=== PATIENT | female | born 1950 | race Native Hawaiian/Other Pacific Islander ===

== ENCOUNTER → 2020-01-30 14:55 | Outpatient (BNVA) | payer MEDICARE, OTHER, SELFPAY | PROVIDERS: PCP Internal Medicine; Referring Provider Internal Medicine; Visit Provider Hospitalist | DX: J44.9 Chronic obstructive pulmonary disease, unspecified (principal); C34.92 Malignant neoplasm of unspecified part of left bronchus or lung; F17.210 Nicotine dependence, cigarettes, uncomplicated | CPT/HCPCS: 99214 ==

== ENCOUNTER 2020-02-02 12:52 | Day surgery (SDC) | payer MEDICARE, OTHER, SELFPAY ==
[2020-01-26 15:23] VITALS: BMI 13.8
--- NOTE | 2020-01-31 09:11 | P.CONAN_ITS ---
Documented by User: Fatoumata Lovell 01/31/20 14:04 HPI - Anesthesia Eval Consult details Narrative: 69yo F for EGD Complex medical hx. S/P Davinci CRISTIAN wedge resection with lymphnode dissection 11/09/19. PET scan showed some possible uptake in upper stomach. Decreased BMI Stable with cardiology 08/28/2019 [facility] Past Medical History Medical History Angina pectoris Arthritis CAD (coronary artery disease) Cancer of left lung Chronic cough Chronic pancreatitis COPD (chronic obstructive pulmonary disease) Elevated cholesterol GERD (gastroesophageal reflux disease) History of IBS HTN (hypertension) Hx of chronic kidney disease Hx of hiatal hernia Hx of pancreatitis Left upper lobe pulmonary nodule Myocardial infarction Nicotine dependence Pulmonary nodules PVD (peripheral vascular disease) Sarcoidosis Thrombosis of right iliac artery Surgical History Surgical History History of lung biopsy Hx of colonoscopy Hx of esophagogastroduodenoscopy Hx of hysterectomy Hx of tonsillectomy Hx of tubal ligation Social History Social History Smoking Status: Current every day smoker Packs Per Day: 0.20 Cigarettes Per Day: 4.0 Years Smoked: 40 Smoked in Last 30 Days: Yes Patient Interested in Nicotine Replacement: No Patient Given Instructions on How to Stop Smoking: No Date Education Initiated: 01/26/20 Second Hand Smoke Exposure: No Use of substances other than those prescribed or required for medical reasons: No Advance Directives: No Advance Directives Information Provided: No Advance Directives on File: No Meds Allergies Allergy/AdvReac Type Severity Reaction Status Date / Time No Known Allergies Allergy Verified 01/30/20 21:56 Home Medications Medication Instructions Recorded Confirmed Type aspirin [Aspir-81] 81 mg PO DAILY 01/26/20 02/02/20 History calcium carbonate-vitamin D3 1 tab PO DAILY 01/26/20 01/30/20 History [Calcium + D] clopidogrel 1 tab PO DAILY 01/26/20 01/30/20 History docusate sodium 1 cap PO BID 01/26/20 01/30/20 History tunlrmxaoan-qbijscuwc-lcfjwfmx INHALATION 01/26/20 01/30/20 History [Trelegy Ellipta] giapyl-lomjejfj-eeqqmpu [Creon] cap PO 01/26/20 01/30/20 History multivitamin 1 tab PO DAILY 01/26/20 01/30/20 History nitroglycerin 1 tab SUBLINGUAL NEEDED 01/26/20 01/30/20 History rosuvastatin 1 tab PO DAILY 01/26/20 01/30/20 History sennosides [senna] 2 tab PO BEDTIME 01/26/20 01/30/20 History flu vacc [id number](65yr up)-PF 240 IM 01/30/20 01/30/20 History mcg/0.7 mL intramuscular syringe Exam Exam Date and Time: January 31, 2020 0911 Height,Weight and Vital Signs: Height 5 ft 2 in Weight 34.473 kg Pertinent Lab Results Pertinent Lab Results: Laboratory Tests 12/29/19 12/29/19 08:58 08:58 WBC 7.4 Hgb 11.3 L Hct 37.3 Plt Count 235 Sodium 142 Potassium 4.9 Chloride 107 BUN 11 Creatinine 0.98 Narrative Narrative: CXR 11/24/19: [place] suture line seen at the left apex. Hyperexpanded lungs. There may be a trace left apical pneumothorax, no unexpected in the postoperative state. EKG 08/28/19: SR @ 67 with RAD, poor R wave progression Documented by User: Brielle Ken 02/02/20 13:53 [facility] Past Medical History Medical History Angina pectoris Arthritis CAD (coronary artery disease) Cancer of left lung Chronic cough Chronic pancreatitis COPD (chronic obstructive pulmonary disease) Elevated cholesterol GERD (gastroesophageal reflux disease) History of IBS HTN (hypertension) Hx of chronic kidney disease Hx of hiatal hernia Hx of pancreatitis Left upper lobe pulmonary nodule Myocardial infarction Nicotine dependence Pulmonary nodules PVD (peripheral vascular disease) Sarcoidosis Thrombosis of right iliac artery Surgical History Surgical History History of lung biopsy Hx of colonoscopy Hx of esophagogastroduodenoscopy Hx of hysterectomy Hx of tonsillectomy Hx of tubal ligation Social History Social History Smoking Status: Current every day smoker Packs Per Day: 0.20 Cigarettes Per Day: 4.0 Years Smoked: 40 Smoked in Last 30 Days: Yes Patient Interested in Nicotine Replacement: No Patient Given Instructions on How to Stop Smoking: No Date Education Initiated: 01/26/20 Second Hand Smoke Exposure: No Use of substances other than those prescribed or required for medical reasons: No Advance Directives: No Advance Directives Information Provided: No Advance Directives on File: No Meds Allergies Allergy/AdvReac Type Severity Reaction Status Date / Time No Known Allergies Allergy Verified 01/30/20 21:56 Home Medications Medication Instructions Recorded Confirmed Type aspirin [Aspir-81] 81 mg PO DAILY 01/26/20 02/02/20 History calcium carbonate-vitamin D3 1 tab PO DAILY 01/26/20 01/30/20 History [Calcium + D] clopidogrel 1 tab PO DAILY 01/26/20 01/30/20 History docusate sodium 1 cap PO BID 01/26/20 01/30/20 History lxufkhpmwwc-eahnvjiqp-gdcpwwbx INHALATION 01/26/20 01/30/20 History [Trelegy Ellipta] qgwkeu-lylvwyvt-mrfttkz [Creon] cap PO 01/26/20 01/30/20 History multivitamin 1 tab PO DAILY 01/26/20 01/30/20 History nitroglycerin 1 tab SUBLINGUAL NEEDED 01/26/20 01/30/20 History rosuvastatin 1 tab PO DAILY 01/26/20 01/30/20 History sennosides [senna] 2 tab PO BEDTIME 01/26/20 01/30/20 History flu vacc [id number](65yr up)-PF 240 IM 01/30/20 01/30/20 History mcg/0.7 mL intramuscular syringe Exam Airway Mallampati Class: II TM Dist: >3cm Neck ROM: Limited Denture: Upper Assessment and Plan Assessment Anesthesia Assessment: Anesthesia Plan Discussed, Smoking Cess. Discussed and Chart Reviewed Final Anesthetic Review NPO: Yes ASA Class: IV Final Preanesthetic Review: No Changes in Pt Med Stat, Meds/Allgs Chart Reviewed, Consent Obtained/Reviewed and Anes Risks/Benef Reviewed Patient Risk: High Procedure Risk: Low Assessment/Block/Sedation in SS: Assess/Block/Sedation-SS Anesthetic Plan Anesthetic Plan: MAC: Disposition: Standard PACU
[2020-02-02 13:15] VITALS: BP 144/62; PULSE 68; RESP 16; TEMP 36.4; O2SAT 98
[2020-02-02 13:29] VITALS: BMI 13.7
--- NOTE | 2020-02-02 14:29 | MHC.SHP ---
Pre-Procedural Eval Section A The History & Physical has been completed within 30 days and I have reviewed it.: No Section B Chief Complaint: Chronic Pancreatitis Details of Present Illness: Upper abdominal pain, elevated lipase Relevant Family History (Specify if Yes): No Relevant Social History: Tobacco Use Present Medications: see Short Stay [facility] assessment Medical History: Significant History ( CAD. Hx NSTEMI - 04/2000 (Dr. Bueno). HTN - Hypertension. HLD - Hypercholesterolemia. PVD - peripheral vascular disease. Iliac Stenosis . Erythrocytosis - intermittent phlebotomies. COPD - chronic obstructive pulmonary disease. Pulmonary nodule) History of Previous Operations: Relevant previous surgery/procedure and date(s) (Hysterectomy - (both ovaries remain) - 1993 Tubal Ligation Left breast biopsy (sclerosiing adenosis, hyperplasia) - Dr. Rochelle [place] [facility] [place] Cardiac Cath [facility] - 04/2000 Colonoscopy (TA) - Dr. Rochelle Durant - [facility] [place] - 08/16/2003 Colonscopy (TA) - Dr. Rochelle Durant [facility] - 11/03/2004 FNA ) Allergies: Allergies Allergy/AdvReac Type Severity Reaction Status Date / Time No Known Allergies Allergy Verified 01/30/20 21:56 Review of Systems Sugical H&P ROS: Negative: Constitution, Cardiovascular and Respiratory and Yes, Specify: Gastrointestinal (Abdominal pain) Exam Surgical H&P Exam: Normal: Heart, Normal: Lungs, Normal: Extremities and Normal: Abdomen Plan Diagnosis/Plan: Unchanged Patient has been examined and remains a candidate for the planned procedure
--- NOTE | 2020-02-02 14:37 | P.BOP_ITS ---
Brief Operative Note Date of procedure: 02/11/20 Pre-op diagnosis: Upper abdominal pain, elevated lipase Post-op diagnosis: other ( erosive esophagitis, gastritis) Procedure: FLEXIBLE TRANSORAL UPPER GASTROINTESTINAL ENDOSCOPY WITH BIOPSIES Consent: Indications for the procedure and potential complications of bleeding, perforation, reaction to medications and missed diagnosis were discussed with the patient and informed consent was obtained. Instrument: Olympus GIF H 190 mid size upper endoscope Monitoring: Vital signs and clinical assessment, continuous EKG monitoring, Pulse oximetry, Carbon Dioxide monitoring and blood pressure monitoring were done throughout the procedure. Procedure: The patient was placed in the left lateral decubitis position and pre-procedure medications were administered and a bite block was placed. The endoscope was inserted into the mouth and advanced under direct vision to the third part of duodenum. A careful inspection was made as the upper endoscope was withdrawn including a retroflexed examination of the proximal stomach; Findings and interventions are described below. Findings: Larynx: Normal Esophagus: GE junction at 40 cms. Esophagitis with a few 1 cms chronic appearing erosions at the GE junction. A 1.5 to 2 cms island of suspected Courtney's from 36 to 38 cms - biopsied. Stomach: Mild gastric erythema. Biopsies were obtained. Grade 2 flap valve on retroflexed examination of the cardia. Duodenum: Normal bulb and descending duodenum. Biopsies wer obtained from 3rd part of duodenum to check for celiac sprue. Intervention: Biopsies as noted above Impression and Post Procedure Diagnosis: Endoscopy Findings: ESOPHAGUS: GE junction at 40 cms. Esophagitis with a few 1 cms chronic appearing erosions at the GE junction. A 1.5 to 2 cms island of suspected Courtney's from 36 to 38 cms - biopsied. STOMACH: Gastritis DUODENUM: Normal - biopsied to check for celiac sprue. Plan: Await pathology results Patient has an appointment on 05/02/19 in the GI Clinic with KISHA Barrera. Above findings were reviewed with the patient and GERD and Gastritis handouts were given in the discharge area Surgeon: Kristal Gomes MD Anesthesia: MAC (Nell Valverde CRNA) Automated Cutting Machine Operator: Manuelito Frost Estimated blood loss (mL): 0 Pathology: other (A. Small bowel, B. Gastric antrum, C. Distal esophagus) Condition: stable Disposition: PACU
[2020-02-02 15:00] VITALS: BP 116/48; PULSE 64; RESP 16; TEMP 36.9; O2SAT 100
[2020-02-02 15:13] VITALS: BP 106/44; O2SAT 100
[2020-02-02 15:29] VITALS: BP 124/56; PULSE 58; RESP 18; TEMP 36.9; O2SAT 99
== END 2020-02-02 15:56 | disposition home or self-care (01) ==
PROVIDERS: PCP Internal Medicine; Visit Provider Internal Medicine Gastroenterology
PROC: 0DJ08ZZ Inspection of Upper Intestinal Tract, Via Natural or Artificial Opening Endoscopic (ICD-10-PCS; CPT 43235; principal; 2020-02-02 14:20)
DX: K21.00 Gastro-esophageal reflux disease with esophagitis, without bleeding (principal); K21.9 Gastro-esophageal reflux disease without esophagitis; K29.50 Unspecified chronic gastritis without bleeding; I25.119 Atherosclerotic heart disease of native coronary artery with unspecified angina pectoris; I10 Essential (primary) hypertension; J44.9 Chronic obstructive pulmonary disease, unspecified; Z79.899 Other long term (current) drug therapy; F17.210 Nicotine dependence, cigarettes, uncomplicated
CPT/HCPCS: 43239; 88305; 88342

== ENCOUNTER → 2020-03-29 09:57 | Outpatient (BNV) | payer MEDICARE, SELFPAY | PROVIDERS: PCP Internal Medicine; Visit Provider Internal Medicine Medical Oncology | DX: C34.12 Malignant neoplasm of upper lobe, left bronchus or lung (principal); D64.9 Anemia, unspecified | CPT/HCPCS: 99213; 99214 ==

== ENCOUNTER 2020-04-29 09:52 | Outpatient (REF) | payer MEDICARE, OTHER, SELFPAY ==
--- NOTE | 2020-04-29 09:56 | CT_ITS ---
EXAMINATION: CT CHEST WITH CONTRAST CLINICAL INFORMATION: Lung cancer COMPARISON: Previous chest CT scans most recent June 2019 TECHNIQUE: Multidetector volumetric CT imaging of the chest was obtained after the administration of 65 mL of Omnipaque 350 intravenous contrast without immediate adverse reactions. Axial MIP volume rendering provided. Sagittal and coronal reformatted images were obtained. This CT examination was performed using dose optimization techniques as appropriate, variously including the following: *Automated exposure control *Adjustment of mA and/or kV according to patient size (this includes techniques or standardized protocols for targeted exams where dose is matched to indication/reason for exam; i.e. extremities or head) *Use of iterative reconstruction technique DLP: 52 mGy-cm FINDINGS: BARREL WASHER: Severe COPD LUNGS: There are new partial postsurgical changes following partial left upper lobe lobectomy. There is a 0.7 mm groundglass attenuation left upper lobe nodule axial image 57 series 7. This is in different location but probably corresponds to previous groundglass attenuation left upper lobe nodule seen on axial image 215 series 7 on prior exam and difference in location and is likely due to interval postsurgical change. There is right apical pleural and parenchymal scarring. There is evidence of centrilobular emphysema. There may be minimal bronchial wall thickening or bronchial soft tissue opacification in the lingula for example axial image 169 series 7. The lungs are otherwise clear. MEDIASTINUM: There is evidence of atherosclerotic disease and coronary artery calcification. The heart does not appear enlarged. There is no pericardial effusion. The thoracic aorta is normal in caliber. There are are no enlarged hilar or mediastinal lymph nodes. The visualized thyroid gland is unremarkable. PLEURA: There is no pleural effusion. No pleural mass or thickening. AXILLA: No lymphadenopathy. UPPER ABDOMEN: Unremarkable OSSEOUS STRUCTURES: There are degenerative changes of the spine and curvature of the proximal lumbar spine to the right.. CT/CT chest w con IMPRESSION: New postsurgical change to the left upper lobe following partial left upper lobe lobectomy. Stable appearance of the 7 mm groundglass attenuation left upper lobe nodule. Emphysema. Stable right apical pleural parenchymal scarring. Atherosclerotic disease.
[2020-04-29] MEDS: iohexoL 350 MG/ML 100 ML INFUS..BTL 65 ML IV (10:29)
== END 2020-04-29 09:53 | disposition home or self-care (01) ==
LOC: HO.CT 09:52
PROVIDERS: Visit Provider Hospitalist
DX: R91.8 Other nonspecific abnormal finding of lung field (principal)
CPT/HCPCS: 71260; Q9967

== ENCOUNTER → 2020-05-17 09:32 | Outpatient (BNVA) | payer MEDICARE, SELFPAY | PROVIDERS: PCP Internal Medicine; Visit Provider Hospitalist | DX: R91.8 Other nonspecific abnormal finding of lung field (principal); C34.12 Malignant neoplasm of upper lobe, left bronchus or lung; J43.2 Centrilobular emphysema; F17.210 Nicotine dependence, cigarettes, uncomplicated; Z79.899 Other long term (current) drug therapy | CPT/HCPCS: 99212; Q3014 ==

== ENCOUNTER → 2020-05-31 09:30 | Outpatient (BNVA) | payer MEDICARE, OTHER, SELFPAY | PROVIDERS: PCP Internal Medicine; Visit Provider Surgery | DX: C34.12 Malignant neoplasm of upper lobe, left bronchus or lung (principal); J43.2 Centrilobular emphysema; F17.210 Nicotine dependence, cigarettes, uncomplicated; Z79.899 Other long term (current) drug therapy; Z79.82 Long term (current) use of aspirin | CPT/HCPCS: 99212 ==

== ENCOUNTER 2020-10-08 08:15 | Outpatient (REF) | payer MEDICARE, SELFPAY ==
--- NOTE | ~2020-10-08 | MM_ITS ---
EXAMINATION: MM SCREENING DIGITAL BREAST TOMOSYNTHESIS, BILATERAL CLINICAL INFORMATION: Screening. Asymptomatic. Prior history benign biopsy left breast, 1998. The lifetime risk of breast cancer based on the Tyrer-Cuzick Model is 2%. COMPARISON: Mammography: 05/08/2019, 03/23/2018, 03/01/2017 TECHNIQUE: Digital breast tomosynthesis is performed in both the craniocaudal and mediolateral oblique views along with computer-aided detection (CAD). Synthesized 2D images are generated from the tomosynthesis. FINDINGS: There are scattered areas of fibroglandular density (ACR BI-RADS breast composition Category b). There are no significant masses, abnormal calcifications, or other abnormalities. Parenchymal pattern is similar to prior studies. No significant changes. MM/MM tomosynthesis screening BI IMPRESSION: No mammographic evidence of malignancy. ASSESSMENT: BI-RADS 1: Negative RECOMMENDATION: Routine annual mammography screening. This patient's information was entered into a reminder system with a target due date for their next mammogram.
== END 2020-10-08 08:16 | disposition home or self-care (01) ==
LOC: HO.MAMMO 08:15
PROVIDERS: Visit Provider Internal Medicine
DX: Z12.31 Encounter for screening mammogram for malignant neoplasm of breast (principal)
CPT/HCPCS: 77063; 77067

== ENCOUNTER → 2020-10-31 09:59 | Outpatient (BNVA) | payer MEDICARE, SELFPAY | PROVIDERS: Referring Provider Internal Medicine; Visit Provider Nurse Practitioner | DX: K21.9 Gastro-esophageal reflux disease without esophagitis (principal); K86.1 Other chronic pancreatitis; K22.10 Ulcer of esophagus without bleeding; R14.0 Abdominal distension (gaseous); R94.4 Abnormal results of kidney function studies; F17.200 Nicotine dependence, unspecified, uncomplicated; Z71.6 Tobacco abuse counseling | CPT/HCPCS: 99212 ==

== ENCOUNTER 2020-11-08 07:46 | Outpatient (REF) | payer MEDICARE, SELFPAY ==
--- NOTE | ~2020-11-08 | CT_ITS ---
EXAMINATION: CT CHEST WITHOUT CONTRAST CLINICAL INFORMATION: Lung cancer left upper lobe COMPARISON: Previous chest CT scans most recent April 2020 TECHNIQUE: Multidetector volumetric CT imaging of the chest was done. Axial MIP volume rendering provided. Sagittal and coronal reformatted images were obtained. This CT examination was performed using dose optimization techniques as appropriate, variously including the following: *Automated exposure control *Adjustment of mA and/or kV according to patient size (this includes techniques or standardized protocols for targeted exams where dose is matched to indication/reason for exam; i.e. extremities or head) *Use of iterative reconstruction technique DLP: 63 mGy-cm FINDINGS: BUSINESS INTEGRATION ANALYST: LUNGS: There is right apical pleural and parenchymal scarring. There are postsurgical changes following partial left upper lobe lobectomy. There is evidence of emphysema. There is a 7 x 8 mm groundglass attenuation left upper lobe nodule axial image 177 series 5 that is stable. The lungs are otherwise clear. MEDIASTINUM: There is evidence of atherosclerotic disease. There is coronary artery calcification. The heart does not appear enlarged. There is no pericardial effusion. There are no enlarged hilar or mediastinal lymph nodes. PLEURA: There is no pleural effusion. No pleural mass or thickening. AXILLA: No lymphadenopathy. UPPER ABDOMEN: There is evidence of severe atherosclerotic disease. There is a stent graft that is partially visualized in the thoracic aorta. OSSEOUS STRUCTURES: There is are degenerative changes of the spine. CT/CT chest wo con IMPRESSION: Emphysema. Stable postsurgical changes following partial left upper lobe lobectomy. Stable 7 x 8 mm left upper lobe groundglass attenuation nodule. Severe atherosclerotic disease. Coronary artery calcification.
== END 2020-11-08 07:47 | disposition home or self-care (01) ==
LOC: HO.CT 07:46
PROVIDERS: Visit Provider Surgery
DX: C34.12 Malignant neoplasm of upper lobe, left bronchus or lung (principal); R91.8 Other nonspecific abnormal finding of lung field
CPT/HCPCS: 71250

== ENCOUNTER → 2020-11-29 09:13 | Outpatient (BNVA) | payer MEDICARE, SELFPAY | PROVIDERS: PCP Internal Medicine; Visit Provider Surgery | DX: C34.12 Malignant neoplasm of upper lobe, left bronchus or lung (principal); Z79.899 Other long term (current) drug therapy; Z87.891 Personal history of nicotine dependence | CPT/HCPCS: 99212 ==

== ENCOUNTER 2021-01-20 16:10 | Outpatient (REF) | payer MEDICARE, SELFPAY ==
[2021-01-20 18:07] LABS: Hematocrit 45.1 % (37-47); Hemoglobin 14.7 g/dl (12.0-16.0); Mean Corpuscular HGB Conc 32.6 g/dl (31.0-35.0); Mean Corpuscular Hemoglobin 29.3 pg (27.0-33.0); Mean Corpuscular Volume 89.8 fL (80-98); Mean Platelet Volume 8.9 fL (9.4-12.3); Platelet Count 181 X10*3/uL (160-400); Red Blood Count 5.02 X10*6/uL (4.20-5.50); Red Cell Distribution Width 13.4 % (11.0-16.0); White Blood Count 8.5 X10*3/uL (4.8-10.8)
[2021-01-20 18:21] LABS: Creatinine Urine 261.93 mg/dL; Microalbum/Creatinine Ratio Ur 68.7 ug/mg cr
[2021-01-20 18:30] LABS: Alanine Aminotransferase 20 U/L (0-31); Albumin Level 4.4 g/dL (3.5-5.0); Alkaline Phosphatase 59 U/L (39-117); Amylase 110 U/L (28-100); Aspartate Amino Transferase 24 U/L (5-31); Bilirubin Direct 0.2 mg/dL (0.0-0.5); Bilirubin Total 0.4 mg/dL (0.0-1.0); Cholesterol 146 mg/dL; HDL Cholesterol 58 mg/dL; Iron 94 mcg/dL (30-160); LDL Cholesterol Calculated 73 mg/dl; Lipase 75 U/L (8-78); Percent Iron Saturation 29 % (15-50); Total Iron Binding Capacity 327 mcg/dL (228-428); Total Protein 6.3 g/dL (6.5-8.0); Triglycerides 75 mg/dL; Unsaturated Iron Binding 233 ug/dL
[2021-01-20 18:36] LABS: Appearance Urine CLEAR; Color Urine YELLOW; Glucose Urine UA NEG (NEG); Leukocyte Esterase Urine NEG (NEG); Nitrite Urine NEG (NEG); Specific Gravity - Urine >= 1.030 (1.005-1.025); Urine Blood NEG (NEG); Urine Ketones 5 MG/DL (NEG); Urine Protein 2+ MG/DL (NEG-TRACE)
[2021-01-20 18:44] LABS: Calcium Oxalate Crystals Urine 1+ /LPF; Mucus Urine 2+ /LPF; RBC Urine 0-2 /HPF (0)
[2021-01-20 18:45] LABS: Bacteria Urine 1+ /LPF; Squamous Epithelial Cell Urine TRACE /LPF
[2021-01-22 03:06] LABS: PTHI 23 pg/mL (14-64)
== END 2021-01-20 16:11 | disposition home or self-care (01) ==
LOC: HO.LAB 16:10
PROVIDERS: PCP Psychiatry & Neurology Neurology; Visit Provider Internal Medicine Hypertension Specialist
DX: I12.9 Hypertensive chronic kidney disease with stage 1 through stage 4 chronic kidney disease, or unspecified chronic kidney disease (principal); K85.90 Acute pancreatitis without necrosis or infection, unspecified; N18.4 Chronic kidney disease, stage 4 (severe)
CPT/HCPCS: 36415; 80061; 80076; 81001; 82043; 82150; 83540; 83690; 83970; 85027

== ENCOUNTER 2021-01-22 11:10 | Outpatient (REF) | payer MEDICARE, SELFPAY ==
[2021-01-22 11:35] LABS: Total Volume 24 Hour Urine 875 mL
[2021-01-22 12:04] LABS: Creatinine, 24Hr Urine 0.5 G/Day (1.0-2.0); Creatinine, mg/dL 59.92; Protein 24 Hr Urine 166 mg/Day (<150); Protein mg/dL 19 mg/dL
== END 2021-01-22 11:11 | disposition home or self-care (01) ==
LOC: HO.LNP 11:10
PROVIDERS: Visit Provider Internal Medicine Hypertension Specialist
DX: N18.4 Chronic kidney disease, stage 4 (severe) (principal)
CPT/HCPCS: 84156

== ENCOUNTER 2021-02-14 13:55 | Outpatient (REF) | payer MEDICARE, SELFPAY ==
--- NOTE | ~2021-02-14 | US_ITS ---
EXAMINATION: US RETROPERITONEAL COMPLETE (RENAL) CLINICAL INFORMATION: Stage 4 CKD. COMPARISON: MRI abdomen 12/01/2018. CT abdomen and pelvis 11/17/2018. Ultrasound abdomen complete 01/19/2017. TECHNIQUE: Real-time imaging of the kidneys and bladder. FINDINGS: RIGHT KIDNEY: 8.3 x 2.8 x 3.7 cm (SAG x AP x TRV). The kidney is normal in size, contour, and echogenicity. Renal cortical thickness is normal. No calculi or focal parenchymal lesions. No hydronephrosis. Multiple small echogenic foci noted, possibly vascular calcification or associated with renal sinus fat. LEFT KIDNEY: 10.0 x 4.0 x 3.4 cm (SAG x AP x TRV). The kidney is normal in size, contour, and echogenicity. Renal cortical thickness is normal. No focal parenchymal lesions or hydronephrosis. Multiple small echogenic foci noted, possibly vascular calcification or associated with renal sinus fat. In addition, there is a 0.2 cm lower pole renal calculus seen. BLADDER: Well distended with small diverticulum noted. Bilateral ureteral jets are demonstrated. Prevoid bladder volume is 202 mL. Postvoid bladder volume is 6.8 mL. Debris noted in the bladder lumen. US/US retroperitoneal comp IMPRESSION: No hydronephrosis. Left lower pole renal calculus. Debris noted within the bladder..
== END 2021-02-14 13:56 | disposition home or self-care (01) ==
LOC: HO.HMGCX 13:55
PROVIDERS: PCP Internal Medicine; Visit Provider Internal Medicine Hypertension Specialist
DX: N18.4 Chronic kidney disease, stage 4 (severe) (principal)
CPT/HCPCS: 76770

== ENCOUNTER → 2021-05-05 13:28 | Outpatient (BNVA) | payer MEDICARE, SELFPAY | PROVIDERS: PCP Internal Medicine; Referring Provider Internal Medicine; Visit Provider Nurse Practitioner | DX: K21.9 Gastro-esophageal reflux disease without esophagitis (principal); K22.10 Ulcer of esophagus without bleeding; K86.1 Other chronic pancreatitis; K59.00 Constipation, unspecified; R14.0 Abdominal distension (gaseous); Z79.899 Other long term (current) drug therapy | CPT/HCPCS: 99212 ==

== ENCOUNTER 2021-05-28 09:57 | Outpatient (REF) | payer MEDICARE, SELFPAY ==
--- NOTE | ~2021-05-28 | CT_ITS ---
EXAMINATION: CT CHEST WITHOUT CONTRAST CLINICAL INFORMATION: Lung cancer left upper lobe COMPARISON: Previous chest CT scans most recent October 2020 TECHNIQUE: Multidetector volumetric CT imaging of the chest was done. Axial MIP volume rendering provided. Sagittal and coronal reformatted images were obtained. This CT examination was performed using dose optimization techniques as appropriate, variously including the following: *Automated exposure control *Adjustment of mA and/or kV according to patient size (this includes techniques or standardized protocols for targeted exams where dose is matched to indication/reason for exam; i.e. extremities or head) *Use of iterative reconstruction technique DLP: 678 mGy-cm FINDINGS: GRISTMILLER: Severe emphysema. LUNGS: There is evidence of emphysema. There is right apical pleural and parenchymal scarring. There are postoperative changes from partial left upper lobe lobectomy. The heterogeneous nodule in the anterior left upper lobe does not appear appreciably changed from most recent exam October 2019. This is peripherally groundglass measuring 0.7 x 0.8 cm in AP and transverse dimension. This has a more central solid component that measures 0.2 x 0.5 cm in AP and transverse dimension. There are scattered areas of increased groundglass attenuation that appears stable. This may be related to airways disease. The largest 4 x 5 mm groundglass attenuation area in the right upper lobe axial image 186 series 7. There is increased soft tissue seen in the right side of the trachea for example axial image 56 series 7. This contains air and is likely related to patient secretions. MEDIASTINUM: There is coronary artery calcification. There is severe atherosclerotic disease. The mediastinum is otherwise normal. PLEURA: There is no pleural effusion. No pleural mass or thickening. AXILLA: No lymphadenopathy. UPPER ABDOMEN: There is severe atherosclerotic disease. There is a stent graft in the aorta. There is a small calcification in the upper pole right kidney questionable for a stone. OSSEOUS STRUCTURES: There are degenerative changes of the spine. CT/CT chest wo con IMPRESSION: Severe emphysema. Stable heterogeneous predominantly groundglass attenuation 7 x 8 mm left upper lobe nodule. Scattered areas of groundglass attenuation, largest in the right upper lobe measuring 4 to 5 mm. Severe atherosclerotic disease and coronary artery calcification. Fleischner guidelines were followed.
== END 2021-05-28 09:58 | disposition home or self-care (01) ==
LOC: HO.CT 09:57
PROVIDERS: PCP Internal Medicine; Visit Provider Surgery
DX: C34.12 Malignant neoplasm of upper lobe, left bronchus or lung (principal); J43.9 Emphysema, unspecified; I25.10 Atherosclerotic heart disease of native coronary artery without angina pectoris
CPT/HCPCS: 71250

== ENCOUNTER → 2021-06-06 08:43 | Outpatient (BNVA) | payer MEDICARE, SELFPAY | PROVIDERS: PCP Internal Medicine; Visit Provider Surgery | DX: C34.12 Malignant neoplasm of upper lobe, left bronchus or lung (principal); R91.8 Other nonspecific abnormal finding of lung field; F17.210 Nicotine dependence, cigarettes, uncomplicated; Z79.899 Other long term (current) drug therapy | CPT/HCPCS: 99212 ==

== ENCOUNTER 2021-09-29 09:06 | Outpatient (REF) | payer MEDICARE, SELFPAY ==
[2021-09-29 10:26] LABS: Anion Gap 12 (12-20); Blood Urea Nitrogen 20 mg/dL (9-16); Calcium 9.8 mg/dL (8.4-10.2); Carbon Dioxide 29 mmol/L (22-29); Chloride 103 mmol/L (96-108); Estimated Glomerular Filt Rate 38; Sodium 139 mmol/L (135-145)
== END 2021-09-29 09:07 | disposition home or self-care (01) ==
LOC: HO.LAB 09:06
PROVIDERS: PCP Internal Medicine; Visit Provider Internal Medicine Hypertension Specialist
DX: I12.9 Hypertensive chronic kidney disease with stage 1 through stage 4 chronic kidney disease, or unspecified chronic kidney disease (principal); N18.9 Chronic kidney disease, unspecified
CPT/HCPCS: 36415; 80051; 82310; 82565; 84520

== ENCOUNTER 2021-10-09 08:21 | Outpatient (REF) | payer MEDICARE, SELFPAY ==
--- NOTE | ~2021-10-09 | MM_ITS ---
EXAMINATION: BONE DENSITOMETRY CLINICAL INDICATION: Osteopenia. COMPARISON: Previous BD dated 02/12/2017 and baseline BD dated 04/10/2005. TECHNIQUE: Using a [employer] DXA System (software version: 13.1) manufactured by [email or web address], dual-energy x-ray absorptiometry was performed of the lumbar spine and left hip. The images are of good technical quality. Summary results are attached. FINDINGS: AP SPINE L1-L4 (excluding L3): The data of L1-L4 has been changed to exclude the L3 vertebral body, because degenerative changes at this level may cause overestimation of lumbar spine density. Current: BMD 1.163 g/cm2, Z-score 2.5, T-score -0.1, normal, 0.1% increase from previous, 4.9% decrease from baseline (<5% change is not significant). Prior: BMD 1.162 g/cm2. Baseline: BMD 1.223 g/cm2. LEFT FEMUR, NECK: Current: BMD 0.876 g/cm2, Z-score 1.1, T-score -1.2, osteopenia. Prior: BMD 0.940 g/cm2. Baseline: BMD 1.083 g/cm2. LEFT FEMUR, TOTAL: Current: BMD 0.715 g/cm2, Z-score -0.2, T-score -2.3, osteopenia, 8.0% decrease from previous, 27.0% decrease from baseline (<5% change is not significant). Prior: BMD 0.777 g/cm2. Baseline: BMD 0.980 g/cm2. IDENTIFIED RISK FACTORS: Early menopause, hysterectomy, low body weight, low calcium intake, renal, secondary osteoporosis, tobacco use (current smoker). HISTORY OF FRACTURE: None listed. MEDICATIONS: None listed. MM/XR DEXA axial skeleton IMPRESSION: 1. DIAGNOSIS: Osteopenia based on the lowest T-score value of -2.3 in the total femur applying World Health Organization criteria. 2. 10-YEAR FRACTURE RISK PREDICTION, FRAX: Major osteoporotic fracture (clinical spine, forearm, hip or shoulder) 4.0%. Hip fracture 0.9%. 3. Treatment Recommendations: NOF guidelines recommend consideration for treatment in postmenopausal women and men age 50 and older presenting with the following: -A hip or vertebral (clinical or morphometric) fracture. -T-score less than or equal to -2.5 at the femoral neck or spine after appropriate evaluation to exclude secondary causes. -Low bone mass at the hip or spine and a 10-year fracture probability by FRAX of greater than or equal to 3% for hip fracture or greater than or equal to 20% for major osteoporotic fracture based on the [place] adapted WHO algorithm. 4. Other Recommendations: All treatment decisions require clinical judgment and consideration of individual patient factors, including patient preferences, comorbidities, previous drug use, risk factors not captured in the FRAX model (e.g. frailty, falls, vitamin D deficiency, increased bone turnover, interval significant decline in bone density) and possible under or overestimation of fracture risk by FRAX. Additional medical evaluation for secondary cause of low bone mineral density may be appropriate. FUTURE SCAN RECOMMENDATION: People with diagnosed cases of osteoporosis or at high risk for fracture should have regular bone mineral density tests. For patients eligible for Medicare, routine testing is allowed once every 2 years. The testing frequency can be increased to one year for patients who have rapidly progressing disease, those who are receiving or discontinuing medical therapy to restore bone mass, or have additional risk factors.
--- NOTE | ~2021-10-09 | MM_ITS ---
EXAMINATION: MM SCREENING DIGITAL BREAST TOMOSYNTHESIS, BILATERAL CLINICAL INFORMATION: Screening. Asymptomatic. The lifetime risk of breast cancer based on the Tyrer-Cuzick Model is 3%. COMPARISON: Mammography: October 08, 2020 and studies dating back to November 22, 2013 TECHNIQUE: Digital breast tomosynthesis is performed in both the craniocaudal and mediolateral oblique views along with computer-aided detection (CAD). Synthesized 2D images are generated from the tomosynthesis. FINDINGS: There are scattered areas of fibroglandular density (ACR BI-RADS breast composition Category b). There are no significant masses, abnormal calcifications, or other abnormalities. MM/MM tomosynthesis screening BI IMPRESSION: There are no significant changes from prior study. ASSESSMENT: BI-RADS 1: Negative RECOMMENDATION: Routine annual mammography screening. This patient's information was entered into a reminder system with a target due date for their next mammogram.
== END 2021-10-09 08:22 | disposition home or self-care (01) ==
LOC: HO.MAMMO 08:21
PROVIDERS: PCP Internal Medicine; Visit Provider Internal Medicine
DX: Z12.31 Encounter for screening mammogram for malignant neoplasm of breast (principal); Z13.820 Encounter for screening for osteoporosis; M85.80 Other specified disorders of bone density and structure, unspecified site; Z78.0 Asymptomatic menopausal state
CPT/HCPCS: 77063; 77067; 77080

== ENCOUNTER 2021-11-27 09:25 | Outpatient (REF) | payer MEDICARE, SELFPAY ==
--- NOTE | ~2021-11-27 | XR_ITS ---
EXAMINATION: XR ABDOMEN WITH DECUBITUS VIEWS CLINICAL INDICATION: Constipation. COMPARISON: MRI abdomen dated 12/01/2018; CT abdomen and pelvis dated 11/17/2018. TECHNIQUE: 4 AP supine and upright views of the abdomen and pelvis are submitted. FINDINGS: The bowel gas pattern is normal, with no evidence of ileus or obstruction. No unusual soft tissue calcifications are noted. No urinary calculus is appreciated. There are diffuse atherosclerotic calcifications, and aortoiliac stent material is noted. There are mesenteric atherosclerotic calcifications. No acute osseous abnormalities seen. This is a moderate lumbar dextroscoliosis. XR/XR abdomen w decubitus IMPRESSION: There is a nonspecific bowel gas pattern, without obstruction or ileus seen. No free intraperitoneal air is noted.
--- NOTE | ~2021-11-27 | CT_ITS ---
EXAMINATION: CT CHEST WITHOUT CONTRAST CLINICAL INFORMATION: Malignant neoplasm of left upper lobe. COMPARISON: Portions of a previous study 05/28/2021. TECHNIQUE: Multidetector volumetric CT imaging of the chest was done. Axial MIP volume rendering provided. Sagittal and coronal reformatted images were obtained. This CT examination was performed using dose optimization techniques as appropriate, variously including the following: *Automated exposure control *Adjustment of mA and/or kV according to patient size (this includes techniques or standardized protocols for targeted exams where dose is matched to indication/reason for exam; i.e. 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 No dense consolidation or edema. LUNGS: No abnormality of the trachea or mainstem bronchi. There is linear metallic suture from partial resection of the left upper lobe with some reticular stranding. No measurable disease along the resection margin. Mixed solid and ground-glass nodule anterior left upper lobe 11/27/2021, series 7, image 164-0.8 cm 05/28/2021, series 7, image 161-0.8 cm 04/29/2020, series 9, image 57-0.6 cm. Subjectively this appears minimally more prominent than 202. Irregular apical pleural thickening on the right is unchanged. There are some vague micronodules suggested in the anterolateral right lower lobe similar to the most recent previous. There are several scattered nonspecific peripheral micronodules similar to previous. 0.3 cm nodule posterior right upper lobe (11/27/2021, series 7, image 140) unchanged. Equivocal 0.4 cm nodule posterior aspect superior segment left lower lobe (series 7, image 151). There is at least mild and possibly moderate centrilobular emphysema. There are some areas of small airway thickening. MEDIASTINUM: There are no enlarged mediastinal or hilar lymph nodes. No abnormality of the esophagus. VASCULAR: Extensive atherosclerotic calcification including the coronary arteries. The heart is relatively diminutive. The main pulmonary artery is normal caliber. PLEURA: No pleural fluid. As described there is some right apical pleural thickening unchanged. AXILLA: No lymphadenopathy. UPPER ABDOMEN: No suspicious abnormality. OSSEOUS STRUCTURES: No suspicious focal lesion. CT/CT chest wo con IMPRESSION: Evidence of previous left upper lobe pulmonary resection. There is a mixed solid and semisolid nodule in the residual left upper lobe anteriorly. No convincing short interval change. However, this appears slightly more prominent than 2020. Continued surveillance strongly recommended. Underlying emphysema. Scattered micronodules similar to previous. Fleischner guidelines were followed.
== END 2021-11-27 09:26 | disposition home or self-care (01) ==
LOC: HO.CT 09:25
PROVIDERS: PCP Internal Medicine; Visit Provider Physician Assistant Medical
DX: C34.12 Malignant neoplasm of upper lobe, left bronchus or lung (principal); K59.00 Constipation, unspecified; K21.9 Gastro-esophageal reflux disease without esophagitis
CPT/HCPCS: 71250; 74021; 99212

== ENCOUNTER 2021-12-05 09:50 | Outpatient (REF) | payer MEDICARE, SELFPAY | END 2021-12-05 09:51 | disposition home or self-care (01) | LOC: HO.BBR 09:50 | PROVIDERS: Visit Provider Internal Medicine Medical Oncology | DX: D75.1 Secondary polycythemia (principal); C34.12 Malignant neoplasm of upper lobe, left bronchus or lung | CPT/HCPCS: 85018; 99195; 99212 ==

== ENCOUNTER 2022-01-14 10:30 | Inpatient (IN) | payer MEDICARE, SELFPAY ==
--- NOTE | ~2022-01-14 | CT_ITS ---
EXAMINATION: CT ABDOMEN AND PELVIS WITHOUT CONTRAST CLINICAL INFORMATION: Abdominal pain. Urinary tract infection. Question pyelonephritis. COMPARISON: Previous MR of the abdomen and CT of the abdomen and pelvis November 2018 TECHNIQUE: Multidetector volumetric imaging was performed from the superior aspect of the liver through the pubic symphysis. Sagittal and coronal reformatted images were obtained on the technologist's workstation. This CT examination was performed using dose optimization techniques as appropriate, variously including the following: *Automated exposure control *Adjustment of mA and/or kV according to patient size (this includes techniques or standardized protocols for targeted exams where dose is matched to indication/reason for exam; i.e. extremities or head) *Use of iterative reconstruction technique DLP: 204 mGy-cm FINDINGS: LUNG BASES: The visualized lung bases are unremarkable. LIVER, GALLBLADDER, AND BILIARY TREE: The liver is normal in size, shape, and attenuation. No focal hepatic lesion or biliary ductal dilatation is present. The gallbladder is unremarkable with no evidence of radiopaque gallstones, gallbladder wall thickening, or obvious pericholecystic inflammatory changes. PANCREAS: Unremarkable. SPLEEN: Unremarkable. ADRENAL GLANDS: Unremarkable. KIDNEYS AND URETERS: There is severe right hydronephrosis. There is significant stranding of the perinephric fat. The right ureter is difficult to follow. There is mild right proximal ureteral dilatation. No obstructing ureteral stone is seen. There are too small 1 to 2 mm stones in the upper pole of the right kidney. The left kidney is normal appearing. BLADDER: Unremarkable. GASTROINTESTINAL TRACT: There is evidence of constipation. Small and large bowel is otherwise normal. The appendix is normal. The stomach is collapsed and difficult to evaluate. ABDOMINAL WALL: No significant hernia is appreciated. LYMPH NODES: Normal. VASCULAR: There is evidence of severe atherosclerotic disease. There are aortobiiliac stents. No aneurysm is seen. PELVIC VISCERA: The uterus may been removed. No pelvic mass. OSSEOUS STRUCTURES: Degenerative changes of the spine and scoliosis. CT/CT abdomen pelvis wo IV con IMPRESSION: Severe right hydronephrosis. There is right perinephric fat stranding. This probably represents backflow of urine secondary to obstruction. Differential would include infection. The right ureter is difficult to follow. There is mild dilatation of the right proximal ureter. No obstructing right ureteral stone is appreciated. Small right upper pole renal stones. Normal left kidney. Normal bladder. Severe constipation. Severe atherosclerotic disease. Fleischner guidelines were followed.
--- NOTE | ~2022-01-14 | FL_ITS ---
EXAMINATION: XR FLUOROSCOPY WITH IMAGES CLINICAL INFORMATION: Cystoscopy COMPARISON: 01/14/2022 TECHNIQUE: Fluoroscopy performed by Yohana. Fluoroscopy time: 11.4. Cumulative Dose: 1.35 mGy. Images: 4. FL/FL guidance in OR FINDINGS/IMPRESSION: Images demonstrate placement of a right nephroureteral stent with proximal end coiling in the hydronephrotic right renal pelvis. Please see operative report.
[2022-01-14 11:47] VITALS: BP 183/67; PULSE 77; RESP 16; TEMP 37.5; O2SAT 97; BMI 14.0
[2022-01-14] MEDS: Ondansetron ODT 4 MG TAB.RAPDIS TRANSLINGU (11:55)
[2022-01-14 12:13] LABS: MANUAL DIFF FLAG NO
[2022-01-14 12:15] LABS: Basophils Percent Auto 0.1 % (0-2); Eosinophils Percent Auto 0.1 % (0-4); Hematocrit 40.6 % (37.0-47.0); Hemoglobin 13.7 g/dl (12.0-16.0); Imm Gran Abs Auto 0.08 X10*3/uL (0.00-0.03); Imm Gran Pct Auto 0.5 % (0.0-0.4); Lymphocytes Absolute Auto 0.8 X10*3/uL (1.2-4.9); Lymphocytes Percent Auto 5.5 % (20-40); Mean Corpuscular HGB Conc 33.7 g/dl (31.0-35.0); Mean Corpuscular Hemoglobin 30.3 pg (27.0-33.0); Mean Corpuscular Volume 89.8 fL (80.0-98.0); Mean Platelet Volume 8.8 fL (9.4-12.3); Monocytes Absolute Auto 0.8 X10*3/uL (0.1-1.2); Monocytes Percent Auto 5.4 % (2-11); Neutrophils Absolute Auto 13.2 x10*3/uL (2.0-8.3); Neutrophils Percent Auto 88.4 % (45-73); Platelet Count 206 X10*3/uL (160-400); Red Blood Count 4.52 X10*6/uL (4.20-5.50); Red Cell Distribution Width 13.2 % (11.0-16.0); White Blood Count 14.9 X10*3/uL (4.8-10.8)
[2022-01-14 12:19] LABS: Appearance Urine Hazy; Color Urine ORANGE; Glucose Urine UA 100 mg/dL (Negative); PH 5.5 (5.0-9.0); Specific Gravity - Urine >= 1.030 (1.005-1.025); UMIC TRIGGER UACC YES; Urine Blood Large (3+) (Negative); Urine Ketones Trace mg/dL (Negative); Urine Protein 300 (3+) mg/dL (Neg-Trace)
[2022-01-14 12:29] LABS: Anion Gap 24 (12-20); Blood Urea Nitrogen 27 mg/dL (9-16); Carbon Dioxide 20 mmol/L (22-29); Chloride 100 mmol/L (96-108); Creatinine Clr Calc Pharmacy 11.8; Estimated Glomerular Filt Rate 19; Glucose Random 118 mg/dL (60-115); Potassium 3.7 mmol/L (3.3-5.1); Sodium 140 mmol/L (135-145)
[2022-01-14 12:40] LABS: Bacteria Urine 4+ (None Seen); RBC Urine 0-2 /HPF (0-2); WBC Urine 0-5 /HPF (0-5)
--- NOTE | 2022-01-14 15:17 | ED_ITS ---
HPI - Female Genitourinary General Chief complaint: Urogenital-Female <Alba EmanuelSUSANNAH - Last Filed: 01/14/22 17:38> Stated complaint: sever kidney infection <Alba EmanuelSUSANNAH - Last Filed: 01/14/22 17:38> Time Seen by Provider: 01/14/22 15:03 <Alba Nelson SUSANNAH Emanuel - Last Filed: 01/14/22 17:38> Source: patient <Alba EmanuelSUSANNAH - Last Filed: 01/14/22 17:38> Mode of arrival: ambulatory <Alba EmanuelSUSANNAH - Last Filed: 01/14/22 17:38> Limitations: no limitations <Alba EmanuelSUSANNAH - Last Filed: 01/14/22 17:38> History of Present Illness HPI Narrative: Patient presents to emergency department after referral from urgent care. She reports 5 days ago she began having urinary symptoms dysuria and urinary frequency she took [id number] azo for 2 days and her symptoms resolved. Three days ago she developed right flank pain that has become increasingly worsened more severe. At Urgent Care was found to have urinary tract infection and significant CVA tenderness therefore was referred to emergency department for further evaluation. She denies any known fever, however she has been taking acetaminophen multiple times daily for pain without significant improvement. Has associated nausea and dry heaving but no vomiting. Reports decreased oral intake. Denies abdominal pain. <Alba EmanuelSUSANNAH - Last Filed: 01/14/22 17:38> Related Data Home medications: Home Medications Medication Instructions Recorded Confirmed clopidogrel 75 mg tablet (Plavix) 1 tab PO DAILY 01/26/20 01/14/22 nitroglycerin 0.4 mg sublingual 1 tab sublingual NEEDED angina 01/26/20 01/14/22 tablet rosuvastatin 20 mg tablet 1 tab PO DAILY 01/26/20 01/14/22 docusate sodium 100 mg capsule 100 mg PO BID PRN Constipation 12/05/21 01/14/22 simethicone 180 mg capsule 180 mg PO QID PRN Abdominal 12/05/21 01/14/22 Discomfort Previous Rx's Medication Instructions Recorded diltiazem HCl 240 mg 240 mg PO DAILY #90 caps 07/11/21 capsule,extended release 24 hr Trelegy Ellipta 100 mcg-62.5 1 inh inhalation DAILY #60 ea 10/06/21 mcg-25 mcg powder for inhalation (bncribpnmlu-hbwxowmhc-hbaxianx) famotidine 40 mg tablet (Pepcid) 40 mg PO BEDTIME #30 tabs 11/27/21 lubiprostone 8 mcg capsule 8 mcg PO BID #60 caps 11/27/21 (Amitiza) <Alba Emanuel CNP - Last Filed: 01/14/22 17:38> Allergies/Adverse reactions: Allergies Allergy/AdvReac Type Severity Reaction Status Date / Time No Known Allergies Allergy Verified 01/14/22 09:04 <Alba Emanuel CNP - Last Filed: 01/14/22 17:38> Review of Systems Review of Systems: Constitutional : No Weight loss, No Fever, No Chills ENT/Mouth :? No sore throat, No Rhinorrhea Eyes: No Swelling, No Redness Cardiovascular : No Chest Pain, No SOB, No Edema Respiratory : No Cough, No Sputum, No Wheezing Gastrointestinal : Positive Nausea, no Vomiting, no Diarrhea, no abdominal pain, No Hematochezia, No Melena Genitourinary : No Dysuria, No Urinary Frequency, No Hematuria, No Urgency. Positive flank pain Musculoskeletal : No joint pain, No Myalgias, No Joint Swelling Skin : No Skin Lesions, No rash Neuro : No Weakness, No Numbness, No Dizziness, No Headache Psych : No Anxiety/Panic, No Depression Heme/Lymph: No Bruising, No Lymphadenopathy Endocrine : No Polyuria, No Polydipsia <Alba Emanuel CNP - Last Filed: 01/14/22 17:38> Yes all other systems are reviewed and are negative <Alba Emanuel CNP - Last Filed: 01/14/22 17:38> [facility] Past Medical History Attestation statement: The following information was validated with the patient. <Alba Emanuel CNP - Last Filed: 01/14/22 17:38> Source: old records reviewed <Alba Emanuel CNP - Last Filed: 01/14/22 17:38> Medical History: Medical History Angina pectoris Arthritis CAD (coronary artery disease) Chronic cough Chronic pancreatitis COPD (chronic obstructive pulmonary disease) Elevated cholesterol Erythrocytosis GERD (gastroesophageal reflux disease) History of IBS HTN (hypertension) Hx of chronic kidney disease Hx of hiatal hernia Malignant neoplasm of upper lobe of left lung (~2019) Myocardial infarction (~2000) Nicotine dependence Pulmonary nodules PVD (peripheral vascular disease) Sarcoidosis Thrombosis of right iliac artery <Alba Emanuel CNP - Last Filed: 01/14/22 17:38> Surgical History: Surgical History History of cardiac cath (~2000) History of colonoscopy (~2018) History of endarterectomy (~2016) History of esophagogastroduodenoscopy (EGD) (~2019) History of lung biopsy (~2019) History of lung surgery (~2019) History of partial hysterectomy Hx of tonsillectomy Hx of tubal ligation <Alba Emanuel CNP - Last Filed: 01/14/22 17:38> Family History Family History: Family History Father Heart disease Mother Heart disease Brother Diabetes Sister Mental health disorder <Alba Emanuel CNP - Last Filed: 01/14/22 17:38> Social History Social History: Social History Household Members: Spouse and Children Housing: House Are you a primary career development engineer to a significant other at home: No Do you presently have visiting nurse or other home services: No Alcohol intake: current Alcohol intake frequency: holidays/special occasions only Patient Tobacco Use Status: Current everyday Tobacco user Tobacco use type: Cigarette Years Smoked: 40 e-Cigarette/Vaping Use: Never Used Second Hand Smoke Exposure: No Advance Directives: No Advance Directives Information Provided: Yes service: No Current occupational status: retired Cognitive needs: No Hearing needs: No Vision needs: Yes <Alba Emanuel CNP - Last Filed: 01/14/22 17:38> Physical Exam Vital Signs: Vital Signs: Last Vital Signs Temp 99.5 F 01/14/22 11:47 Pulse 77 09/28/22 11:47 Resp 16 01/14/22 18:17 BP 183/67 H 01/14/22 11:47 Pulse Ox 97 01/14/22 11:47 O2 Del Method 01/14/22 11:47 BMI result Body Mass Index 14.0 <Alba Emanuel CNP - Last Filed: 01/14/22 17:38> Vital Signs: Last Vital Signs Temp 99.5 F 01/14/22 11:47 Pulse 77 01/14/22 11:47 Resp 16 01/14/22 18:17 BP 183/67 H 01/14/22 11:47 Pulse Ox 97 01/14/22 11:47 O2 Del Method 01/14/22 11:47 BMI result Body Mass Index 14.0 <Mariusz Joseph MD - Last Filed: 01/14/22 18:45> Course Course Course Narrative: Patient is a 71-year-old female with a past medical history of lung cancer, anemia, hypertension, CKD, GERD, chronic pancreatitis, COPD, sarcoidosis, peripheral vascular disease, recent COVID-19 infection. She presents emergency department today for evaluation of right flank pain. She is hypertensive otherwise vital signs are stable no tachycardia, afebrile however she has been taking acetaminophen routinely. Has significant CVA tenderness on the right upon examination. Of note, patient tested positive for COVID-19 on 12/23/2021, began Paxlovid 12/24/2021 and discontinued prior to completion of treatment on 12/27/2021 as she reports that her symptoms were significantly worse despite taking the medication. Will obtain CBC to evaluate for leukocytosis/ anemia, CMP to evaluate for abnormal electrolytes /abnormal renal function/ abnormal hepatic function, CT of the abdomen and pelvis to evaluate for pyelonephritis, and Urinalysis. Patient received 1 L IV fluids, ceftriaxone 1 g IV, lactic acid, and blood cultures. Zofran IV for nausea, morphine IV for pain. <Alba Emanuel CNP - Last Filed: 01/14/22 17:38> Reevaluation(s) Reevaluation #1: CBC reveals leukocytosis at 14.9 with shift. Acute renal injury BUN 27 creatinine 2.49 compared to prior obtained in September 2021 BUN 20 creatinine 1.38. Lactic acid is normal. Pain initially improved with morphine, increased pain after CT scan will receive an additional dose of morphine at this time. CT is pending. <Alba Emanuel CNP - Last Filed: 01/14/22 17:38> Time: 16:47 <Alba Emanuel CNP - Last Filed: 01/14/22 17:38> Reevaluation #2: CT reveals severe right hydronephrosis with perinephric fat stranding representing urine back flow secondary to obstruction and/or infection no obstructing ureteral stone appreciated. Awaiting call back from Urology at this time, call placed as well as secure messaging. Spoke with hospitalist, Dr. Ojeda who accepts patient for admission to medicine service. Patient updated on plan of care. Verbalizes understanding. <Alba Emanuel CNP - Last Filed: 01/14/22 17:38> Time: 17:00 <Alba Emanuel CNP - Last Filed: 01/14/22 17:38> Reevaluation #3: Case discussed with Dr. Cunningham plan to keep the patient NPO continue IV antibiotics might plan to do ureteral stenting on the right side in a.m. <Mariusz Joseph MD - Last Filed: 01/14/22 18:45> Time: 18:42 <Mariusz Joseph MD - Last Filed: 01/14/22 18:45> MDM - Female Genitourinary Medical Records Attestation: I reviewed the patient's medical records. <Alba Emanuel CNP - Last Filed: 01/14/22 17:38> Lab Data Attestation: I reviewed the patient's lab results. <Alba Emanuel CNP - Last Filed: 01/14/22 17:38> Result diagrams: : 01/14/22 12:07 01/14/22 12:07 <Alba Emanuel CNP - Last Filed: 01/14/22 17:38> Labs: Lab Results 01/14/22 01/14/22 01/14/22 Range/Units 12:04 12:07 12:07 WBC 14.9 H (4.8-10.8) X10*3/uL RBC 4.52 (4.20-5.50) X10*6/uL Hgb 13.7 (12.0-16.0) g/dl Hct 40.6 (37.0-47.0) % MCV 89.8 (80.0-98.0) fL MCH 30.3 (27.0-33.0) pg MCHC 33.7 (31.0-35.0) g/dl RDW 13.2 (11.0-16.0) % Plt Count 206 (160-400) X10*3/uL MPV 8.8 L (9.4-12.3) fL Immature Gran % (Auto) 0.5 H (0.0-0.4) % Neut % (Auto) 88.4 H (45-73) % Lymph % (Auto) 5.5 L (20-40) % [place] % (Auto) 5.4 (2-11) % Eos % (Auto) 0.1 (0-4) % Baso % (Auto) 0.1 (0-2) % Lymph # (Auto) 0.8 L (1.2-4.9) X10*3/uL [place] # (Auto) 0.8 (0.1-1.2) X10*3/uL Eos # (Auto) 0.0 (0.0-0.4) X10*3/uL Baso # (Auto) 0.0 (0.0-0.2) X10*3/uL Abs Immat Gran (auto) 0.08 H (0.00-0.03) X10*3/uL Absolute Neuts (auto) 13.2 H (2.0-8.3) x10*3/uL Absolute Nucleated RBC 0.000 (0.0-0.012) X10*3/uL Nucleated RBC % (auto) 0.0 (0.0-0.2) /100WBC Sodium 140 (135-145) mmol/L Potassium 3.7 D (3.3-5.1) mmol/L Chloride 100 (96-108) mmol/L Carbon Dioxide 20 L (22-29) mmol/L Anion Gap 24 H (12-20) BUN 27 H (9-16) mg/dL Creatinine 2.49 H (0.5-1.4) mg/dL Estim Creat Clear Calc 11.8 Estimated GFR 19 Random Glucose 118 H (60-115) mg/dL Lactic Acid (0.5-2.0) mmol/L Calcium 9.0 D (8.4-10.2) mg/dL Urine Color ORANGE Urine Appearance Hazy Urine pH 5.5 (5.0-9.0) Ur Specific [place] >= 1.030 H (1.005-1.025) Urine Protein 300 (3+) H (Neg-Trace) mg/dL Urine Glucose (UA) 100 H (Negative) mg/dL Urine Ketones Trace (Negative) mg/dL Urine Blood Large (3+) H (Negative) Urine Nitrite See Note (Negative) Ur Leukocyte Esterase See Note (Negative) Urine RBC 0-2 (0-2) /HPF Urine WBC 0-5 (0-5) /HPF Ur Squamous Epith Cells 6-10 (0-2) /HPF Urine Bacteria 4+ (None Seen) Hyaline Casts 3-5 (0-2) /LPF COVID-19 (LEATHA) (Negative) COVID-19 Clin Com 01/14/22 01/14/22 Range/Units 15:45 15:45 WBC (4.8-10.8) X10*3/uL RBC (4.20-5.50) X10*6/uL Hgb (12.0-16.0) g/dl Hct (37.0-47.0) % MCV (80.0-98.0) fL MCH (27.0-33.0) pg MCHC (31.0-35.0) g/dl RDW (11.0-16.0) % Plt Count (160-400) X10*3/uL MPV (9.4-12.3) fL Immature Gran % (Auto) (0.0-0.4) % Neut % (Auto) (45-73) % Lymph % (Auto) (20-40) % [place] % (Auto) (2-11) % Eos % (Auto) (0-4) % Baso % (Auto) (0-2) % Lymph # (Auto) (1.2-4.9) X10*3/uL [place] # (Auto) (0.1-1.2) X10*3/uL Eos # (Auto) (0.0-0.4) X10*3/uL Baso # (Auto) (0.0-0.2) X10*3/uL Abs Immat Gran (auto) (0.00-0.03) X10*3/uL Absolute Neuts (auto) (2.0-8.3) x10*3/uL Absolute Nucleated RBC (0.0-0.012) X10*3/uL Nucleated RBC % (auto) (0.0-0.2) /100WBC Sodium (135-145) mmol/L Potassium (3.3-5.1) mmol/L Chloride (96-108) mmol/L Carbon Dioxide (22-29) mmol/L Anion Gap (12-20) BUN (9-16) mg/dL Creatinine (0.5-1.4) mg/dL Estim Creat Clear Calc Estimated GFR Random Glucose (60-115) mg/dL Lactic Acid 1.1 (0.5-2.0) mmol/L Calcium (8.4-10.2) mg/dL Urine Color Urine Appearance Urine pH (5.0-9.0) Ur Specific [place] (1.005-1.025) Urine Protein (Neg-Trace) mg/dL Urine Glucose (UA) (Negative) mg/dL Urine Ketones (Negative) mg/dL Urine Blood (Negative) Urine Nitrite (Negative) Ur Leukocyte Esterase (Negative) Urine RBC (0-2) /HPF Urine WBC (0-5) /HPF Ur Squamous Epith Cells (0-2) /HPF Urine Bacteria (None Seen) Hyaline Casts (0-2) /LPF COVID-19 (LEATHA) Negative (Negative) COVID-19 Clin Com See Note <Alba Emanuel, SUSANNAH - Last Filed: 01/14/22 17:38> Lab Results 01/14/22 01/14/22 01/14/22 Range/Units 12:04 12:07 12:07 WBC 14.9 H (4.8-10.8) X10*3/uL RBC 4.52 (4.20-5.50) X10*6/uL Hgb 13.7 (12.0-16.0) g/dl Hct 40.6 (37.0-47.0) % MCV 89.8 (80.0-98.0) fL MCH 30.3 (27.0-33.0) pg MCHC 33.7 (31.0-35.0) g/dl RDW 13.2 (11.0-16.0) % Plt Count 206 (160-400) X10*3/uL MPV 8.8 L (9.4-12.3) fL Immature Gran % (Auto) 0.5 H (0.0-0.4) % Neut % (Auto) 88.4 H (45-73) % Lymph % (Auto) 5.5 L (20-40) % [place] % (Auto) 5.4 (2-11) % Eos % (Auto) 0.1 (0-4) % Baso % (Auto) 0.1 (0-2) % Lymph # (Auto) 0.8 L (1.2-4.9) X10*3/uL [place] # (Auto) 0.8 (0.1-1.2) X10*3/uL Eos # (Auto) 0.0 (0.0-0.4) X10*3/uL Baso # (Auto) 0.0 (0.0-0.2) X10*3/uL Abs Immat Gran (auto) 0.08 H (0.00-0.03) X10*3/uL Absolute Neuts (auto) 13.2 H (2.0-8.3) x10*3/uL Absolute Nucleated RBC 0.000 (0.0-0.012) X10*3/uL Nucleated RBC % (auto) 0.0 (0.0-0.2) /100WBC Sodium 140 (135-145) mmol/L Potassium 3.7 D (3.3-5.1) mmol/L Chloride 100 (96-108) mmol/L Carbon Dioxide 20 L (22-29) mmol/L Anion Gap 24 H (12-20) BUN 27 H (9-16) mg/dL Creatinine 2.49 H (0.5-1.4) mg/dL Estim Creat Clear Calc 11.8 Estimated GFR 19 Random Glucose 118 H (60-115) mg/dL Lactic Acid (0.5-2.0) mmol/L Calcium 9.0 D (8.4-10.2) mg/dL Urine Color ORANGE Urine Appearance Hazy Urine pH 5.5 (5.0-9.0) Ur Specific [place] >= 1.030 H (1.005-1.025) Urine Protein 300 (3+) H (Neg-Trace) mg/dL Urine Glucose (UA) 100 H (Negative) mg/dL Urine Ketones Trace (Negative) mg/dL Urine Blood Large (3+) H (Negative) Urine Nitrite See Note (Negative) Ur Leukocyte Esterase See Note (Negative) Urine RBC 0-2 (0-2) /HPF Urine WBC 0-5 (0-5) /HPF Ur Squamous Epith Cells 6-10 (0-2) /HPF Urine Bacteria 4+ (None Seen) Hyaline Casts 3-5 (0-2) /LPF COVID-19 (LEATHA) (Negative) COVID-19 Clin Com 01/14/22 01/14/22 Range/Units 15:45 15:45 WBC (4.8-10.8) X10*3/uL RBC (4.20-5.50) X10*6/uL Hgb (12.0-16.0) g/dl Hct (37.0-47.0) % MCV (80.0-98.0) fL MCH (27.0-33.0) pg MCHC (31.0-35.0) g/dl RDW (11.0-16.0) % Plt Count (160-400) X10*3/uL MPV (9.4-12.3) fL Immature Gran % (Auto) (0.0-0.4) % Neut % (Auto) (45-73) % Lymph % (Auto) (20-40) % [place] % (Auto) (2-11) % Eos % (Auto) (0-4) % Baso % (Auto) (0-2) % Lymph # (Auto) (1.2-4.9) X10*3/uL [place] # (Auto) (0.1-1.2) X10*3/uL Eos # (Auto) (0.0-0.4) X10*3/uL Baso # (Auto) (0.0-0.2) X10*3/uL Abs Immat Gran (auto) (0.00-0.03) X10*3/uL Absolute Neuts (auto) (2.0-8.3) x10*3/uL Absolute Nucleated RBC (0.0-0.012) X10*3/uL Nucleated RBC % (auto) (0.0-0.2) /100WBC Sodium (135-145) mmol/L Potassium (3.3-5.1) mmol/L Chloride (96-108) mmol/L Carbon Dioxide (22-29) mmol/L Anion Gap (12-20) BUN (9-16) mg/dL Creatinine (0.5-1.4) mg/dL Estim Creat Clear Calc Estimated GFR Random Glucose (60-115) mg/dL Lactic Acid 1.1 (0.5-2.0) mmol/L Calcium (8.4-10.2) mg/dL Urine Color Urine Appearance Urine pH (5.0-9.0) Ur Specific [place] (1.005-1.025) Urine Protein (Neg-Trace) mg/dL Urine Glucose (UA) (Negative) mg/dL Urine Ketones (Negative) mg/dL Urine Blood (Negative) Urine Nitrite (Negative) Ur Leukocyte Esterase (Negative) Urine RBC (0-2) /HPF Urine WBC (0-5) /HPF Ur Squamous Epith Cells (0-2) /HPF Urine Bacteria (None Seen) Hyaline Casts (0-2) /LPF COVID-19 (LEATHA) Negative (Negative) COVID-19 Clin Com See Note <Mariusz Joseph MD - Last Filed: 01/14/22 18:45> Imaging Data CT scan - abdomen: Radiologist's impression: CT/CT abdomen pelvis wo IV con ?IMPRESSION: Severe right hydronephrosis. There is right perinephric fat stranding. This probably represents backflow of urine secondary to obstruction. Differential would include infection. The right ureter is difficult to follow. There is mild dilatation of the right proximal ureter. No obstructing right ureteral stone is appreciated. Small right upper pole renal stones. Normal left kidney. Normal bladder. ? Severe constipation. ? Severe atherosclerotic disease. <Alba Emanuel CNP - Last Filed: 01/14/22 17:38> Discharge Plan Discharge Clinical Impression: Acute kidney injury, Urinary tract infection, Hydronephrosis of right ki dney, Constipation <Alba Emanuel CNP - Last Filed: 01/14/22 17:38> Patient Disposition: Admitted As Inpatient <Alba Emanuel CNP - Last Filed: 01/14/22 17:38>
--- OUTSIDE RECORDS SUMMARY | 2022-01-14 15:34 | XMS_ITS | Continuity of Care Document ---
:1950 Author Organization [facility] Address [address] [place] [address]- Care Team Providers Name Role Phone Brando LINTON, Asma Primary Care Physician Encounter [facility] [id number] Date(s): 10/23/20 - 11/22/20 [facility] [address] [place], [place] [address] Attending Physician: Vaibhav Acosta Admitting Physician: Vaibhav Acosta Referring Physician: AdmtrVaibhav Allergies, Adverse Reactions, Alerts Substance Reaction Severity Status NKA Active Medications aspirin 81 mg oral tablet 1 tablet = 81 mg, By Mouth, Daily, # 30 tablet, 0 Refills, Maintenance, Tablet Start Date: 04/05/12 Status: OrderedCalcium 600 +D 1 tablet, By Mouth, 3 times a day, 0 Refills, Maintenance Start Date: 04/05/12 Status: Ordereddiltiazem 24 hour extended release = 120 mg, By Mouth, Daily, 0 Refills, Maintenance, 11/16/16 16:23:48 Start Date: 11/16/16 Status: OrderedFerrous Sulfate ER Refills 0, Maintenance, 10/09/20 16:58:00 EDT, Partial fill upon patient request if the prescriptionis for a schedule II opioid drug. Start Date: 10/09/20 Status: Orderedfluticasone-vilanterol See Instructions, Inhalation every other day, 0 Refills, Maintenance, 02/10/17 9:41:31 Start Date: 02/10/17 Status: OrderedMultivitamin Daily, 0 Refills, Maintenance, 07/14/17 10:20:57 EDT Start Date: 07/14/17 Status: OrderedPlavix 75 mg oral tablet 75 mg, 1, tablet, By Mouth, Daily, # 90 tablet, Refills 3, Tot. Refills 3, Maintenance, 04/04/20 8:30:00 EST, Route to Pharmacy Electronically, [facility]/pharmacy #[id number], 157.5, cm, 02/01/19 9:06:00 EDT, Height Start Date: 04/04/20 Status: Orderedrosuvastatin 20 mg oral tablet 1 tablet = 20 mg, By Mouth, Daily, 0 Refills, Maintenance, 04/07/17 15:44:32 Start Date: 04/07/17 Status: Ordered Problem List Condition Effective Dates Status Health Status Informant Cachexia(Confirmed) Active CAD (coronary artery 2000 Active disease)(Confirmed) Chronic renal insufficiency(Confirmed) Active Erythrocytosis(Confirmed) Active HLD (hyperlipidemia)(Confirmed) Active HTN (hypertension)(Confirmed) Active Pulmonary nodule, left upper lobe, Active biopsy(Confirmed) [place] (myocardial 2000 Active infarction)(Confirmed) OA (osteoarthritis)(Confirmed) Active PAD (peripheral artery Active disease)(Confirmed) Palpitations(Confirmed) Active Centrilobular Emphysema of Active lung(Confirmed) Current smoker, 1-1.5 ppd X49 Active years(Confirmed) Social History Social History Type Response Smoking Status Current some day smoker; Typ e: Cigarettes; Tobacco use times per day: 1.5 ppd; entered on: 07/14/17 Sex
--- OUTSIDE RECORDS SUMMARY | 2022-01-14 15:34 | XMS_ITS | Continuity of Care Document ---
:1950 Author Organization [facility] Address [address] [place] [address]- Care Team Providers Name Role Phone Brando LINTON, Cheo Primary Care Physician [id number] Date(s): 10/29/20 - 11/05/20 [facility] [address] [place] [place], [place] [address] Attending Physician: Meena BEARD, Marlene Nelson Admitting Physician: Meena BEARD, Marlene Nelson Referring Physician: Cheo Michaels MD Allergies, Adverse Reactions, Alerts Substance Reaction Severity [...] 04/04/20 8:30:00 EST, Route to Pharmacy Electronically, [facility]/pharmacy #[id number], 157.5, cm, 02/01/19 9:06:00 EDT, Height [...] nodule, left upper lobe, Active biopsy(Confirmed) Old [place] (myocardial 2000 Active infarction)(Confirmed) OA (osteoarthritis)(Confirmed) Active PAD (peripheral artery Active disease)(Confirmed) Palpitations(Confirmed) Active Centrilobular Emphysema of Active lung(Confirmed) Current smoker, 1-1.5 ppd X49 Active years(Confirmed) Social History Social History Type Response Smoking Status Current some day smoker; Typ e: Cigarettes; Tobacco use times per day: 1.5 ppd; entered on: 07/14/17 Sex
--- OUTSIDE RECORDS SUMMARY | 2022-01-14 15:34 | XMS_ITS | Continuity of Care Document ---
:1950 Author Organization [facility] Address [address] [place] [address]- Care Team Providers Name Role Phone Brando LINTON, Asma Primary Care Physician En[facility] [id number] Date(s): 11/04/21 - 12/04/21 [facility] [address] [place], [place] [address] Attending Physician: Vaibhav Acosta Admitting Physician: AdmtrVaibhav Referring Physician: AdmtrVaibhav Allergies, Adverse Reactions, Alerts No Known Allergies Medications aspirin 81 mg oral tablet 1 tablet = 81 mg, By Mouth, Daily, # 30 tablet, 0 Refills, Maintenance, Tablet Start Date: 04/05/12 Status: Ordereddiltiazem 24 hour extended release = 120 mg, By Mouth, Daily, 0 Refills, Maintenance, 11/16/16 16:23:48 Start Date: 11/16/16 Status: Orderedfluticasone-vilanterol See Instructions, Inhalation every other day, 0 Refills, Maintenance, 02/10/17 9:41:31 Start Date: 02/10/17 Status: OrderedMultivitamin Daily, 0 Refills, Maintenance, 07/14/17 10:20:57 EDT Start Date: 07/14/17 Status: OrderedPlavix 75 mg oral tablet 75 mg, 1, tablet, By Mouth, Daily, # 90 tablet, Refills 5, Tot. Refills 5, Maintenance, 06/12/21 8:49:00 EST, Route to Pharmacy Electronically, [facility]/pharmacy #[id number], 157.5, cm, 04/22/21 8:48:00 EST, Height Start Date: 06/12/21 Status: Orderedrosuvastatin 20 mg oral tablet 1 tablet = 20 mg, By Mouth, Daily, 0 Refills, Maintenance, 04/07/17 15:44:32 Start Date: 04/07/17 Status: Ordered Problem List Condition Effective Dates Status Health Status Informant Cachexia(Confirmed) Active CAD (coronary artery 2000 Active disease)(Confirmed) Chronic renal insufficiency(Confirmed) Active Erythrocytosis(Confirmed) Active HLD (hyperlipidemia)(Confirmed) Active HTN (hypertension)(Confirmed) Active Pulmonary nodule, left upper lobe, Active biopsy(Confirmed) Old [place] (myocardial 2000 Active infarction)(Confirmed) OA (osteoarthritis)(Confirmed) Active PAD (peripheral artery Active disease)(Confirmed) Palpitations(Confirmed) Active Centrilobular Emphysema of Active lung(Confirmed) Current smoker, 1-1.5 ppd X49 Active years(Confirmed) Underweight(Confirmed) Active Social History Social History Type Response Smoking Status Current some day smoker; Typ e: Cigarettes; Tobacco use times per day: 1.5 ppd; entered on: 07/14/17 Sex
--- OUTSIDE RECORDS SUMMARY | 2022-01-14 15:34 | XMS_ITS | Continuity of Care Document ---
:1950 Author Organization [facility] Address [address] [place] [address]- Care Team Providers Name Role Phone Brando LINTON, Asma Primary Care Physician Encounter [facility] [id number] Date(s): 08/30/19 - 09/06/19 [facility] [address] [place] [address]- [facility] Attending Physician: Campbell Marie MD Admitting Physician: Campbell Marie MD Allergies, Adverse Reactions, Alerts Substance Reaction [...] tablet, Refills 3, Tot. Refills 3, Maintenance, 03/29/19 15:50:56 EST, Route to Pharmacy Electronically, [id number], [facility]/pharmacy #[id number], 157.5, cm, 02/01/19 9:06:18 EDT, Height Start Date: 03/29/19 Status: Orderedrosuvastatin 20 mg oral tablet 1 tablet = 20 mg, By Mouth, Daily, 0 Refills, Maintenance, 04/07/17 15:44:32 Start Date: 04/07/17 Status: Ordered Problem List Condition Effective Dates Status Health Status Informant Cachexia(Confirmed) Active CAD (coronary artery 2000 Active disease)(Confirmed) Chronic renal insufficiency(Confirmed) Active Erythrocytosis(Confirmed) Active HLD (hyperlipidemia)(Confirmed) Active HTN (hypertension)(Confirmed) Active Pulmonary nodule, left upper lobe, Active biopsy(Confirmed) Old [place] (myocardial 2000 Active infarction)(Confirmed) OA (osteoarthritis)(Confirmed) Active PAD (peripheral artery Active disease)(Confirmed) Palpitations(Confirmed) Active Centrilobular Emphysema of Active lung(Confirmed) Current smoker, 1-1.5 ppd X49 Active years(Confirmed) Social History Social History Type Response Smoking Status Current some day smoker; Typ e: Cigarettes; Tobacco use times per day: 1.5 ppd; entered on: 07/14/17 Sex
--- OUTSIDE RECORDS SUMMARY | 2022-01-14 15:34 | XMS_ITS | Continuity of Care Document ---
:1950 Author Organization [facility] Address [address] [place] [address]- Care Team Providers Name Role Phone Brando LINTON, Cheo Primary Care Physician Encounter [facility] [id number] Date(s): 06/01/19 - 09/29/19 [facility] [address] [place] [address] [facility] Attending Physician: Frank LINTON, Campbell Adorno Admitting Physician: Frank LINTON, Campbell Adorno Referring Physician: Cheo Michaels MD Allergies, Adverse [...] 03/29/19 15:50:56 EST, Route to Pharmacy Electronically, [id number], [id number], 157.5, cm, 02/01/19 9:06:18 EDT, Height [...] nodule, left upper lobe, Active biopsy(Confirmed) Old [place] (myocardial 2000 Active infarction)(Confirmed) OA (osteoarthritis)(Confirmed) Active PAD (peripheral artery Active disease)(Confirmed) Palpitations(Confirmed) Active Centrilobular Emphysema of Active lung(Confirmed) Current smoker, 1-1.5 ppd X49 Active years(Confirmed) Social History Social History Type Response Smoking Status Current some day smoker; Typ e: Cigarettes; Tobacco use times per day: 1.5 ppd; entered on: 07/14/17 Sex
--- OUTSIDE RECORDS SUMMARY | 2022-01-14 15:34 | XMS_ITS | Continuity of Care Document ---
:1950 Author Organization [facility] Address [address] [place] [address]- Care Team Providers Name Role Phone Brando LINTON, Asma Primary Care Physician [facility] [id number] Date(s): 08/03/19 - 08/13/19 [facility] [address] [place] [address]- [facility] Attending Physician: Vaibhav Acosta Admitting Physician: AdmtrVaibhav Referring Physician: Admtr ArAminata Allergies, Adverse Reactions, Alerts Substance Reaction Severity [...] 03/29/19 15:50:56 EST, Route to Pharmacy Electronically, [id number], [facility]/pharmacy #[id number], 157.5, cm, 02/01/19 9:06:18 [...] nodule, left upper lobe, Active biopsy(Confirmed) Old [place] (myocardial 2000 Active infarction)(Confirmed) OA (osteoarthritis)(Confirmed) Active PAD (peripheral artery Active disease)(Confirmed) Palpitations(Confirmed) Active Centrilobular Emphysema of Active lung(Confirmed) Current smoker, 1-1.5 ppd X49 Active years(Confirmed) Social History Social History Type Response Smoking Status Current some day smoker; Typ e: Cigarettes; Tobacco use times per day: 1.5 ppd; entered on: 07/14/17 Sex
--- OUTSIDE RECORDS SUMMARY | 2022-01-14 15:34 | XMS_ITS | Continuity of Care Document ---
:1950 Author Organization [facility] Address [address] [place] [address]- Care Team Providers Name Role Phone Brando LINTON, Susiea Primary Care Physician [place] [facility] Date(s): 03/20/20 - 03/27/20 [facility] [address] [place], [place] [address] Attending Physician: Frank LINTON, Campbell Adorno Admitting [...] 03/29/19 15:50:56 EST, Route to Pharmacy Electronically, [id number], [facility]/pharmacy #[id number], 157.5, cm, 02/01/19 9:06:18 EDT, Height [...] nodule, left upper lobe, Active biopsy(Confirmed) Old CT (myocardial 2000 Active infarction)(Confirmed) OA (osteoarthritis)(Confirmed) Active PAD (peripheral artery Active disease)(Confirmed) Palpitations(Confirmed) Active Centrilobular Emphysema of Active lung(Confirmed) Current smoker, 1-1.5 ppd X49 Active years(Confirmed) Social History Social History Type Response Smoking Status Current some day smoker; Typ e: Cigarettes; Tobacco use times per day: 1.5 ppd; entered on: 07/14/17 Sex
--- OUTSIDE RECORDS SUMMARY | 2022-01-14 15:34 | XMS_ITS | Continuity of Care Document ---
:1950 Author Organization [facility] Address [address] [place] [address]- Care Team Providers Name Role Phone Brando LINTON, Cheo Primary Care Physician [facility] [id number] Date(s): 10/09/20 - 10/16/20 [facility] [address] [place], [place] [address] Attending Physician: Campbell Marie MD Admitting Physician: Campbell Marie MD Referring Physician: Cheo Michaels MD Allergies, Adverse [...] 04/04/20 8:30:00 EST, Route to Pharmacy Electronically, [facility]/pharmacy #[id number], 157.5, cm, 02/01/19 9:06:00 EDT, Height [...] nodule, left upper lobe, Active biopsy(Confirmed) Old [place] (myocardial 2000 Active infarction)(Confirmed) OA (osteoarthritis)(Confirmed) Active PAD (peripheral artery Active disease)(Confirmed) Palpitations(Confirmed) Active Centrilobular Emphysema of Active lung(Confirmed) Current smoker, 1-1.5 ppd X49 Active years(Confirmed) Vital Signs Most recent to oldest [Reference Range]: 1 Height 157.5 cm (10/09/20 4:54 PM) Weight 35.90 kg (10/09/20 4:54 PM) Oxygen Saturation [94-100 %] 98 % (10/09/20 4:54 PM) Pulse Rate [55-90 bpm] 77 bpm (10/09/20 4:54 PM) Body Mass Index [18.5-24.99] 14.47 *L* (10/09/20 4:54 PM) Blood Pressure [90-138/55-84 mm Hg] 152/70 mm Hg *H* (10/09/20 4:54 PM) Mode of Delivery (Oxygen) Room air (10/09/20 4:54 PM) Blood pressure sites Arm, left (10/09/20 4:54 PM) Weight Obtained Via Patient/family stated (10/09/20 4:54 PM) Social History Social History Type Response Smoking Status Current some day smoker; Typ e: Cigarettes; Tobacco use times per day: 1.5 ppd; entered on: 07/14/17 Sex
--- OUTSIDE RECORDS SUMMARY | 2022-01-14 15:34 | XMS_ITS | Continuity of Care Document ---
:1950 Author Organization [facility] Address [address] [place] [address]- Care Team Providers Name Role Phone Brando LINTON, Cheo Primary Care Physician [facility] [id number] Date(s): 04/23/21 - 04/30/21 [facility] [address] [place], [place] [address] Attending Physician: Campbell Marie MD Admitting Physician: [...] 04/04/20 8:30:00 EST, Route to Pharmacy Electronically, [facility]/pharmacy #[id number], 157.5, cm, 02/01/19 9:06:00 EDT, [...] nodule, left upper lobe, Active biopsy(Confirmed) Old [place] (myocardial 2000 Active infarction)(Confirmed) OA (osteoarthritis)(Confirmed) Active PAD (peripheral artery Active disease)(Confirmed) Palpitations(Confirmed) Active Centrilobular Emphysema of Active lung(Confirmed) Current smoker, 1-1.5 ppd X49 Active years(Confirmed) Vital Signs Most recent to oldest [Reference Range]: 1 Height 157.5 cm (04/22/21 8:48 AM) Social History Social History Type Response Smoking Status Current some day smoker; Typ e: Cigarettes; Tobacco use times per day: 1.5 ppd; entered on: 07/14/17 Sex
--- OUTSIDE RECORDS SUMMARY | 2022-01-14 15:34 | XMS_ITS | Continuity of Care Document ---
:1950 Author Organization [facility] Address [address] [place] [address]- Care Team Providers Name Role Phone Brando LINTON, Cheo Primary Care Physician En[facility] Date(s): 11/04/21 - 11/11/21 [facility] [address] [place], [place] [address] Attending Physician: Cher Sarabia NP Admitting Physician: Cher Sarabia NP Referring Physician: Cheo Michaels MD Allergies, Adverse Reactions, Alerts No Known Allergies [...] 06/12/21 8:49:00 EST, Route to Pharmacy Electronically, [facility]/pharmacy #[id number], 157.5, cm, 04/22/21 8:48:00 EST, Height [...] nodule, left upper lobe, Active biopsy(Confirmed) Old [place] (myocardial 2000 Active infarction)(Confirmed) OA (osteoarthritis)(Confirmed) Active PAD (peripheral artery Active disease)(Confirmed) Palpitations(Confirmed) Active Centrilobular Emphysema of Active lung(Confirmed) Current smoker, 1-1.5 ppd X49 Active years(Confirmed) Underweight(Confirmed) Active Vital Signs Most recent to oldest 1 2 3 [Reference Range]: Height 157.5 cm 157.5 cm 157.5 cm (11/04/21 9:19 AM) (11/04/21 9:18 AM) (11/04/21 8:3 5 AM) Weight 37.5 kg (11/04/21 8:35 AM) Oxygen Saturation [94-100 98 % %] (11/04/21 8:35 AM) Pulse Rate [55-90 bpm] 64 bpm (11/04/21 8:35 AM) Body Mass Index 15.12 [18.5-24.99] *L* (11/04/21 8:35 AM) Blood Pressure 122/50 mm Hg 120/60 mm Hg 98/46 mm Hg [90-138/55-84 mm Hg] (11/04/21 9:19 AM) (11/04/21 9:18 AM) ( 2 8:35 AM) Mode of Delivery (Oxygen) Room air (11/04/21 8:35 AM) Blood pressure sites Arm, left Arm, right Arm, left (11/04/21 9:19 AM) (11/04/21 9:18 AM) (11/04/21 8:3 5 AM) Weight Obtained Via Patient/family stated (11/04/21 8:35 AM) Social History Social History Type Response Smoking Status Current some day smoker; Typ e: Cigarettes; Tobacco use times per day: 1.5 ppd; entered on: 07/14/17 Sex
[2022-01-14] MEDS: Morphine Sulfate 2 MG/ML CARTRIDGE IVPUSH ×3 (15:48→21:32)
[2022-01-14] MEDS: ondansetron HCL 4 MG/2 ML VIAL IVPUSH (15:48)
[2022-01-14] MEDS: cefTRIAXone sodium 1 GM in 0.9 % Sodium Chloride 50 ML IV (15:48)
[2022-01-14] MEDS: 0.9 % Sodium Chloride 1,000 ML 999 ML IV (15:48)
[2022-01-14 16:18] VITALS: RESP 18
[2022-01-14 16:19] LABS: COVID-19 Test Negative (Negative); Lactic Acid 1.1 mmol/L (0.5-2.0)
--- NOTE | 2022-01-14 16:42 | MHC.CM.ED ---
Pt requesting to complete HCP. HCP reviewed, completed and signed. Copies given and uploaded into [employer] and [facility] [employer]. HCP/sister Daiana Pitt ([phone]).
--- NOTE | 2022-01-14 17:19 | PHA.MEDREC ---
Pharmacy Consult ? Medication Reconciliation Pharmacy has completed the medication reconciliation. Of Note: patient states she takes a statin but didn't think it was crestor. Called her pharmacy and confirmed it was crestor.
--- NOTE | 2022-01-14 18:09 | P.HPHOSP_ITS ---
History of Present Illness Date of Service: 01/14/22 Chief Complaint: right flank pain 71F with pmh CAD, PVD, lung cancer, HTN, COPD, sarcoid, CKD II, presented with right flank pain. Patient states she has been feeling unwell for the past month after myrna COVID about 4 weeks prior to presentation. Generalized weakness, poor appetite. Four days prior to presentation patient felt sudden right flank 10/10 sharp pain, nonradiating, has never had similar symptoms before, denies burning in urine or fever chills. Pain worsened so she came to ED. In ED CT abdomen showed severe right hydronephrosis with no obvious obstructing stone, lab significant for acute kidney injury and leukocytosis. Review of Systems Review of Systems: Constitutional: Denies fever, denies Chills Eyes: denies blurry vision ENT: denies sore throat CVS: denies chest pain Respiratory: Denies dyspnea GI: no abdominal pain : flank pain MSK: denies neck pain Skin: denies rash Neuro: denies specific motor weakness Psych: denies suicidal ideation Endocrine: denies heat/cold intolerance Hematologic: denies easy bleeding Allergy: denies hives [facility] Medical History Angina pectoris Arthritis CAD (coronary artery disease) Chronic cough Chronic pancreatitis COPD (chronic obstructive pulmonary disease) Elevated cholesterol Erythrocytosis GERD (gastroesophageal reflux disease) History of IBS HTN (hypertension) Hx of chronic kidney disease Hx of hiatal hernia Malignant neoplasm of upper lobe of left lung (~2019) Myocardial infarction (~2000) Nicotine dependence Pulmonary nodules PVD (peripheral vascular disease) Sarcoidosis Thrombosis of right iliac artery Family History Father Heart disease Mother Heart disease Brother Diabetes Sister Mental health disorder Surgical History History of cardiac cath (~2000) History of colonoscopy (~2018) History of endarterectomy (~2016) History of esophagogastroduodenoscopy (EGD) (~2019) History of lung biopsy (~2019) History of lung surgery (~2019) History of partial hysterectomy Hx of tonsillectomy Hx of tubal ligation Social History Household Members: Spouse and Children Housing: House Are you a primary healthcare marketer to a significant other at home: No Do you presently have visiting nurse or other home services: No Alcohol intake: current Alcohol intake frequency: holidays/special occasions only Patient Tobacco Use Status: Current everyday Tobacco user Tobacco use type: Cigarette Years Smoked: 40 e-Cigarette/Vaping Use: Never Used Second Hand Smoke Exposure: No Advance Directives: No Advance Directives Information Provided: Yes service: No Current occupational status: retired Cognitive needs: No Hearing needs: No Vision needs: Yes Meds Allergies Allergy/AdvReac Type Severity Reaction Status Date / Time No Known Allergies Allergy Verified 01/14/22 09:04 Active Medications: Current Medications Clopidogrel Bisulfate (Clopidogrel Bisulfate 75 Mg Tablet) 75 mg PO DAILY REPLACED BY [facility] Diltiazem HCl (Diltiazem Hcl Cd 240 Mg Cap.Er.Deg) 240 mg PO DAILY REPLACED BY [facility]; Protocol Docusate Sodium (Docusate Sodium 100 Mg Capsule) 100 mg PO BID PRN PRN Reason: Constipation Famotidine (Famotidine 20 Mg Tablet) 40 mg PO BEDTIME REPLACED BY [facility] Heparin Sodium (Porcine) (Heparin Sodium,Porcine 5,000 Unit/Ml Vial) 5,000 unit SUBCUT Q12H REPLACED BY [facility] Ceftriaxone Sodium 1 gm/ (Sodium Chloride) 50 mls @ 100 mls/hr IV Q24H REPLACED BY [facility] Sodium Chloride (Ns) 1,000 mls @ 75 mls/hr IVCONT .[id number] REPLACED BY [facility] Morphine Sulfate (Morphine Sulfate 2 Mg/Ml Cartridge) 2 mg IVPUSH Q3H PRN; Protocol PRN Reason: moderate pain Non-Formulary Medication (Oqspisjrcqw-Ysqfwnnyj-Vikpfpgd [Trelegy Ellipta]) 1 inhalation INHALE DAILY REPLACED BY [facility] Non-Formulary Medication (Rosuvastatin) 1 tab PO DAILY REPLACED BY [facility] Pharmacy Consult (Consult Rx Perform Med Rec) 1 each MISCELLANE ONCE PRN PRN Reason: Consult order Sodium Chloride (0.9 % Sodium Chloride Flush 3 Ml Syringe) 3 ml IVFLUSH QSHIFT REPLACED BY [facility] Home Medications Medication Instructions Recorded Confirmed Last Taken Type clopidogrel 75 mg tablet (Plavix) 1 tab PO DAILY 01/26/20 01/14/22 01/14/22 History nitroglycerin 0.4 mg sublingual 1 tab sublingual NEEDED angina 01/26/20 01/14/22 01/14/22 History tablet rosuvastatin 20 mg tablet 1 tab PO DAILY 01/26/20 01/14/22 01/14/22 History docusate sodium 100 mg capsule 100 mg PO BID PRN Constipation 12/05/21 01/14/22 01/14/22 History simethicone 180 mg capsule 180 mg PO QID PRN Abdominal 12/05/21 01/14/22 01/14/22 History Discomfort Physical Exam Vital Signs and Narrative: Vital Signs: Last Vital Signs Temp 99.5 F 01/14/22 11:47 Pulse 77 01/14/22 11:47 Resp 18 01/14/22 16:18 BP 183/67 H 01/14/22 11:47 Pulse Ox 97 01/14/22 11:47 O2 Del Method 01/14/22 11:47 BMI result Body Mass Index 14.0 General: no acute distress, underweight HEENT: atraumatic Neck: normal to visual inspection CVS: S1, S2, RRR, murmur Resp: CTA bilateral Chest: non tender GI: soft, non tender, non distended : no CVA tenderness Skin: melasma Extremities: no edema Neuro: Oriented X3, grossly intact Psych: cooperative Results Labs CBC and Chem 7: 01/14/22 12:07 01/14/22 12:07 Labs: Laboratory Results - last 24 hr 01/14/22 01/14/22 01/14/22 12:04 12:07 12:07 MCV 89.8 MCH 30.3 MCHC 33.7 RDW 13.2 Plt Count 206 MPV 8.8 L Immature Gran % (Auto) 0.5 H Neut % (Auto) 88.4 H Lymph % (Auto) 5.5 L [place] % (Auto) 5.4 Eos % (Auto) 0.1 Baso % (Auto) 0.1 Lymph # (Auto) 0.8 L [place] # (Auto) 0.8 Eos # (Auto) 0.0 Baso # (Auto) 0.0 Abs Immat Gran (auto) 0.08 H Absolute Neuts (auto) 13.2 H Absolute Nucleated RBC 0.000 Nucleated RBC % (auto) 0.0 Anion Gap 24 H Estim Creat Clear Calc 11.8 Estimated GFR 19 Random Glucose 118 H Lactic Acid Calcium 9.0 D Urine Color ORANGE Urine Appearance Hazy Urine pH 5.5 Ur Specific [place] >= 1.030 H Urine Protein 300 (3+) H Urine Glucose (UA) 100 H Urine Ketones Trace Urine Blood Large (3+) H Urine Nitrite See Note Ur Leukocyte Esterase See Note Urine RBC 0-2 Urine WBC 0-5 Ur Squamous Epith Cells 6-10 Urine Bacteria 4+ Hyaline Casts 3-5 COVID-19 (LEATHA) COVID-19 Clin Com 01/14/22 01/14/22 15:45 15:45 MCV MCH MCHC RDW Plt Count MPV Immature Gran % (Auto) Neut % (Auto) Lymph % (Auto) [place] % (Auto) Eos % (Auto) Baso % (Auto) Lymph # (Auto) [place] # (Auto) Eos # (Auto) Baso # (Auto) Abs Immat Gran (auto) Absolute Neuts (auto) Absolute Nucleated RBC Nucleated RBC % (auto) Anion Gap Estim Creat Clear Calc Estimated GFR Random Glucose Lactic Acid 1.1 Calcium Urine Color Urine Appearance Urine pH Ur Specific [place] Urine Protein Urine Glucose (UA) Urine Ketones Urine Blood Urine Nitrite Ur Leukocyte Esterase Urine RBC Urine WBC Ur Squamous Epith Cells Urine Bacteria Hyaline Casts COVID-19 (LEATHA) Negative COVID-19 Clin Com See Note Imaging Radiologist's Impressions: Impressions Abdomen/Pelvis CT 01/14/22 16:03 IMPRESSION: Severe right hydronephrosis. There is right perinephric fat stranding. This probably represents backflow of urine secondary to obstruction. Differential would include infection. The right ureter is difficult to follow. There is mild dilatation of the right proximal ureter. No obstructing right ureteral stone is appreciated. Small right upper pole renal stones. Normal left kidney. Normal bladder. Severe constipation. Severe atherosclerotic disease. Fleischner guidelines were followed. Assessment and Plan (1) Acute kidney injury: Status: Acute Plan 71F pmh sarcoid, htn, copd, lung ca, cad, pvd presented with right flank pain found to have severe right hydronephrosis Flank pain with right severe hydronephrosis, acute pyelonephritis, complicated by acute kidney injury on CKD 2 IV ceftriaxone Follow-up cultures Urology eval Pain control IV fluids Monitor BMP CAD/peripheral vascular disease Continue Plavix and statin Hypertension Diltiazem COPD Continue inhaler History of lung cancer Outpatient follow-up Moderate protein calorie malnutrition Encourage caloric intake DVT prophylaxis with heparin subQ Full code Patient was significant hydronephrosis leading to acute kidney injury requiring IV fluids, urological evaluation and close monitoring of BMP, risk factors includes advanced age, malnutrition, history of lung cancer, coronary disease, therefore, expected to require at least 2 midnights in the hospital. Quality Stroke Does the patient have a stroke diagnosis?: No VTE Prior VTE?: No VTE Risk Level:: Medical - moderate - high VTE Device Contraindication: Treatment Not Indicated VTE Drug Contraindication: N/A - Med Ordered
[2022-01-14 18:17] VITALS: RESP 16
[2022-01-14] MEDS: 0.9 % Sodium Chloride 1,000 ML 75 ML IVCONT (18:18)
[2022-01-14 21:30] VITALS: BP 149/58; PULSE 80; RESP 16; TEMP 37; O2SAT 90
[2022-01-14] MEDS: Heparin Sodium,Porcine 5,000 UNIT/ML VIAL 5000 UNIT SUBCUT (21:33)
--- NOTE | 2022-01-14 21:47 | MHC.CM.PN ---
IMM 01/14. HCP on file. HCP/sister Daiana Pitt ([phone]). Moderna x2/booster x1. Ex- and son live with patient. Uses a cane. No services. D/c plan is home. Pt agreeable to [facility] if needed. Pt does not want STR. No referrals placed. Pt admitted with severe R hydronephrosis, acute pyelo and GIANLUCA on CKD2. Pt sister will provide transportation home. CM to follow for d/c needs.
[2022-01-14 23:30] VITALS: BP 135/47; PULSE 82; RESP 25; TEMP 37; O2SAT 93
[2022-01-15] VITALS (13 sets, daily range): BP systolic 127–164; BP diastolic 51–71; PULSE 68–88; RESP 12–20; TEMP 36.2–37.6; O2SAT 92–100; BMI 14.9
[2022-01-15 06:52] LABS: Hematocrit 32.9 % (37.0-47.0); Hemoglobin 11.1 g/dl (12.0-16.0); Mean Corpuscular HGB Conc 33.7 g/dl (31.0-35.0); Mean Corpuscular Hemoglobin 30.7 pg (27.0-33.0); Mean Corpuscular Volume 91.1 fL (80.0-98.0); Mean Platelet Volume 8.9 fL (9.4-12.3); Platelet Count 143 X10*3/uL (160-400); Red Blood Count 3.61 X10*6/uL (4.20-5.50); Red Cell Distribution Width 13.2 % (11.0-16.0); White Blood Count 11.5 X10*3/uL (4.8-10.8)
[2022-01-15 07:18] LABS: Blood Urea Nitrogen 22 mg/dL (9-16); Creatinine Clr Calc Pharmacy 14.9; Estimated Glomerular Filt Rate 25; Glucose Fasting 77 mg/dL (60-99)
[2022-01-15] MEDS: Morphine Sulfate 2 MG/ML CARTRIDGE IVPUSH (07:30)
[2022-01-15 07:34] LABS: Anion Gap 16 (12-20); Calcium 7.8 mg/dL (8.4-10.2); Carbon Dioxide 19 mmol/L (22-29); Chloride 108 mmol/L (96-108); Potassium 2.7 mmol/L (3.3-5.1); Sodium 140 mmol/L (135-145)
[2022-01-15] MEDS: Heparin Sodium,Porcine 5,000 UNIT/ML VIAL 5000 UNIT SUBCUT ×2 (08:30→19:56)
[2022-01-15] MEDS: 0.9 % Sodium Chloride Flush 3 ML SYRINGE IVFLUSH (08:30)
[2022-01-15] MEDS: Atorvastatin Calcium 80 MG TABLET PO (08:31)
[2022-01-15] MEDS: Clopidogrel Bisulfate 75 MG TABLET PO (08:31)
[2022-01-15] MEDS: dilTIAZem HCL CD 240 MG CAP.ER.DEG PO (08:31)
[2022-01-15] MEDS: 0.9 % Sodium Chloride 1,000 ML 75 ML IVCONT (08:41)
--- NOTE | 2022-01-15 09:19 | PM.UROCN ---
History of Present Illness Consult details Consult date: 01/15/22 Narrative: Hilario is a 71F with pmh CAD, PVD, lung cancer, HTN, COPD, sarcoid, CKD II, presented with right flank pain.? H/o COVID about 4 weeks prior to presentation.? C/O's of Generalized weakness, poor appetite, acute right flank pain,worsening, has never had similar symptoms before, denies h/o kidney stones, denies burning in urine or fever chills.? In ED CT abdomen showed severe right hydronephrosis with no obvious obstructing stone, lab significant for acute kidney injury and leukocytosis. I have discussed plan with patient for right ureteral stent today, patient is agreeable to plan. Pertinent Findings: CT: KIDNEYS AND URETERS: There is severe right hydronephrosis. There is significant stranding of the perinephric fat. The right ureter is difficult to follow. There is mild right proximal ureteral dilatation. No obstructing ureteral stone is seen. There are too small 1 to 2 mm stones in the upper pole of the right kidney. The left kidney is normal appearing. BLADDER: Unremarkable.? Review of Systems Review of Systems: 10 point ROS negative other than stated in HPI [facility] Past Medical History Medical History Angina pectoris Arthritis CAD (coronary artery disease) Chronic cough Chronic pancreatitis COPD (chronic obstructive pulmonary disease) Elevated cholesterol Erythrocytosis GERD (gastroesophageal reflux disease) History of IBS HTN (hypertension) Hx of chronic kidney disease Hx of hiatal hernia Malignant neoplasm of upper lobe of left lung (~2019) Myocardial infarction (~2000) Nicotine dependence Pulmonary nodules PVD (peripheral vascular disease) Sarcoidosis Thrombosis of right iliac artery Family History Family History Father Heart disease Mother Heart disease Brother Diabetes Sister Mental health disorder Surgical History Surgical History History of cardiac cath (~2000) History of colonoscopy (~2018) History of endarterectomy (~2016) History of esophagogastroduodenoscopy (EGD) (~2019) History of lung biopsy (~2019) History of lung surgery (~2019) History of partial hysterectomy Hx of tonsillectomy Hx of tubal ligation Social History Social History Household Members: Spouse and Children Housing: House Are you a primary critical care paramedic to a significant other at home: No Do you presently have visiting nurse or other home services: No Alcohol intake: current Alcohol intake frequency: holidays/special occasions only Patient Tobacco Use Status: Current everyday Tobacco user Tobacco use type: Cigarette Years Smoked: 40 e-Cigarette/Vaping Use: Never Used Second Hand Smoke Exposure: No Use of substances other than those prescribed or required for medical reasons: No Advance Directives: No Advance Directives Information Provided: Yes service: No Current occupational status: retired Cognitive needs: No Hearing needs: No Vision needs: Yes Meds Allergies Allergy/AdvReac Type Severity Reaction Status Date / Time No Known Allergies Allergy Verified 01/14/22 09:04 Active Medications: Current Medications Atorvastatin Calcium (Atorvastatin Calcium 80 Mg Tablet) 80 mg PO DAILY [facility] Last Admin: 01/15/22 08:31 Dose: 80 mg Clopidogrel Bisulfate (Clopidogrel Bisulfate 75 Mg Tablet) 75 mg PO DAILY [facility] Last Admin: 01/15/22 08:31 Dose: 75 mg Diltiazem HCl (Diltiazem Hcl Cd 240 Mg Cap.Er.Deg) 240 mg PO DAILY [facility]; Protocol Last Admin: 01/15/22 08:31 Dose: 240 mg Docusate Sodium (Docusate Sodium 100 Mg Capsule) 100 mg PO BID PRN PRN Reason: Constipation Famotidine (Famotidine 20 Mg Tablet) 40 mg PO BEDTIME [facility] Last Admin: 01/14/22 21:38 Dose: Not Given Heparin Sodium (Porcine) (Heparin Sodium,Porcine 5,000 Unit/Ml Vial) 5,000 unit SUBCUT Q12H [facility] Last Admin: 01/15/22 08:30 Dose: 5,000 unit Ceftriaxone Sodium 1 gm/ (Sodium Chloride) 50 mls @ 100 mls/hr IV Q24H [facility] Sodium Chloride (Ns) 1,000 mls @ 75 mls/hr IVCONT .[id number] [facility] Last Admin: 01/15/22 08:41 Dose: 75 mls/hr Morphine Sulfate (Morphine Sulfate 2 Mg/Ml Cartridge) 2 mg IVPUSH Q3H PRN; Protocol PRN Reason: moderate pain Last Admin: 01/15/22 07:30 Dose: 2 mg Non-Formulary Medication (Wsfewvetyue-Pogqpicnc-Ebonwlrx [Trelegy Ellipta]) 1 inhalation INHALE DAILY [facility] Pharmacy Consult (Consult Rx Perform Med Rec) 1 each MISCELLANE ONCE PRN PRN Reason: Consult order Sodium Chloride (0.9 % Sodium Chloride Flush 3 Ml Syringe) 3 ml IVFLUSH QSHIFT [facility] Last Admin: 01/15/22 08:30 Dose: 3 ml Home Medications Medication Instructions Recorded Confirmed Last Taken Type clopidogrel 75 mg tablet (Plavix) 1 tab PO DAILY 01/26/20 01/14/22 01/14/22 History nitroglycerin 0.4 mg sublingual 1 tab sublingual NEEDED angina 01/26/20 01/14/22 01/14/22 History tablet rosuvastatin 20 mg tablet 1 tab PO DAILY 01/26/20 01/14/22 01/14/22 History docusate sodium 100 mg capsule 100 mg PO BID PRN Constipation 12/05/21 01/14/22 01/14/22 History simethicone 180 mg capsule 180 mg PO QID PRN Abdominal 12/05/21 01/14/22 01/14/22 History Discomfort Physical Exam Vital Signs: Vital Signs: Last Vital Signs Temp 99.0 F 01/15/22 07:29 Pulse 88 01/15/22 07:29 Resp 18 01/15/22 07:29 BP 164/65 H 01/15/22 07:29 Pulse Ox 96 01/15/22 07:29 O2 Del Method 01/15/22 07:29 BMI result Body Mass Index 14.0 Const: General: alert and awake; No acute distress Orientation/consciousness: patient oriented x3 HEENT: Head: Yes normal to inspection and Yes normocephalic Eyes: Conjunctivae: conjunctivae normal Neck: Neck: Yes trachea midline Chest: Chest palpation & inspection: normal inspection of the chest Resp: Effort & Inspection: normal respiratory effort Cardio: Rate: regular rate GI: Palpation (GI): Soft to palpation : Other: Right CVA tenderness Back/Spine/Pelvis: Other: Pelvic exam deferred Skin: General skin exam: turgor normal Neuro: General: patient oriented x3 and moves all extremities Extrem: General: Yes normal gait Results Labs Result diagrams: 01/15/22 06:35 01/15/22 06:35 Labs: Abnormal lab results 01/14/22 01/14/22 01/14/22 Range/Units 12:04 12:07 12:07 WBC 14.9 H (4.8-10.8) X10*3/uL RBC (4.20-5.50) X10*6/uL Hgb (12.0-16.0) g/dl Hct (37.0-47.0) % Plt Count (160-400) X10*3/uL MPV 8.8 L (9.4-12.3) fL Immature Gran % (Auto) 0.5 H (0.0-0.4) % Neut % (Auto) 88.4 H (45-73) % Lymph % (Auto) 5.5 L (20-40) % Lymph # (Auto) 0.8 L (1.2-4.9) X10*3/uL Abs Immat Gran (auto) 0.08 H (0.00-0.03) X10*3/uL Absolute Neuts (auto) 13.2 H (2.0-8.3) x10*3/uL Potassium (3.3-5.1) mmol/L Carbon Dioxide 20 L (22-29) mmol/L Anion Gap 24 H (12-20) BUN 27 H (9-16) mg/dL Creatinine 2.49 H (0.5-1.4) mg/dL Random Glucose 118 H (60-115) mg/dL Calcium (8.4-10.2) mg/dL Ur Specific [place] >= 1.030 H (1.005-1.025) Urine Protein 300 (3+) H (Neg-Trace) mg/dL Urine Glucose (UA) 100 H (Negative) mg/dL Urine Blood Large (3+) H (Negative) 01/15/22 01/15/22 Range/Units 06:35 06:35 WBC 11.5 H (4.8-10.8) X10*3/uL RBC 3.61 L D (4.20-5.50) X10*6/uL Hgb 11.1 L (12.0-16.0) g/dl Hct 32.9 L (37.0-47.0) % Plt Count 143 L D (160-400) X10*3/uL MPV 8.9 L (9.4-12.3) fL Immature Gran % (Auto) (0.0-0.4) % Neut % (Auto) (45-73) % Lymph % (Auto) (20-40) % Lymph # (Auto) (1.2-4.9) X10*3/uL Abs Immat Gran (auto) (0.00-0.03) X10*3/uL Absolute Neuts (auto) (2.0-8.3) x10*3/uL Potassium 2.7 L D (3.3-5.1) mmol/L Carbon Dioxide 19 L (22-29) mmol/L Anion Gap (12-20) BUN 22 H (9-16) mg/dL Creatinine 1.98 H (0.5-1.4) mg/dL Random Glucose (60-115) mg/dL Calcium 7.8 L D (8.4-10.2) mg/dL Ur Specific [place] (1.005-1.025) Urine Protein (Neg-Trace) mg/dL Urine Glucose (UA) (Negative) mg/dL Urine Blood (Negative) Short CBC 01/14/22 01/15/22 Range/Units 12:07 06:35 WBC 14.9 H 11.5 H (4.8-10.8) X10*3/uL Hgb 13.7 11.1 L (12.0-16.0) g/dl Hct 40.6 32.9 L (37.0-47.0) % Plt Count 206 143 L D (160-400) X10*3/uL BMP 01/14/22 01/15/22 12:07 06:35 Sodium 140 140 Potassium 3.7 D 2.7 L D Chloride 100 108 Carbon Dioxide 20 L 19 L BUN 27 H 22 H Creatinine 2.49 H 1.98 H Calcium 9.0 D 7.8 L D Urine 01/14/22 Range/Units 12:04 Urine Color ORANGE Urine Appearance Hazy Urine pH 5.5 (5.0-9.0) Ur Specific [place] >= 1.030 H (1.005-1.025) Urine Protein 300 (3+) H (Neg-Trace) mg/dL Urine Glucose (UA) 100 H (Negative) mg/dL All other labs normal. Imaging Abdomen CT scan report/results: report reviewed and image reviewed Additional studies: 01/14/2022--CT ABDOMEN AND PELVIS WITHOUT CONTRAST? CLINICAL INFORMATION: Abdominal pain. Urinary tract infection. Question pyelonephritis.? COMPARISON: Previous MR of the abdomen and CT of the abdomen and pelvis November 2018 ? TECHNIQUE: Multidetector volumetric imaging was performed from the superior aspect of the liver through the pubic symphysis. Sagittal and coronal reformatted images were obtained on the technologist's workstation.? This CT examination was performed using dose optimization techniques as appropriate, variously including the following: *Automated exposure control *Adjustment of mA and/or kV according to patient size (this includes techniques or standardized protocols for targeted exams where dose is matched to indication/reason for exam; i.e. extremities or head) *Use of iterative reconstruction technique DLP: 204 mGy-cm FINDINGS: LUNG BASES: The visualized lung bases are unremarkable.? LIVER, GALLBLADDER, AND BILIARY TREE: The liver is normal in size, shape, and attenuation. No focal hepatic lesion or biliary ductal dilatation is present. The gallbladder is unremarkable with no evidence of radiopaque gallstones, gallbladder wall thickening, or obvious pericholecystic inflammatory changes.? PANCREAS: Unremarkable.? SPLEEN: Unremarkable.? ADRENAL GLANDS: Unremarkable.? KIDNEYS AND URETERS: There is severe right hydronephrosis. There is significant stranding of the perinephric fat. The right ureter is difficult to follow. There is mild right proximal ureteral dilatation. No obstructing ureteral stone is seen. There are too small 1 to 2 mm stones in the upper pole of the right kidney. The left kidney is normal appearing. BLADDER: Unremarkable.? GASTROINTESTINAL TRACT: There is evidence of constipation. Small and large bowel is otherwise normal. The appendix is normal. The stomach is collapsed and difficult to evaluate. ABDOMINAL WALL: No significant hernia is appreciated.? LYMPH NODES: Normal. VASCULAR: There is evidence of severe atherosclerotic disease. There are aortobiiliac stents. No aneurysm is seen. PELVIC VISCERA: The uterus may been removed. No pelvic mass. OSSEOUS STRUCTURES: Degenerative changes of the spine and scoliosis. CT/CT abdomen pelvis wo IV con ?IMPRESSION: Severe right hydronephrosis. There is right perinephric fat stranding. This probably represents backflow of urine secondary to obstruction. Differential would include infection. The right ureter is difficult to follow. There is mild dilatation of the right proximal ureter. No obstructing right ureteral stone is appreciated. Small right upper pole renal stones. Normal left kidney. Normal bladder. ? Severe constipation. Severe atherosclerotic disease. ? Fleischner guidelines were followed. Assessment and Plan (1) Acute kidney injury: Status: Acute (2) Hydronephrosis of right kidney: Status: Acute Plan Cystoscopy Right retrograde Right ureteral stent, procedure discussed risks and benefits including but not limited to hematuria, pain, bladder spasms. Procedures Date of Service Date of Service: 01/15/22
[2022-01-15] MEDS: Potassium Chloride ER 20 MEQ TAB.ER.PRT 40 MEQ PO (10:11)
[2022-01-15] MEDS: Potassium Chloride/H20 10 MEQ/100 ML PIGGYBACK 100 MEQ IV ×2 (10:12→11:15)
--- NOTE | 2022-01-15 10:53 | HO.PM.IMPN ---
Subjective Subjective Date of Service: 01/15/22 Interval History: cc: right flank pain interval history:still with pain Cardiovascular Cardiovascular: Reports no additional cardiovascular complaints Respiratory Respiratory: Reports no additional respiratory complaints Physical Exam Vital Signs: Vital Signs: Last Vital Signs Temp 97.1 F 01/15/22 08:00 Pulse 84 01/15/22 08:00 Resp 18 01/15/22 08:00 BP 149/68 H 01/15/22 08:00 Pulse Ox 95 01/15/22 08:00 O2 Del Method 01/15/22 08:00 BMI result Body Mass Index 14.0 General: AO X 3, no acute distress Resp: CTA bilateral, no accessory muscles used CVS: S1,S2,RRR GI: soft, non tender, non distended Neuro: motor grossly intact, alert Psych: appropriate affect, appropriate insight Objective Data Active Medications Atorvastatin Calcium (Atorvastatin Calcium 80 Mg Tablet) 80 mg PO DAILY [facility] Last Admin: 01/15/22 08:31 Dose: 80 mg Documented By: TAMI Clopidogrel Bisulfate (Clopidogrel Bisulfate 75 Mg Tablet) 75 mg PO DAILY [facility] Last Admin: 01/15/22 08:31 Dose: 75 mg Documented By: TAMI Diltiazem HCl (Diltiazem Hcl Cd 240 Mg Cap.Er.Deg) 240 mg PO DAILY [facility]; Protocol Last Admin: 01/15/22 08:31 Dose: 240 mg Documented By: TAMI Docusate Sodium (Docusate Sodium 100 Mg Capsule) 100 mg PO BID PRN PRN Reason: Constipation Famotidine (Famotidine 20 Mg Tablet) 40 mg PO BEDTIME [facility] Last Admin: 01/14/22 21:38 Dose: Not Given Documented By: AYAAN Non-Admin Reason: Patient Refused Heparin Sodium (Porcine) (Heparin Sodium,Porcine 5,000 Unit/Ml Vial) 5,000 unit SUBCUT Q12H [facility] Last Admin: 01/15/22 08:30 Dose: 5,000 unit Documented By: TAMI Ceftriaxone Sodium 1 gm/ (Sodium Chloride) 50 mls @ 100 mls/hr IV Q24H [facility] Sodium Chloride (Ns) 1,000 mls @ 75 mls/hr IVCONT .[id number] [facility] Last Admin: 01/15/22 08:41 Dose: 75 mls/hr Documented By: TAMI Potassium Chloride (Potassium Chloride/H20) 10 meq in 100 mls @ 100 mls/hr IV Q1H [facility] Stop: 01/15/22 11:59 Last Admin: 01/15/22 10:12 Dose: 100 mls/hr Documented By: ROB Morphine Sulfate (Morphine Sulfate 2 Mg/Ml Cartridge) 2 mg IVPUSH Q3H PRN; Protocol PRN Reason: moderate pain Last Admin: 01/15/22 07:30 Dose: 2 mg Documented By: TAMI Non-Formulary Medication (Lucxxtcerdt-Hfhhspnfr-Zlecuxoo [Trelegy Ellipta]) 1 inhalation INHALE DAILY [facility] Pharmacy Consult (Consult Rx Perform Med Rec) 1 each MISCELLANE ONCE PRN PRN Reason: Consult order Sodium Chloride (0.9 % Sodium Chloride Flush 3 Ml Syringe) 3 ml IVFLUSH QSHIFT [facility] Last Admin: 01/15/22 08:30 Dose: 3 ml Documented By: TAMI Labs CBC & Chem 7: 01/15/22 06:35 01/15/22 06:35 Labs: Laboratory Results - last 24 hr 01/14/22 01/14/22 01/14/22 12:04 12:07 12:07 MCV 89.8 MCH 30.3 MCHC 33.7 RDW 13.2 Plt Count 206 MPV 8.8 L Immature Gran % (Auto) 0.5 H Neut % (Auto) 88.4 H Lymph % (Auto) 5.5 L [place] % (Auto) 5.4 Eos % (Auto) 0.1 Baso % (Auto) 0.1 Lymph # (Auto) 0.8 L [place] # (Auto) 0.8 Eos # (Auto) 0.0 Baso # (Auto) 0.0 Abs Immat Gran (auto) 0.08 H Absolute Neuts (auto) 13.2 H Absolute Nucleated RBC 0.000 Nucleated RBC % (auto) 0.0 Anion Gap 24 H Estim Creat Clear Calc 11.8 Estimated GFR 19 Random Glucose 118 H Fasting Glucose Lactic Acid Calcium 9.0 D Urine Color ORANGE Urine Appearance Hazy Urine pH 5.5 Ur Specific [place] >= 1.030 H Urine Protein 300 (3+) H Urine Glucose (UA) 100 H Urine Ketones Trace Urine Blood Large (3+) H Urine Nitrite See Note Ur Leukocyte Esterase See Note Urine RBC 0-2 Urine WBC 0-5 Ur Squamous Epith Cells 6-10 Urine Bacteria 4+ Hyaline Casts 3-5 COVID-19 (LEATHA) COVID-19 frenting 01/14/22 01/14/22 01/15/22 15:45 15:45 06:35 MCV 91.1 MCH 30.7 MCHC 33.7 RDW 13.2 Plt Count 143 L D MPV 8.9 L Immature Gran % (Auto) Neut % (Auto) Lymph % (Auto) [place] % (Auto) Eos % (Auto) Baso % (Auto) Lymph # (Auto) [place] # (Auto) Eos # (Auto) Baso # (Auto) Abs Immat Gran (auto) Absolute Neuts (auto) Absolute Nucleated RBC 0.000 Nucleated RBC % (auto) 0.0 Anion Gap Estim Creat Clear Calc Estimated GFR Random Glucose Fasting Glucose Lactic Acid 1.1 Calcium Urine Color Urine Appearance Urine pH Ur Specific [place] Urine Protein Urine Glucose (UA) Urine Ketones Urine Blood Urine Nitrite Ur Leukocyte Esterase Urine RBC Urine WBC Ur Squamous Epith Cells Urine Bacteria Hyaline Casts COVID-19 (LEATHA) Negative COVID-Gu[employer] See Note 01/15/22 06:35 MCV MCH MCHC RDW Plt Count MPV Immature Gran % (Auto) Neut % (Auto) Lymph % (Auto) [place] % (Auto) Eos % (Auto) Baso % (Auto) Lymph # (Auto) [place] # (Auto) Eos # (Auto) Baso # (Auto) Abs Immat Gran (auto) Absolute Neuts (auto) Absolute Nucleated RBC Nucleated RBC % (auto) Anion Gap 16 Estim Creat Clear Calc 14.9 Estimated GFR 25 Random Glucose Fasting Glucose 77 Lactic Acid Calcium 7.8 L D Urine Color Urine Appearance Urine pH Ur Specific [place] Urine Protein Urine Glucose (UA) Urine Ketones Urine Blood Urine Nitrite Ur Leukocyte Esterase Urine RBC Urine WBC Ur Squamous Epith Cells Urine Bacteria Hyaline Casts COVID-19 (LEATHA) COVID-19 frenting Assessment and Plan (1) Acute kidney injury: Status: Acute Plan 71F pmh sarcoid, htn, copd, lung ca, cad, pvd presented with right flank pain found to have severe right hydronephrosis Flank pain with right severe hydronephrosis, acute pyelonephritis, complicated by acute kidney injury on CKD 2 IV ceftriaxone Follow-up cultures Urology appreciated, planned for cysto/stent when hypokalemia improved Pain control IV fluids Monitor BMP hypokalemia replace, monitor CAD/peripheral vascular disease Continue Plavix and statin Hypertension Diltiazem COPD Continue inhaler History of lung cancer Outpatient follow-up Moderate protein calorie malnutrition Encourage caloric intake DVT prophylaxis with heparin subQ Full code reason for continued hospitalization: needs acute intervention for hydro Quality Stroke Does the patient have a stroke diagnosis?: No VTE Prior VTE?: No VTE Risk Level:: Medical - moderate - high VTE Device Contraindication: Treatment Not Indicated VTE Drug Contraindication: N/A - Med Ordered
--- NOTE | 2022-01-15 11:31 | MHC.CLN ---
PT IS MODERATELY MALNOURISHED PT IS MILDLY DEPLETED IN SUBCUTANEOUS FAT AND MUSCLE MASS WITH POOR PO INTAKE R/T POST COVID INFECTION AND PYELONEPHRITIS. PT TRIGGERS FOR 2% NONSIGNIFICANT WT LOSS X 6 MONTHS. PT TYPICALLY REMAINS BELOW IBW RANGE DIET RX: NPO WHEN DIET TO ADVANCE RECOMMEND ADDING ENSURE BID TO INCREASE KCALS AND PROMOTE WT GAIN SUPP TO PROVIDE 700KCALS, 40G PROTEIN SEE ALSO FULL CLINICAL NUTRITION ASSESSMENT
[2022-01-15 14:40] LABS: Anion Gap 17 (12-20); Blood Urea Nitrogen 23 mg/dL (9-16); Calcium 8.1 mg/dL (8.4-10.2); Carbon Dioxide 17 mmol/L (22-29); Chloride 110 mmol/L (96-108); Estimated Glomerular Filt Rate 27; Glucose Random 42 mg/dL (60-115); Potassium 3.9 mmol/L (3.3-5.1); Sodium 140 mmol/L (135-145)
[2022-01-15] MEDS: Dextrose 50 % 25 GM/50 ML SYRINGE IVPUSH (14:51)
[2022-01-15] MEDS: cefTRIAXone sodium 1 GM in 0.9 % Sodium Chloride 50 ML IV (14:51)
[2022-01-15 15:47] LABS: Glucose, Whole Blood 42 mg/dL (60-115)
[2022-01-15 15:47] LABS: Glucose, Whole Blood 243 mg/dL (60-115)
--- NOTE | 2022-01-15 15:49 | HO.ANESPROP2 ---
HPI - Anesthesia Eval Consult details Narrative: 71 F for cystoscopy CAD , PAD s/p stent . On plavix . Case discussed with the surgeon and the hospitalist . As per hospitalist patient is optimized . [facility] Active Problems Active Problems: All Active Problems (Updated 01/14/22 @ 17:37 by Alba Emanuel CNP) Acute kidney injury (Acute) Urinary tract infection (Acute) Hydronephrosis of right kidney (Acute) Cerumen impaction (Acute) Encounter for general adult medical examination with abnormal findings (Acute) Breast screening (Acute) Osteopenia (Acute) Constipation (Acute) Erythrocytosis (Acute) Malignant neoplasm of upper lobe of left lung (Acute ~2020) Decreased GFR (Acute) Abdominal bloating (Acute) Anemia (Acute) Hypertension, essential (Acute) GERD (gastroesophageal reflux disease) (Acute) Chronic pancreatitis (Acute) Esophageal ulcer (Acute) Pulmonary nodules (Acute) Nicotine dependence (Acute) COPD (chronic obstructive pulmonary disease) (Acute) Past Medical History Medical History Angina pectoris Arthritis CAD (coronary artery disease) Chronic cough Chronic pancreatitis COPD (chronic obstructive pulmonary disease) Elevated cholesterol Erythrocytosis GERD (gastroesophageal reflux disease) History of IBS HTN (hypertension) Hx of chronic kidney disease Hx of hiatal hernia Malignant neoplasm of upper lobe of left lung (~2019) Myocardial infarction (~2000) Nicotine dependence Pulmonary nodules PVD (peripheral vascular disease) Sarcoidosis Thrombosis of right iliac artery Functional capacity: uses cane/walker Family History Family History Father Heart disease Mother Heart disease Brother Diabetes Sister Mental health disorder Family history of problems with anesthesia: No Surgical History Surgical History History of cardiac cath (~2000) History of colonoscopy (~2018) History of endarterectomy (~2016) History of esophagogastroduodenoscopy (EGD) (~2019) History of lung biopsy (~2019) History of lung surgery (~2019) History of partial hysterectomy Hx of tonsillectomy Hx of tubal ligation History of Problems with Anesthesia: No Social History Social History Household Members: Other Household Members Other:: ex Housing: House Are you a primary care manager cna to a significant other at home: No Do you presently have visiting nurse or other home services: No Alcohol intake: current Alcohol intake frequency: holidays/special occasions only Patient Tobacco Use Status: Current everyday Tobacco user Tobacco use type: Cigarette Years Smoked: 40 Smoked in Last 30 Days: Yes e-Cigarette/Vaping Use: Never Used Frequency of e-Cigarette/Vaping Use: 6 Patient Interested in Nicotine Replacement: No Patient Given Instructions on How to Stop Smoking: Yes Date Education Initiated: 01/15/22 Second Hand Smoke Exposure: No Use of substances other than those prescribed or required for medical reasons: No Have you been hit, kicked, punched, or otherwise hurt by someone within the past year? If so, by whom?: No Do you feel safe in your current relationship?: No Current Relationship Is there a partner from a previous relationship who is making you feel unsafe now?: No Are you made to feel afraid or neglected: No Advance Directives: No Advance Directives Information Provided: Yes Do you have thoughts of harming others: None and Constant Do you have a plan to hurt others: No Plan Recently lost weight without trying: Yes How much weight loss: 2-13 pounds Eating poorly because of decreased appetite: Yes Nutrition screen score: 4 Patient : No : No Poor oral hygiene: No service: No Current occupational status: retired Cognitive needs: No Hearing needs: No Vision needs: Yes Meds Allergies Allergy/AdvReac Type Severity Reaction Status Date / Time No Known Allergies Allergy Verified 01/14/22 09:04 Active Medications: Current Medications Atorvastatin Calcium (Atorvastatin Calcium 80 Mg Tablet) 80 mg PO DAILY [facility] Last Admin: 01/15/22 08:31 Dose: 80 mg Clopidogrel Bisulfate (Clopidogrel Bisulfate 75 Mg Tablet) 75 mg PO DAILY [facility] Last Admin: 01/15/22 08:31 Dose: 75 mg Diltiazem HCl (Diltiazem Hcl Cd 240 Mg Cap.Er.Deg) 240 mg PO DAILY [facility]; Protocol Last Admin: 01/15/22 08:31 Dose: 240 mg Docusate Sodium (Docusate Sodium 100 Mg Capsule) 100 mg PO BID PRN PRN Reason: Constipation Famotidine (Famotidine 20 Mg Tablet) 40 mg PO BEDTIME [facility] Last Admin: 01/14/22 21:38 Dose: Not Given Heparin Sodium (Porcine) (Heparin Sodium,Porcine 5,000 Unit/Ml Vial) 5,000 unit SUBCUT Q12H [facility] Last Admin: 01/15/22 08:30 Dose: 5,000 unit Ceftriaxone Sodium 1 gm/ (Sodium Chloride) 50 mls @ 100 mls/hr IV Q24H [facility] Last Admin: 01/15/22 14:51 Dose: 100 mls/hr Sodium Chloride (Ns) 1,000 mls @ 75 mls/hr IVCONT .[id number] [facility] Last Admin: 01/15/22 08:41 Dose: 75 mls/hr Morphine Sulfate (Morphine Sulfate 2 Mg/Ml Cartridge) 2 mg IVPUSH Q3H PRN; Protocol PRN Reason: moderate pain Last Admin: 01/15/22 07:30 Dose: 2 mg Non-Formulary Medication (Twqbhmoctoj-Naeqshdjy-Bpllvdds [Trelegy Ellipta]) 1 inhalation INHALE DAILY [facility] Pharmacy Consult (Consult Rx Perform Med Rec) 1 each MISCELLANE ONCE PRN PRN Reason: Consult order Sodium Chloride (0.9 % Sodium Chloride Flush 3 Ml Syringe) 3 ml IVFLUSH QSHIFT [facility] Last Admin: 01/15/22 08:30 Dose: 3 ml Home Medications Medication Instructions Recorded Confirmed Last Taken Type clopidogrel 75 mg tablet (Plavix) 1 tab PO DAILY 01/26/20 01/14/22 01/14/22 History nitroglycerin 0.4 mg sublingual 1 tab sublingual NEEDED angina 01/26/20 01/14/22 01/14/22 History tablet rosuvastatin 20 mg tablet 1 tab PO DAILY 01/26/20 01/14/22 01/14/22 History docusate sodium 100 mg capsule 100 mg PO BID PRN Constipation 12/05/21 01/14/22 01/14/22 History simethicone 180 mg capsule 180 mg PO QID PRN Abdominal 12/05/21 01/14/22 01/14/22 History Discomfort Exam Exam Date and Time: January 15, 2022 820 Height,Weight and Vital Signs: Height 5 ft 1 in Weight 35.834 kg Last Vital Signs Temp 98.3 F 01/15/22 12:00 Pulse 77 01/15/22 12:00 Resp 18 01/15/22 12:00 BP 130/59 L 01/15/22 12:00 Pulse Ox 97 01/15/22 12:00 O2 Del Method 01/15/22 12:00 Pertinent Lab Results Pertinent Lab Results: Laboratory Tests 01/14/22 01/14/22 01/14/22 12:04 12:07 12:07 WBC 14.9 H RBC 4.52 Hgb 13.7 Hct 40.6 MCV 89.8 MCH 30.3 MCHC 33.7 RDW 13.2 Plt Count 206 MPV 8.8 L Immature Gran % (Auto) 0.5 H Neut % (Auto) 88.4 H Lymph % (Auto) 5.5 L [place] % (Auto) 5.4 Eos % (Auto) 0.1 Baso % (Auto) 0.1 Lymph # (Auto) 0.8 L [place] # (Auto) 0.8 Eos # (Auto) 0.0 Baso # (Auto) 0.0 Abs Immat Gran (auto) 0.08 H Absolute Neuts (auto) 13.2 H Absolute Nucleated RBC 0.000 Nucleated RBC % (auto) 0.0 Sodium 140 Potassium 3.7 D Chloride 100 Carbon Dioxide 20 L Anion Gap 24 H BUN 27 H Creatinine 2.49 H Estim Creat Clear Calc 11.8 Estimated GFR 19 POC Glucose Random Glucose 118 H Fasting Glucose Lactic Acid Calcium 9.0 D Urine Color ORANGE Urine Appearance Hazy Urine pH 5.5 Ur Specific [place] >= 1.030 H Urine Protein 300 (3+) H Urine Glucose (UA) 100 H Urine Ketones Trace Urine Blood Large (3+) H Urine Nitrite See Note Ur Leukocyte Esterase See Note Urine RBC 0-2 Urine WBC 0-5 Ur Squamous Epith Cells 6-10 Urine Bacteria 4+ Hyaline Casts 3-5 COVID-19 (LEATHA) COVID-19 Clin Com 01/14/22 01/14/22 01/15/22 15:45 15:45 06:35 WBC 11.5 H RBC 3.61 L D Hgb 11.1 L Hct 32.9 L MCV 91.1 MCH 30.7 MCHC 33.7 RDW 13.2 Plt Count 143 L D MPV 8.9 L Immature Gran % (Auto) Neut % (Auto) Lymph % (Auto) [place] % (Auto) Eos % (Auto) Baso % (Auto) Lymph # (Auto) [place] # (Auto) Eos # (Auto) Baso # (Auto) Abs Immat Gran (auto) Absolute Neuts (auto) Absolute Nucleated RBC 0.000 Nucleated RBC % (auto) 0.0 Sodium Potassium Chloride Carbon Dioxide Anion Gap BUN Creatinine Estim Creat Clear Calc Estimated GFR POC Glucose Random Glucose Fasting Glucose Lactic Acid 1.1 Calcium Urine Color Urine Appearance Urine pH Ur Specific [place] Urine Protein Urine Glucose (UA) Urine Ketones Urine Blood Urine Nitrite Ur Leukocyte Esterase Urine RBC Urine WBC Ur Squamous Epith Cells Urine Bacteria Hyaline Casts COVID-19 (LEATHA) Negative COVID-19 Clin Com See Note 01/15/22 01/15/22 01/15/22 06:35 13:52 14:36 WBC RBC Hgb Hct MCV MCH MCHC RDW Plt Count MPV Immature Gran % (Auto) Neut % (Auto) Lymph % (Auto) [place] % (Auto) Eos % (Auto) Baso % (Auto) Lymph # (Auto) [place] # (Auto) Eos # (Auto) Baso # (Auto) Abs Immat Gran (auto) Absolute Neuts (auto) Absolute Nucleated RBC Nucleated RBC % (auto) Sodium 140 140 Potassium 2.7 L D 3.9 D Chloride 108 110 H Carbon Dioxide 19 L 17 L Anion Gap 16 17 BUN 22 H 23 H Creatinine 1.98 H 1.85 H Estim Creat Clear Calc 14.9 16.0 Estimated GFR 25 27 POC Glucose 42 L* Random Glucose 42 L* Fasting Glucose 77 Lactic Acid Calcium 7.8 L D 8.1 L Urine Color Urine Appearance Urine pH Ur Specific [place] Urine Protein Urine Glucose (UA) Urine Ketones Urine Blood Urine Nitrite Ur Leukocyte Esterase Urine RBC Urine WBC Ur Squamous Epith Cells Urine Bacteria Hyaline Casts COVID-19 (LEATHA) COVID-19 Clin Com 01/15/22 15:12 WBC RBC Hgb Hct MCV MCH MCHC RDW Plt Count MPV Immature Gran % (Auto) Neut % (Auto) Lymph % (Auto) [place] % (Auto) Eos % (Auto) Baso % (Auto) Lymph # (Auto) [place] # (Auto) Eos # (Auto) Baso # (Auto) Abs Immat Gran (auto) Absolute Neuts (auto) Absolute Nucleated RBC Nucleated RBC % (auto) Sodium Potassium Chloride Carbon Dioxide Anion Gap BUN Creatinine Estim Creat Clear Calc Estimated GFR POC Glucose 243 H Random Glucose Fasting Glucose Lactic Acid Calcium Urine Color Urine Appearance Urine pH Ur Specific [place] Urine Protein Urine Glucose (UA) Urine Ketones Urine Blood Urine Nitrite Ur Leukocyte Esterase Urine RBC Urine WBC Ur Squamous Epith Cells Urine Bacteria Hyaline Casts COVID-19 (LEATHA) COVID-19 Clin Com Airway Mallampati Class: III TM Dist: <=3cm Neck ROM: Limited Denture: Upper Loose/Missing/Broken Teeth: Yes Heart: S1,S2 Lungs: b/l breath sounds Assessment and Plan Assessment Anesthesia Assessment: Anesthesia Plan Discussed and Chart Reviewed Final Anesthetic Review Family History of Problems with Anesthesia: No History of Problems with Anesthesia: No NPO: Yes ASA Class: IV and Emergency Final Preanesthetic Review: Meds/Allgs Chart Reviewed, Consent Obtained/Reviewed and Anes Risks/Benef Reviewed Patient Risk: High Procedure Risk: Intermediate Anesthetic Plan Anesthetic Plan: GA Disposition: Inp. Admit - Standard Bed
[2022-01-15 16:00] LABS: Glucose, Whole Blood 194 mg/dL (60-115)
--- NOTE | 2022-01-15 16:20 | MHC.SHP ---
Pre-Procedural Eval Section A Date of Service: 01/15/22 The patient is an INPATIENT: Yes Section B Chief Complaint: right hydro, pyleo Allergies: Allergies Allergy/AdvReac Type Severity Reaction Status Date / Time No Known Allergies Allergy Verified 01/14/22 09:04 Plan Diagnosis/Plan: Unchanged I have reviewed the history and physical and performed a pertinent physical examination on my patient. No changes have occurred unless specified. Plan cystoscopy right retrograde right ureteral stent consent obtained.
--- NOTE | 2022-01-15 17:13 | W.PM.OPN ---
Operative Note Operative Note Date of Service: 01/15/22 Narrative: PreOperative Diagnosis:?? Right Hydronephrosis, Right pyelonephritis Post Operative Diagnosis:?? Right Hydronephrosis, Right pyelonephritis? Procedure: - cystoscopy, right retrograde - right stent placement Surgeon:?Dr Zaid Muller Anesthesia:? General Indications for procedure: 71 year old female admitted with right flank pain, worsening renal function, CT imaging c/w moderated to severe right hydronephrosis, ureteral stone not visualized on CT imaging. Procedure: After informed consent was verified the patient was brought to the operating placed on the OR table in supine position.? General Anesthesia was administered per protocol.? The patient was placed in lithotomy position, prepped and draped in the usual sterile fashion.? Safety pause time-out and side of surgery confirmed.? Antibiotics confirmed. A 22 Estonian cystoscope was inserted transurethrally. The bladder was visualized.? The urine was cloudy. Both ureteric orifices were in visualized, the right ureteral orifice had mild edematous changes. The? right ureteric orifice was cannulated? and a retrograde examination was performed, noting dilatation of the ureter and renal pelvis and calyces. A hydrophilic guidewire was placed up to the level of the renal pelvis under fluoroscopy. A? 6 Estonian by 24 cm stent was placed into the ureter and renal pelvis under a combination of fluoroscopy and direct visualization. The bladder was emptied.? The rigid cystoscope was removed. ? The patient tolerated the procedure well and was brought to the recovery room in stable condition. Complications: None Drains: Ureteral stent as dictated above
[2022-01-15 17:26] LABS: Glucose, Whole Blood 135 mg/dL (60-115)
--- NOTE | 2022-01-15 17:35 | PC.NURSE ---
DR. LOPEZ AT BEDSIDE TO REVIEW PROCEDURE AND PLAN OF CARE WITH PATIENT.
[2022-01-15] MEDS: Famotidine 20 MG TABLET 40 MG PO (19:56)
[2022-01-16] MEDS: 0.9 % Sodium Chloride 1,000 ML 75 ML IVCONT (02:53)
[2022-01-16 03:46] VITALS: BP 149/59; PULSE 74; RESP 18; TEMP 36.8; O2SAT 95
[2022-01-16 07:17] LABS: Hematocrit 31.5 % (37.0-47.0); Hemoglobin 10.1 g/dl (12.0-16.0); Mean Corpuscular HGB Conc 32.1 g/dl (31.0-35.0); Mean Corpuscular Hemoglobin 29.9 pg (27.0-33.0); Mean Corpuscular Volume 93.2 fL (80.0-98.0); Mean Platelet Volume 9.5 fL (9.4-12.3); Platelet Count 150 X10*3/uL (160-400); Red Blood Count 3.38 X10*6/uL (4.20-5.50); Red Cell Distribution Width 13.3 % (11.0-16.0); White Blood Count 9.4 X10*3/uL (4.8-10.8)
[2022-01-16 07:23] VITALS: BP 196/78; PULSE 78; RESP 18; TEMP 37.1; O2SAT 97
--- NOTE | 2022-01-16 07:25 | HO.POSTANES ---
Post Anesthesia Evaluation Post Anesthesia Evaluation Vital Signs: Vital Signs Temp Pulse Resp BP Pulse Ox O2 Del Method 01/16/22 03:46 98.2 F 74 18 149/59 H 95 Room Air 01/15/22 23:23 98.0 F 71 18 127/58 L 96 Room Air 01/15/22 19:40 98.2 F 82 18 131/59 L 97 Room Air Anesthesia: General LMA Mental Status: Awake Pain Control: Satisfactory Nausea/Vomiting: None Hydration: Adequate Anesthesia-Related Issues: No Anes. Related Issues
[2022-01-16] MEDS: Fluticasone/Vilanterol 100/25 BLST.W.DEV 1 PUFF INHALE (07:50)
[2022-01-16 07:51] LABS: Anion Gap 15 (12-20); Blood Urea Nitrogen 18 mg/dL (9-16); Calcium 7.6 mg/dL (8.4-10.2); Carbon Dioxide 19 mmol/L (22-29); Chloride 112 mmol/L (96-108); Creatinine Clr Calc Pharmacy 21.9; Estimated Glomerular Filt Rate 39; Glucose Fasting 83 mg/dL (60-99); Magnesium 1.8 mg/dL (1.6-2.6); Potassium 3.8 mmol/L (3.3-5.1); Sodium 142 mmol/L (135-145)
[2022-01-16 07:55] VITALS: PULSE 60; RESP 18; O2SAT 100
[2022-01-16 08:00] VITALS: BP 175/74; PULSE 94; RESP 16; TEMP 36.9; O2SAT 96
--- NOTE | 2022-01-16 08:53 | PM.UROPN ---
Subjective Subjective Date of Service: 01/16/22 Interval history: Right flank pain improved Physical Exam Vital Signs: Vital Signs: Last Vital Signs Temp 98.5 F 01/16/22 08:00 Pulse 94 01/16/22 08:00 Resp 16 01/16/22 08:00 BP 175/74 H 01/16/22 08:00 Pulse Ox 96 01/16/22 08:00 O2 Del Method 01/16/22 08:00 BMI result Body Mass Index 14.9 Const: General: alert and awake; No acute distress Orientation/consciousness: patient oriented x3 HEENT: Head: Yes normal to inspection and Yes normocephalic Eyes: Conjunctivae: conjunctivae normal Neck: Neck: Yes trachea midline Chest: Chest palpation & inspection: normal inspection of the chest Resp: Effort & Inspection: normal respiratory effort Cardio: Rate: regular rate GI: Palpation (GI): Soft to palpation Skin: General skin exam: turgor normal Neuro: General: patient oriented x3 and moves all extremities Extrem: General: Yes normal gait Urology Results Labs CBC & Chem 7: 01/16/22 06:04 01/16/22 06:04 Labs: Laboratory Results - last 24 hr 01/15/22 01/15/22 01/15/22 13:52 14:36 15:12 WBC RBC Hgb Hct MCV MCH MCHC RDW Plt Count MPV Absolute Nucleated RBC Nucleated RBC % (auto) Sodium 140 Potassium 3.9 D Chloride 110 H Carbon Dioxide 17 L Anion Gap 17 BUN 23 H Creatinine 1.85 H Estim Creat Clear Calc 16.0 Estimated GFR 27 POC Glucose 42 L* 243 H Random Glucose 42 L* Fasting Glucose Calcium 8.1 L Magnesium 01/15/22 01/15/22 01/16/22 15:54 17:20 06:04 WBC 9.4 RBC 3.38 L Hgb 10.1 L Hct 31.5 L MCV 93.2 MCH 29.9 MCHC 32.1 RDW 13.3 Plt Count 150 L MPV 9.5 Absolute Nucleated RBC 0.000 Nucleated RBC % (auto) 0.0 Sodium Potassium Chloride Carbon Dioxide Anion Gap BUN Creatinine Estim Creat Clear Calc Estimated GFR POC Glucose 194 H 135 H Random Glucose Fasting Glucose Calcium Magnesium 01/16/22 06:04 WBC RBC Hgb Hct MCV MCH MCHC RDW Plt Count MPV Absolute Nucleated RBC Nucleated RBC % (auto) Sodium 142 Potassium 3.8 Chloride 112 H Carbon Dioxide 19 L Anion Gap 15 BUN 18 H Creatinine 1.35 Estim Creat Clear Calc 21.9 Estimated GFR 39 POC Glucose Random Glucose Fasting Glucose 83 Calcium 7.6 L D Magnesium 1.8 Progress Note: A&P Assessment and plan (1) Acute kidney injury: Status: Acute (2) Urinary tract infection: Status: Acute (3) Hydronephrosis of right kidney: Status: Acute Plan S/P right ureteral stent Blood c/s no growth, did not see urine c/s as pending When stable d/c on Cipro 250 bid for 10 days Out patient urology fu with me in 2 weeks Time Spent With Patient Time: Total time spent is greater than 50% in coordination of care (as documented) at patient's floor/unit and/or counseling patient: Progress Note: Quality Stroke Does the patient have a stroke diagnosis?: No
[2022-01-16] MEDS: Clopidogrel Bisulfate 75 MG TABLET PO (09:08)
[2022-01-16] MEDS: Atorvastatin Calcium 80 MG TABLET PO (09:08)
[2022-01-16] MEDS: Heparin Sodium,Porcine 5,000 UNIT/ML VIAL 5000 UNIT SUBCUT (09:09)
[2022-01-16] MEDS: dilTIAZem HCL CD 240 MG CAP.ER.DEG PO (09:09)
--- NOTE | 2022-01-16 10:13 | MHC.CLN ---
F/U DIET ADVANCED TO REGULAR ON 01/15. S/P RIGHT URETERAL STENT. ADDING ENSURE BID TO INCREASE KCALS AND PROMOTE WEIGHT GAIN. PROVIDES ADDITIONAL 700 KCALS, 40 G PROTEIN. NO SIGNIFICANT WEIGHT CHANGE NOTED X 2 YEARS. HX OF WEIGHT BELOW IBWR. FOLLOW FOR INTAKE AND WEIGHT.
[2022-01-16 11:10] VITALS: BP 166/69; PULSE 86; RESP 17; TEMP 37.4; O2SAT 95
--- NOTE | 2022-01-16 12:02 | PM.DS ---
DS: Providers Provider Date of Service: 01/16/22 Date of admission: 01/14/22 18:06 Primary care physician: Cheo Michaels MD Consults: 01/14/22 18:02 Consult to Urology Routine Consulting Provider: Zaid Muller Reason for consultation: severe right hydro DS: Diagnosis Discharge Diagnosis (1) Acute kidney injury: Status: Acute (2) Urinary tract infection: Status: Acute (3) Hydronephrosis of right kidney: Status: Acute DS: Summary Hospital Course Hospital Course: from initial hpi: 71F with pmh CAD, PVD, lung cancer, HTN, COPD, sarcoid, CKD II, presented with right flank pain.? Patient states she has been feeling unwell for the past month after myrna COVID about 4 weeks prior to presentation.? Generalized weakness, poor appetite.? Four days prior to presentation patient felt sudden right flank 10/10 sharp pain, nonradiating, has never had similar symptoms before, denies burning in urine or fever chills.? Pain worsened so she came to ED. In ED CT abdomen showed severe right hydronephrosis with no obvious obstructing stone, lab significant for acute kidney injury and leukocytosis. hospital course: Patient was admitted for flank pain was severe right hydronephrosis, acute pyelonephritis, complicated by acute kidney injury on CKD 2. She was treated with IV ceftriaxone, IV fluids. She was seen by Urology who performed cystoscopy and stent placement. GIANLUCA resolved. She will be discharged on 10 more days of p.o. Cipro. Patient had hypokalemia which was replaced. For coronary disease/peripheral vascular disease she was continued on Plavix and statin. For hypertension she was continued on diltiazem. For COPD she was given Spiriva. For history of lung cancer she will follow up outpatient. For moderate protein calorie malnutrition she should be encouraged to increase her caloric intake. Patient is feeling better will be discharged home. Time Spent with Patient Time attestation: Total time spent providing and/or coordinating discharge services: Discharge coordination time: Greater than 30 minutes Quality: Safe Use of Opioids Does Pt have an Active Cancer Diagnosis on the Problem List?: No Quality: Stroke Does the patient have a stroke diagnosis?: No Physical Exam Vital Signs: Vital Signs: Last Vital Signs Temp 99.3 F 01/16/22 11:10 Pulse 86 01/16/22 11:10 Resp 17 01/16/22 11:10 BP 166/69 H 01/16/22 11:10 Pulse Ox 95 01/16/22 11:10 O2 Del Method 01/16/22 11:10 BMI result Body Mass Index 14.9 General: AO X 3, no acute distress Resp: CTA bilateral, no accessory muscles used CVS: S1,S2,RRR GI: soft, non tender, non distended Neuro: motor grossly intact, alert Psych: appropriate affect, appropriate insight DS: Data Data Completed and Pending Labs on day of discharge: Laboratory Results - last 24 hr 01/15/22 01/15/22 01/15/22 13:52 14:36 15:12 WBC RBC Hgb Hct MCV MCH MCHC RDW Plt Count MPV Absolute Nucleated RBC Nucleated RBC % (auto) Sodium 140 Potassium 3.9 D Chloride 110 H Carbon Dioxide 17 L Anion Gap 17 BUN 23 H Creatinine 1.85 H Estim Creat Clear Calc 16.0 Estimated GFR 27 POC Glucose 42 L* 243 H Random Glucose 42 L* Fasting Glucose Calcium 8.1 L Magnesium 01/15/22 01/15/22 01/16/22 15:54 17:20 06:04 WBC 9.4 RBC 3.38 L Hgb 10.1 L Hct 31.5 L MCV 93.2 MCH 29.9 MCHC 32.1 RDW 13.3 Plt Count 150 L MPV 9.5 Absolute Nucleated RBC 0.000 Nucleated RBC % (auto) 0.0 Sodium Potassium Chloride Carbon Dioxide Anion Gap BUN Creatinine Estim Creat Clear Calc Estimated GFR POC Glucose 194 H 135 H Random Glucose Fasting Glucose Calcium Magnesium 01/16/22 06:04 WBC RBC Hgb Hct MCV MCH MCHC RDW Plt Count MPV Absolute Nucleated RBC Nucleated RBC % (auto) Sodium 142 Potassium 3.8 Chloride 112 H Carbon Dioxide 19 L Anion Gap 15 BUN 18 H Creatinine 1.35 Estim Creat Clear Calc 21.9 Estimated GFR 39 POC Glucose Random Glucose Fasting Glucose 83 Calcium 7.6 L D Magnesium 1.8 Preliminary micro results at discharge 01/14/22 15:45 Blood Culture - Preliminary Blood - Venous No growth after 24 hours. 01/14/22 15:45 Blood Culture - Preliminary Blood - Venous No growth after 24 hours. Discharge Plan Discharge Anticipated Discharge Date/Time: 01/16/22 11:57 Patient Disposition: Home, Self-Care Discharge Diagnosis: gianluca, right hydro Referrals: Zaid Muller MD [Physician] - 2 Weeks Cheo Michaels MD [Primary Care Provider] - 1 Week Discharge Medications: New ciprofloxacin HCl 250 mg tablet 250 mg PO BID Qty: 20 0RF Continued Trelegy Ellipta 100-62.5-25 mcg blister with device 1 inh inhalation DAILY Qty: 60 3RF clopidogrel [Plavix] 75 mg tablet 1 tab PO DAILY nitroglycerin 0.4 mg tablet, sublingual 1 tab sublingual NEEDED rosuvastatin 20 mg tablet 1 tab PO DAILY diltiazem HCl 240 mg capsule,extended release 24hr 240 mg PO DAILY Qty: 90 1RF docusate sodium 100 mg capsule 100 mg PO BID PRN (Reason: Constipation) simethicone 180 mg capsule 180 mg PO QID PRN (Reason: Abdominal Discomfort) Rx Instructions: after meals famotidine [Pepcid] 40 mg tablet 40 mg PO BEDTIME Qty: 30 6RF lubiprostone [Amitiza] 8 mcg capsule 8 mcg PO BID Qty: 60 3RF Discharge Orders: Discharge Order (Routine); Ordered 01/16/22 Ordered By: Patrick Ojeda Diet: Advance to usual diet Activity on Discharge: As tolerated Stand Alone Forms: Patient Portal Discharge page Care Plan Goals: recovery Health Concerns: gianluca, right hydro Plan of Treatment: 10 days cipro, follow up urology in 2 weeks Assessment: see above
--- NOTE | 2022-01-16 12:18 | MHC.CM.PN ---
PT TO [facility] HOME TODAY WITH NO SERVICES. SISTER TO TRANSPORT
== END 2022-01-16 13:00 | disposition home or self-care (01) | DRG 660 ==
LOC: HO.ED 17:23 → HO.EDOVER 18:20 → HO.S3 01-15 07:31
PROVIDERS: Nurse Practitioner Family; Urology; Admitting Provider Internal Medicine; Emergency Provider Emergency Medicine; PCP Internal Medicine; Visit Provider Internal Medicine
PROC: 0T768DZ Dilation of Right Ureter with Intraluminal Device, Via Natural or Artificial Opening Endoscopic (ICD-10-PCS; CPT 52332; principal; 2022-01-15 10:00)
DX: N13.6 Pyonephrosis (principal); E44.0 Moderate protein-calorie malnutrition; Z68.1 Body mass index [BMI] 19.9 or less, adult; N17.9 Acute kidney failure, unspecified; I25.10 Atherosclerotic heart disease of native coronary artery without angina pectoris; E87.6 Hypokalemia; I73.9 Peripheral vascular disease, unspecified; F17.210 Nicotine dependence, cigarettes, uncomplicated; I12.9 Hypertensive chronic kidney disease with stage 1 through stage 4 chronic kidney disease, or unspecified chronic kidney disease; N18.2 Chronic kidney disease, stage 2 (mild); J44.9 Chronic obstructive pulmonary disease, unspecified; Z20.822 Contact with and (suspected) exposure to COVID-19; Z71.6 Tobacco abuse counseling; Z85.118 Personal history of other malignant neoplasm of bronchus and lung; Z79.899 Other long term (current) drug therapy
CPT/HCPCS: 52332; 36415; 74176; 80048; 81001; 82947; 83605; 83735; 85025; 85027; 87040; 87635; 96361; 96374; 96375; 96376; 99218; 99285; C1758; C1769; C2617; J0131; J0690; J0696; J2270; J2405; J3010; Q9967

== ENCOUNTER 2022-01-30 09:31 | Outpatient (REF) | payer MEDICARE, SELFPAY ==
[2022-01-30 11:01] LABS: Alanine Aminotransferase 24 U/L (0-31); Albumin Level 3.9 g/dL (3.5-5.0); Alkaline Phosphatase 67 U/L (39-117); Anion Gap 18 (12-20); Aspartate Amino Transferase 25 U/L (5-31); Bilirubin Total 0.6 mg/dL (0.0-1.0); Blood Urea Nitrogen 13 mg/dL (9-16); Calcium 8.7 mg/dL (8.4-10.2); Carbon Dioxide 26 mmol/L (22-29); Chloride 102 mmol/L (96-108); Estimated Glomerular Filt Rate 41; Glucose Random 91 mg/dL (60-115); Potassium 3.6 mmol/L (3.3-5.1); Sodium 142 mmol/L (135-145)
== END 2022-01-30 09:32 | disposition home or self-care (01) ==
LOC: HO.LAB 09:31
PROVIDERS: PCP Internal Medicine; Visit Provider Internal Medicine
DX: N39.0 Urinary tract infection, site not specified (principal); N17.9 Acute kidney failure, unspecified; N13.30 Unspecified hydronephrosis
CPT/HCPCS: 36415; 51798; 80053; 87086; 99212

== ENCOUNTER 2022-02-06 10:40 | Outpatient (REF) | payer MEDICARE, SELFPAY ==
--- NOTE | ~2022-02-06 | US_ITS ---
EXAMINATION: US RETROPERITONEAL LIMITED (RENAL ONLY) CLINICAL INFORMATION: Unspecified hydronephrosis. COMPARISON: CT abdomen and pelvis without contrast 01/14/2022. X-ray abdomen 11/27/2021. Ultrasound retroperitoneal complete (renal) 02/14/2021 and 01/19/2017. MR abdomen without and with contrast 12/01/2018. TECHNIQUE: Real-time imaging of the kidneys. FINDINGS: RIGHT KIDNEY: 9.6 x 3.7 x 3.7 cm (SAG x AP x TRV). The kidney is normal in size, contour, and echogenicity. Renal cortical thickness is normal. Is a small stone in the upper pole measuring 2 mm. There is a stent in the right renal pelvis. No focal parenchymal lesions or hydronephrosis. LEFT KIDNEY: 10.3 x 4.0 x 3.7 cm (SAG x AP x TRV). The kidney is normal in size, contour, and echogenicity. Renal cortical thickness is normal. No calculi or focal parenchymal lesions. No hydronephrosis. US/US renal BI IMPRESSION: Right hydronephrosis no longer seen. Small right upper pole renal stone. Stent seen in the right renal pelvis. Normal left kidney.
== END 2022-02-06 10:41 | disposition home or self-care (01) ==
LOC: HO.US 10:40
PROVIDERS: Visit Provider Urology
DX: N13.30 Unspecified hydronephrosis (principal)
CPT/HCPCS: 76775

== ENCOUNTER 2022-02-17 14:40 | Outpatient (REF) | payer MEDICARE, SELFPAY ==
[2022-02-17 16:53] LABS: Bacteria Urine None Seen (None Seen); Hyaline Casts Urine 0-2 /LPF (0-2); RBC Urine >20 /HPF (0-2); WBC Urine 21-50 /HPF (0-5)
[2022-02-17 16:57] LABS: Appearance Urine Turbid; Color Urine Red; Glucose Urine UA Negative (Negative); Leukocyte Esterase Urine Moderate (2+) (Negative); Nitrite Urine Positive (Negative); UMIC TRIGGER UA YES; Urine Blood Large (3+) (Negative); Urine Ketones Negative (Negative); Urine Protein 300 (3+) mg/dL (Neg-Trace)
== END 2022-02-17 14:41 | disposition home or self-care (01) ==
LOC: HO.HMGCLDS 14:40
PROVIDERS: PCP Internal Medicine; Visit Provider Urology
DX: N39.0 Urinary tract infection, site not specified (principal)
CPT/HCPCS: 81001; 87086

== ENCOUNTER → 2022-02-25 15:20 | Outpatient (BNVA) | payer MEDICARE, SELFPAY | PROVIDERS: PCP Internal Medicine; Visit Provider Urology | DX: N13.30 Unspecified hydronephrosis (principal); N20.0 Calculus of kidney | CPT/HCPCS: 52310; 99212 ==

== ENCOUNTER 2022-03-03 08:43 | Outpatient (REF) | payer MEDICARE, SELFPAY | END 2022-03-03 08:44 | disposition home or self-care (01) | LOC: HO.BBR 08:43 | PROVIDERS: Visit Provider Internal Medicine Medical Oncology | DX: D75.1 Secondary polycythemia (principal) | CPT/HCPCS: 85014; 85018; 99195 ==

== ENCOUNTER 2022-03-30 09:06 | Outpatient (REF) | payer MEDICARE, SELFPAY ==
[2022-03-30 09:22] LABS: MANUAL DIFF FLAG NO
[2022-03-30 09:52] LABS: Basophils Absolute Auto 0.1 X10*3/uL (0.0-0.2); Basophils Percent Auto 0.8 % (0-2); Eosinophils Absolute Auto 0.1 X10*3/uL (0.0-0.4); Eosinophils Percent Auto 0.7 % (0-4); Hematocrit 40.2 % (37.0-47.0); Hemoglobin 13.5 g/dl (12.0-16.0); Imm Gran Abs Auto 0.03 X10*3/uL (0.00-0.03); Imm Gran Pct Auto 0.4 % (0.0-0.4); Lymphocytes Absolute Auto 1.2 X10*3/uL (1.2-4.9); Lymphocytes Percent Auto 14.6 % (20-40); Mean Corpuscular HGB Conc 33.6 g/dl (31.0-35.0); Mean Corpuscular Hemoglobin 29.5 pg (27.0-33.0); Mean Corpuscular Volume 87.8 fL (80.0-98.0); Mean Platelet Volume 9.8 fL (9.4-12.3); Monocytes Absolute Auto 0.7 X10*3/uL (0.1-1.2); Monocytes Percent Auto 8.3 % (2-11); Neutrophils Absolute Auto 6.4 x10*3/uL (2.0-8.3); Neutrophils Percent Auto 75.2 % (45-73); Platelet Count 213 X10*3/uL (160-400); Red Blood Count 4.58 X10*6/uL (4.20-5.50); Red Cell Distribution Width 13.1 % (11.0-16.0); White Blood Count 8.5 X10*3/uL (4.8-10.8)
[2022-03-30 09:55] LABS: Alanine Aminotransferase 14 U/L (0-31); Albumin Level 4.2 g/dL (3.5-5.0); Alkaline Phosphatase 66 U/L (39-117); Anion Gap 12 (12-20); Aspartate Amino Transferase 19 U/L (5-31); Bilirubin Total 0.3 mg/dL (0.0-1.0); Blood Urea Nitrogen 18 mg/dL (9-16); Calcium 9.9 mg/dL (8.4-10.2); Carbon Dioxide 27 mmol/L (22-29); Chloride 107 mmol/L (96-108); Estimated Glomerular Filt Rate 41; Glucose Random 112 mg/dL (60-115); Phosphorus 3.6 mg/dL (2.7-4.5); Sodium 142 mmol/L (135-145); Total Protein 6.1 g/dL (6.5-8.0)
== END 2022-03-30 09:07 | disposition home or self-care (01) ==
LOC: HO.LAB 09:06
PROVIDERS: Internal Medicine Medical Oncology; PCP Internal Medicine; Visit Provider Internal Medicine Hypertension Specialist
DX: C34.12 Malignant neoplasm of upper lobe, left bronchus or lung (principal); N18.31 Chronic kidney disease, stage 3a
CPT/HCPCS: 36415; 80053; 84100; 85025

== ENCOUNTER 2022-05-06 10:20 | Outpatient (REF) | payer MEDICARE, SELFPAY ==
--- NOTE | ~2022-05-06 | US_ITS ---
EXAMINATION: US RETROPERITONEAL LIMITED (RENAL ONLY) CLINICAL INFORMATION: Calculus of kidney. COMPARISON: Renal ultrasound 02/06/2022. CT abdomen and pelvis 01/14/2022 TECHNIQUE: Real-time imaging of the kidneys. FINDINGS: RIGHT KIDNEY: 8.9 x 2.9 x 3.2 cm (SAG x AP x TRV). The kidney is normal in size, contour, and echogenicity. Renal cortical thickness is normal. No focal parenchymal lesions or hydronephrosis. 3 mm nonobstructing upper pole renal stone, previously 2 mm. LEFT KIDNEY: 8.8 x 4.2 x 4.2 cm (SAG x AP x TRV). The kidney is normal in size, contour, and echogenicity. Renal cortical thickness is normal. No calculi or focal parenchymal lesions. No hydronephrosis. US/US renal BI IMPRESSION: Similar nonobstructing 3 mm right upper pole renal stone.
[2022-05-06 12:59] LABS: Cholesterol 139 mg/dL; HDL Cholesterol 67 mg/dL; LDL Cholesterol Calculated 57 mg/dl; Triglycerides 76 mg/dL
== END 2022-05-06 10:21 | disposition home or self-care (01) ==
LOC: HO.US 10:20
PROVIDERS: Absent Provider Nurse Practitioner Family; PCP Internal Medicine; Visit Provider Urology
DX: N20.0 Calculus of kidney (principal); I25.10 Atherosclerotic heart disease of native coronary artery without angina pectoris; E78.2 Mixed hyperlipidemia; I10 Essential (primary) hypertension
CPT/HCPCS: 36415; 76775; 80061

== ENCOUNTER → 2022-05-22 08:50 | Outpatient (BNVA) | payer MEDICARE, SELFPAY | PROVIDERS: PCP Internal Medicine; Visit Provider Hospitalist | DX: J43.2 Centrilobular emphysema (principal); R91.8 Other nonspecific abnormal finding of lung field; G47.00 Insomnia, unspecified; F17.210 Nicotine dependence, cigarettes, uncomplicated; Z85.118 Personal history of other malignant neoplasm of bronchus and lung; Z79.899 Other long term (current) drug therapy | CPT/HCPCS: 99212 ==

== ENCOUNTER → 2022-05-26 10:01 | Outpatient (BNVA) | payer MEDICARE, SELFPAY | PROVIDERS: PCP Internal Medicine; Visit Provider Urology | DX: N20.0 Calculus of kidney (principal) | CPT/HCPCS: Q3014 ==

== ENCOUNTER → 2022-05-29 08:03 | Outpatient (BNVA) | payer MEDICARE, SELFPAY | PROVIDERS: PCP Internal Medicine; Referring Provider Internal Medicine; Visit Provider Nurse Practitioner | DX: K59.04 Chronic idiopathic constipation (principal); K21.9 Gastro-esophageal reflux disease without esophagitis; K86.1 Other chronic pancreatitis; K22.10 Ulcer of esophagus without bleeding; F17.210 Nicotine dependence, cigarettes, uncomplicated; Z79.899 Other long term (current) drug therapy | CPT/HCPCS: 99212 ==

== ENCOUNTER 2022-06-03 08:37 | Outpatient (REF) | payer MEDICARE, SELFPAY | END 2022-06-03 08:38 | disposition home or self-care (01) | LOC: HO.BBR 08:37 | PROVIDERS: PCP Internal Medicine; Visit Provider Internal Medicine Medical Oncology | DX: D75.1 Secondary polycythemia (principal) | CPT/HCPCS: 85018 ==

== ENCOUNTER 2022-08-31 08:52 | Outpatient (REF) | payer MEDICARE, SELFPAY | END 2022-08-31 08:53 | disposition home or self-care (01) | LOC: HO.BBR 08:52 | PROVIDERS: PCP Internal Medicine; Visit Provider Internal Medicine Medical Oncology | DX: D75.1 Secondary polycythemia (principal) | CPT/HCPCS: 85014; 85018; 99195 ==

== ENCOUNTER 2022-10-12 08:14 | Outpatient (REF) | payer MEDICARE, SELFPAY ==
--- NOTE | ~2022-10-12 | MM_ITS ---
EXAMINATION: MM SCREENING DIGITAL BREAST TOMOSYNTHESIS, BILATERAL CLINICAL INFORMATION: Screening. Asymptomatic. Due for yearly. History lung cancer. The lifetime risk of breast cancer based on the Tyrer-Cuzick Model is 2%. COMPARISON: Mammography: 10/09/2021, 10/08/2020, 05/08/2019, 03/23/2018. TECHNIQUE: Digital breast tomosynthesis is performed in both the craniocaudal and mediolateral oblique views along with computer-aided detection (CAD). Synthesized 2D images are generated from the tomosynthesis. Additional right CC and bilateral MLO views are provided. FINDINGS: There are scattered areas of fibroglandular density (ACR BI-RADS breast composition Category b). There are no significant masses, abnormal calcifications, or other abnormalities. No architectural abnormality or developing density or significant change from prior studies. The axilla and skin contours are unremarkable. MM/MM tomosynthesis screening BI IMPRESSION: No mammographic evidence of malignancy. ASSESSMENT: BI-RADS 1: Negative RECOMMENDATION: Routine annual mammography screening. This patient's information was entered into a reminder system with a target due date for their next mammogram.
== END 2022-10-12 08:15 | disposition home or self-care (01) ==
LOC: HO.MAMMO 08:14
PROVIDERS: PCP Internal Medicine; Visit Provider Internal Medicine
DX: Z12.31 Encounter for screening mammogram for malignant neoplasm of breast (principal)
CPT/HCPCS: 77063; 77067

== ENCOUNTER 2022-11-17 08:13 | Outpatient (REF) | payer MEDICARE, SELFPAY ==
--- NOTE | ~2022-11-17 | US_ITS ---
EXAMINATION: US RETROPERITONEAL LIMITED (RENAL ONLY) CLINICAL INFORMATION: Unspecified hydronephrosis. COMPARISON: Renal ultrasound 05/06/2022 TECHNIQUE: Real-time imaging of the kidneys. FINDINGS: RIGHT KIDNEY: 9.4 x 3.1 x 2.9 cm (SAG x AP x TRV). The kidney is normal in size, contour, and echogenicity. Renal cortical thickness is normal. No hydronephrosis. Subcentimeter benign-appearing renal cysts, no follow-up imaging recommended. 4 mm nonobstructing upper pole renal stone previously 3 mm. LEFT KIDNEY: 9.7 x 4.2 x 3.6 cm (SAG x AP x TRV). The kidney is normal in size, contour, and echogenicity. Renal cortical thickness is normal. No calculi or focal parenchymal lesions. No hydronephrosis. Echogenic foci without twinkle artifact or shadowing may reflect vascular reflectors. No definite nephrolithiasis. US/US renal BI IMPRESSION: 1. No hydronephrosis. 2. 4 mm nonobstructing right upper pole renal stone previously 3 mm. 3. Echogenic foci without twinkle artifact or shadowing may reflect vascular reflectors. No definite nephrolithiasis.
== END 2022-11-17 08:14 | disposition home or self-care (01) ==
LOC: HO.US 08:13
PROVIDERS: PCP Internal Medicine; Visit Provider Urology
DX: N13.30 Unspecified hydronephrosis (principal)
CPT/HCPCS: 76775

== ENCOUNTER 2022-11-26 08:57 | Outpatient (AMB) | payer MEDICARE, SELFPAY ==
--- NOTE | 2022-11-26 07:21 | A.OFFVIS_ITS ---
Intake Intake Visit Reasons: 6m follow up/US Intake Note: Patient presents today for a 6mo follow-up with US Results: Meds- None Allergies to Antibiotic- No Known Allergies Blood Thinner- Plavix UTI POS Bench Assembly Inspector Required: No Accompanied by: Self / Same As Patient Allergies No Known Allergies Allergy (Verified 11/26/22 09:41) HPI HPI Comments History of Present Illness Details 11/26/2022-- Sanjuanita is a 72 y/o female, here for follow, hydronephrosis, right renal stone. past medical history of CAD, elevated cholesterol, hypertension, history of irritable bowel syndrome, and copd. She was initially evaluated due to right hydronephrosis and had a ureteral stent placed. Renal u/s from 11/17/22 was reviewed with the patient. Right kidney 3 to 4 mm nonobstructive stone. No hydronephrosis. Review of chart: 02/25/22-- Here for cysto stent removal. Sanjuanita is a 71-year-old female who was initially evaluated as an inpatient for right hydronephrosis.? S/P Right ureteral? stent 01/15/22.She is on plavix, She is seeing blood in the urine which is to be expected with the stent Multiple medical problems, significant history of CAD, COPD, lung cancer,? nicotine dependency. Etiology of hydro unclear but likely related to possible stone passing or pyelo CT abdomen pelvis wo IV con IMPRESSION:Severe right hydronephrosis. There is right perinephric fat stranding. This probably represents backflow of urine secondary to obstruction. Differential would include infection. The right ureter is difficult to follow. There is mild dilatation of the right proximal ureter. No obstructing right ureteral stone is appreciated. Small right upper pole renal stones. Normal left kidney. Normal bladder.?? 11/26/22- Evaluation - UA- Leuks++, blood ++, nitrite positive 11/26/22--Plan: Hydronephrosis? is resolved. Monitor right kidney stone. Will send urine for culture. Await results prior to starting Abx Follow up in one year renal US prior. [facility] Medical History Angina pectoris Arthritis CAD (coronary artery disease) Chronic cough Chronic pancreatitis COPD (chronic obstructive pulmonary disease) Elevated cholesterol Erythrocytosis GERD (gastroesophageal reflux disease) History of IBS HTN (hypertension) Hx of chronic kidney disease Hx of hiatal hernia Insomnia Malignant neoplasm of upper lobe of left lung (~2019) Myocardial infarction (~2000) Nicotine dependence Pulmonary nodules PVD (peripheral vascular disease) Sarcoidosis Thrombosis of right iliac artery Surgical History History of cardiac cath (~2000) History of colonoscopy (~2018) History of endarterectomy (~2016) History of esophagogastroduodenoscopy (EGD) (~2019) History of lung biopsy (~2019) History of lung surgery (~2019) History of partial hysterectomy Hx of tonsillectomy Hx of tubal ligation Family History Father Heart disease Mother Heart disease Brother Diabetes Sister Mental health disorder Social History Household Members: Other Household Members Other:: ex Housing: House Are you a primary home care chaplain to a significant other at home: No Do you presently have visiting nurse or other home services: No Alcohol intake: current Alcohol intake frequency: holidays/special occasions only Patient Tobacco Use Status: Current everyday Tobacco user Tobacco use type: Cigarette Cigarettes Per Day: 6 Years Smoked: 40 e-Cigarette/Vaping Use: Never Used Second Hand Smoke Exposure: No service: No Current occupational status: retired Cognitive needs: No Hearing needs: No Vision needs: Yes Review of Systems Const All systems reviewed & are unremarkable except as noted in HPI and below Reports no additional complaints Eyes Reports no additional complaints ENT Reports no additional complaints Card Denies dyspnea Resp Denies cough and Denies dyspnea GI Reports no additional complaints Reports no additional complaints Musc Reports no additional complaints Skin/Breast Denies rash and Denies unusual bruising Neuro Reports no additional complaints Psych Reports no additional complaints Endo Reports no additional complaints Juice/Lymph Reports no additional complaints Aller/Immun Reports no additional complaints Results AMB Urinalysis, Automated UA Leukoctes 500 Ania/uL Last Edit by PILLO Lawler on 11/26/22 09:54 3+ Codi Ott 11/26/22 09:54 UA Nitrite Positive Last Edit by PILLO Lawler on 11/26/22 09:54 UA Urobilinogen 0.2 mg/dL Last Edit by PILLO Lawler on 11/26/22 09:5 4 UA Protein 100 mg/dL Last Edit by Codi Ott [facility] on 11/26/22 09:54 2+ Codi Ott 11/26/22 09:54 UA pH 6.0 Last Edit by Codi Ott [facility] on 11/26/22 09:54 UA Blood 200 Quan/uL Last Edit by Codi Ott [facility] on 11/26/22 09:54 3+ Codi Ott 11/26/22 09:54 UA Specific [place] 1.010 Last Edit by Codi Ott [facility] on 11/26/22 09: 54 UA Ketone Last Edit by Codi Ott Soham on 11/26/22 09:54 UA Bilirubin 0 mg/dL Last Edit by Codi Ott [facility] on 11/26/22 09:54 UA Glucose 0 mg/dL Last Edit by Codi Ott Soham on 11/26/22 09:54 Results Reviewed Results Reviewed: Laboratory Last Values Urine pH (Auto) 6.0 11/26/22 09:45 Specific [place] (Auto) 1.010 11/26/22 09:45 Urine Protein (Auto) 100 mg/dL 11/26/22 09:45 Glucose (UA)(Auto) 0 mg/dL 11/26/22 09:45 Urine Blood (Auto) 200 Quan/uL 11/26/22 09:45 Urine Nitrite (Auto) Positive 11/26/22 09:45 Urine Bilirubin (Auto) 0 mg/dL 11/26/22 09:45 Urine Urobilinogen (Auto) 0.2 mg/dL 11/26/22 09:45 Leukocyte Esterase (Auto) 500 Ania/uL 11/26/22 09:45 Date of Service: 11/17/22 EXAMINATION: US RETROPERITONEAL LIMITED (RENAL ONLY) COMPARISON: Renal ultrasound 05/06/2022 FINDINGS: RIGHT KIDNEY: 9.4 x 3.1 x 2.9 cm (SAG x AP x TRV). The kidney is normal in size, contour, and echogenicity. Renal cortical thickness is normal. No hydronephrosis. Subcentimeter benign-appearing renal cysts, no follow-up imaging recommended. 4 mm nonobstructing upper pole renal stone previously 3 mm. LEFT KIDNEY: 9.7 x 4.2 x 3.6 cm (SAG x AP x TRV). The kidney is normal in size, contour, and echogenicity. Renal cortical thickness is normal. No calculi or focal parenchymal lesions. No hydronephrosis. Echogenic foci without twinkle artifact or shadowing may reflect vascular reflectors. No definite nephrolithiasis. IMPRESSION: 1.? No hydronephrosis. 2.? 4 mm nonobstructing right upper pole renal stone previously 3 mm. 3.? Echogenic foci without twinkle artifact or shadowing may reflect vascular reflectors. No definite nephrolithiasis. ? Assessment & Plan Assessment & Plan (1) Right renal stone: Code(s): N20.0 - Calculus of kidney Plan: Hydronephrosis? is resolved. Monitor right kidney stone. We will send urine for culture. Follow up in one year renal US prior. Orders: Orders Urine Culture 11/26/22 N39.0 - Urinary tract infection, site not specified CT abdomen pelvis wo IV con 10 Months N20.0 - Calculus of kidney AMB Urinalysis Automated 11/26/22 Z13.9 - Encounter for screening, unspecified Patient Instructions: The patient had an opportunity to ask questions regarding treatment plan. All questions were answered. Imaging, Laboratory studies and physical exam results were discussed and reviewed in detail. No major barriers to understanding were identified. The patient expressed understanding and agreement with the above treatment plan.? ? ? The patient is aware they should contact our office by phone for worsening of their current condition or the appearance of new symptoms. Compliance is encouraged with any medications and followup testing that is ordered.? ? ? It is a privilege to be allowed the opportunity to participate in the urologic care of your patient. If you have any questions or concerns regarding treatment for the above conditions please do not hesitate to contact me. The office telephone contact is [phone].? ? ? This note is constructed in part using voice recognition software. While every effort has been made to ensure accuracy tooler errors may have been included.? ? ? Yours sincerely,? ? ? Zaid Muller MD? ? Quality Reporting (2019) Adult ([facility] 138/06/10/68) Smoking risk assessment performed?: Yes Patient Tobacco Use Status: Current everyday Tobacco user Coding Level of Care Code Est Pt Level 3 (58411) Diagnoses Right renal stone N20.0
== END 2022-11-26 10:17 | disposition home or self-care (01) ==
PROVIDERS: Visit Provider Urology
DX: N20.0 Calculus of kidney (principal)
CPT/HCPCS: 99213

== ENCOUNTER 2022-11-26 08:57 | Outpatient (REF) | payer MEDICARE, SELFPAY | END 2022-11-26 08:58 | disposition home or self-care (01) | LOC: HO.LAB 08:57 | PROVIDERS: Visit Provider Urology | DX: N20.0 Calculus of kidney (principal) | CPT/HCPCS: 87086; 87088; 87186; 99212 ==

== ENCOUNTER 2022-12-01 08:39 | Outpatient (REF) | payer MEDICARE, SELFPAY | END 2022-12-01 08:40 | disposition home or self-care (01) | LOC: HO.BBR 08:39 | PROVIDERS: PCP Internal Medicine; Visit Provider Internal Medicine Medical Oncology | DX: Z13.89 Encounter for screening for other disorder (principal) ==

== ENCOUNTER 2023-01-11 10:25 | Outpatient (REF) | payer MEDICARE, SELFPAY ==
--- NOTE | ~2023-01-11 | CT_ITS ---
EXAMINATION: CT CHEST WITHOUT CONTRAST CLINICAL INFORMATION: Left upper lobe lung cancer. COMPARISON: CT chest 11/27/2021, 05/28/2021, 11/08/2020. TECHNIQUE: Multidetector volumetric CT imaging of the chest was done. Axial MIP volume rendering provided. Sagittal and coronal reformatted images were obtained. This CT examination was performed using dose optimization techniques as appropriate, variously including the following: *Automated exposure control *Adjustment of mA and/or kV according to patient size (this includes techniques or standardized protocols for targeted exams where dose is matched to indication/reason for exam; i.e. extremities or head) *Use of iterative reconstruction technique DLP: 61 mGy-cm FINDINGS: LUNGS: Moderate centrilobular emphysema. Airway wall thickening. Postoperative changes anterior left upper lobe with no measurable disease along the staple line. There is a mixed cystic and solid nodule in the left upper lobe measuring 1.7 x 1.1 cm with solid component measuring 1.1 x 0.5 cm series 6 image 13.. This has increased in maximum dimension from 1.0 cm. This has shown slow growth over time measuring 6 mm in 2020. 3 mm nodule right upper lobe series 5 image 110 is stable. There are stable scattered micronodules. Stable focal cystic disease in the right lower lobe. MEDIASTINUM: No adenopathy. No pericardial effusion. CORONARY ARTERY CALCIFICATION: LM, LAD, LCx, RCA coronary calcium. PLEURA: There is no pleural effusion. No pleural mass or thickening. AXILLA: No adenopathy. UPPER ABDOMEN: Incomplete imaging of an abdominal aortic stent. OSSEOUS STRUCTURES: Degenerative changes in the spine. CT/CT chest wo IV con IMPRESSION: Enlarging mixed cystic and solid nodule in the left upper lobe is concerning for malignancy. Biopsy versus PET/CT is recommended. Fleischner guidelines do not apply.
[2023-01-11 13:13] LABS: Anion Gap 17 (12-20); Blood Urea Nitrogen 14 mg/dL (9-16); Calcium 9.8 mg/dL (8.4-10.2); Carbon Dioxide 24 mmol/L (22-29); Chloride 105 mmol/L (96-108); Estimated Glomerular Filt Rate 45; Glucose Random 91 mg/dL (60-115); Potassium 4.6 mmol/L (3.3-5.1); Sodium 141 mmol/L (135-145)
== END 2023-01-11 10:26 | disposition home or self-care (01) ==
LOC: HO.CT 10:25
PROVIDERS: Absent Provider Internal Medicine Hypertension Specialist; PCP Internal Medicine; Visit Provider Surgery
DX: C34.12 Malignant neoplasm of upper lobe, left bronchus or lung (principal); N18.31 Chronic kidney disease, stage 3a
CPT/HCPCS: 36415; 71250; 80048

== ENCOUNTER 2023-01-15 09:17 | Outpatient (AMB) | payer MEDICARE, SELFPAY ==
--- NOTE | 2023-01-15 09:34 | MHC.OFFVIS ---
Intake Vital Signs 01/15/23 09:47 Height 5 ft 3 in Weight 70 lb BMI 12.4 BP 140/60 H Blood Pressure Location Lt brachial Position Sitting Pulse 72 Pulse Oximetry (%) 98 Intake Visit Reasons: Follow up Allergies No Known Allergies Allergy (Verified 01/15/23 09:40) Medication List - Last Reconciled 01/15/23 by Carl Brown MD clopidogrel (Plavix) 1 tab PO DAILY diltiazem HCl 240 mg PO DAILY docusate sodium 100 mg PO BID PRN famotidine (Pepcid) 40 mg PO BEDTIME lidocaine 5% (Lidoderm) 1 patch topical DAILY 30 days lubiprostone (Amitiza) 8 mcg PO BID nitrofurantoin monohyd/m-cryst 100 mg (Macrobid) 100 mg PO BID 7 days nitroglycerin 1 tab sublingual NEEDED rosuvastatin 1 tab PO DAILY simethicone 180 mg PO QID PRN Trelegy Ellipta 100-62.5-25 mcg ([id number]) 1 ea inhalation DAILY NS HPI Follow up HPI Details 72-year-old woman on Plavix who underwent a Davinci left upper lobe wedge resection and mediastinal lymphadenectomy for stage I adenocarcinoma of the lung who has been followed since then with serial CT scans. Her last CT scan was on 11/27/2021 and is compared with a 01/11/2023 CT scan reviewed interpreted by me directly. This shows a left-sided staple line as above and an enlarging mixed ground-glass solid nodule in the left upper lobe away from the staple line. Previously max dimension was 1 cm is now more dense and measures 1.7 cm in max dimension. This is quite suspicious for a new clinical stage I lung cancer. Of note, she is quite frail and has poor pulmonary function testing which is the reason she did not have an anatomic resection at her last operation. Her breathing she says at its baseline she denies cough or hemoptysis. She denies any new neurologic symptoms. She denies any fevers chills or unintentional weight loss. Other than above, 12 point review of systems was done and documented separately in the office chart with detailed social and family history. [facility] Medical History Insomnia Erythrocytosis Malignant neoplasm of upper lobe of left lung (~2019) Chronic pancreatitis Pulmonary nodules Angina pectoris GERD (gastroesophageal reflux disease) Sarcoidosis Hx of hiatal hernia History of IBS Nicotine dependence Thrombosis of right iliac artery Chronic cough COPD (chronic obstructive pulmonary disease) Arthritis Hx of chronic kidney disease Elevated cholesterol PVD (peripheral vascular disease) Myocardial infarction (~2000) CAD (coronary artery disease) HTN (hypertension) Surgical History History of partial hysterectomy History of cardiac cath (~2000) History of endarterectomy (~2016) History of esophagogastroduodenoscopy (EGD) (~2019) History of colonoscopy (~2018) History of lung surgery (~2019) Hx of tubal ligation Hx of tonsillectomy History of lung biopsy (~2019) Family History Father Heart disease Mother Heart disease Brother Diabetes Sister Mental health disorder Social History Household Members: Other Household Members Other:: ex Housing: House Are you a primary director of home care hospice to a significant other at home: No Do you presently have visiting nurse or other home services: No Alcohol intake: current Alcohol intake frequency: holidays/special occasions only Patient Tobacco Use Status: Current everyday Tobacco user Tobacco use type: Cigarette Cigarettes Per Day: 6 Years Smoked: 40 e-Cigarette/Vaping Use: Never Used Second Hand Smoke Exposure: No service: No Current occupational status: retired Cognitive needs: No Hearing needs: No Vision needs: Yes Physical Exam Vital Signs: Last Vital Signs Pulse 72 01/15/23 09:47 BP 140/60 H 01/15/23 09:47 Pulse Ox 98 01/15/23 09:47 BMI result Body Mass Index 12.4 General: No acute distress frail appearing and cachectic HEENT: Moist mucous membranes, normocephalic, pupils equal round and reactive to light. Neck: No thyromegaly, supple, no JVD Lymph: No cervical, supraclavicular, or other lymphadenopathy Chest: No chest wall abnormalities or deformities wounds are well healed Heart: Regular rate and rhythm Lungs: Clear to auscultation bilaterally Abdomen: Soft, nontender, normal bowel sounds Extremities: No edema, cyanosis, or clubbing. Full range of motion Neuro: Grossly intact, alert and oriented x3, and nonfocal Skin: Warm and dry no rashes Affect: Normal Assessment & Plan Assessment & Plan (1) Malignant neoplasm of upper lobe of left lung: Onset Date: ~2019 Comment: ([facility] Neuroendocrine Carcinoma 50%/Adenocarcinoma 50% - pT2a,pNx, Mx - s/p wedge resection 10/2019) Code(s): C34.12 - Malignant neoplasm of upper lobe, left bronchus or lung Plan: I had a long discussion with her about the findings on her most recent CT scan which shows an enlarging mixed solid/ground-glass nodule in the left upper lobe away from her prior staple line. Clinically she seems at her baseline which is quite frail with advanced COPD. I did also discuss pulmonary nodules in general and how their size, shape, and growth over time affected level suspicion for malignancy. Again this is quite suspicious for a new clinical stage I lung cancer. I discussed options with her which would be continued observation versus needle biopsy versus surgical wedge resection which are not sure she would tolerate very well. I did also discuss with her the option of stereotactic radiation if this turns out to be malignancy. Finally, we talked about the diagnosis, staging, and treatment of lung cancer which he seemed understand. Ultimately she opted for a navigational bronchoscopy with biopsy of the nodule and a visit with Radiation Oncology which will be arranged in the coming weeks. Plan will be for her will be to see interventional pulmonology next week and arrange for a navigational bronchoscopy the next week. She also has questions about possibility of stereotactic radiation so I will refer her to Radiation Oncology at [facility] as well. Again, she needs to see Dr. Ogden next week with likely navigational bronchoscopy the following week. All questions were answered. She is on Plavix. (2) Pulmonary nodules: Code(s): R91.8 - Other nonspecific abnormal finding of lung field Plan: As above Orders: Referrals Radiation Oncology Referral R91.8 - Other nonspecific abnormal finding of lung field Quality Reporting (2019) Adult ([facility] 138/2/) Smoking risk assessment performed?: Yes Patient Tobacco Use Status: Current everyday Tobacco user Coding Level of Care Code Est Pt Level 5 (91641) Diagnoses Malignant neoplasm of upper lobe of left lung C34.12 Pulmonary nodules R91.8 Time Spent (min) 65
[2023-01-15 09:47] VITALS: BP 140/60; PULSE 72; O2SAT 98; BMI 12.4
== END 2023-01-15 10:10 | disposition home or self-care (01) ==
PROVIDERS: PCP Internal Medicine; Visit Provider Surgery
DX: C34.12 Malignant neoplasm of upper lobe, left bronchus or lung (principal); R91.8 Other nonspecific abnormal finding of lung field

== ENCOUNTER → 2023-01-15 09:17 | Outpatient (BNVA) | payer MEDICARE, SELFPAY | PROVIDERS: PCP Internal Medicine; Visit Provider Surgery | DX: C34.12 Malignant neoplasm of upper lobe, left bronchus or lung (principal); R91.8 Other nonspecific abnormal finding of lung field | CPT/HCPCS: 99212 ==

== ENCOUNTER 2023-02-03 13:00 | Outpatient (AMB) | payer MEDICARE, SELFPAY ==
--- NOTE | 2023-02-03 13:01 | MHC.OFFVIS ---
Intake Intake Visit Reasons: 10w/litholink results Intake Note: Patient presents today via tele visit, for a follow-up on Renal Stone/Litholink Results: Meds- None Allergies to Antibiotic- No Known Allergies Blood Thinner- Plavix Supervisor Compounding And Finishing Required: No Accompanied by: Self / Same As Patient Allergies No Known Allergies Allergy (Verified 02/06/23 10:05) HPI HPI Comments History of Present Illness Details Sanjuanita is a 72-year-old female who presents via Tele-health visit for a follow-up. 02/03/23? She is followed today for litholink results. Sanjuanita is a 72 y/o female, who was initially evaluated due to right hydronephrosis and had a ureteral stent placed. FU imaging noted hydronephrosis resolved and right nephrolithiasis. Past medical history of CAD, elevated cholesterol, hypertension, history of irritable bowel syndrome, and copd. I reviewed the 24-hour urine collection results from 12/08/2022 revealed urine 0.79 L, urine calcium was 103; urine citrate was 292, and urine sodium was 46. Review of charts: Renal u/s from 11/17/22 --Right kidney 3 to 4 mm nonobstructive stone. No hydronephrosis. S/P Right ureteral? stent 01/15/22. 02/03/23: Plan: To repeat 24-hour urine collection test in 6 months. Encouraged to increase fluids intake as well as add lemon to water. PFSH Medical History Insomnia Erythrocytosis Malignant neoplasm of upper lobe of left lung (~2019) Chronic pancreatitis Pulmonary nodules Angina pectoris GERD (gastroesophageal reflux disease) Sarcoidosis Hx of hiatal hernia History of IBS Nicotine dependence Thrombosis of right iliac artery Chronic cough COPD (chronic obstructive pulmonary disease) Arthritis Hx of chronic kidney disease Elevated cholesterol PVD (peripheral vascular disease) Myocardial infarction (~2000) CAD (coronary artery disease) HTN (hypertension) Surgical History History of partial hysterectomy History of cardiac cath (~2000) History of endarterectomy (~2016) History of esophagogastroduodenoscopy (EGD) (~2019) History of colonoscopy (~2018) History of lung surgery (~2019) Hx of tubal ligation Hx of tonsillectomy History of lung biopsy (~2019) Family History Father Heart disease Mother Heart disease Brother Diabetes Sister Mental health disorder Social History Household Members: Other Household Members Other:: ex Housing: House Are you a primary hospice spiritual care coordinator to a significant other at home: No Do you presently have visiting nurse or other home services: No Alcohol intake: current Alcohol intake frequency: holidays/special occasions only Patient Tobacco Use Status: Current everyday Tobacco user Tobacco use type: Cigarette Cigarettes Per Day: 6 Years Smoked: 40 e-Cigarette/Vaping Use: Never Used Second Hand Smoke Exposure: No service: No Current occupational status: retired Cognitive needs: No Hearing needs: No Vision needs: Yes Review of Systems Const All systems reviewed & are unremarkable except as noted in HPI and below Reports no additional complaints Eyes Reports no additional complaints ENT Reports no additional complaints Card Denies dyspnea Resp Denies cough and Denies dyspnea GI Reports no additional complaints Reports no additional complaints Musc Reports no additional complaints Skin/Breast Denies rash and Denies unusual bruising Neuro Reports no additional complaints Psych Reports no additional complaints Endo Reports no additional complaints Juice/Lymph Reports no additional complaints Aller/Immun Reports no additional complaints Assessment & Plan Assessment & Plan (1) Right renal stone: Code(s): N20.0 - Calculus of kidney Plan To repeat 24-hour urine collection test in 6 months. Encouraged to increase fluids intake as well as add lemon to water. Patient Instructions: The patient had an opportunity to ask questions regarding treatment plan. All questions were answered. Imaging, Laboratory studies and physical exam results were discussed and reviewed in detail. No major barriers to understanding were identified. The patient expressed understanding and agreement with the above treatment plan.? ? ? The patient is aware they should contact our office by phone for worsening of their current condition or the appearance of new symptoms. Compliance is encouraged with any medications and followup testing that is ordered.? ? ? It is a privilege to be allowed the opportunity to participate in the urologic care of your patient. If you have any questions or concerns regarding treatment for the above conditions please do not hesitate to contact me. The office telephone contact is [phone].? ? ? This note is constructed in part using voice recognition software. While every effort has been made to ensure accuracy clinical courier errors may have been included.? ? ? Yours sincerely,? ? ? Zaid Muller MD? ? Quality Reporting (2019) Adult ([facility] 13806/10/68) Smoking risk assessment performed?: Yes Patient Tobacco Use Status: Current everyday Tobacco user Telehealth Telehealth Location of provider rendering services: practice address Location of patient: address on file Patient Identification confirmed using: Name, : Yes Telehealth method: voice only Patient verbally consented to treatment: Yes Patient verbally consented to billing insurance company: Yes Patient informed of any privacy concerns related to visit: Yes Minutes spent on Phone/Video with Pt.: 15 Coding Level of Care Code Tele Est Pt Level 3 (59115) Diagnoses Right renal stone N20.0
== END 2023-02-03 16:30 | disposition home or self-care (01) ==
LOC: HO.HUSH 13:00
PROVIDERS: PCP Internal Medicine; Visit Provider Urology
DX: N20.0 Calculus of kidney (principal)
CPT/HCPCS: 99442

== ENCOUNTER → 2023-02-03 13:00 | Outpatient (BNVA) | payer MEDICARE, SELFPAY | PROVIDERS: PCP Internal Medicine; Visit Provider Urology ==

== ENCOUNTER 2023-02-06 09:12 | Outpatient (AMB) | payer MEDICARE, SELFPAY ==
--- NOTE | 2023-02-06 10:05 | AM.OFFWIN_ITS ---
Intake Vital Signs 02/06/23 10:09 Height 5 ft 3 in Weight 34.019 kg BMI 13.3 BP 130/50 L Blood Pressure Location Lt brachial Position Sitting Pulse 78 Pulse Source Pulse Oximeter Temp 98.6 F Temp Source Oral Pulse Oximetry (%) 99 Oxygen Delivery Method Room Air Intake Visit Reasons: EP, left ear cysts Intake Note: Pt is here today c/o Left ear cyst Patient Tobacco Use Status: Current everyday Tobacco user Allergies No Known Allergies Allergy (Verified 02/06/23 10:05) Do you need a note to return to daycare/school/sports/work: No HPI HPI Comments History of Present Illness Details 1019 72 year old female presents w/ lump to l eft ear lobe X few days worsening. Reports that it started as a boil and now its red, warm and hard. Denies fevers, chills, n/v/d, cp, sob, tinnitus, trauma. PE w/ an indurated area to L ear lobe about .5cm X .5 cm w/ overlying erythema and warmth. No fluctuance, Likely developing abscess with overlying cellulitis. Other differentials include cyst. Unlikely necrosis. Patient history of lung cancer cannot rule out that this is atypical presentation of skin cancer told her this does not improve in 2-3 weeks follow-up with PCP for possible biopsy. No indication for incision and drainage. Plan at this time advised her to apply warm compresses to the area. And will send Keflex. Educated patient on diagnosis and treatment plan, answered all question, patient verbalizes understanding. At this time patient will be disc harged home, advised to return with new or worsening symptoms. Educated on worrisome signs and symptoms and when to return. At this time I feel comfortable discharge home. COUNT [facility]CLUD[facility] Medical History Insomnia Erythrocytosis Malignant neoplasm of upper lobe of left lung (~2019) Chronic pancreatitis Pulmonary nodules Angina pectoris GERD (gastroesophageal reflux disease) Sarcoidosis Hx of hiatal hernia History of IBS Nicotine dependence Thrombosis of right iliac artery Chronic cough COPD (chronic obstructive pulmonary disease) Arthritis Hx of chronic kidney disease Elevated cholesterol PVD (peripheral vascular disease) Myocardial infarction (~2000) CAD (coronary artery disease) HTN (hypertension) Surgical History History of partial hysterectomy History of cardiac cath (~2000) History of endarterectomy (~2016) History of esophagogastroduodenoscopy (EGD) (~2019) History of colonoscopy (~2018) History of lung surgery (~2019) Hx of tubal ligation Hx of tonsillectomy History of lung biopsy (~2019) Family History Father Heart disease Mother Heart disease Brother Diabetes Sister Mental health disorder Social History Household Members: Other Household Members Other:: ex Housing: House Are you a primary primary care coordinator to a significant other at home: No Do you presently have visiting nurse or other home services: No Alcohol intake: current Alcohol intake frequency: holidays/special occasions only Patient Tobacco Use Status: Current everyday Tobacco user Tobacco use type: Cigarette Cigarettes Per Day: 6 Years Smoked: 40 e-Cigarette/Vaping Use: Never Used Second Hand Smoke Exposure: No service: No Current occupational status: retired Cognitive needs: No Hearing needs: No Vision needs: Yes Review of Systems Const Details: Constitutional : No Weight loss, No Fever, No Chills, No Fatigue, No Malaise ENT/Mouth : No sore throat, No Rhinorrhea Eyes: No Eye Pain, No Swelling, No Redness Cardiovascular : No Chest Pain, No SOB, No Dyspnea on Exertion, No Orthopnea, No Edema, No Palpitations Respiratory : No Cough, No Sputum, No Wheezing Gastrointestinal : No Nausea, No Vomiting, No Diarrhea, No Constipation, No abdominal Pain, No Hematochezia, No Melena Genitourinary : No Dysuria, No Urinary Frequency, No Hematuria, Musculoskeletal : No joint pain, No Myalgias, No Joint Swelling Skin : No Skin Lesions, No rash, + cyst to ear Neuro : No Weakness, No Numbness, No Dizziness, No Headache Psych : No Anxiety/Panic, No Depression All other systems reviewed and are negative All systems reviewed & are unremarkable except as noted in HPI and below Physical Exam Vital Signs: Last Vital Signs Temp 98.6 F 02/06/23 10:09 Pulse 78 02/06/23 10:09 BP 130/50 L 02/06/23 10:09 Pulse Ox 99 02/06/23 10:09 Oxygen Delivery Method Room Air 02/06/23 10:09 BMI result Body Mass Index 13.3 vss Appearance: Alert.? Oriented X3.? No acute distress.? Head: Normocephalic, atraumatic, no step-offs or deformities Eyes: Pupils equal, round and reactive to light.? ENT: +?indurated area to L ear lobe about .5cm X .5 cm w/ overlying erythema and warmth. No fluctuance, Neck: Normal inspection.? Neck supple.? CVS: Normal heart rate and rhythm.? Pulses normal.? Respiratory: No respiratory distress.? Breath sounds normal.? Skin: Skin warm and dry.? Normal skin color.? Normal skin turgor.? Extremities: No lower extremity edema.? No calf ttp. 5/5 strength to bilateral upper and lower extremities Neuro: Oriented X 3.? No motor deficit.? No sensory deficit. CN 2-12 intact Assessment & Plan Assessment & Plan (1) Abscess of left earlobe: Code(s): H60.02 - Abscess of left external ear Plan Take your medications as prescribed. If you were prescribed antibiotics today, it is important that you take your medication to their entirety, do not skip any doses, do not finish them early. Follow-up with your primary care provider this week. Return to the emergency department with new or worsening symptoms. Such as fevers, chills, chest pain, shortness of breath, nausea, vomiting, dizziness, headache, vision changes, lethargy In case of emergency call 911 Medications: New cephalexin 500 mg PO QID 28 caps 0RF 7 days Coding Level of Care Code Est Pt Level 3 (36466) Diagnoses Abscess of left earlobe H60.02
[2023-02-06 10:09] VITALS: BP 130/50; PULSE 78; TEMP 37; O2SAT 99; BMI 13.3
== END 2023-02-06 14:56 | disposition home or self-care (01) ==
PROVIDERS: PCP Internal Medicine; Visit Provider Physician Assistant
DX: H60.02 Abscess of left external ear (principal)
CPT/HCPCS: 99213

== ENCOUNTER 2023-03-03 09:44 | Outpatient (REF) | payer MEDICARE, SELFPAY | END 2023-03-03 09:45 | disposition home or self-care (01) | LOC: HO.BBR 09:44 | PROVIDERS: PCP Internal Medicine; Visit Provider Internal Medicine Medical Oncology | DX: D75.1 Secondary polycythemia (principal) | CPT/HCPCS: 85018 ==

== ENCOUNTER 2023-05-24 09:14 | Outpatient (AMB) | payer MEDICARE, SELFPAY ==
--- NOTE | 2023-05-24 09:26 | MHC.OFFVIS ---
Intake Vital Signs 05/24/23 09:34 Height 5 ft 1 in Weight 72 lb BMI 13.6 BP 128/70 Blood Pressure Location Rt brachial Position Sitting Pulse 67 Pulse Source Pulse Oximeter Pulse Oximetry (%) 98 Oxygen Delivery Method Room Air Intake Visit Reasons: copd Teletray Operator Required: No Allergies No Known Allergies Allergy (Verified 05/24/23 09:37) HPI HPI Comments History of Present Illness Details The patient is a 72 y/o woman with h/o COPD and pulmonary nodules s/p VATS lovectomy for an aggressive primary lung large cell/adeno CA with JUSTIN and viceral pleural invasion.. She did f/u with oncology, but she declined any therapy at this time. However, I am concern with the type of cancer she was found to have. She is still dealing with her chronic pancreatitis. She has beShe does compain of left sided chest pain at the side of her surgery. Has some dyspnea and coughing, but overall better after cutting down on her smoking. 05/17/2020 the patient is here for pulmonary follow-up visit. Overall her respiratory status is about the same. She is anxious about the results of her CT scan. We did review them in the office. The patient does have postoperative changes without any evidence of any recurrence at this time. However, she does have a 7 mm subsolid pulmonary nodules been closely monitor. This has not changed. The patient has significant emphysema. She is also struggling with her weight. Because of the donut hole she was not able to refill her Pancrease that she uses for her chronic pancreatitis. Therefore she has lost significant weight. We did have some samples of Ensure in the office which we provided her. She will be following up with gastroenterology soon. 05/22/2022 the patient is here for a pulmonary follow-up visit. The patient overall is doing well. Denies any significant shortness of breath or cough. Denies any weight loss. She is having however some difficulty sleeping. She has tried multiple medications in the past without any significant improvement. He is affecting her quality of life. The patient has a hard time both falling asleep and staying asleep. She has already tried gabapentin in the past. Will go ahead and start her on a small dose of Ambien that she can use as needed. She understands she needs to take it 15 minutes prior to sleep and then not to plan any activities 1 she takes the medication except for sleep. We did review her last CT scan of the chest that was back in November 2021. appears that the 7 mm subsolid nodular density not significantly changed. She is scheduled to get a repeat CT scan follow-up with thoracic surgery however. She is complaining of a sore throat. She has been using her inhalers and she is rinsing. She appears to have some thrush. Therefore I did encourage her to rinse with mouthwash. Will go ahead and start her on fluconazole for small course specially since may be difficult to Eradicating completely. 05/24/2023 the patient is here for a pulmonary follow-up visit. Since we last spoke the patient did have an enlarging pulmonary nodule. It appears to be a subsolid nodule that increased in size and also the solid component did get bigger as well. The CT-guided biopsy at [facility] confirmed that indeed this is a malignant process. She was told it was stage I likely a primary lung cancer. The patient did have the nodule before but was lost more. She did follow-up with Interventional Pulmonary at [facility] [place] and also was referred to Radiation Oncology and Oncology. She did have a difficult surgery the 1st time around recovering did take a significant amount of time. If the patient is concerned about undergoing surgery again specially with all the pain that she went through. I did encourage her to talk to Oncology and ideally get a PET scan to assess the radiological staging of this new entity. If indeed this is a localized lesion, stage I, would recommend ideally stereotactic radiation to treat that area. If however she has not on a candidate for stereotactic radiation, then depending on her PFTs she should be considered a surgical candidate again. Ultimately targeted therapy may be also helpful in case she has any molecular markers. [facility] Medical History Insomnia Erythrocytosis Malignant neoplasm of upper lobe of left lung (~2019) Chronic pancreatitis Pulmonary nodules Angina pectoris GERD (gastroesophageal reflux disease) Sarcoidosis Hx of hiatal hernia History of IBS Nicotine dependence Thrombosis of right iliac artery Chronic cough COPD (chronic obstructive pulmonary disease) Arthritis Hx of chronic kidney disease Elevated cholesterol PVD (peripheral vascular disease) Myocardial infarction (~2000) CAD (coronary artery disease) HTN (hypertension) Surgical History History of partial hysterectomy History of cardiac cath (~2000) History of endarterectomy (~2016) History of esophagogastroduodenoscopy (EGD) (~2019) History of colonoscopy (~2018) History of lung surgery (~2019) Hx of tubal ligation Hx of tonsillectomy History of lung biopsy (~2019) Family History Father Heart disease Mother Heart disease Brother Diabetes Sister Mental health disorder Social History Household Members: Other Household Members Other:: ex Housing: House Are you a primary director of patient care to a significant other at home: No Do you presently have visiting nurse or other home services: No Alcohol intake: current Alcohol intake frequency: holidays/special occasions only Patient Tobacco Use Status: Current everyday Tobacco user Tobacco use type: Cigarette Cigarettes Per Day: 6 Years Smoked: 40 e-Cigarette/Vaping Use: Never Used Second Hand Smoke Exposure: No service: No Current occupational status: retired Cognitive needs: No Hearing needs: No Vision needs: Yes Review of Systems Const Denies night sweats ENT Reports change in voice, Denies lip swelling, Denies mouth pain, Reports nasal congestion, Reports nasal discharge, Reports sore throat and Denies tongue swelling Card Reports chest pain Resp Reports cough, Denies pain on inspiration and Denies pain with cough GI Denies abdominal pain Musc Denies no additional complaints Neuro Denies Neuro-related abnormal movements Psych Denies no additional complaints Juice/Lymph Denies easy bleeding and Denies lymphadenopathy Aller/Immun Denies lip swelling and Denies tongue swelling Physical Exam Vital Signs: Last Vital Signs Pulse 67 05/24/23 09:34 BP 128/70 05/24/23 09:34 Pulse Ox 98 05/24/23 09:34 Oxygen Delivery Method Room Air 05/24/23 09:34 BMI result Body Mass Index 13.6 Const General: alert HEENT General nose exam: Abnormal external nose present and Nasal discharge present Eyes Pupils: Equal, round and reactive pupils present Neck Neck: Yes normal visual inspection, Yes full ROM and Yes no lymphadenopathy Chest Chest palpation & inspection: tenderness costal cartilage (by surgical site(s) on the left) Resp Effort & Inspection: normal respiratory effort Auscultation: diminished lung sounds Cardio Rate: regular rate Rhythm: regular rhythm Heart sounds: S1 normal heart sound present and S2 normal heart sound present GI Palpation (GI): Soft to palpation and nontender Auscultation: normal bowel sounds General: Yes no CVA tenderness Back/Spine/Pelvis Back: no CVA tenderness Skin General skin exam: rashes and/or lesions noted Neuro Cranial nerves: Yes Equal, round and reactive pupils present Assessment & Plan Assessment & Plan (1) Pulmonary nodules: Comment: +malignancy s/p biopsy at [facility] [place] Code(s): R91.8 - Other nonspecific abnormal finding of lung field Plan: 7 mm nodule (2) Nicotine dependence: Code(s): F17.200 - Nicotine dependence, unspecified, uncomplicated Qualifiers: Nicotine product type: cigarettes Substance use status: uncomplicated Qualified Code(s): F17.210 - Nicotine dependence, cigarettes, uncomplicated Plan: tobacco cesation (3) COPD (chronic obstructive pulmonary disease): Comment: (severe obstructive) Code(s): J44.9 - Chronic obstructive pulmonary disease, unspecified Qualifiers: COPD type: emphysema Emphysema type: centrilobular Qualified Code(s): J43.2 - Centrilobular emphysema Plan: cont respiratory therapy (4) Cancer of left lung: Comment: 10/2019 Sundeep L Upper Lobe Wedge Resection Code(s): C34.92 - Malignant neoplasm of unspecified part of left bronchus or lung Qualifiers: Lung location: upper lobe of lung Qualified Code(s): C34.12 - Malignant neoplasm of upper lobe, left bronchus or lung (5) Insomnia: Code(s): G47.00 - Insomnia, unspecified Qualifiers: Insomnia type: primary Qualified Code(s): F51.01 - Primary insomnia Plan Continue Trelegy. Needs to rinse with mouthwash better than water start Trazodone short-acting beta agonist as needed follow-up with Oncology, would recommend a PET scan to look into management options follow-up in 3-4 months Medications: New trazodone 50 mg PO BEDTIME PRN 30 tabs 6RF sleep 30 days Quality Reporting (2019) Adult ([facility] [id number]///[id number]) Smoking risk assessment performed?: Yes Patient Tobacco Use Status: Current everyday Tobacco user Coding Level of Care Code Est Pt Level 4 (02580) Diagnoses Pulmonary nodules R91.8 Cigarette nicotine dependence without complication F17.210 Nicotine product type: cigarettes Substance use status: uncomplicated Centrilobular emphysema J43.2 COPD type: emphysema Emphysema type: centrilobular Malignant neoplasm of upper lobe of left lung C34.12 Lung location: upper lobe of lung Primary insomnia F51.01 Insomnia type: primary Time Spent (min) 18
[2023-05-24 09:34] VITALS: BP 128/70; PULSE 67; O2SAT 98; BMI 13.6
== END 2023-05-24 10:00 | disposition home or self-care (01) ==
PROVIDERS: PCP Internal Medicine; Visit Provider Hospitalist
DX: R91.8 Other nonspecific abnormal finding of lung field (principal); F17.210 Nicotine dependence, cigarettes, uncomplicated; J43.2 Centrilobular emphysema; C34.12 Malignant neoplasm of upper lobe, left bronchus or lung; F51.01 Primary insomnia
CPT/HCPCS: 99214

== ENCOUNTER → 2023-05-24 09:14 | Outpatient (BNVA) | payer MEDICARE, SELFPAY | PROVIDERS: PCP Internal Medicine; Visit Provider Hospitalist | DX: J43.2 Centrilobular emphysema (principal); C34.12 Malignant neoplasm of upper lobe, left bronchus or lung; F51.01 Primary insomnia; F17.210 Nicotine dependence, cigarettes, uncomplicated; Z79.899 Other long term (current) drug therapy | CPT/HCPCS: 99212 ==

== ENCOUNTER 2023-05-28 07:46 | Outpatient (AMB) | payer MEDICARE, SELFPAY ==
--- NOTE | 2023-05-28 08:01 | MHC.OFFVIS ---
Intake Vital Signs 05/28/23 08:07 Height 5 ft 1 in Weight 73 lb BMI 13.8 BP 150/69 H Blood Pressure Location Lt brachial Position Sitting Pulse 71 Pulse Oximetry (%) 100 Oxygen Delivery Method Room Air Intake Visit Reasons: 1 yr follow up Intake Note: One year follow up for Constipation. Patient cc: abdominal discomfort, acid reflex, constipation, and no appetite. 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 She did not try taking it qd with food, which I suggest. She has been taking an OTC digestive enzyme which is helping. Received the famotidine, wants to take it with her largest meal instead of qhs which is fine. She elects yearly f/u. (2) Constipation: Code(s): K59.00 - Constipation, unspecified Medications: New lubiprostone (Miguel delvin) 8 mcg PO BID 60 c aps 12RF Refilled famotidine (Pepcid ) 40 mg PO BEDTIME 30 tabs 12RF K21.9 - Gastro-eso phageal reflux dis ease without esoph agitis X-ray of the abdomen with decubitus Not obtained TODAY'S VISIT Still has discomfort in the LUQ and suprapubic that is relieved with defecatioin She uses the Amitiza prn and not the creon. We discuss possible trial of bentyl but she defers until after her colonoscopy. Will also add an EGD since she has having a PET scan due to a possible recurrence of her left lobe lung cancer. She would like for me to have the results of the PET scan will be done at [facility] so I have asked her to try to get the radiology read in hand before she leaves but of course we can try to get the records from them through our office as well, but that usually takes much longer. She sees Dr. Martinez for her lung issues so will run it by him for clearance. She continues on her famotidine as needed for heartburn. Again she has lung cancer with a past wedge resection and will need clearance from Dr. Martinez, she has a history coronary artery disease and myocardial infarction but her cardiac condition has been stable. There are no prior problems with anesthesia or sedation particular. Obviously she has some element of higher risk given her lung issues. There are no infectious disease problems. Course she has a history of tubular adenomas of the colon on past scopes. Return office visit in 1 year and she also course wants to see me after the colonoscopy because it that time she will have many of her other tests in and I can try to have access in the to help explain the results and see if if there is any impact on her GI function. [facility] Medical History (Updated 05/28/23 @ 11:43 by DELORES Barrera) Impacted cerumen, bilateral Impacted cerumen of right ear UTI (urinary tract infection) Post-COVID syndrome Fatigue Hospital discharge follow-up Urinary tract infection Acute kidney injury Cerumen impaction Encounter for general adult medical examination with abnormal findings Breast screening Insomnia Erythrocytosis Malignant neoplasm of upper lobe of left lung (~2019) Chronic pancreatitis Pulmonary nodules Angina pectoris GERD (gastroesophageal reflux disease) Sarcoidosis Hx of hiatal hernia History of IBS Nicotine dependence Thrombosis of right iliac artery Chronic cough COPD (chronic obstructive pulmonary disease) Arthritis Hx of chronic kidney disease Elevated cholesterol PVD (peripheral vascular disease) Myocardial infarction (~2000) CAD (coronary artery disease) HTN (hypertension) Surgical History History of partial hysterectomy History of cardiac cath (~2000) History of endarterectomy (~2016) History of esophagogastroduodenoscopy (EGD) (~2019) History of colonoscopy (~2018) History of lung surgery (~2019) Hx of tubal ligation Hx of tonsillectomy History of lung biopsy (~2019) Family History Father Heart disease Mother Heart disease Brother Diabetes Sister Mental health disorder Social History Household Members: Other Household Members Other:: ex Housing: House Are you a primary child care counselor to a significant other at home: No Do you presently have visiting nurse or other home services: No Alcohol intake: current Alcohol intake frequency: holidays/special occasions only Patient Tobacco Use Status: Current everyday Tobacco user Tobacco use type: Cigarette Cigarettes Per Day: 6 Years Smoked: 40 e-Cigarette/Vaping Use: Never Used Second Hand Smoke Exposure: No service: No Current occupational status: retired Cognitive needs: No Hearing needs: No Vision needs: Yes Review of Systems Const Denies fatigue, Denies fever(s), Denies night sweats, Denies poor appetite and Denies weight loss Eyes Details: glasses Reports requires corrective lenses ENT Reports Normal hearing present, Denies dental pain, Denies dysphagia, Denies hearing loss, Denies mouth pain, Denies odynophagia, Denies throat swelling, Denies tongue swelling and Reports other (Dentition adequate) Card Reports no additional complaints and Reports dyspnea on exertion Resp Reports dyspnea on exertion GI Details: Reports abdominal pain, Denies melena, Denies bloating, Denies hematochezia, Reports constipation, Denies GI cramping, Denies dysphagia, Denies excessive flatus, Denies early satiety, Reports heartburn, Denies diarrhea, Denies nausea, Denies odynophagia, Denies vomiting and Denies hematemesis Skin/Breast Denies pruritus, Denies lesions, Denies rash and Denies jaundice Neuro Reports Normal hearing present and Denies Abnormal speech present Endo Denies fatigue Aller/Immun Denies throat swelling and Denies tongue swelling Physical Exam Vital Signs: Last Vital Signs Pulse 71 05/28/23 08:07 BP 150/69 H 05/28/23 08:07 Pulse Ox 100 05/28/23 08:07 Oxygen Delivery Method Room Air 05/28/23 08:07 BMI result Body Mass Index 13.8 Const General: cooperative, no acute distress, well developed and well groomed Nutritional Appearance: average body habitus and well nourished Orientation/consciousness: oriented to person, oriented to place and oriented to time Limitations: No language barrier HEENT Head: Yes normocephalic and Yes atraumatic Eyes General: appearance normal, both eyes and all related structures Pupils: Equal, round and reactive pupils present Neck Neck: Yes normal visual inspection and Yes no lymphadenopathy Thyroid: Thyroid normal Resp Effort & Inspection: normal respiratory effort and able to speak in complete sentences Auscultation: clear to auscultation bilaterally Cardio Rate: regular rate Rhythm: regular rhythm Heart sounds: Normal, physiologic split S2 sound present Peripheral pulses: radial pulses present and posterior tibial pulses present GI Inspection: No distended and No Abdominal panniculus present Palpation (GI): Soft to palpation, nontender, no guarding, not rigid and No hepatosplenomegaly present Percussion: Yes normal to percussion Auscultation: normal bowel sounds Rectal Exam - Female: deferred Skin General skin exam: no rashes or lesions noted, turgor normal, skin not dry, no jaundice, No spider nevi and no striae Rashes: no rashes Nails: normal Neuro General: oriented to person, oriented to place and oriented to time Cranial nerves: Yes Equal, round and reactive pupils present and Yes Normal hearing present Speech: No Abnormal speech present Extrem General: Yes normal to inspection, No clubbing, No cyanosis and No edema Psych Appearance: grossly normal and well kempt Mental Status: mental status grossly normal Speech and movement: Normal speech and movement present Affect: normal affect Attitude: cooperative Thought process: Normal thought process present and not confabulating Thought content: Normal thought content present Insight: Fair insight present (Psych) Judgement: Fair judgement present (Psych) Results Reviewed Results Reviewed: Laboratory Tests 03/30/23 09:39 WBC 7.2 Hgb 13.1 Hct 42.3 Plt Count 178 Estimated GFR 37 Ferritin 16 Total Bilirubin 0.3 AST 27 ALT 21 Alkaline Phosphatase 83 Assessment & Plan Assessment & Plan (1) GERD (gastroesophageal reflux disease): Code(s): K21.9 - Gastro-esophageal reflux disease without esophagitis (2) Esophageal ulcer: Comment: Is covered 2019 EGD, no Courtney's on biopsy Code(s): K22.10 - Ulcer of esophagus without bleeding (3) Constipation: Code(s): K59.00 - Constipation, unspecified (4) Malignant neoplasm of upper lobe of left lung: Onset Date: ~2019 Comment: ([facility] Neuroendocrine Carcinoma 50%/Adenocarcinoma 50% - pT2a,pNx, Mx - s/p wedge resection 10/2019) Code(s): C34.12 - Malignant neoplasm of upper lobe, left bronchus or lung (5) Decreased GFR: Comment: GFR was 56 12/2019, now down to 36 Code(s): R94.4 - Abnormal results of kidney function studies (6) Tubular adenoma of colon: Code(s): D12.6 - Benign neoplasm of colon, unspecified (7) Myocardial infarction: Onset Date: ~2000 Comment: (Septal [place] 04/2000 - cardiac cath [facility]) Code(s): I21.9 - Acute myocardial infarction, unspecified (8) COPD (chronic obstructive pulmonary disease): Comment: (severe obstructive) Code(s): J44.9 - Chronic obstructive pulmonary disease, unspecified Qualifiers: COPD type: emphysema Emphysema type: centrilobular Qualified Code(s): J43.2 - Centrilobular emphysema (9) Pre-op examination: Code(s): Z01.818 - Encounter for other preprocedural examination Plan Still has discomfort in the LUQ and suprapubic that is relieved with defecatioin She uses the Amitiza prn and not the creon. We discuss possible trial of bentyl but she defers until after her colonoscopy. Will also add an EGD since she has having a PET scan due to a possible recurrence of her left lobe lung cancer. She would like for me to have the results of the PET scan will be done at [facility] so I have asked her to try to get the radiology read in hand before she leaves but of course we can try to get the records from them through our office as well, but that usually takes much longer. She sees Dr. Martinez for her lung issues so will run it by him for clearance. She continues on her famotidine as needed for heartburn. Again she has lung cancer with a past wedge resection and will need clearance from Dr. Martinez, she has a history coronary artery disease and myocardial infarction but her cardiac condition has been stable. There are no prior problems with anesthesia or sedation particular. Obviously she has some element of higher risk given her lung issues. There are no infectious disease problems. Course she has a history of tubular adenomas of the colon on past scopes. Return office visit in 1 year and she also course wants to see me after the colonoscopy because it that time she will have many of her other tests in and I can try to have access in the to help explain the results and see if if there is any impact on her GI function. Orders: Orders EGD/[place] Combo - GI Use Only Today C34.12 - Malignant neoplasm of upper lobe, left bronchus or lung, D64.9 - Anemia, unspecified, K21.9 - Gastro-esophageal reflux disease without esophagitis, K22.10 - Ulcer of esophagus without bleeding, K59.00 - Constipation, unspecified, R94.4 - Abnormal results of kidney function studies Medications: New peg 3350-electrolytes 236-22.74-6.74 -5.86 gram (Golytely) until fecal effluent is clear; do not exceed a total volume of 2,000 mL 240 mL PO Q10M 1 day 4,000 mL 0RF Z12.11 - Encounter for screening for malignant neoplasm of colon bisacodyl (Dulcolax (bisacodyl)) 10 mg (2 x 5 mg) PO BEDTIME 2 days 4 tabs 0RF Refilled lubiprostone (Amitiza) 8 mcg PO BID 60 caps 12RF famotidine (Pepcid) 40 mg PO BEDTIME 30 tabs 12RF K21.9 - Gastro-esophageal reflux disease without esophagitis Quality Reporting (2019) Adult ([facility] 13806/10/68) Smoking risk assessment performed?: Yes Patient Tobacco Use Status: Current everyday Tobacco user Coding Level of Care Code Est Pt Level 4 (90865) Diagnoses GERD (gastroesophageal reflux disease) K21.9 Esophageal ulcer K22.10 Constipation K59.00 Malignant neoplasm of upper lobe of left lung C34.12 Decreased GFR R94.4 Tubular adenoma of colon D12.6 Myocardial infarction I21.9 Centrilobular emphysema J43.2 COPD type: emphysema Emphysema type: centrilobular Pre-op examination Z01.818 Time Spent (min) 43
[2023-05-28 08:07] VITALS: BP 150/69; PULSE 71; O2SAT 100; BMI 13.8
== END 2023-05-28 08:39 | disposition home or self-care (01) ==
PROVIDERS: Visit Provider Nurse Practitioner
DX: K21.9 Gastro-esophageal reflux disease without esophagitis (principal); K22.10 Ulcer of esophagus without bleeding; K59.00 Constipation, unspecified; C34.12 Malignant neoplasm of upper lobe, left bronchus or lung; R94.4 Abnormal results of kidney function studies; D12.6 Benign neoplasm of colon, unspecified; I21.9 Acute myocardial infarction, unspecified; J43.2 Centrilobular emphysema; Z01.818 Encounter for other preprocedural examination
CPT/HCPCS: 99214

== ENCOUNTER → 2023-05-28 07:46 | Outpatient (BNVA) | payer MEDICARE, SELFPAY | PROVIDERS: Visit Provider Nurse Practitioner | DX: Z01.818 Encounter for other preprocedural examination (principal); C34.12 Malignant neoplasm of upper lobe, left bronchus or lung; K59.00 Constipation, unspecified; K22.10 Ulcer of esophagus without bleeding; R94.4 Abnormal results of kidney function studies; K21.9 Gastro-esophageal reflux disease without esophagitis; D12.6 Benign neoplasm of colon, unspecified; I21.9 Acute myocardial infarction, unspecified; J43.2 Centrilobular emphysema | CPT/HCPCS: 99212 ==

== ENCOUNTER 2023-06-14 08:50 | Outpatient (REF) | payer MEDICARE, SELFPAY | END 2023-06-14 08:51 | disposition home or self-care (01) | LOC: HO.BBR 08:50 | PROVIDERS: PCP Internal Medicine; Visit Provider Internal Medicine Medical Oncology | DX: D75.1 Secondary polycythemia (principal) | CPT/HCPCS: 85018 ==

== ENCOUNTER 2023-07-23 08:25 | Outpatient (AMB) | payer MEDICARE, SELFPAY ==
[2023-07-23 08:27] VITALS: BP 138/66; PULSE 60; O2SAT 99; BMI 14.2
--- NOTE | 2023-07-23 08:27 | MHC.PC.OV ---
Vital Signs 07/23/23 08:27 Height 5 ft 1 in Weight 75 lb BMI 14.2 BP 138/66 Blood Pressure Location Rt brachial Position Sitting Pulse 60 Pulse Source Pulse Oximeter Pulse Oximetry (%) 99 Oxygen Delivery Method Room Air Intake Visit Reasons: Annual PE Allergies No Known Allergies Allergy (Verified 07/23/23 08:29) Medication List - Last Reconciled 07/23/23 by Cheo Michaels MD bisacodyl (Dulcolax (bisacodyl)) 10 mg (2 x 5 mg) PO BEDTIME 2 days clopidogrel (Plavix) 1 tab PO DAILY diltiazem HCl CD 240 mg PO DAILY docusate sodium 100 mg PO BID PRN famotidine (Pepcid) 40 mg PO BEDTIME 90 days lqcpoxwmhgz-elhjipwev-ipgfdwex 100-62.5-25 mcg (Trelegy Ellipta) 1 ea inhalation DAILY lubiprostone (Amitiza) 8 mcg PO BID 90 days nitroglycerin 1 tab sublingual NEEDED peg 3350-electrolytes 236-22.74-6.74 -5.86 gram (Golytely) 240 mL PO Q10M 1 day rosuvastatin 1 tab PO DAILY simethicone 180 mg PO QID PRN trazodone 50 mg PO BEDTIME PRN 30 days Tobacco use date assessed: 07/23/23 Fall risk assessment: No Falls in past year Last assessed Fall Risk: 07/23/23 Dental Screening Dental Screen Date: 07/23/23 Did you have a dental visit in the last 12 months?: No Did you have a dental problem in the last 6 months where you did not have access to dental care?: No Was dental information given to patient?: No HPI Annual PE HPI Details Patient is 73-year-old female came in today for physical examination she was diagnosed with CRISTIAN lung cancer neuroendocrine she is under treatment by Oncology [facility] PET scan was done May of this year, remote reviewed She has new uptake left lower lobe which could be inflammatory as per report Patient will have PET scan again in few weeks. She has appointment coming up for follow-up after PET scan with oncologist she is still smoking Mammogram was September of last year Patient will be due September of this year Colonoscopy will be in 1 years patient is already established with Gastroenterology [facility] Patient is seeing other providers. Dr. Rodriguez hematology Dr. Giron thoracic surgeon Dr. Martinez pulmonary Dr. Mendes gastroenterology Dr. Madrid nephrology Patient is taking diltiazem 240 mg from Nephrology Labs were done in March, reviewed with the patient Follow-up 1 yr PE [facility] Medical History Encounter for general adult medical examination with abnormal findings Impacted cerumen, bilateral Impacted cerumen of right ear UTI (urinary tract infection) Post-COVID syndrome Fatigue Hospital discharge follow-up Urinary tract infection Acute kidney injury Cerumen impaction Breast screening Insomnia Erythrocytosis Malignant neoplasm of upper lobe of left lung (~2019) Chronic pancreatitis Pulmonary nodules Angina pectoris GERD (gastroesophageal reflux disease) Sarcoidosis Hx of hiatal hernia History of IBS Nicotine dependence Thrombosis of right iliac artery Chronic cough COPD (chronic obstructive pulmonary disease) Arthritis Hx of chronic kidney disease Elevated cholesterol PVD (peripheral vascular disease) Myocardial infarction (~2000) CAD (coronary artery disease) HTN (hypertension) Surgical History History of partial hysterectomy History of cardiac cath (~2000) History of endarterectomy (~2016) History of esophagogastroduodenoscopy (EGD) (~2019) History of colonoscopy (~2018) History of lung surgery (~2019) Hx of tubal ligation Hx of tonsillectomy History of lung biopsy (~2019) Family History Father Heart disease Mother Heart disease Brother Diabetes Sister Mental health disorder Social History Household Members: Other Household Members Other:: ex Housing: House Are you a primary care tech to a significant other at home: No Do you presently have visiting nurse or other home services: No Alcohol intake: current Alcohol intake frequency: holidays/special occasions only Patient Tobacco Use Status: Current everyday Tobacco user Tobacco use type: Cigarette Cigarettes Per Day: 6 Years Smoked: 40 Packs per year/per ci.00 e-Cigarette/Vaping Use: Never Used Second Hand Smoke Exposure: No service: No Current occupational status: retired Cognitive needs: No Hearing needs: No Vision needs: Yes Questionnaire PHQ-9 Over the last 2 weeks, how often have you been bothered by any of the following problems? 1. Little interest or pleasure in doing things: several days 2. Feeling down, depressed, or hopeless: several days 3. Trouble falling or staying asleep, or sleeping too much: nearly every day 4. Feeling tired or having little energy: nearly every day 5. Poor appetite or overeating: several days 6. Feeling bad about yourself - or that you are a failure or have let yourself or your family down: not at all 7. Trouble concentrating on things, such as reading the newspaper or watching television: not at all 8. Moving or speaking so slowly that other people could have noticed. Or the opposite - being so fidgety or restless that you have been moving around a lot more than usual: not at all 9. Thoughts that you would be better off or of hurting yourself in some way: not at all Total score: 9 Depression Screening Interpretation: Negative Depression Screening Done: Yes 98448 - PHQ-9 Billing: Yes Source: Developed by Drs. Cortez Duran, Rosaura Washington, Emigdio Logan and colleagues, with an educational alayna from [employer],. Thrive Questionnaire Date Thrive assessed: 07/23/23 I am a: Patient What is your living situation today?: I have a steady place to live Within the past 12 months, did the food you bought not last and you didn't have the money to get more?: Never true Within the past 12 months, did you worry whether your food would run out before you got money to buy more?: Never true Do you have trouble paying for medicines?: No Do you have trouble getting transportation to medical appointments?: No Do you have trouble paying your heating and electricity bill?: No Do you have trouble taking care of your child, family member or friend?: No Do you have trouble with day-to-day activities such as bathing, preparing meals, shopping, managing finances, etc.?: No Are you currently unemployed and looking for a job?: No Are you interested in more education?: No Please select the resources that you would like help with: None Currently or been in a relationship where the following occur: no concerns reported THRIVE Score: 0 AUDIT C Alcohol Use Questionnaire (AUDIT-C) 1. How often do you have a drink containing alcohol?: Never 3. How often do you have six or more drinks on one occasion?: Never Total Score: 0 Score Reviewed/Action Taken: Yes LALO-7 AMB Questionnaire LALO-7 Date LALO - 7 assessed: 07/23/23 Feeling nervous, anxious, or on edge: 1 = Several days Not being able to stop or control worryin = Several days Worrying too much about different things: 1 = Several days Trouble relaxin = Several days Being so restless that it is hard to sit still: 0 = Not at all Becoming easily annoyed or irritable: 1 = Several days Feeling afraid as if something awful might happen: 1 = Several days Total LALO-7 score (0-4 normal; 5-9 mild; 10-14 moderate; 15-21 severe): 6 Source: Developed by Drs. Cortez Duran, Rosaura Washington, Emigdio Logan and colleagues, with an educational alayna from [employer],. LALO-7 Assessment Billing LALO-7 Assessment Tool: LALO-7 Assessment 74325 Review of Systems Const Denies chills, Denies fever(s) and Denies headache(s) Eyes Denies blurry vision ENT Denies headache(s), Denies nasal discharge, Denies nasal obstruction, Denies odynophagia and Denies sinus pain Card Denies chest pain at rest and Denies chest pain with activity Resp Denies hemoptysis GI Denies diarrhea, Denies odynophagia, Denies vomiting and Denies hematemesis Reports as per HPI Musc Denies abnormal gait Skin/Breast Reports as per HPI Neuro Denies Neuro-related abnormal movements, Denies Abnormal speech present, Denies abnormal gait, Denies headache(s) and Denies Sensory deficit (Neuro) Psych Denies mood swings and Denies paranoia Endo Reports as per HPI Juice/Lymph Reports as per HPI Aller/Immun Reports as per HPI Physical exam (Primary Care) Vital Signs: Last Vital Signs Pulse 60 07/23/23 08:27 BP 138/66 07/23/23 08:27 Pulse Ox 99 07/23/23 08:27 Oxygen Delivery Method Room Air 07/23/23 08:27 BMI result Body Mass Index 14.2 Tobacco/Smoking Status: Tobacco use Status Tobacco use date assessed 07/23/23 07/23/23 08:36 Patient Tobacco Use Status Current everyday Tobacco 07/23/23 08:27 Tobacco use type Cigarette 07/23/23 08:27 e-Cigarette/Vaping Use Never Used 07/23/23 08:27 PHQ-9: PHQ-9 Score PHQ-9: Total score 9 07/23/23 08:39 Depression Screening Interpretation: Negative Thrive Assessment: Date of Thrive Assessment Date Thrive assessed 07/23/23 07/23/23 08:36 Currently or been in a relationship where the following occur: no concerns reported Const General: cooperative, comfortable and no acute distress Orientation/consciousness: patient oriented x3 HENMT Head: Yes normocephalic and Yes atraumatic Eyes General: appearance normal, both eyes and all related structures Pupils: Equal, round and reactive pupils present EOM: EOMs intact bilaterally Neck Neck: Yes supple and No lymphadenopathy Thyroid: Thyroid normal Lymphatic: no lymphadenopathy noted Chest Breast/axilla palpation: normal palpation of the breasts Resp Effort & Inspection: able to speak in complete sentences Auscultation: clear to auscultation bilaterally Cardio Heart sounds: S1 normal heart sound present and S2 normal heart sound present GI Palpation (GI): Soft to palpation Auscultation: normal bowel sounds General: Yes no CVA tenderness Back/Spine/Pelvis Back: no CVA tenderness Skin General skin exam: elasticity normal and turgor normal Neuro General: patient oriented x3 and gait normal Cranial nerves: Yes Equal, round and reactive pupils present Speech: No Abnormal speech present Sensory Exam: No Sensory deficit (Neuro) Coordination: tandem gait normal and Romberg test negative Extrem General: Yes normal exam except as noted and No edema Assessment and Plan Assessment & Plan (1) Encounter for general adult medical examination with abnormal findings: Code(s): Z00.01 - Encounter for general adult medical examination with abnormal findings (2) Osteopenia: Code(s): M85.80 - Other specified disorders of bone density and structure, unspecified site Qualifiers: Osteopenia location: unspecified Qualified Code(s): M85.80 - Other specified disorders of bone density and structure, unspecified site (3) Malignant neoplasm of upper lobe of left lung: Onset Date: ~2019 Comment: (CRISTIAN Neuroendocrine Carcinoma 50%/Adenocarcinoma 50% - pT2a,pNx, Mx - s/p wedge resection 10/2019) Code(s): C34.12 - Malignant neoplasm of upper lobe, left bronchus or lung (4) Decreased GFR: Comment: GFR was 56 12/2019, now down to 36 Code(s): R94.4 - Abnormal results of kidney function studies (5) Hypertension, essential: Code(s): I10 - Essential (primary) hypertension (6) GERD (gastroesophageal reflux disease): Code(s): K21.9 - Gastro-esophageal reflux disease without esophagitis Qualifiers: Esophagitis presence: without esophagitis Qualified Code(s): K21.9 - Gastro-esophageal reflux disease without esophagitis (7) Nicotine dependence: Code(s): F17.200 - Nicotine dependence, unspecified, uncomplicated Qualifiers: Nicotine product type: cigarettes Substance use status: uncomplicated Qualified Code(s): F17.210 - Nicotine dependence, cigarettes, uncomplicated (8) COPD (chronic obstructive pulmonary disease): Comment: (severe obstructive) Code(s): J44.9 - Chronic obstructive pulmonary disease, unspecified Qualifiers: COPD type: emphysema Emphysema type: centrilobular Qualified Code(s): J43.2 - Centrilobular emphysema Plan Patient is 73-year-old female came in today for physical examination she was diagnosed with CRISTIAN lung cancer neuroendocrine she is under treatment by Oncology [facility] PET scan was done May of this year, remote reviewed She has new uptake left lower lobe which could be inflammatory as per report Patient will have PET scan again in few weeks. She has appointment coming up for follow-up after PET scan with oncologist she is still smoking Mammogram was September of last year Patient will be due September of this year Colonoscopy will be in 1 years patient is already established with [facility]enterology [facility] Patient is seeing other providers. Dr. Rodriguez hematology Dr. Giron thoracic surgeon Dr. Martinez pulmonary Dr. Mendes gastroenterology Dr. Madrid nephrology Patient is taking diltiazem 240 mg from Nephrology Labs were done in March, reviewed with the patient Follow-up 1 yr PE Coding Level of Care Code Est Pt Prev Care >65y(21028) Diagnoses Encounter for general adult medical examination with abnormal findings Z00.01 Osteopenia, unspecified location M85.80 Osteopenia location: unspecified Malignant neoplasm of upper lobe of left lung C34.12 Decreased GFR R94.4 Hypertension, essential I10 Gastroesophageal reflux disease without esophagitis K21.9 Esophagitis presence: without esophagitis Cigarette nicotine dependence without complication F17.210 Nicotine product type: cigarettes Substance use status: uncomplicated Centrilobular emphysema J43.2 COPD type: emphysema Emphysema type: centrilobular Additional Codes LALO-7 Assessment Billing - LALO-7 Assessment Tool: LALO-7 Assessment [id number] ([id number])
== END 2023-07-23 13:43 | disposition home or self-care (01) ==
PROVIDERS: Visit Provider Internal Medicine
DX: Z00.00 Encounter for general adult medical examination without abnormal findings (principal); C34.12 Malignant neoplasm of upper lobe, left bronchus or lung; J43.2 Centrilobular emphysema; M85.80 Other specified disorders of bone density and structure, unspecified site; F17.210 Nicotine dependence, cigarettes, uncomplicated; R94.4 Abnormal results of kidney function studies; K21.9 Gastro-esophageal reflux disease without esophagitis; I10 Essential (primary) hypertension
CPT/HCPCS: 99397

== ENCOUNTER 2023-07-29 15:09 | Outpatient (AMB) | payer MEDICARE, SELFPAY ==
[2023-07-29 15:27] VITALS: BP 128/60; PULSE 73; O2SAT 98; BMI 13.6
--- NOTE | 2023-07-29 15:27 | A.OFFVIS_ITS ---
Intake Vital Signs 07/29/23 15:27 Height 5 ft 1 in Weight 72 lb BMI 13.6 BP 128/60 Blood Pressure Location Lt brachial Position Sitting Pulse 73 Pulse Source Pulse Oximeter Pulse Oximetry (%) 98 Oxygen Delivery Method Room Air Intake Visit Reasons: Clearance for EGD/COLO 08/10/23 Allergies No Known Allergies Allergy (Verified 07/29/23 15:30) HPI HPI Comments History of Present Illness Details The patient is a 73 y/o woman with h/o COPD and pulmonary nodules s/p VATS lovectomy for an aggressive primary lung large cell/adeno CA with JUSTIN and viceral pleural invasion.. She did f/u with oncology, but she declined any the rapy at this time. However, I am concern with the type of cancer she was found to have. She is still dealing with her chronic pancreatitis. She has beShe does compain of left sided chest pain at the side of her surgery. Has some dyspnea and coughing, but overall better after cutting down on her smoking. 05/17/2020 the patient is here for pulmo nary follow-up visit. Overall her respiratory status is about the same. She is anxious about the results of her CT scan. We did review them in the office. The patient does have postoperative changes without any evidence of any recurrence at this time. However, she does have a 7 mm subsolid pulmonary nodules been closely monitor. This has not changed. The patient has significant emphysema. She is also struggling with her weight. Because of the donut hole she was not able to refill her Pancrease that she uses for her chronic pancreatitis. Therefore she has lost significant weight. We did have some samples of Ensure in the office which we provided her. She will be following up with gastroenterology soon. 05/22/2022 the patient is here for a pulmonary follow-up visit. The patient overall is doing well. Denies any significant shortness of breath or cough. Denies any weight loss. She is having however some difficulty sleeping. She has tried multiple medications in the past without any significant improvement. He is affecting her quality of life. The patient has a hard time both falling asleep and staying asleep. She has already tried gabapentin in the past. Will go ahead and start her on a small dose of Ambien that she can use as needed. She understands she needs to take it 15 minutes prior to sleep and then not to plan any activities 1 she takes the medication except for sleep. We did review her last CT scan of the chest that was back in November 2021. appears that the 7 mm subsolid nodular density not significantly changed. She is scheduled to get a repeat CT scan follow-up with thoracic surgery however. She is complaining of a sore throat. She has been using her inhalers and she is rinsing. She appears to have some thrush. Therefore I did encourage her to rinse with mouthwash. Will go ahead and start her on fluconazole for small course specially since may be difficult to Eradicating completely. 05/24/2023 the patient is here for a pulmo [facility] follow-up visit. Since we last spoke the patient did have an enlarging pulmonary nodule. It appears to be a subsolid nodule that increased in size and also the solid component did get bigger as well. The CT-guided biopsy at [facility] confirmed that indeed this is a malignant process. She was told it was stage I likely a primary lung cancer. The patient did have the nodule before but was lost more. She did follow-up with Interventional Pulmonary at [facility] and also was referred to Radiation Oncology and Oncology. She did have a difficult surgery the 1st time around recovering did take a significant amount of time. If the patient is concerned about undergoing surgery again specially with all the pain that she went through. I did encourage her to talk to Oncology and ideally get a PET scan to assess the radiological staging of this new entity. If indeed this is a localized lesion, stage I, would recommend ideally stereotactic radiation to treat that area. If however she has not on a candidate for stereotactic radiati on, then depending on her PFTs she should be considered a surgical candidate again. Ultimately targeted therapy may be also helpful in case she has any molecular markers. 07/29/2023 the patient is here for pulmonary preoperative evaluation. Since we last spoke she did see her radiation oncologist and she actually completed stereotactic radiation for the new stage I lung cancer. Unfortunately not enough tissue to do molecular markings and testing. She was able to get Zyrtec radiation with curative intent. She will follow closely with radiation oncology and imaging studies. From respiratory status she is doing well. Denies any worsening shortness of breath. She tolerating her respiratory therapy well. She is scheduled to undergo colonoscopy. currently she is doing well from a respiratory status and may be able to proceed with anesthesia and her colonoscopy without any restrictions. The patient will follow-up in 6-8 months. If she has any worsening issues prior to that she will call for an earlier assessment. [facility] Medical History Encounter for general adult medical examination with abnormal findings Impacted cerumen, bilateral Impacted cerumen of right ear UTI (urinary tract infection) Post-COVID syndrome Fatigue Hospital discharge follow-up Urinary tract infection Acute kidney injury Cerumen impaction Breast screening Insomnia Erythrocytosis Malignant neoplasm of upper lobe of left lung (~2019) Chronic pancreatitis Pulmonary nodules Angina pectoris GERD (gastroesophageal reflux disease) Sarcoidosis Hx of hiatal hernia History of IBS Nicotine dependence Thrombosis of right iliac artery Chronic cough COPD (chronic obstructive pulmonary disease) Arthritis Hx of chronic kidney disease Elevated cholesterol PVD (peripheral vascular disease) Myocardial infarction (~2000) CAD (coronary artery disease) HTN (hypertension) Surgical History History of partial hysterectomy History of cardiac cath (~2000) History of endarterectomy (~2016) History of esophagogastroduodenoscopy (EGD) (~2019) History of colonoscopy (~2018) History of lung surgery (~2019) Hx of tubal ligation Hx of tonsillectomy History of lung biopsy (~2019) Family History Father Heart disease Mother Heart disease Brother Diabetes Sister Mental health disorder Social History Household Members: Other Household Members Other:: ex Housing: House Are you a primary career development specialist to a significant other at home: No Do you presently have visiting nurse or other home services: No Alcohol intake: current Alcohol intake frequency: holidays/special occasions only Patient Tobacco Use Status: Current everyday Tobacco user Tobacco use type: Cigarette Cigarettes Per Day: 6 Years Smoked: 40 e-Cigarette/Vaping Use: Never Used Second Hand Smoke Exposure: No service: No Current occupational status: retired Cognitive needs: No Hearing needs: No Vision needs: Yes Review of Systems Const Denies night sweats and Denies weight gain ENT Denies lip swelling, Denies mouth pain, Reports nasal congestion and Denies tongue swelling Card Reports chest pain Resp Reports cough, Denies pain on inspiration and Denies pain with cough GI Denies abdominal pain Musc Denies no additional complaints Neuro Denies Neuro-related abnormal movements Psych Denies no additional complaints Juice/Lymph Denies easy bleeding and Denies lymphadenopathy Aller/Immun Denies lip swelling and Denies tongue swelling Physical Exam Vital Signs: Last Vital Signs Pulse 73 07/29/23 15:27 BP 128/60 07/29/23 15:27 Pulse Ox 98 07/29/23 15:27 Oxygen Delivery Method Room Air 07/29/23 15:27 BMI result Body Mass Index 13.6 Const General: alert Nutritional Appearance: underweight HEENT General nose exam: Abnormal external nose present and Nasal discharge present Eyes Pupils: Equal, round and reactive pupils present Neck Neck: Yes normal visual inspection, Yes full ROM and Yes no lymphadenopathy Chest Chest palpation & inspection: normal inspection of the chest Resp Effort & Inspection: normal respiratory effort Auscultation: diminished lung sounds Cardio Rate: regular rate Rhythm: regular rhythm Heart sounds: S1 normal heart sound present and S2 normal heart sound present GI Palpation (GI): Soft to palpation and nontender Auscultation: normal bowel sounds General: Yes no CVA tenderness Back/Spine/Pelvis Back: no CVA tenderness Skin General skin exam: rashes and/or lesions noted Neuro Cranial nerves: Yes Equal, round and reactive pupils present Assessment & Plan Assessment & Plan (1) Pre-op chest exam: Code(s): Z01.811 - Encounter for preprocedural respiratory examination (2) Pulmonary nodules: Comment: +malignancy s/p SBRT Code(s): R91.8 - Other nonspecific abnormal finding of lung field Plan: 7 mm nodule (3) Nicotine dependence: Code(s): F17.200 - Nicotine dependence, unspecified, uncomplicated Qualifiers: Nicotine product type: cigarettes Substance use status: uncomplicated Qualified Code(s): F17.210 - Nicotine dependence, cigarettes, uncomplicated Plan: tobacco cesation (4) COPD (chronic obstructive pulmonary disease): Comment: (severe obstructive) Code(s): J44.9 - Chronic obstructive pulmonary disease, unspecified Qualifiers: COPD type: emphysema Emphysema type: centrilobular Qualified Code(s): J43.2 - Centrilobular emphysema Plan: cont respiratory therapy (5) Cancer of left lung: Comment: 10/2019 Sundeep Bess Upper Lobe Wedge Resection Code(s): C34.92 - Malignant neoplasm of unspecified part of left bronchus or lung Qualifiers: Lung location: upper lobe of lung Qualified Code(s): C34.12 - Malignant neoplasm of upper lobe, left bronchus or lung (6) Insomnia: Code(s): G47.00 - Insomnia, unspecified Qualifiers: Insomnia type: primary Qualified Code(s): F51.01 - Primary insomnia Plan Mild risk for post operarative pulmonary complications at this time, which include; atelectasis, hypoxia, pneumonia and COPD exacerbation. She is medically optimized from a pulmonary standpoint. Proceed with anesthesia and coloscoscopy at this time. Continue Trelegy. Trazodone as needed for insomnia short-acting beta agonist as needed follow-up with Oncology and Rad onc follow-up in 6-8 months Quality Reporting (2019) Adult ([facility] 138/06/10/68) Smoking risk assessment performed?: Yes Patient Tobacco Use Status: Current everyday Tobacco user Coding Level of Care Code Est Pt Level 4 (48856) Diagnoses Pre-op chest exam Z01.811 Pulmonary nodules R91.8 Cigarette nicotine dependence without complication F17.210 Nicotine product type: cigarettes Substance use status: uncomplicated Centrilobular emphysema J43.2 COPD type: emphysema Emphysema type: centrilobular Malignant neoplasm of upper lobe of left lung C34.12 Lung location: upper lobe of lung Primary insomnia F51.01 Insomnia type: primary Time Spent (min) 17
== END 2023-07-29 15:50 | disposition home or self-care (01) ==
PROVIDERS: PCP Internal Medicine; Visit Provider Hospitalist
DX: Z01.811 Encounter for preprocedural respiratory examination (principal); R91.8 Other nonspecific abnormal finding of lung field; F17.210 Nicotine dependence, cigarettes, uncomplicated; J43.2 Centrilobular emphysema; C34.12 Malignant neoplasm of upper lobe, left bronchus or lung; F51.01 Primary insomnia
CPT/HCPCS: 99214

== ENCOUNTER → 2023-07-29 15:09 | Outpatient (BNVA) | payer MEDICARE, SELFPAY | PROVIDERS: PCP Internal Medicine; Visit Provider Hospitalist | DX: Z01.811 Encounter for preprocedural respiratory examination (principal); R91.8 Other nonspecific abnormal finding of lung field; J43.2 Centrilobular emphysema; C34.12 Malignant neoplasm of upper lobe, left bronchus or lung; F51.01 Primary insomnia; F17.210 Nicotine dependence, cigarettes, uncomplicated | CPT/HCPCS: 99212 ==

== ENCOUNTER 2023-08-10 06:21 | Day surgery (SDC) | payer MEDICARE, SELFPAY ==
[2023-08-06 10:08] VITALS: BMI 13.6
--- NOTE | 2023-08-09 09:28 | HO.ANESPROP2 ---
Documented by User: Fatoumata Lovell NP 08/09/23 09:31 HPI - Anesthesia Eval Consult details Narrative: 73yo F for Upper Endoscopy and Colonoscopy Pulmo cleared. Lung ca s/p CRISTIAN wedge resection 2019. Current radiation tx. Continues to smoke. Stable at 04/2023 cardiology office visit [facility] Active Problems Active Problems: All Active Problems Pre-op chest exam (Acute) Pre-op examination (Acute) Tubular adenoma of colon (Acute) Post herpetic neuralgia (Acute) Right renal stone (Acute) Hydronephrosis of right kidney (Acute) Osteopenia (Acute) Constipation (Acute) Decreased GFR (Acute) Abdominal bloating (Acute) Anemia (Acute) Hypertension, essential (Acute) GERD (gastroesophageal reflux disease) (Acute) Esophageal ulcer (Acute) Encounter for general adult medical examination with abnormal findings (Acute) Myocardial infarction (Acute ~2000) Insomnia (Acute) Erythrocytosis (Acute) Malignant neoplasm of upper lobe of left lung (Acute ~2019) Chronic pancreatitis (Acute) Pulmonary nodules (Acute) Nicotine dependence (Acute) COPD (chronic obstructive pulmonary disease) (Acute) Past Medical History Medical History Impacted cerumen, bilateral Impacted cerumen of right ear Insomnia UTI (urinary tract infection) Post-COVID syndrome Fatigue Hospital discharge follow-up Urinary tract infection Acute kidney injury Cerumen impaction Encounter for general adult medical examination with abnormal findings Breast screening Erythrocytosis Malignant neoplasm of upper lobe of left lung (~2019) Chronic pancreatitis Pulmonary nodules Angina pectoris GERD (gastroesophageal reflux disease) Sarcoidosis Hx of hiatal hernia History of IBS Nicotine dependence Thrombosis of right iliac artery Chronic cough COPD (chronic obstructive pulmonary disease) Arthritis Hx of chronic kidney disease Elevated cholesterol PVD (peripheral vascular disease) Myocardial infarction (~2000) CAD (coronary artery disease) HTN (hypertension) Family History Family History Father Heart disease Mother Heart disease Brother Diabetes Sister Mental health disorder Family history of problems with anesthesia: No Surgical History Surgical History Hx of cystoscopy History of partial hysterectomy History of cardiac cath (~2000) History of endarterectomy (~2016) History of esophagogastroduodenoscopy (EGD) (~2019) History of colonoscopy (~2018) History of lung surgery (~2019) Hx of tubal ligation Hx of tonsillectomy History of lung biopsy (~2019) History of Problems with Anesthesia: No Social History Social History Household Members: Other Household Members Other:: ex Housing: House Are you a primary client care consultant to a significant other at home: No Do you presently have visiting nurse or other home services: No Alcohol intake: current Alcohol intake frequency: holidays/special occasions only Patient Tobacco Use Status: Current everyday Tobacco user Tobacco use type: Cigarette Cigarettes Per Day: 6 Years Smoked: 40 Smoked in Last 30 Days: Yes e-Cigarette/Vaping Use: Never Used Patient Interested in Nicotine Replacement: No Second Hand Smoke Exposure: No Are you DNR?: No Advance Directives: No Advance Directives Information Provided: Yes Nutrition Risks: No Nutritional Risk service: No Current occupational status: retired Cognitive needs: No Hearing needs: No Vision needs: Yes Meds Allergies Allergy/AdvReac Type Severity Reaction Status Date / Time No Known Allergies Allergy Verified 08/10/23 06:45 Home Medications ?Medication ?Instructions ?Recorded ?Confirmed ?Last Taken ?Type clopidogrel 75 mg tablet (Plavix) 1 tab PO DAILY 01/26/20 08/06/23 08/03/23 History nitroglycerin 0.4 mg sublingual 1 tab sublingual NEEDED angina 01/26/20 08/06/23 01/14/22 History tablet rosuvastatin 20 mg tablet 1 tab PO DAILY 01/26/20 08/06/23 08/10/23 History docusate sodium 100 mg capsule 100 mg PO BID PRN Constipation 12/05/21 08/06/23 01/14/22 History simethicone 180 mg capsule 180 mg PO QID PRN Abdominal 12/05/21 08/06/23 01/14/22 History Discomfort Exam Height,Weight and Vital Signs: Height 5 ft 1 in Weight 32.659 kg Assessment and Plan Assessment Anesthesia Assessment: Chart Reviewed Final Anesthetic Review Family History of Problems with Anesthesia: No History of Problems with Anesthesia: No Documented by User: Lilia Wilkerson MD 08/10/23 08:02 [facility] Past Medical History Medical History Impacted cerumen, bilateral Impacted cerumen of right ear Insomnia UTI (urinary tract infection) Post-COVID syndrome Fatigue Hospital discharge follow-up Urinary tract infection Acute kidney injury Cerumen impaction Encounter for general adult medical examination with abnormal findings Breast screening Erythrocytosis Malignant neoplasm of upper lobe of left lung (~2019) Chronic pancreatitis Pulmonary nodules Angina pectoris GERD (gastroesophageal reflux disease) Sarcoidosis Hx of hiatal hernia History of IBS Nicotine dependence Thrombosis of right iliac artery Chronic cough COPD (chronic obstructive pulmonary disease) Arthritis Hx of chronic kidney disease Elevated cholesterol PVD (peripheral vascular disease) Myocardial infarction (~2000) CAD (coronary artery disease) HTN (hypertension) Family History Family History Father Heart disease Mother Heart disease Brother Diabetes Sister Mental health disorder Family history of problems with anesthesia: No Surgical History Surgical History Hx of cystoscopy History of partial hysterectomy History of cardiac cath (~2000) History of endarterectomy (~2016) History of esophagogastroduodenoscopy (EGD) (~2019) History of colonoscopy (~2018) History of lung surgery (~2019) Hx of tubal ligation Hx of tonsillectomy History of lung biopsy (~2019) History of Problems with Anesthesia: No Social History Social History Household Members: Other Household Members Other:: ex Housing: House Are you a primary client care consultant to a significant other at home: No Do you presently have visiting nurse or other home services: No Alcohol intake: current Alcohol intake frequency: holidays/special occasions only Patient Tobacco Use Status: Current everyday Tobacco user Tobacco use type: Cigarette Cigarettes Per Day: 6 Years Smoked: 40 Smoked in Last 30 Days: Yes e-Cigarette/Vaping Use: Never Used Patient Interested in Nicotine Replacement: No Second Hand Smoke Exposure: No Are you DNR?: No Advance Directives: No Advance Directives Information Provided: Yes Nutrition Risks: No Nutritional Risk service: No Current occupational status: retired Cognitive needs: No Hearing needs: No Vision needs: Yes Meds Allergies Allergy/AdvReac Type Severity Reaction Status Date / Time No Known Allergies Allergy Verified 08/10/23 06:45 Home Medications ?Medication ?Instructions ?Recorded ?Confirmed ?Last Taken ?Type clopidogrel 75 mg tablet (Plavix) 1 tab PO DAILY 01/26/20 08/06/23 08/03/23 History nitroglycerin 0.4 mg sublingual 1 tab sublingual NEEDED angina 01/26/20 08/06/23 01/14/22 History tablet rosuvastatin 20 mg tablet 1 tab PO DAILY 01/26/20 08/06/23 08/10/23 History docusate sodium 100 mg capsule 100 mg PO BID PRN Constipation 12/05/21 08/06/23 01/14/22 History simethicone 180 mg capsule 180 mg PO QID PRN Abdominal 12/05/21 08/06/23 01/14/22 History Discomfort Exam Height,Weight and Vital Signs: Height 5 ft 1 in Weight 32.659 kg Vital Signs Temp Pulse Resp BP Pulse Ox O2 Del Method 08/10/23 07:12 91 16 08/10/23 07:06 97.6 F 100 18 140/67 H 96 Room Air Airway Mallampati Class: II TM Dist: >3cm Neck ROM: Full Denture: Upper Loose/Missing/Broken Teeth: Yes (Broken full denture top. Only few teeth bottom. Broken tooth bottom right back) Heart: RRR Lungs: CTAB (Receiving respiratory treatment) Assessment and Plan Assessment Anesthesia Assessment: Anesthesia Plan Discussed and Chart Reviewed Final Anesthetic Review Family History of Problems with Anesthesia: No History of Problems with Anesthesia: No NPO: Yes ASA Class: III Final Preanesthetic Review: No Changes in Pt Med Stat, Meds/Allgs Chart Reviewed, Consent Obtained/Reviewed and Anes Risks/Benef Reviewed Patient Risk: Intermediate Procedure Risk: Low Assessment/Block/Sedation in SS: Assess/Block/Sedation-SS Anesthetic Plan Anesthetic Plan: MAC: and TIVA Disposition: Standard PACU
[2023-08-10 06:33] VITALS: BMI 13.8
[2023-08-10] MEDS: Lactated Ringers 1,000 ML 100 ML IVCONT (06:59)
[2023-08-10 07:06] VITALS: BP 140/67; PULSE 100; RESP 18; TEMP 36.4; O2SAT 96
[2023-08-10 07:12] VITALS: PULSE 91; RESP 16; O2SAT 95
[2023-08-10] MEDS: Albuterol Sulfate (0.083%) 2.5 MG/3 ML VIAL.NEB INHALE (07:12)
--- NOTE | 2023-08-10 07:19 | MHC.SHP ---
Pre-Procedural Eval Section A - 24 Hr Update-Section A only Date of Service: 08/10/23 The patient is an INPATIENT: No The patient has been examined within 24 hours of the surgical procedure. The History & Physical has been completed within 30 days and I have reviewed it.: No Section B - Complete if H&P > 30 days Chief Complaint: Surveillance for colon polyps, GERD Relevant Family History (Specify if Yes): No Relevant Social History: Tobacco Use Present Medications: see Short Stay Collaborative assessment Medical History: Significant History (Malignant neoplasm of upper lobe of left lung (~2019) Chronic pancreatitis Pulmonary nodules Angina pectoris GERD (gastroesophageal reflux disease) Sarcoidosis Hx of hiatal hernia History of IBS Nicotine dependence Thrombosis of right iliac artery Chronic cough COPD (chronic obstructive pulmonary di) History of Previous Operations: Relevant previous surgery/procedure and date(s) (History of partial hysterectomy History of cardiac cath (~2000) History of endarterectomy (~2016) History of esophagogastroduodenoscopy (EGD) (~2019) History of colonoscopy (~2018) History of lung surgery (~2019) Hx of tubal ligation Hx of tonsillectomy History of lung biopsy (~2019)) Allergies: Allergies Allergy/AdvReac Type Severity Reaction Status Date / Time No Known Allergies Allergy Verified 08/10/23 06:45 Review of Systems Sugical H&P ROS: Negative: Constitution, Cardiovascular, Respiratory and Gastrointestinal Exam Surgical H&P Exam: Normal: Heart, Normal: Lungs, Normal: Extremities and Normal: Abdomen Plan Diagnosis/Plan: Unchanged I have reviewed the history and physical and performed a pertinent physical examination on my patient. No changes have occurred unless specified. Time Spent With Patient Time: Total time managing care of this patient today ____ minutes.
--- NOTE | 2023-08-10 07:42 | P.OP_ITS ---
Operative Note Operative Note Date of Service: 08/10/23 Narrative: FLEXIBLE TRANSORAL UPPER GASTROINTESTINAL ENDOSCOPY WITH BIOPSIES AND COLONOSCOPY TILL CECUM WITH SNARE POLYPECTOMY, SUBMUCOSAL INJECTION AND HEMOCLIP PLACEMENT Pre-op diagnosis: Surveillance for colon polyps, GERD Post-op diagnosis: GERD, Duodenal AVMs, Colon Polyps, Diverticulosis Endoscopist:? Kristal Gomes MD Anesthesia:?MAC UPPER ENDOSCOPY Consent: Indications for the procedure and potential complications of bleeding, perforation, reaction to medications and missed diagnosis were discussed with the patient and informed consent was obtained. Instrument: Olympus GIF H 190 mid size upper endoscope Monitoring: Vital signs and clinical assessment, continuous EKG monitoring, Pulse oximetry, Carbon Dioxide monitoring and blood pressure monitoring were done throughout the procedure. Procedure: The patient was placed in the left lateral decubitis position and pre-procedure medications were administered and a bite block was placed. The endoscope was inserted into the mouth and advanced under direct vision to the third part of duodenum. A careful inspection was made as the upper endoscope was withdrawn including a retroflexed examination of the proximal stomach; Findings and interventions are described below. Findings: Larynx: Normal Esophagus: Mildly tortuous esophagus. GE junction at 40 cms. A 3-5 mm islands of suspected Courtney's just above the GE junction - biopsied. Stomach: Minimal gastric antral erythema. Antral biopsies obtained during last EGD were negative for Helicobacter pylori. Grade 2 flap valve on retroflexed view of the cardia. Duodenum: Normal bulb and descending duodenum. Intervention: Biopsies as noted above COLONOSCOPY PROCEDURE NOTE Instrument: Olympus PCF H 190 L variable stiffness pediatric colonoscope Monitoring: Vital signs and clinical assessment, intermittent blood pressure monitoring, continuous EKG monitoring, Pulse oximetry and Carbon Dioxide monitoring were done throughout the procedure. Please see anesthesia flowsheet. Colon withdrawl time was 26 minutes. Procedure: The patient was placed in the left lateral decubitis position and pre-procedure medications were administered. After a digital rectal examination of the ano-rectum, the video colonoscope was inserted into the rectum and advanced through the colon to the cecum. The colonoscope was slowly withdrawn in a retrograde panoramic fashion and the colon mucosa was carefully examined including a retroflexed view of the rectum. Findings and interventions are described below. Procedure Difficulty: There was narrowing of the sigmoid colon due to severe diverticulosis which was navigated with some difficulty Findings: Terminal Ileum: Not evaluated Cecum: Normal Ascending Colon: A 15 to 18 mm sessile polyp overlying a fold in the distal AC. Polyp was removed with a stiff hot snare and polypectomy site was closed with 1 hemoclip Transverse Colon: A 15 mm sessile polyp - removed with a hot snare. Descending Colon: Moderate diverticulosis Sigmoid Colon: A 2.5 to 3 cms flat polyp at 40 cms. Polyp was raised with 7 cc of [place] and removed with a hot stiff snare. Polypectomy site was closed with 2 ultra hemoclips and marked by Meena ink. Severe diverticulosis with luminal narrowing A 10 -12 mm sessile polyp - not removed due to excessive length of the procedure Rectum: Normal Ano-rectum: Small internal hemorrhoids Colon preparation: Excellent. [place] Bowel Preparation Scale Right colon; 3 Transverse colon: 3 Left colon; 3 (0 = Unprepared colon segment with mucosa not seen due to solid stool that cannot be cleared. 1 = Portion of mucosa of the colon segment seen, but other areas of the colon segment not well seen due to staining, residual stool and/or opaque liquid. 2 = Minor amount of residual staining, small fragments of stool and/or opaque liquid, but mucosa of colon segment seen well. 3 = Entire mucosa of colon segment seen well with no residual staining, small fragments of stool or opaque liquid) Impression and Post Procedure Diagnosis: Endoscopy Findings: ESOPHAGUS: Mildly tortuous esophagus. GE junction at 40 cms. A 3-5 mm islands of suspected Courtney's just above the GE junction - biopsied. STOMACH: Minimal gastric antral erythema. Antral biopsies obtained during last EGD were negative for Helicobacter pylori. Colonoscopy Findings: Three medium to large polyps were removed A 10 -12 mm sessile polyp - not removed due to excessive length of the procedure Moderate to severe diverticulosis seen in the left colon Small hemorrhoids on retroflexed exam. Plan: Pt has a FU appointment on 08/27/23 with Jacquie Staley NP. Repeat Colonoscopy in 4-6 months if polyps are adenomatous and 10 year if polyps are hyperplastic. Above findings were reviewed with the patient and relevant handouts were given and the discharge area.
[2023-08-10 08:39] VITALS: BP 131/63; PULSE 99; RESP 16; TEMP 36.2; O2SAT 100
[2023-08-10 08:54] VITALS: BP 135/60; PULSE 98; RESP 15; O2SAT 100
[2023-08-10 09:09] VITALS: BP 134/63; PULSE 87; RESP 16; TEMP 36.2; O2SAT 97
== END 2023-08-10 09:55 | disposition home or self-care (01) ==
PROVIDERS: PCP Internal Medicine; Visit Provider Internal Medicine Gastroenterology
PROC: (CPT 45385; principal; 2023-08-10 07:30)
DX: Z12.11 Encounter for screening for malignant neoplasm of colon (principal); Z86.010 Personal history of colon polyps; D12.2 Benign neoplasm of ascending colon; D12.3 Benign neoplasm of transverse colon; D12.5 Benign neoplasm of sigmoid colon; K57.30 Diverticulosis of large intestine without perforation or abscess without bleeding; K59.00 Constipation, unspecified; K21.9 Gastro-esophageal reflux disease without esophagitis; K22.10 Ulcer of esophagus without bleeding; K31.819 Angiodysplasia of stomach and duodenum without bleeding; K86.1 Other chronic pancreatitis; C34.12 Malignant neoplasm of upper lobe, left bronchus or lung; J44.9 Chronic obstructive pulmonary disease, unspecified; R91.8 Other nonspecific abnormal finding of lung field; I74.5 Embolism and thrombosis of iliac artery; I10 Essential (primary) hypertension; Z79.899 Other long term (current) drug therapy; Z98.890 Other specified postprocedural states; F17.210 Nicotine dependence, cigarettes, uncomplicated
CPT/HCPCS: 45385; 45381; 43239; 88305; 88313; 94640; J1596; J2371; J2704

== ENCOUNTER → 2023-08-10 06:21 | Outpatient (BNV) | payer MEDICARE, SELFPAY | PROVIDERS: PCP Internal Medicine; Visit Provider Internal Medicine Gastroenterology | DX: Z12.11 Encounter for screening for malignant neoplasm of colon (principal); Z86.010 Personal history of colon polyps; D12.3 Benign neoplasm of transverse colon; K57.30 Diverticulosis of large intestine without perforation or abscess without bleeding; K21.9 Gastro-esophageal reflux disease without esophagitis; K22.10 Ulcer of esophagus without bleeding | CPT/HCPCS: 43239; 45381; 45385 ==

== ENCOUNTER 2023-08-17 09:26 | Outpatient (AMB) | payer MEDICARE, SELFPAY ==
[2023-08-17 09:29] VITALS: BP 156/52; PULSE 60; O2SAT 99; BMI 13.8
--- NOTE | 2023-08-17 09:29 | HO.NEPHOV ---
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 In 2017, CTA revealed 2 right renal arteries with ostial stenosis and 2 left renal arteries with arthrosclerosis and no stenosis. She is mild CKD with a serum creatinine fluctuating between 1.3 and 1.5 mg/dL. She is being conservatively managed with respect to the renal artery stenosis. Overall blood pressure has been well controlled renal function has been stable. She is here for annual follow-up. 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 Continues to smoke up to 6 cigarettes a day. [facility] Medical History Impacted cerumen, bilateral Impacted cerumen of right ear Insomnia UTI (urinary tract infection) Post-COVID syndrome Fatigue Hospital discharge follow-up Urinary tract infection Acute kidney injury Cerumen impaction Encounter for general adult medical examination with abnormal findings Breast screening Erythrocytosis Malignant neoplasm of upper lobe of left lung (~2019) Chronic pancreatitis Pulmonary nodules Angina pectoris GERD (gastroesophageal reflux disease) Sarcoidosis Hx of hiatal hernia History of IBS Nicotine dependence Thrombosis of right iliac artery Chronic cough COPD (chronic obstructive pulmonary disease) Arthritis Hx of chronic kidney disease Elevated cholesterol PVD (peripheral vascular disease) Myocardial infarction (~2000) CAD (coronary artery disease) HTN (hypertension) Surgical History Hx of cystoscopy History of partial hysterectomy History of cardiac cath (~2000) History of endarterectomy (~2016) History of esophagogastroduodenoscopy (EGD) (~2019) History of colonoscopy (~2018) History of lung surgery (~2019) Hx of tubal ligation Hx of tonsillectomy History of lung biopsy (~2019) Family History Father Heart disease Mother Heart disease Brother Diabetes Sister Mental health disorder Social History Household Members: Other Household Members Other:: ex Housing: House Are you a primary day care home mother to a significant other at home: No Do you presently have visiting nurse or other home services: No Alcohol intake: current Alcohol intake frequency: holidays/special occasions only Patient Tobacco Use Status: Current everyday Tobacco user Tobacco use type: Cigarette Cigarettes Per Day: 6 Years Smoked: 40 e-Cigarette/Vaping Use: Never Used Second Hand Smoke Exposure: No service: No Current occupational status: retired Cognitive needs: No Hearing needs: No Vision needs: Yes Physical Exam Vital Signs: Last Vital Signs Pulse 60 08/17/23 09:29 BP 156/52 H 08/17/23 09:29 Pulse Ox 99 08/17/23 09:29 Oxygen Delivery Method Room Air 08/17/23 09:29 BMI result Body Mass Index 13.8 Const General: comfortable Nutritional Appearance: well nourished Orientation/consciousness: patient oriented x3 HEENT Head: No normal to inspection Mouth: moist mucous membranes Neck Neck: Yes supple and Yes no JVD Resp Auscultation: clear to auscultation bilaterally, no rales and rub present Cardio Jugular venous distension: no JVD Palpation: no palpable S3 and no palpable S4 Heart sounds: no rubs GI Palpation (GI): Soft to palpation and nontender Percussion: No Fluid wave present General: Yes no CVA tenderness Back/Spine/Pelvis Back: no CVA tenderness Skin General skin exam: no rashes or lesions noted Neuro General: patient oriented x3 Extrem General: Yes no pedal edema and No clubbing Results Reviewed Results Reviewed: Renal sonogram in March 2023 RIGHT KIDNEY: 9.4 x 3.1 x 2.9 cm (SAG x AP x TRV). The kidney is normal in size, contour, and echogenicity. Renal cortical thickness is normal. No hydronephrosis. Subcentimeter benign-appearing renal cysts, no follow-up imaging recommended. 4 mm nonobstructing upper pole renal stone previously 3 mm. LEFT KIDNEY: 9.7 x 4.2 x 3.6 cm (SAG x AP x TRV). The kidney is normal in size, contour, and echogenicity. Renal cortical thickness is normal. No calculi or focal parenchymal lesions. No hydronephrosis. Echogenic foci without twinkle artifact or shadowing may reflect vascular reflectors. No definite nephrolithiasis. US/US renal BI IMPRESSION: 1. No hydronephrosis. 2. 4 mm nonobstructing right upper pole renal stone previously 3 mm. 3. Echogenic foci without twinkle artifact or shadowing may reflect vascular reflectors. No definite nephrolithiasis. Nephrology Results: Hgb 13.1 g/dl (12.0-16.0) 03/30/23 WBC 7.2 X10*3/uL (4.8-10.8) 03/30/23 Plt Count 178 X10*3/uL (160-400) 03/30/23 Sodium 139 mmol/L (135-145) 03/30/23 Potassium 4.4 mmol/L (3.3-5.1) 03/30/23 Chloride 107 mmol/L (96-108) 03/30/23 Carbon Dioxide 24 mmol/L (22-29) 03/30/23 BUN 16 mg/dL (9-16) 03/30/23 Creatinine 1.39 mg/dL (0.5-1.4) 03/30/23 Calcium 9.3 mg/dL (8.4-10.2) 03/30/23 Assessment & Plan Assessment & Plan (1) CKD (chronic kidney disease) stage 3, GFR 30-59 ml/min: Comment: Most likely due to hypertensive nephrosclerosis. History of renal artery stenosis. No evidence of obstruction based on recent renal ultrasonogram. History of nephrolithiasis with nonobstructing calculi Code(s): N18.30 - Chronic kidney disease, stage 3 unspecified Category: Medical Plan: Goal is to slow the progression of disease Continue overt nephrotoxic agents including NSAIDs Maintain blood pressure less than 130/80 Encouraged to increase p.o. fluid intake (2) Hypertension, essential: Comment: History of renal artery stenosis. Ostial stenosis on the right no stenosis on the left Code(s): I10 - Essential (primary) hypertension Category: Medical Plan: Overall blood pressure is well controlled no change in current antihypertensive regimen She is stay on low-sodium diet (3) COPD (chronic obstructive pulmonary disease): Comment: (severe obstructive) Code(s): J44.9 - Chronic obstructive pulmonary disease, unspecified Category: Medical Qualifiers: COPD type: emphysema Emphysema type: centrilobular Qualified Code(s): J43.2 - Centrilobular emphysema Plan: cont respiratory therapy Follow with Dr. Martinez Discussed smoking cessation (4) Cancer of left lung: Comment: 10/2019 Jayjaymiahchristen Bess Upper Lobe Wedge Resection Status post radiation Code(s): C34.92 - Malignant neoplasm of unspecified part of left bronchus or lung Category: Medical Qualifiers: Lung location: upper lobe of lung Qualified Code(s): C34.12 - Malignant neoplasm of upper lobe, left bronchus or lung Plan: Management per Oncology (5) Erythrocytosis: Comment: (related to smoking) Code(s): D75.1 - Secondary polycythemia Category: Medical Plan: Continues her iron deficiency but hemoglobin is well above target. This is being managed by Dr. Rodriguez Orders: Orders Complete Blood Count Auto Diff 1 Day D75.1 - Secondary polycythemia, I10 - Essential (primary) hypertension, N18.30 - Chronic kidney disease, stage 3 unspecified Vitamin D 25-OH (D2 and D3) 1 Day D75.1 - Secondary polycythemia, I10 - Essential (primary) hypertension Lipid Panel 1 Day D75.1 - Secondary polycythemia, I10 - Essential (primary) hypertension Comprehensive Met. Panel 1 Day D75.1 - Secondary polycythemia, I10 - Essential (primary) hypertension, N18.9 - Chronic kidney disease, unspecified Medications: Refilled diltiazem HCl CD 240 mg PO DAILY 90 caps 1RF Coding Level of Care Code Est Pt Level 4 (95584) Diagnoses CKD (chronic kidney disease) stage 3, GFR 30-59 ml/min N18.30 Hypertension, essential I10 Centrilobular emphysema J43.2 COPD type: emphysema Emphysema type: centrilobular Malignant neoplasm of upper lobe of left lung C34.12 Lung location: upper lobe of lung Erythrocytosis D75.1
== END 2023-08-17 09:56 | disposition home or self-care (01) ==
PROVIDERS: PCP Internal Medicine; Visit Provider Internal Medicine Hypertension Specialist
DX: N18.30 Chronic kidney disease, stage 3 unspecified (principal); I10 Essential (primary) hypertension; J43.2 Centrilobular emphysema; C34.12 Malignant neoplasm of upper lobe, left bronchus or lung; D75.1 Secondary polycythemia
CPT/HCPCS: 99214

== ENCOUNTER → 2023-08-17 09:26 | Outpatient (BNVA) | payer MEDICARE, SELFPAY | PROVIDERS: PCP Internal Medicine; Visit Provider Internal Medicine Hypertension Specialist | DX: I12.9 Hypertensive chronic kidney disease with stage 1 through stage 4 chronic kidney disease, or unspecified chronic kidney disease (principal); N18.30 Chronic kidney disease, stage 3 unspecified; J43.2 Centrilobular emphysema; C34.12 Malignant neoplasm of upper lobe, left bronchus or lung; D75.1 Secondary polycythemia | CPT/HCPCS: 99212 ==

== ENCOUNTER 2023-08-18 08:06 | Outpatient (REF) | payer MEDICARE, SELFPAY ==
[2023-08-18 08:16] LABS: MANUAL DIFF FLAG NO
[2023-08-18 08:43] LABS: Basophils Absolute Auto 0.1 X10*3/uL (0.0-0.2); Basophils Percent Auto 1.1 % (0-2); Eosinophils Absolute Auto 0.1 X10*3/uL (0.0-0.4); Hematocrit 39.3 % (37.0-47.0); Hemoglobin 12.3 g/dl (12.0-16.0); Imm Gran Abs Auto 0.04 X10*3/uL (0.00-0.03); Imm Gran Pct Auto 0.4 % (0.0-0.4); Mean Corpuscular HGB Conc 31.3 g/dl (31.0-35.0); Mean Corpuscular Hemoglobin 25.8 pg (27.0-33.0); Mean Corpuscular Volume 82.6 fL (80.0-98.0); Mean Platelet Volume 9.8 fL (9.4-12.3); Monocytes Absolute Auto 0.7 X10*3/uL (0.1-1.2); Monocytes Percent Auto 7.3 % (2-11); Neutrophils Absolute Auto 7.2 x10*3/uL (2.0-8.3); Neutrophils Percent Auto 79.2 % (45-73); Platelet Count 211 X10*3/uL (160-400); Red Blood Count 4.76 X10*6/uL (4.20-5.50); Red Cell Distribution Width 16.2 % (11.0-16.0); White Blood Count 9.1 X10*3/uL (4.8-10.8)
[2023-08-18 09:13] LABS: Alanine Aminotransferase 23 U/L (0-31); Albumin Level 4.1 g/dL (3.5-5.0); Alkaline Phosphatase 78 U/L (39-117); Anion Gap 13 (12-20); Aspartate Amino Transferase 26 U/L (5-31); Bilirubin Total 0.3 mg/dL (0.0-1.0); Blood Urea Nitrogen 14 mg/dL (9-16); Calcium 9.2 mg/dL (8.4-10.2); Carbon Dioxide 24 mmol/L (22-29); Chloride 108 mmol/L (96-108); Cholesterol 138 mg/dL (<200); Estimated Glomerular Filt Rate 45; Glucose Random 118 mg/dL (60-115); HDL Cholesterol 60 mg/dL (>40); LDL Cholesterol Calculated 58 mg/dL (<100); Potassium 3.9 mmol/L (3.3-5.1); Sodium 141 mmol/L (135-145); Total Protein 6.5 g/dL (6.5-8.0); Triglycerides 104 mg/dL (<150)
[2023-08-18 09:14] LABS: Cholesterol 136 mg/dL (<200); HDL Cholesterol 61 mg/dL (>40); LDL Cholesterol Calculated 55 mg/dL (<100); Triglycerides 104 mg/dL (<150)
[2023-08-22 14:58] LABS: Vitamin D 25-OH, D2 <4 ng/mL; Vitamin D 25-OH, D3 15 ng/mL; Vitamin D 25-OH, Total 15 ng/mL (30-100)
== END 2023-08-18 08:07 | disposition home or self-care (01) ==
LOC: HO.LAB 08:06
PROVIDERS: Absent Provider Internal Medicine Hypertension Specialist; PCP Internal Medicine; Visit Provider Nurse Practitioner Family
DX: E78.2 Mixed hyperlipidemia (principal); I25.10 Atherosclerotic heart disease of native coronary artery without angina pectoris; N18.30 Chronic kidney disease, stage 3 unspecified; I10 Essential (primary) hypertension; D75.1 Secondary polycythemia
CPT/HCPCS: 36415; 80053; 80061; 82306; 85025

== ENCOUNTER 2023-08-27 08:35 | Outpatient (AMB) | payer MEDICARE, SELFPAY ==
[2023-08-27 08:39] VITALS: BP 156/78; PULSE 61; O2SAT 99; BMI 13.9
--- NOTE | 2023-08-27 08:39 | A.OFFVIS_ITS ---
Vital Signs 08/27/23 08:39 Height 5 ft 2 in Weight 75 lb 13.424 oz BMI 13.9 BP 156/78 H Blood Pressure Location Rt brachial Position Sitting Pulse 61 Pulse Oximetry (%) 99 Intake Visit Reasons: s/p egd/colon Intake Note: Sanjuanita presents to in office today in follow up of EGD/colonoscopy. CC: Patient states that she continues to have constipation, acid reflux, and abdominal discomfort. Denies other a GI symptoms. [employer] Required: No Accompanied by: Self / Same As Patient Allergies No Known Allergies Allergy (Verified 08/27/23 08:55) HPI HPI s/p egd/colon: Details: Assessment & Plan (1) GERD (gastroesophageal reflux disease): Code(s): K21.9 - Gastro-esophageal reflux disease without esophagitis (2) Esophageal ulcer: Comment: Is covered 2019 EGD, no Courtney's on biopsy Code(s): K22.10 - Ulcer of esophagus without bleeding (3) Constipation: Code(s): K59.00 - Constipation, unspecified (4) Malignant neoplasm of upper lobe of left lung: Onset Date: ~2019 Comment: ([facility] Neuroendocrine Carcinoma 50%/Adenocarcinoma 50% - pT2a,pNx, Mx - s/p wedge resection 10/2019) Code(s): C34.12 - Malignant neoplasm of upper lobe, left bronchus or lung (5) Decreased GFR: Comment: GFR was 56 12/2019, now down to 36 Code(s): R94.4 - Abnormal results of kidney function studies (6) Tubular adenoma of colon: Code(s): D12.6 - Benign neoplasm of colon, unspecified (7) Myocardial infarction: Onset Date: ~2000 Comment: ([place] 04/2000 - cardiac cath [facility]) Code(s): I21.9 - Acute myocardial infarction, unspecified (8) COPD (chronic obstructive pulmonary disease): Comment: (severe obstructive) Code(s): J44.9 - Chronic obstructive pulmonary disease, unspecified Qualifiers: COPD type: emphysema Emphysema type: centrilobular Qualified Code(s): J43.2 - Centrilobular emphysema (9) Pre-op examination: Code(s): Z01.818 - Encounter for other preprocedural examination Plan Still has discomfort in the LUQ and suprapubic that is relieved with defecatioin She uses the Amitiza prn and not the creon. We discuss possible trial of bentyl but she defers until after her colonoscopy. Will also add an EGD since she has having a PET scan due to a possible recurrence of her left lobe lung cancer. She would like for me to have the results of the PET scan will be done at [facility] so I have asked her to try to get the radiology read in hand before she leaves but of course we can try to get the records from them through our office as well, but that usually takes much longer. She sees Dr. Martinez for her lung issues so will run it by him for clearance. She continues on her famotidine as needed for heartburn. Again she has lung cancer with a past wedge resection and will need clearance from Dr. Martinez, she has a history coronary artery disease and myocardial infarction but her cardiac condition has been stable. There are no prior problems with anesthesia or sedation particular. Obviously she has some element of higher risk given her lung issues. There are no infectious disease problems. Course she has a history of tubular adenomas of the colon on past scopes. Return office visit in 1 year and she also course wants to see me after the colonoscopy because it that time she will have many of her other tests in and I can try to have access in the to help explain the results and see if if there is any impact on her GI function. Orders: Orders EGD/[facility] - GI Use Only Today C34.12 - Malignant neoplasm of upper lobe, left bronchus or lung, D64.9 - Anemia, unspecified, K21.9 - Gastro-esophageal reflux disease without esophagitis, K22.10 - Ulcer of esophagus without bleeding, K59.00 - Constipation, unspecified, R94.4 - Abnormal results of kidney function studies Medications: New peg 3350-electrolytes 236-22.74-6.74 -5.86 gram (Golytely) until fecal effluent is clear; do not exceed a total volume of 2,000 mL 240 mL PO Q10M 1 day 4,000 mL 0RF Z12.11 - Encounter for screening for malignant neoplasm of colon bisacodyl (Dulcolax (bisacodyl)) 10 mg (2 x 5 mg) PO BEDTIME 2 days 4 tabs 0RF Refilled lubiprostone (Amitiza) 8 mcg PO BID 60 caps 12RF famotidine (Pepcid) 40 mg PO BEDTIME 30 tabs 12RF K21.9 - Gastro-esophageal reflux disease without esophagitis EGD/COLONOSCOPY 08/10/23 Findings: Larynx: Normal Esophagus: Mildly tortuous esophagus. GE junction at 40 cms. A 3-5 mm islands of suspected Courtney's just above the GE junction - biopsied. Stomach: Minimal gastric antral erythema. Antral biopsies obtained during last EGD were negative for Helicobacter pylori. Grade 2 flap valve on retroflexed view of the cardia. Duodenum: Normal bulb and descending duodenum. Findings: Terminal Ileum: Not evaluated Cecum: Normal Ascending Colon: A 15 to 18 mm sessile polyp overlying a fold in the distal AC. Polyp was removed with a stiff hot snare and polypectomy site was closed with 1 hemoclip Transverse Colon: A 15 mm sessile polyp - removed with a hot snare. Descending Colon: Moderate diverticulosis Sigmoid Colon: A 2.5 to 3 cms flat polyp at 40 cms. Polyp was raised with 7 cc of Eleview and removed with a hot stiff snare. Polypectomy site was closed with 2 ultra hemoclips and marked by Meena ink. Severe diverticulosis with luminal narrowing A 10 -12 mm sessile polyp - not removed due to excessive length of the procedure Rectum: Normal Ano-rectum: Small internal hemorrhoids Impression and Post Procedure Diagnosis: Endoscopy Findings: ESOPHAGUS: Mildly tortuous esophagus. GE junction at 40 cms. A 3-5 mm islands of suspected Courtney's just above the GE junction - biopsied. STOMACH: Minimal gastric antral erythema. Antral biopsies obtained during last EGD were negative for Helicobacter pylori. Colonoscopy Findings: Three medium to large polyps were removed A 10 -12 mm sessile polyp - not removed due to excessive length of the procedure Moderate to severe diverticulosis seen in the left colon Small hemorrhoids on retroflexed exam. Plan: Pt has a FU appointment on 08/27/23 with Jacquie Staley NP. Repeat Colonoscopy in 4-6 months if polyps are adenomatous and 10 year if polyps are hyperplastic. BIOPSY Received: 08/10/23 Diagnosis A. Esophagus, biopsy: Squamous mucosa with focal intraepithelial neutrophils consistent with esophagitis, and columnar mucosa with mild chronic active inflammation; negative for intestinal metaplasia and dysplasia. B. Colon, ascending, polyp: Tubular adenoma; negative for high-grade dysplasia and carcinoma. C. Colon, transverse, polyp: Tubular adenoma; negative for high-grade dysplasia and carcinoma. D. Colon, sigmoid, at 40 cm, polyp: Tubular adenoma; negative for high-grade dysplasia and carcinoma (see comment). Comment: (D): Adenomatous crypts with cautery artifact are present at the base TODAY'S VISIT She still having tremendous difficulty getting her energy back after her treatment for carcinoma of the lung. She will have an upcoming PET scan to see if her treatment was successful. She had some difficulty with the prep because she was trying to chug it down too quickly. I told her to slow down to better fit her pace to make a less mi serable experience and to drink all of it in 1 night instead of doing the split prep as this also was problematic for her. She was a little upset that 1 of the polyps was not removed but after explained to her the reason why she understood. With this she is agreeable to a 6 month follow-up to get the last 1 taken out. The procedure was well tolerated. The results were explained and the patient is agreeable to the follow-up interval as stated. The bowel pattern has returned to normal. Education was provided to tell any 1st degree relatives about their findings to be sure that they are scr eened by age 45. Educated that they will be put on a recall list when it is time for their repeat scope but should they move out of state or away from the hospital they will need to remember along with their primary to repeat the procedure in a timely fashion to avoid any adverse complications. She continues on her Amitiza and her famotidine and this seems to be controlling her GI conditions well. She did have moderate diverticulosis of the left colon which could be contributing to her intermittent feelings of discomfort. There is no sign of recurrent esophageal ulcer as was seen in 2019 and also no Barretts despite some visual suspicion with mild esophagitis on biopsy. She has a history of a heart attack but no current cardiac problems and has COPD and is currently being treated for lung cancer. There are no prior problems with anesthesia or sedation. There are no infectious disease problems. She had 4 very large tubular adenomas removed with 1 left in. Return office visit after the colonoscopy in January. [facility] Medical History (Updated 08/27/23 @ 10:55 by DELORES Barrera) Impacted cerumen, bilateral Impacted cerumen of right ear Insomnia UTI (urinary tract infection) Post-COVID syndrome Fatigue Hospital discharge follow-up Urinary tract infection Acute kidney injury Cerumen impaction Encounter for general adult medical examination with abnormal findings Breast screening Erythrocytosis Malignant neoplasm of upper lobe of left lung (~2019) Chronic pancreatitis Pulmonary nodules Angina pectoris GERD (gastroesophageal reflux disease) Sarcoidosis Hx of hiatal hernia History of IBS Nicotine dependence Thrombosis of right iliac artery Chronic cough COPD (chronic obstructive pulmonary disease) Arthritis Hx of chronic kidney disease Elevated cholesterol PVD (peripheral vascular disease) Myocardial infarction (~2000) CAD (coronary artery disease) HTN (hypertension) Surgical History (Updated 08/27/23 @ 08:53 by LAMONTE Momin) Hx of cystoscopy History of partial hysterectomy History of cardiac cath (~2000) History of endarterectomy (~2016) History of esophagogastroduodenoscopy (EGD) (~2019) History of colonoscopy (~2018) History of lung surgery (~2019) Hx of tubal ligation Hx of tonsillectomy History of lung biopsy (~2019) Family History Father Heart disease Mother Heart disease Brother Diabetes Sister Mental health disorder Social History Household Members: Other Household Members Other:: ex Housing: House Are you a primary primary care nurse practitioner to a significant other at home: No Do you presently have visiting nurse or other home services: No Alcohol intake: current Alcohol intake frequency: holidays/special occasions only Patient Tobacco Use Status: Current everyday Tobacco user Tobacco use type: Cigarette Cigarettes Per Day: 6 Years Smoked: 40 e-Cigarette/Vaping Use: Never Used Second Hand Smoke Exposure: No service: No Current occupational status: retired Cognitive needs: No Hearing needs: No Vision needs: Yes Review of Systems Const Reports fatigue, Denies fever(s), Denies night sweats, Denies poor appetite, Reports weakness and Denies weight loss ENT Reports Normal hearing present, Denies dental pain, Denies dysphagia, Denies hearing loss, Denies mouth pain, Denies odynophagia, Denies throat swelling, Denies tongue swelling and Reports other (Dentition adequate) Card Reports no additional complaints and Reports dyspnea on exertion Resp Reports dyspnea on exertion GI Details: Denies abdominal pain, Denies melena, Denies bloating, Denies hematochezia, Reports constipation, Denies GI cramping, Denies dysphagia, Denies excessive flatus, Denies early satiety, Reports heartburn, Denies diarrhea, Denies nausea, Denies odynophagia, Denies vomiting and Denies hematemesis Skin/Breast Denies pruritus, Denies lesions, Denies rash and Denies jaundice Neuro Reports Normal hearing present, Denies Abnormal speech present and Reports weakness Endo Reports fatigue Aller/Immun Denies throat swelling and Denies tongue swelling Physical Exam Vital Signs: Last Vital Signs Pulse 61 08/27/23 08:39 BP 156/78 H 08/27/23 08:39 Pulse Ox 99 08/27/23 08:39 BMI result Body Mass Index 13.9 Const General: cooperative, no acute distress, well developed and well groomed Nutritional Appearance: well nourished and underweight Orientation/consciousness: oriented to person, oriented to place and oriented to time Limitations: No language barrier and ambulation with cane HEENT Head: Yes normocephalic and Yes atraumatic Eyes General: appearance normal, both eyes and all related structures Pupils: Equal, round and reactive pupils present Neck Neck: Yes normal visual inspection and Yes no lymphadenopathy Thyroid: Thyroid normal Resp Effort & Inspection: normal respiratory effort and able to speak in complete sentences Auscultation: clear to auscultation bilaterally Cardio Rate: regular rate Rhythm: regular rhythm Heart sounds: Normal, physiologic split S2 sound present Peripheral pulses: radial pulses present and posterior tibial pulses present GI Inspection: No distended and No Abdominal panniculus present Palpation (GI): Soft to palpation, nontender, no guarding, not rigid and No hepatosplenomegaly present Percussion: Yes normal to percussion Auscultation: normal bowel sounds Rectal Exam - Female: deferred Skin General skin exam: no rashes or lesions noted, turgor normal, skin not dry, no jaundice, No spider nevi and no striae Rashes: no rashes Nails: normal Neuro General: oriented to person, oriented to place and oriented to time Cranial nerves: Yes Equal, round and reactive pupils present and Yes Normal hearing present Speech: No Abnormal speech present Extrem General: Yes normal to inspection, No clubbing, No cyanosis and No edema Psych Appearance: grossly normal and well kempt Mental Status: mental status grossly normal Speech and movement: Normal speech and movement present Affect: normal affect Attitude: cooperative Thought process: Normal thought process present and not confabulating Thought content: Normal thought content present Insight: Limited insight present (Psych) Judgement: Limited judgement present (Psych) Quality Reporting (2019) Adult ([facility] 138/06/10/68) Smoking risk assessment performed?: Yes Patient Tobacco Use Status: Current everyday Tobacco user Results Reviewed Results Reviewed: EGD/COLONOSCOPY 08/10/23 Findings: Larynx: Normal Esophagus: Mildly tortuous esophagus. GE junction at 40 cms. A 3-5 mm islands of suspected Courtney's just above the GE junction - biopsied. Stomach: Minimal gastric antral erythema. Antral biopsies obtained during last EGD were negative for Helicobacter pylori. Grade 2 flap valve on retroflexed view of the cardia. Duodenum: Normal bulb and descending duodenum. Findings: Terminal Ileum: Not evaluated Cecum: Normal Ascending Colon: A 15 to 18 mm sessile polyp overlying a fold in the distal AC. Polyp was removed with a stiff hot snare and polypectomy site was closed with 1 hemoclip Transverse Colon: A 15 mm sessile polyp - removed with a hot snare. Descending Colon: Moderate diverticulosis Sigmoid Colon: A 2.5 to 3 cms flat polyp at 40 cms. Polyp was raised with 7 cc of Eleview and removed with a hot stiff snare. Polypectomy site was closed with 2 ultra hemoclips and marked by Meena ink. Severe diverticulosis with luminal narrowing A 10 -12 mm sessile polyp - not removed due to excessive length of the procedure Rectum: Normal Ano-rectum: Small internal hemorrhoids Impression and Post Procedure Diagnosis: Endoscopy Findings: ESOPHAGUS: Mildly tortuous esophagus. GE junction at 40 cms. A 3-5 mm islands of suspected Courtney's just above the GE junction - biopsied. STOMACH: Minimal gastric antral erythema. Antral biopsies obtained during last EGD were negative for Helicobacter pylori. Colonoscopy Findings: Three medium to large polyps were removed A 10 -12 mm sessile polyp - not removed due to excessive length of the procedure Moderate to severe diverticulosis seen in the left colon Small hemorrhoids on retroflexed exam. Plan: Pt has a FU appointment on 08/27/23 with Jacquie Staley NP. Repeat Colonoscopy in 4-6 months if polyps are adenomatous and 10 year if polyps are hyperplastic. BIOPSY Received: 08/10/23 Diagnosis A. Esophagus, biopsy: Squamous mucosa with focal intraepithelial neutrophils consistent with esophagitis, and columnar mucosa with mild chronic active inflammation; negative for intestinal metaplasia and dysplasia. B. Colon, ascending, polyp: Tubular adenoma; negative for high-grade dysplasia and carcinoma. C. Colon, transverse, polyp: Tubular adenoma; negative for high-grade dysplasia and carcinoma. D. Colon, sigmoid, at 40 cm, polyp: Tubular adenoma; negative for high-grade dysplasia and carcinoma (see comment). Comment: (D): Adenomatous crypts with cautery artifact are present at the base Assessment & Plan Assessment & Plan (1) GERD (gastroesophageal reflux disease): Code(s): K21.9 - Gastro-esophageal reflux disease without esophagitis Category: Medical Qualifiers: Esophagitis presence: without esophagitis Qualified Code(s): K21.9 - Gastro-esophageal reflux disease without esophagitis (2) Esophageal ulcer: Comment: Is covered 2019 EGD, no Courtney's on biopsy Code(s): K22.10 - Ulcer of esophagus without bleeding Category: Medical (3) Abdominal bloating: Code(s): R14.0 - Abdominal distension (gaseous) Category: Medical (4) Constipation: Code(s): K59.00 - Constipation, unspecified Category: Medical (5) Tubular adenoma of colon: Comment: 2023 SCOPE= 4 very large TA is repeat in 6 months because the 4th could not be removed in 1 procedure Code(s): D12.6 - Benign neoplasm of colon, unspecified Category: Medical Plan She still having tremendous difficulty getting her energy back after her treatment for carcinoma of the lung. She will have an upcoming PET scan to see if her treatment was successful. She had some difficulty with the prep because she was trying to chug it down too quickly. I told her to slow down to better fit her pace to make a less miserable experience and to drink all of it in 1 night instead of doing the split prep as this also was problematic for her. She was a little upset that 1 of the polyps was not removed but after explained to her the reason why she understood. With this she is agreeable to a 6 month follow-up to get the last 1 taken out. The procedure was well tolerated. The results were explained and the patient is agreeable to the follow-up interval as stated. The bowel pattern has returned to normal. Education was provided to tell any 1st degree relatives about their findings to be sure that they are screened by age 45. Educated that they will be put on a recall list when it is time for their repeat scope but should they move out of state or away from the hospital they will need to remember along with their primary to repeat the procedure in a timely fashion to avoid any adverse complications. She continues on her Amitiza and her famotidine and this seems to be controlling her GI conditions well. She did have moderate diverticulosis of the left colon which could be contributing to her intermittent feelings of discomfort. There is no sign of recurrent esophageal ulcer as was seen in 2019 and also no Barretts despite some visual suspicion with mild esophagitis on biopsy. She has a history of a heart attack but no current cardiac problems and has COPD and is currently being treated for lung cancer. There are no prior problems with anesthesia or sedation. There are no infectious disease problems. She had 4 very large tubular adenomas removed with 1 left in. Return office visit after the colonoscopy in January. Orders: Orders Colonoscopy - GI Use Only Today D12.6 - Benign neoplasm of colon, unspecified Amylase Today D12.6 - Benign neoplasm of colon, unspecified Lipase Today D12.6 - Benign neoplasm of colon, unspecified Medications: New peg 3350-electrolytes 236-22.74-6.74 -5.86 gram (Golytely) until fecal effluent is clear; do not exceed a total volume of 2,000 mL 240 mL PO Q10M 4,000 mL 0RF 1 day Z12.11 - Encounter for screening for malignant neoplasm of colon bisacodyl (Dulcolax (bisacodyl)) 10 mg (2 x 5 mg) PO BEDTIME 4 tabs 0RF 2 days Changed From simethicone after meals 180 mg PO QID PRN Abdominal Discomfort R14.0 - Abdominal distension (gaseous) To simethicone after meals 180 mg PO QID 120 caps 6RF Abdominal Discomfort R14.0 - Abdominal distension (gaseous) Refilled famotidine (Pepcid) 40 mg PO BEDTIME 90 tabs 3RF 90 days K21.9 - Gastro- esophageal reflux disease without esophagitis lubiprostone (Amitiza) 8 mcg PO BID 180 caps 3RF 90 days Coding Level of Care Code Est Pt Level 4 (90489) Diagnoses Gastroesophageal reflux disease without esophagitis K21.9 Esophagitis presence: without esophagitis Esophageal ulcer K22.10 Abdominal bloating R14.0 Constipation K59.00 Tubular adenoma of colon D12.6
== END 2023-08-27 09:21 | disposition home or self-care (01) ==
PROVIDERS: PCP Internal Medicine; Referring Provider Internal Medicine; Visit Provider Nurse Practitioner
DX: K21.9 Gastro-esophageal reflux disease without esophagitis (principal); K22.10 Ulcer of esophagus without bleeding; R14.0 Abdominal distension (gaseous); K59.00 Constipation, unspecified; D12.6 Benign neoplasm of colon, unspecified
CPT/HCPCS: 99214

== ENCOUNTER → 2023-08-27 08:35 | Outpatient (BNVA) | payer MEDICARE, SELFPAY | PROVIDERS: PCP Internal Medicine; Visit Provider Nurse Practitioner | DX: K21.9 Gastro-esophageal reflux disease without esophagitis (principal); K22.10 Ulcer of esophagus without bleeding; R14.0 Abdominal distension (gaseous); K59.00 Constipation, unspecified; D12.2 Benign neoplasm of ascending colon; D12.3 Benign neoplasm of transverse colon; D12.5 Benign neoplasm of sigmoid colon; Z98.890 Other specified postprocedural states | CPT/HCPCS: 99212 ==

== ENCOUNTER 2023-09-17 08:37 | Outpatient (REF) | payer MEDICARE, SELFPAY | END 2023-09-17 08:38 | disposition home or self-care (01) | LOC: HO.BBR 08:37 | PROVIDERS: PCP Internal Medicine; Visit Provider Internal Medicine Medical Oncology | DX: D75.1 Secondary polycythemia (principal) | CPT/HCPCS: 85014; 85018; 99195 ==

== ENCOUNTER 2023-09-27 08:11 | Outpatient (REF) | payer MEDICARE, SELFPAY ==
--- NOTE | ~2023-09-27 | CT_ITS ---
EXAMINATION: CT ABDOMEN AND PELVIS WITHOUT CONTRAST CLINICAL INFORMATION: Renal calculus COMPARISON: Renal ultrasound from 11/17/[address] scan from 01/06/2022 TECHNIQUE: Multidetector volumetric imaging was performed from the superior aspect of the liver through the pubic symphysis. Sagittal and coronal reformatted images were obtained on the technologist's workstation. This CT examination was performed using dose optimization techniques as appropriate, variously including the following: *Automated exposure control *Adjustment of mA and/or kV according to patient size (this includes techniques or standardized protocols for targeted exams where dose is matched to indication/reason for exam; i.e. extremities or head) *Use of iterative reconstruction technique DLP: 132 mGy-cm FINDINGS: Examination is limited due to noncontrast technique and paucity of mesenteric fat. LUNG BASES: There are changes of centrilobular emphysema without lung nodules or consolidation. There is no pleural effusion LIVER, GALLBLADDER, AND BILIARY TREE: The liver is normal in size, shape, and attenuation. No focal hepatic lesion or biliary ductal dilatation is present. The gallbladder is unremarkable with no evidence of radiopaque gallstones, gallbladder wall thickening, or obvious pericholecystic inflammatory changes. PANCREAS: Unremarkable. SPLEEN: Unremarkable. ADRENAL GLANDS: Unremarkable. KIDNEYS AND URETERS: Left kidney is unremarkable. The right kidney revealed 0.2 cm nonobstructing upper pole calculus. No evidence of hydroureteronephrosis bilaterally BLADDER: Urinary bladder decompressed without obvious stones or masses GASTROINTESTINAL TRACT: The small and large bowel are unremarkable. The appendix is not seen. ABDOMINAL WALL: No significant hernia is appreciated. LYMPH NODES: Normal. VASCULAR: Abdominal aorta is nondilated but calcified. There is aortobifemoral stent is identified again. Evaluation of patency is limited without contrast. PELVIC VISCERA: Patient is status post hysterectomy OSSEOUS STRUCTURES: There is diffuse osteopenia, no evidence of fractures. There are degenerative changes at the level of L2-L3 and mild dextroscoliosis CT/CT abdomen pelvis wo IV con IMPRESSION: 1. Nonobstructing 0.2 cm calculus in the upper pole of the right kidney. No evidence of hydronephrosis 2. Status post aortobifemoral stent placement. Fleischner guidelines were followed.
== END 2023-09-27 08:12 | disposition home or self-care (01) ==
LOC: HO.CT 08:11
PROVIDERS: PCP Internal Medicine; Visit Provider Urology
DX: N20.0 Calculus of kidney (principal)
CPT/HCPCS: 74176

== ENCOUNTER 2023-10-26 08:30 | Outpatient (REF) | payer MEDICARE, SELFPAY | END 2023-10-26 08:31 | disposition home or self-care (01) | LOC: HO.MAMMO 08:30 | PROVIDERS: PCP Internal Medicine; Visit Provider Internal Medicine | DX: Z12.31 Encounter for screening mammogram for malignant neoplasm of breast (principal) | CPT/HCPCS: 77063; 77067 ==

== ENCOUNTER → 2023-10-26 08:45 | Outpatient (BNV) | payer MEDICARE, SELFPAY | PROVIDERS: PCP Internal Medicine; Visit Provider Radiology Diagnostic Radiology | DX: Z12.31 Encounter for screening mammogram for malignant neoplasm of breast (principal) | CPT/HCPCS: 77063; 77067 ==

== ENCOUNTER 2023-11-02 12:06 | Outpatient (AMB) | payer MEDICARE, SELFPAY ==
[2023-11-02 12:14] VITALS: BP 138/60; PULSE 66; O2SAT 96; BMI 13.8
--- NOTE | 2023-11-02 12:15 | MHC.PC.OV ---
Vital Signs 11/02/23 12:14 Height 5 ft 1 in Weight 73 lb BMI 13.8 BP 138/60 Blood Pressure Location Rt brachial Position Sitting Pulse 66 Pulse Source Pulse Oximeter Pulse Oximetry (%) 96 Oxygen Delivery Method Room Air Intake Visit Reasons: Pre-op Clearance Allergies No Known Allergies Allergy (Verified 11/02/23 12:15) Medication List - Last Reconciled 11/02/23 by Cheo Michaels MD clopidogrel (Plavix) 1 tab PO DAILY diltiazem HCl CD 240 mg PO DAILY docusate sodium 100 mg PO BID PRN famotidine (Pepcid) 40 mg PO BEDTIME 90 days mgxpskwsumh-kchvsfwfr-icdwcamr 100-62.5-25 mcg (Trelegy Ellipta) 1 ea inhalation DAILY lubiprostone (Amitiza) 8 mcg PO BID 90 days nitroglycerin 1 tab sublingual NEEDED rosuvastatin 1 tab PO DAILY simethicone 180 mg PO QID trazodone 50 mg PO BEDTIME PRN 30 days Tobacco use date assessed: 07/23/23 Fall risk assessment: No Falls in past year Last assessed Fall Risk: 11/02/23 Dental Screening Dental Screen Date: 07/23/23 HPI Pre-op Clearance HPI Details Patient is 73-year-old female with a history of peripheral vascular disease, COPD, chronic kidney disease, lipid disorder, difficulty sleeping On chronic blood thinners Going in for cataract surgery under local anesthesia on 12/13/2023 left eye and 12/27/2023 right eye By [facility] Recently patient had labs and I see that her GFR has reduced to Twenty-seven, it was 45 in August Creatinine 1.81 September of 2023 I am repeating metabolic profile today Patient already have instructions regarding holding the blood thinners through prescribing provider. Patient is seeing other providers. Dr. Rodriguez hematology Dr. Giron thoracic surgeon Dr. Martinez pulmonary Dr. Mendes gastroenterology Dr. [place] Neph[facility] I will create addendum after lab report Patient is stable for cataract surgery under local anesthesia [facility] Medical History Impacted cerumen, bilateral Impacted cerumen of right ear Insomnia UTI (urinary tract infection) Post-COVID syndrome Fatigue Hospital discharge follow-up Urinary tract infection Acute kidney injury Cerumen impaction Encounter for general adult medical examination with abnormal findings Breast screening Erythrocytosis Malignant neoplasm of upper lobe of left lung (~2019) Chronic pancreatitis Pulmonary nodules Angina pectoris GERD (gastroesophageal reflux disease) Sarcoidosis Hx of hiatal hernia History of IBS Nicotine dependence Thrombosis of right iliac artery Chronic cough COPD (chronic obstructive pulmonary disease) Arthritis Hx of chronic kidney disease Elevated cholesterol PVD (peripheral vascular disease) Myocardial infarction (~2000) CAD (coronary artery disease) HTN (hypertension) Surgical History Hx of cystoscopy History of partial hysterectomy History of cardiac cath (~2000) History of endarterectomy (~2016) History of esophagogastroduodenoscopy (EGD) (~2019) History of colonoscopy (~2018) History of lung surgery (~2019) Hx of tubal ligation Hx of tonsillectomy History of lung biopsy (~2019) Family History Father Heart disease Mother Heart disease Brother Diabetes Sister Mental health disorder Social History Household Members: Other Household Members Other:: ex Housing: House Are you a primary pharmacy customer care specialist to a significant other at home: No Do you presently have visiting nurse or other home services: No Alcohol intake: current Alcohol intake frequency: holidays/special occasions only Patient Tobacco Use Status: Current everyday Tobacco user Tobacco use type: Cigarette Cigarettes Per Day: 6 Years Smoked: 40 e-Cigarette/Vaping Use: Never Used Second Hand Smoke Exposure: No service: No Current occupational status: retired Cognitive needs: No Hearing needs: No Vision needs: Yes Questionnaire Thrive Questionnaire Date Thrive assessed: 07/23/23 I am a: Patient What is your living situation today?: I have a steady place to live Within the past 12 months, did the food you bought not last and you didn't have the money to get more?: I choose not to answer this question Within the past 12 months, did you worry whether your food would run out before you got money to buy more?: I choose not to answer this question Do you have trouble paying for medicines?: I choose not to answer this question Do you have trouble getting transportation to medical appointments?: I choose not to answer this question Do you have trouble paying your heating and electricity bill?: I choose not to answer this question Do you have trouble taking care of your child, family member or friend?: I choose not to answer this question Do you have trouble with day-to-day activities such as bathing, preparing meals, shopping, managing finances, etc.?: I choose not to answer this question Are you currently unemployed and looking for a job?: I choose not to answer this question Are you interested in more education?: I choose not to answer this question Please select the resources that you would like help with: Housing/Snf Currently or been in a relationship where the following occur: No concerns reported THRIVE Score: 0 AUDIT C Alcohol Use Questionnaire (AUDIT-C) 1. How often do you have a drink containing alcohol?: Monthly or less 2. How many drinks containing alcohol do you have on a typical day when you are drinking?: 3 or 4 3. How often do you have six or more drinks on one occasion?: Never Total Score: 2 Score Reviewed/Action Taken: Yes LALO-7 AMB Questionnaire LALO-7 Date LALO - 7 assessed: 07/23/23 Feeling nervous, anxious, or on edge: 0 = Not at all Not being able to stop or control worryin = Not at all Worrying too much about different things: 0 = Not at all Trouble relaxin = Not at all Being so restless that it is hard to sit still: 0 = Not at all Becoming easily annoyed or irritable: 0 = Not at all Feeling afraid as if something awful might happen: 0 = Not at all Total LALO-7 score (0-4 normal; 5-9 mild; 10-14 moderate; 15-21 severe): 0 Source: Developed by Drs. Cortez Druan, Rosaura Washington, Emigdio Logan and colleagues, with an educational alayna from [employer]. LALO-7 Assessment Billing LALO-7 Assessment Tool: LALO-7 Assessment 62765 Review of Systems Const Denies chills and Denies fever(s) ENT Denies epistaxis and Denies nasal discharge Card Denies chest pain Resp Denies chest congestion, Denies cough and Denies hemoptysis GI Denies diarrhea and Denies nausea Skin/Breast Denies rash Neuro Reports no additional complaints Psych Reports no additional complaints Endo Reports no additional complaints Physical exam (Primary Care) Vital Signs: Last Vital Signs Pulse 66 11/02/23 12:14 BP 138/60 11/02/23 12:14 Pulse Ox 96 11/02/23 12:14 Oxygen Delivery Method Room Air 11/02/23 12:14 BMI result Body Mass Index 13.8 Tobacco/Smoking Status: Tobacco use Status Tobacco use date assessed 07/23/23 11/02/23 12:17 Patient Tobacco Use Status Current everyday Tobacco 11/02/23 12:17 Tobacco use type Cigarette 11/02/23 12:17 e-Cigarette/Vaping Use Never Used 11/02/23 12:17 Thrive Assessment: Date of Thrive Assessment Date Thrive assessed 07/23/23 11/02/23 12:17 Currently or been in a relationship where the following occur: No concerns reported Const General: cooperative, comfortable and no acute distress Orientation/consciousness: patient oriented x3 HENMT Head: Yes normocephalic Eyes General: appearance normal, both eyes and all related structures Neck Neck: Yes supple Resp Effort & Inspection: normal respiratory effort, no cough and no stridor Cardio Rhythm: regular rhythm Heart sounds: S1 normal heart sound present and S2 normal heart sound present Skin General skin exam: turgor normal Neuro General: patient oriented x3, tone normal and moves all extremities Extrem Right lower extremity: no edema Left lower extremity: no edema Assessment and Plan Assessment & Plan (1) Pre-op examination: Code(s): Z01.818 - Encounter for other preprocedural examination (2) Cataract: Code(s): H26.9 - Unspecified cataract Qualifiers: Cataract type: other Laterality: bilateral Qualified Code(s): H26.8 - Other specified cataract (3) CKD (chronic kidney disease) stage 3, GFR 30-59 ml/min: Comment: Most likely due to hypertensive nephrosclerosis. History of renal artery stenosis. No evidence of obstruction based on recent renal ultrasonogram. History of nephrolithiasis with nonobstructing calculi Code(s): N18.30 - Chronic kidney disease, stage 3 unspecified Qualifiers: Chronic kidney disease stage 3 subtype: stage 3b (GFR 30-44) Qualified Code(s): N18.32 - Chronic kidney disease, stage 3b (4) Hypertension, essential: Comment: History of renal artery stenosis. Ostial stenosis on the right no stenosis on the left Code(s): I10 - Essential (primary) hypertension (5) Erythrocytosis: Comment: (related to smoking) Code(s): D75.1 - Secondary polycythemia (6) Malignant neoplasm of upper lobe of left lung: Onset Date: ~2019 Comment: (CRISTIAN Neuroendocrine Carcinoma 50%/Adenocarcinoma 50% - pT2a,pNx, Mx - s/p wedge resection 10/2019) Code(s): C34.12 - Malignant neoplasm of upper lobe, left bronchus or lung (7) COPD (chronic obstructive pulmonary disease): Comment: (severe obstructive) Code(s): J44.9 - Chronic obstructive pulmonary disease, unspecified Qualifiers: COPD type: emphysema Emphysema type: centrilobular Qualified Code(s): J43.2 - Centrilobular emphysema (8) Nicotine dependence: Code(s): F17.200 - Nicotine dependence, unspecified, uncomplicated Qualifiers: Nicotine product type: cigarettes Substance use status: uncomplicated Qualified Code(s): F17.210 - Nicotine dependence, cigarettes, uncomplicated Plan Patient is 73-year-old female with a history of peripheral vascular disease, COPD, chronic kidney disease, lipid disorder, difficulty sleeping On chronic blood thinners Going in for cataract surgery under local anesthesia on 12/13/2023 left eye and 12/27/2023 right eye By [facility] Recently patient had labs and I see that her GFR has reduced to Twenty-seven, it was 45 in August Creatinine 1.81 September of 2023 I am repeating metabolic profile today Patient already have instructions regarding holding the blood thinners through prescribing provider. Patient is seeing other providers. Dr. Rodriguez hematology Dr. Giron thoracic surgeon Dr. Martinez pulmonary Dr. Mendes gastroenterology Dr. [place] Nephrology I will create addendum after lab report Patient is stable for cataract surgery under local anesthesia 45 min spent care of this patient including reviewing consultation notes Previous labs, hdhg-sy-bgji with the patient, charting , coordination of care Orders: Orders Basic Metabolic Panel Today N18.30 - Chronic kidney disease, stage 3 unspecified Coding Level of Care Code Est Pt Level 5 (19530) Diagnoses Pre-op examination Z01.818 Other cataract of both eyes H26.8 Cataract type: other Laterality: bilateral Stage 3b chronic kidney disease N18.32 Chronic kidney disease stage 3 subtype: stage 3b (GFR 30-44) Hypertension, essential I10 Erythrocytosis D75.1 Malignant neoplasm of upper lobe of left lung C34.12 Centrilobular emphysema J43.2 COPD type: emphysema Emphysema type: centrilobular Cigarette nicotine dependence without complication F17.210 Nicotine product type: cigarettes Substance use status: uncomplicated Additional Codes LALO-7 Assessment Billing - LALO-7 Assessment Tool: LALO-7 Assessment 05762 ([id number])
== END 2023-11-02 13:28 | disposition home or self-care (01) ==
PROVIDERS: PCP Internal Medicine; Visit Provider Internal Medicine
DX: I12.9 Hypertensive chronic kidney disease with stage 1 through stage 4 chronic kidney disease, or unspecified chronic kidney disease (principal); C34.12 Malignant neoplasm of upper lobe, left bronchus or lung; N18.32 Chronic kidney disease, stage 3b; J43.2 Centrilobular emphysema; Z01.818 Encounter for other preprocedural examination; H26.8 Other specified cataract; D75.1 Secondary polycythemia; F17.210 Nicotine dependence, cigarettes, uncomplicated
CPT/HCPCS: 99215

== ENCOUNTER 2023-11-02 13:06 | Outpatient (REF) | payer MEDICARE, SELFPAY ==
[2023-11-02 16:19] LABS: Anion Gap 12 (12-20); Blood Urea Nitrogen 10 mg/dL (9-16); Calcium 9.1 mg/dL (8.4-10.2); Carbon Dioxide 23 mmol/L (22-29); Chloride 106 mmol/L (96-108); Estimated Glomerular Filt Rate 38; Glucose Random 128 mg/dL (60-115); Potassium 3.7 mmol/L (3.3-5.1); Sodium 137 mmol/L (135-145)
== END 2023-11-02 13:07 | disposition home or self-care (01) ==
LOC: HO.HMGCLDS 13:06
PROVIDERS: PCP Internal Medicine; Visit Provider Internal Medicine
DX: N18.30 Chronic kidney disease, stage 3 unspecified (principal)
CPT/HCPCS: 36415; 80048

== ENCOUNTER 2023-11-22 08:41 | Outpatient (AMB) | payer MEDICARE, SELFPAY ==
--- NOTE | 2023-11-22 08:56 | A.OFFVIS_ITS ---
Intake Visit Reasons: 1y/CT Intake Note: Patient presents today for a 1Y follow-up/CT Meds- None Allergies to Antibiotic- NoNE Blood Thinner- Plavix Clinical Appeals Specialist Required: No Accompanied by: Self / Same As Patient Allergies No Known Allergies Allergy (Verified 11/22/23 08:57) HPI Comments Details: 11/22/23--Sanjuanita is a 73-year-old female who presents for a follow-up. She is followed for kidney stones. She is followed by Nephrology due to chronic kidney disease. She has history of renal artery stenosis. I have reviewed C TAP-09/27/2023-2 mm nonobstructing right kidney stone, evidence, status post aortofemoral stent. Encouraged to increase fluids intake as well as add lemon to water. Will continue to monitor kidney stone. Follow-up in 1 year renal ultrasound prior. 02/03/23?She is followed today for litholink results. Sanjuanita is a 72 y/o female, who was initially evaluated due to right hydronephrosis and had a ureteral stent placed. FU imaging noted hydronephrosis resolved and right nephrolithiasis. Past medical history of CAD, elevated cholesterol, hypertension, history of irritable bowel syndrome, and copd, Nicotine dependence. I reviewed the 24-hour urine collection results from 12/08/2022 revealed urine 0.79 L, urine calcium was 103; urine citrate was 292, and urine sodium was 46. Renal u/s from 11/17/22 --Right kidney 3 to 4 mm nonobstructive stone. No hydronephrosis. S/P Right ureteral? stent 01/15/22. [facility] Medical History Impacted cerumen, bilateral Impacted cerumen of right ear Insomnia UTI (urinary tract infection) Post-COVID syndrome Fatigue Hospital discharge follow-up Urinary tract infection Acute kidney injury Cerumen impaction Encounter for general adult medical examination with abnormal findings Breast screening Erythrocytosis Malignant neoplasm of upper lobe of left lung (~2019) Chronic pancreatitis Pulmonary nodules Angina pectoris GERD (gastroesophageal reflux disease) Sarcoidosis Hx of hiatal hernia History of IBS Nicotine dependence Thrombosis of right iliac artery Chronic cough COPD (chronic obstructive pulmonary disease) Arthritis Hx of chronic kidney disease Elevated cholesterol PVD (peripheral vascular disease) Myocardial infarction (~2000) CAD (coronary artery disease) HTN (hypertension) Surgical History Hx of cystoscopy History of partial hysterectomy History of cardiac cath (~2000) History of endarterectomy (~2017) History of esophagogastroduodenoscopy (EGD) (~2019) History of colonoscopy (~2018) History of lung surgery (~2019) Hx of tubal ligation Hx of tonsillectomy History of lung biopsy (~2019) Family History Father Heart disease Mother Heart disease Brother Diabetes Sister Mental health disorder Social History Household Members: Other Household Members Other:: ex Housing: House Are you a primary health care recruiter to a significant other at home: No Do you presently have visiting nurse or other home services: No Alcohol intake: current Alcohol intake frequency: holidays/special occasions only Patient Tobacco Use Status: Current everyday Tobacco user Tobacco use type: Cigarette Cigarettes Per Day: 6 Years Smoked: 40 e-Cigarette/Vaping Use: Never Used Second Hand Smoke Exposure: No service: No Current occupational status: retired Cognitive needs: No Hearing needs: No Vision needs: Yes Review of Systems Const All systems reviewed & are unremarkable except as noted in HPI and below Reports no additional complaints Eyes Reports no additional complaints ENT Reports no additional complaints Card Reports no additional complaints Resp Reports no additional complaints GI Reports no additional complaints Reports as per HPI Musc Reports no additional complaints Skin/Breast Reports system reviewed and no additional complaints, except as documented Neuro Reports no additional complaints Psych Reports no additional complaints Endo Reports no additional complaints Juice/Lymph Reports no additional complaints Aller/Immun Reports no additional complaints Results AMB Urinalysis, Automated UA Leukoctes 0 Ania/uL Last Edit by LAMONTE Rabago on 11/22/23 09:25 UA Nitrite Negative Last Edit by LAMONTE Rabago on 11/22/23 09:25 UA Urobilinogen 0.2 mg/dL Last Edit by LAMONTE Rabago on 11/22/23 09:2 5 UA Protein 30 mg/dL Last Edit by LAMONTE Rabago on 11/22/23 09:25 UA pH 6.5 Last Edit by LAMONTE Rabago on 11/22/23 09:25 UA Blood 25 Quan/uL Last Edit by LAMONTE Rabago on 11/22/23 09:25 UA Specific Amigo 1.010 Last Edit by LAMONTE Rabago on 11/22/23 09: 25 UA Ketone Negative Last Edit by LAMONTE Rabago on 11/22/23 09:25 UA Bilirubin 0 mg/dL Last Edit by LAMONTE Rabago on 11/22/23 09:25 UA Glucose 0 mg/dL Last Edit by LAMONTE Rabago on 11/22/23 09:25 Quality Reporting (2019) Adult ([facility] 138/06/10/68) Smoking risk assessment performed?: Yes Patient Tobacco Use Status: Current everyday Tobacco user Results Reviewed Results Reviewed: Laboratory Last Values Urine pH (Auto) 6.5 11/22/23 09:24 Specific Amigo (Auto) 1.010 11/22/23 09:24 Urine Protein (Auto) 30 mg/dL 11/22/23 09:24 Glucose (UA)(Auto) 0 mg/dL 11/22/23 09:24 Urine Ketones (Auto) Negative 11/22/23 09:24 Urine Blood (Auto) 25 Quan/uL 11/22/23 09:24 Urine Nitrite (Auto) Negative 11/22/23 09:24 Urine Bilirubin (Auto) 0 mg/dL 11/22/23 09:24 Urine Urobilinogen (Auto) 0.2 mg/dL 11/22/23 09:24 Leukocyte Esterase (Auto) 0 Ania/uL 11/22/23 09:24 Date of Service: 09/27/23 Ten EXAMINATION: CT ABDOMEN AND PELVIS WITHOUT CONTRAST CLINICAL INFORMATION: Renal calculus COMPARISON: Renal ultrasound from 11/17/[address] scan from 01/06/2022 TECHNIQUE: Multidetector volumetric imaging was performed from the superior aspect of the liver through the pubic symphysis. Sagittal and coronal reformatted images were obtained on the technologist's workstation. This CT examination was performed using dose optimization techniques as appropriate, variously including the following: *Automated exposure control *Adjustment of mA and/or kV according to patient size (this includes techniques or standardized protocols for targeted exams where dose is matched to indication/reason for exam; i.e. extremities or head) *Use of iterative reconstruction technique DLP: 132 mGy-cm FINDINGS: Examination is limited due to noncontrast technique and paucity of mesenteric fat. LUNG BASES: There are changes of centrilobular emphysema without lung nodules or consolidation. There is no pleural effusion LIVER, GALLBLADDER, AND BILIARY TREE: The liver is normal in size, shape, and attenuation. No focal hepatic lesion or biliary ductal dilatation is present. The gallbladder is unremarkable with no evidence of radiopaque gallstones, gallbladder wall thickening, or obvious pericholecystic inflammatory changes. PANCREAS: Unremarkable. SPLEEN: Unremarkable. ADRENAL GLANDS: Unremarkable. KIDNEYS AND URETERS: Left kidney is unremarkable. The right kidney revealed 0.2 cm nonobstructing upper pole calculus. No evidence of hydroureteronephrosis bilaterally BLADDER: Urinary bladder decompressed without obvious stones or masses GASTROINTESTINAL TRACT: The small and large bowel are unremarkable. The appendix is not seen. ABDOMINAL WALL: No significant hernia is appreciated. LYMPH NODES: Normal. VASCULAR: Abdominal aorta is nondilated but calcified. There is aortobifemoral stent is identified again. Evaluation of patency is limited without contrast. PELVIC VISCERA: Patient is status post hysterectomy OSSEOUS STRUCTURES: There is diffuse osteopenia, no evidence of fractures. There are degenerative changes at the level of L2-L3 and mild dextroscoliosis IMPRESSION: 1. Nonobstructing 0.2 cm calculus in the upper pole of the right kidney. No evidence of hydronephrosis 2. Status post aortobifemoral stent placement. Date of Service: 11/17/22 EXAMINATION: US RETROPERITONEAL LIMITED (RENAL ONLY) COMPARISON: Renal ultrasound 05/06/2022 FINDINGS: RIGHT KIDNEY: 9.4 x 3.1 x 2.9 cm (SAG x AP x TRV). The kidney is normal in size, contour, and echogenicity. Renal cortical thickness is normal. No hydronephrosis. Subcentimeter benign-appearing renal cysts, no follow-up imaging recommended. 4 mm nonobstructing upper pole renal stone previously 3 mm. LEFT KIDNEY: 9.7 x 4.2 x 3.6 cm (SAG x AP x TRV). The kidney is normal in size, contour, and echogenicity. Renal cortical thickness is normal. No calculi or focal parenchymal lesions. No hydronephrosis. Echogenic foci without twinkle artifact or shadowing may reflect vascular reflectors. No definite nephrolithiasis. IMPRESSION: 1.? No hydronephrosis. 2.? 4 mm nonobstructing right upper pole renal stone previously 3 mm. 3.? Echogenic foci without twinkle artifact or shadowing may reflect vascular reflectors. No definite nephrolithiasis. ? Assessment & Plan Assessment & Plan (1) Right renal stone: Code(s): N20.0 - Calculus of kidney Category: Medical (2) CKD (chronic kidney disease) stage 3, GFR 30-59 ml/min: Comment: Most likely due to hypertensive nephrosclerosis. History of renal artery stenosis. No evidence of obstruction based on recent renal ultrasonogram. History of nephrolithiasis with nonobstructing calculi Code(s): N18.30 - Chronic kidney disease, stage 3 unspecified Category: Medical Qualifiers: Chronic kidney disease stage 3 subtype: stage 3b (GFR 30-44) Qualified Code(s): N18.32 - Chronic kidney disease, stage 3b (3) Cancer of left lung: Comment: 10/2019 Sundeep Bess Upper Lobe Wedge Resection Status post radiation Code(s): C34.92 - Malignant neoplasm of unspecified part of left bronchus or lung Category: Medical Qualifiers: Lung location: upper lobe of lung Qualified Code(s): C34.12 - Malignant neoplasm of upper lobe, left bronchus or lung Plan: Management per Oncology (4) Erythrocytosis: Comment: (related to smoking) Code(s): D75.1 - Secondary polycythemia Category: Medical Plan: Continues her iron deficiency but hemoglobin is well above target. This is being managed by Dr. Michael Conti CTAP-09/27/2023-2 mm nonobstructing right kidney stone, evidence, status post aortofemoral stent. Encouraged to increase fluids intake as well as add lemon to water. Will continue to monitor kidney stone. Follow-up in 1 year renal ultrasound prior. Orders: Orders AMB Urinalysis Automated Today Z13.9 - Encounter for screening, unspecified Patient Instructions: The patient had an opportunity to ask questions regarding treatment plan. The patient expressed understanding and agreement with the above treatment plan. The patient is aware they should contact our office by phone for worsening of their current condition or the appearance of new symptoms. Compliance is encouraged with any medications and followup testing that is ordered. It is a privilege to be allowed the opportunity to participate in the urologic care of your patient. If you have any questions or concerns regarding treatment for the above conditions please do not hesitate to contact me. The office telephone contact is [phone]. This note is constructed in part using voice recognition software. While every effort has been made to ensure accuracy application design engineer errors may have been included. Yours sincerely, Zaid Muller MD Coding Level of Care Code Est Pt Level 3 (74062) Diagnoses Right renal stone N20.0 Stage 3b chronic kidney disease N18.32 Chronic kidney disease stage 3 subtype: stage 3b (GFR 30-44) Malignant neoplasm of upper lobe of left lung C34.12 Lung location: upper lobe of lung Erythrocytosis D75.1
== END 2023-11-22 09:54 | disposition home or self-care (01) ==
PROVIDERS: PCP Internal Medicine; Visit Provider Urology
DX: N20.0 Calculus of kidney (principal); N18.32 Chronic kidney disease, stage 3b; C34.12 Malignant neoplasm of upper lobe, left bronchus or lung; D75.1 Secondary polycythemia; Z13.9 Encounter for screening, unspecified
CPT/HCPCS: 99213

== ENCOUNTER → 2023-11-22 08:41 | Outpatient (BNVA) | payer MEDICARE, SELFPAY | PROVIDERS: PCP Internal Medicine; Visit Provider Urology | DX: N20.0 Calculus of kidney (principal); N18.32 Chronic kidney disease, stage 3b; C34.12 Malignant neoplasm of upper lobe, left bronchus or lung; D75.1 Secondary polycythemia | CPT/HCPCS: 81003; 99212 ==

== ENCOUNTER 2024-01-14 08:54 | Outpatient (AMB) | payer MEDICARE, SELFPAY ==
[2024-01-14 09:11] VITALS: BP 142/60; PULSE 70; O2SAT 99; BMI 13.7
--- NOTE | 2024-01-14 09:11 | MHC.OFFVIS ---
Vital Signs 01/14/24 09:11 Height 5 ft 1 in Weight 72 lb 12.041 oz BMI 13.7 BP 142/60 H Blood Pressure Location Lt brachial Position Sitting Pulse 70 Pulse Source Pulse Oximeter Pulse Oximetry (%) 99 Oxygen Delivery Method Room Air Intake Visit Reasons: COPD Mobile Tester Required: No Allergies No Known Allergies Allergy (Verified 01/14/24 09:14) HPI Comments Details: The patient is a 73 y/o woman with h/o COPD and pulmonary nodules s/p VATS lovectomy for an aggressive primary lung large cell/adeno CA with JUSTIN and viceral pleural invasion.. She did f/u with oncology, but she declined any therapy at this time. However, I am concern with the type of cancer she was found to have. She is still dealing with her chronic pancreatitis. She has beShe does compain of left sided chest pain at the side of her surgery. Has some dyspnea and coughing, but overall better after cutting down on her smoking. 05/17/2020 the patient is here for pulmonary follow-up visit. Overall her respiratory status is about the same. She is anxious about the results of her CT scan. We did review them in the office. The patient does have postoperative changes without any evidence of any recurrence at this time. However, she does have a 7 mm subsolid pulmonary nodules been closely monitor. This has not changed. The patient has significant emphysema. She is also struggling with her weight. Because of the donut hole she was not able to refill her Pancrease that she uses for her chronic pancreatitis. Therefore she has lost significant weight. We did have some samples of Ensure in the office which we provided her. She will be following up with gastroenterology soon. 05/22/2022 the patient is here for a pulmonary follow-up visit. The patient overall is doing well. Denies any significant shortness of breath or cough. Denies any weight loss. She is having however some difficulty sleeping. She has tried multiple medications in the past without any significant improvement. He is affecting her quality of life. The patient has a hard time both falling asleep and staying asleep. She has already tried gabapentin in the past. Will go ahead and start her on a small dose of Ambien that she can use as needed. She understands she needs to take it 15 minutes prior to sleep and then not to plan any activities 1 she takes the medication except for sleep. We did review her last CT scan of the chest that was back in November 2021. appears that the 7 mm subsolid nodular density not significantly changed. She is scheduled to get a repeat CT scan follow-up with thoracic surgery however. She is complaining of a sore throat. She has been using her inhalers and she is rinsing. She appears to have some thrush. Therefore I did encourage her to rinse with mouthwash. Will go ahead and start her on fluconazole for small course specially since may be difficult to Eradicating completely. 05/24/2023 the patient is here for a pulmonary follow-up visit. Since we last spoke the patient did have an enlarging pulmonary nodule. It appears to be a subsolid nodule that increased in size and also the solid component did get bigger as well. The CT-guided biopsy at [facility] confirmed that indeed this is a malignant process. She was told it was stage I likely a primary lung cancer. The patient did have the nodule before but was lost more. She did follow-up with Interventional Pulmonary at [facility] and also was referred to Radiation Oncology and Oncology. She did have a difficult surgery the 1st time around recovering did take a significant amount of time. If the patient is concerned about undergoing surgery again specially with all the pain that she went through. I did encourage her to talk to Oncology and ideally get a PET scan to assess the radiological staging of this new entity. If indeed this is a localized lesion, stage I, would recommend ideally stereotactic radiation to treat that area. If however she has not on a candidate for stereotactic radiation, then depending on her PFTs she should be considered a surgical candidate again. Ultimately targeted therapy may be also helpful in case she has any molecular markers. 07/29/2023 the patient is here for pulmonary preoperative evaluation. Since we last spoke she did see her radiation oncologist and she actually completed stereotactic radiation for the new stage I lung cancer. Unfortunately not enough tissue to do molecular markings and testing. She was able to get Zyrte radiation with curative intent. She will follow closely with radiation oncology and imaging studies. From respiratory status she is doing well. Denies any worsening shortness of breath. She tolerating her respiratory therapy well. She is scheduled to undergo colonoscopy. currently she is doing well from a respiratory status and may be able to proceed with anesthesia and her colonoscopy without any restrictions. The patient will follow-up in 6-8 months. If she has any worsening issues prior to that she will call for an earlier assessment. 01/14/2024 the patient is here for a pulmonary follow-up visit. The patient overall has been doing okay. She has been following closely by thoracic surgery and Oncology. She did complete additional radiation therapy. The patient as per report tells me that she is currently stable from cancer standpoint. She does continue to have a cough. Productive in nature. She does use the Trelegy with good effect. Will go ahead and add azithromycin 3 times a week for a month to see if we can improve her chronic bronchitis symptoms. Unfortunately she continues to smoke cigarettes. She needs to cut down quit altogether. She has tried multiple modalities without any success. She will continue to cut down her pace at this time. [facility] Medical History Impacted cerumen, bilateral Impacted cerumen of right ear Insomnia UTI (urinary tract infection) Post-COVID syndrome Fatigue Hospital discharge follow-up Urinary tract infection Acute kidney injury Cerumen impaction Encounter for general adult medical examination with abnormal findings Breast screening Erythrocytosis Malignant neoplasm of upper lobe of left lung (~2019) Chronic pancreatitis Pulmonary nodules Angina pectoris GERD (gastroesophageal reflux disease) Sarcoidosis Hx of hiatal hernia History of IBS Nicotine dependence Thrombosis of right iliac artery Chronic cough COPD (chronic obstructive pulmonary disease) Arthritis Hx of chronic kidney disease Elevated cholesterol PVD (peripheral vascular disease) Myocardial infarction (~2000) CAD (coronary artery disease) HTN (hypertension) Surgical History Hx of cystoscopy History of partial hysterectomy History of cardiac cath (~2000) History of endarterectomy (~2016) History of esophagogastroduodenoscopy (EGD) (~2019) History of colonoscopy (~2018) History of lung surgery (~2019) Hx of tubal ligation Hx of tonsillectomy History of lung biopsy (~2019) Family History Father Heart disease Mother Heart disease Brother Diabetes Sister Mental health disorder Social History Household Members: Other Household Members Other:: ex Housing: House Are you a primary manager of care to a significant other at home: No Do you presently have visiting nurse or other home services: No Alcohol intake: current Alcohol intake frequency: holidays/special occasions only Patient Tobacco Use Status: Current everyday Tobacco user Tobacco use type: Cigarette Cigarettes Per Day: 6 Years Smoked: 40 e-Cigarette/Vaping Use: Never Used Second Hand Smoke Exposure: No service: No Current occupational status: retired Cognitive needs: No Hearing needs: No Vision needs: Yes Review of Systems Const Denies night sweats and Denies weight gain ENT Denies lip swelling, Denies mouth pain, Reports nasal congestion and Denies tongue swelling Card Reports chest pain Resp Reports cough, Denies pain on inspiration and Denies pain with cough GI Denies abdominal pain Musc Denies no additional complaints Neuro Denies Neuro-related abnormal movements Psych Denies no additional complaints Juice/Lymph Denies easy bleeding and Denies lymphadenopathy Aller/Immun Denies lip swelling and Denies tongue swelling Physical Exam Vital Signs: Last Vital Signs Pulse 70 01/14/24 09:11 BP 142/60 H 01/14/24 09:11 Pulse Ox 99 01/14/24 09:11 Oxygen Delivery Method Room Air 01/14/24 09:11 BMI result Body Mass Index 13.7 Const General: alert Nutritional Appearance: underweight HEENT General nose exam: Abnormal external nose present and Nasal discharge present Eyes Pupils: Equal, round and reactive pupils present Neck Neck: Yes normal visual inspection, Yes full ROM and Yes no lymphadenopathy Chest Chest palpation & inspection: normal inspection of the chest Resp Effort & Inspection: normal respiratory effort Auscultation: diminished lung sounds Cardio Rate: regular rate Rhythm: regular rhythm Heart sounds: S1 normal heart sound present and S2 normal heart sound present GI Palpation (GI): Soft to palpation and nontender Auscultation: normal bowel sounds General: Yes no CVA tenderness Back/Spine/Pelvis Back: no CVA tenderness Skin General skin exam: rashes and/or lesions noted Neuro Cranial nerves: Yes Equal, round and reactive pupils present Quality Reporting (2019) Adult ([facility] 13806/10/68) Smoking risk assessment performed?: Yes Patient Tobacco Use Status: Current everyday Tobacco user Assessment & Plan Assessment & Plan (1) Pulmonary nodules: Comment: +malignancy s/p SBRT Code(s): R91.8 - Other nonspecific abnormal finding of lung field Category: Medical Plan: 7 mm nodule (2) Nicotine dependence: Code(s): F17.200 - Nicotine dependence, unspecified, uncomplicated Category: Medical Qualifiers: Nicotine product type: cigarettes Substance use status: uncomplicated Qualified Code(s): F17.210 - Nicotine dependence, cigarettes, uncomplicated Plan: tobacco cesation (3) COPD (chronic obstructive pulmonary disease): Comment: (severe obstructive) Code(s): J44.9 - Chronic obstructive pulmonary disease, unspecified Category: Medical Qualifiers: COPD type: emphysema Emphysema type: centrilobular Qualified Code(s): J43.2 - Centrilobular emphysema Plan: cont respiratory therapy (4) Cancer of left lung: Comment: 10/2019 Sundeep Bess Upper Lobe Wedge Resection Status post radiation Code(s): C34.92 - Malignant neoplasm of unspecified part of left bronchus or lung Category: Medical Qualifiers: Lung location: upper lobe of lung Qualified Code(s): C34.12 - Malignant neoplasm of upper lobe, left bronchus or lung (5) Insomnia: Code(s): G47.00 - Insomnia, unspecified Category: Medical Qualifiers: Insomnia type: primary Qualified Code(s): F51.01 - Primary insomnia Plan Continue Trelegy. start Azithromycin MWF x 1 month will need an EKG if continues tobacco cessation Trazodone as needed for insomnia short-acting beta agonist as needed follow-up with Oncology and Rad onc follow-up in 6-8 months Medications: New azithromycin Take 1 tablet on Wednesday/Wednesday/Wednesday 250 mg PO 3XW 12 tabs 0RF 28 days K21.9 - Gastro-esophageal reflux disease without esophagitis [id number]-nnbijtjzb-vesjrpyt 200-62.5-25 mcg (Trelegy Ellipta) 1 inh inhalation DAILY 60 ea 12RF 30 days Coding Level of Care Code Tele New Pt Level 4 (07428) Complex EM visit Add On G2211 Diagnoses Pulmonary nodules R91.8 Cigarette nicotine dependence without complication F17.210 Nicotine product type: cigarettes Substance use status: uncomplicated Centrilobular emphysema J43.2 COPD type: emphysema Emphysema type: centrilobular Malignant neoplasm of upper lobe of left lung C34.12 Lung location: upper lobe of lung Primary insomnia F51.01 Insomnia type: primary Time Spent (min) 16
== END 2024-01-14 09:33 | disposition home or self-care (01) ==
PROVIDERS: PCP Internal Medicine; Visit Provider Hospitalist
DX: R91.8 Other nonspecific abnormal finding of lung field (principal); F17.210 Nicotine dependence, cigarettes, uncomplicated; J43.2 Centrilobular emphysema; C34.12 Malignant neoplasm of upper lobe, left bronchus or lung; F51.01 Primary insomnia
CPT/HCPCS: 99214; G2211

== ENCOUNTER → 2024-01-14 08:54 | Outpatient (BNVA) | payer MEDICARE, SELFPAY | PROVIDERS: PCP Internal Medicine; Visit Provider Hospitalist | DX: R91.8 Other nonspecific abnormal finding of lung field (principal); J43.2 Centrilobular emphysema; C34.12 Malignant neoplasm of upper lobe, left bronchus or lung; F51.01 Primary insomnia; F17.210 Nicotine dependence, cigarettes, uncomplicated | CPT/HCPCS: 99212 ==

== ENCOUNTER 2024-02-21 07:27 | Day surgery (SDC) | payer MEDICARE, SELFPAY ==
[2024-02-21 08:18] VITALS: BP 145/74; PULSE 87; RESP 16; TEMP 36.8; O2SAT 100; BMI 12.4
--- NOTE | 2024-02-21 08:44 | MHC.SHP ---
Pre-Procedural Eval Section A - 24 Hr Update-Section A only Date of Service: 02/21/24 The patient is an INPATIENT: No The patient has been examined within 24 hours of the surgical procedure. The History & Physical has been completed within 30 days and I have reviewed it.: No Section B - Complete if H&P > 30 days Chief Complaint: Surveillance for colon polyps Relevant Family History (Specify if Yes): No Relevant Social History: Tobacco Use Present Medications: see Short Stay Collaborative assessment Medical History: Significant History (Acute kidney injury Cerumen impaction Encounter for general adult medical examination with abnormal findings Breast screening Erythrocytosis Malignant neoplasm of upper lobe of left lung (~2019) Chronic pancreatitis Pulmonary nodules Angina pectoris GERD (gastroesophageal reflux disease) Sarcoidosis) History of Previous Operations: Relevant previous surgery/procedure and date(s) (Hx of cystoscopy History of partial hysterectomy History of cardiac cath (~2000) History of endarterectomy (~2016) History of esophagogastroduodenoscopy (EGD) (~2019) History of colonoscopy (~2018) History of lung surgery (~2019) Hx of tubal ligation Hx of tonsillectomy History of lung biopsy (~2019) Allergies: Allergies Allergy/AdvReac Type Severity Reaction Status Date / Time No Known Allergies Allergy Verified 01/14/24 09:14 Review of Systems Sugical H&P ROS: Negative: Constitution, Cardiovascular, Respiratory and Gastrointestinal Exam Surgical H&P Exam: Normal: Heart, Normal: Lungs, Normal: Extremities and Normal: Abdomen Plan Diagnosis/Plan: Unchanged I have reviewed the history and physical and performed a pertinent physical examination on my patient. No changes have occurred unless specified. Time Spent With Patient Time: Total time managing care of this patient today ____ minutes.
[2024-02-21] MEDS: Lactated Ringers 1,000 ML 80 ML IVCONT (08:46)
--- NOTE | 2024-02-21 08:55 | HO.ANESPROP2 ---
[facility] Active Problems Active Problems: All Active Problems Cataract (Acute) CKD (chronic kidney disease) stage 3, GFR 30-59 ml/min (Acute) Pre-op chest exam (Acute) Pre-op examination (Acute) Tubular adenoma of colon (Acute) Post herpetic neuralgia (Acute) Right renal stone (Acute) Hydronephrosis of right kidney (Acute) Encounter for general adult medical examination with abnormal findings (Acute) Osteopenia (Acute) Constipation (Acute) Decreased GFR (Acute) Abdominal bloating (Acute) Anemia (Acute) Hypertension, essential (Acute) GERD (gastroesophageal reflux disease) (Acute) Esophageal ulcer (Acute) Myocardial infarction (Acute ~2000) Insomnia (Acute) Erythrocytosis (Acute) Malignant neoplasm of upper lobe of left lung (Acute ~2019) Chronic pancreatitis (Acute) Pulmonary nodules (Acute) Nicotine dependence (Acute) COPD (chronic obstructive pulmonary disease) (Acute) Past Medical History Medical History (Updated 02/17/24 @ 09:43 by Shadia Lan RN) Insomnia Post-COVID syndrome Fatigue Acute kidney injury Erythrocytosis Malignant neoplasm of upper lobe of left lung (~2019) Chronic pancreatitis Pulmonary nodules Angina pectoris GERD (gastroesophageal reflux disease) Sarcoidosis Hx of hiatal hernia History of IBS Nicotine dependence Thrombosis of right iliac artery Chronic cough COPD (chronic obstructive pulmonary disease) Arthritis Hx of chronic kidney disease Elevated cholesterol PVD (peripheral vascular disease) Myocardial infarction (~2000) CAD (coronary artery disease) HTN (hypertension) Family History Family History Father Heart disease Mother Heart disease Brother Diabetes Sister Mental health disorder Family history of problems with anesthesia: No Surgical History Surgical History (Updated 02/17/24 @ 09:33 by Shadia Lan RN) Hx of cataract extraction Hx of cystoscopy History of partial hysterectomy History of cardiac cath (~2000) History of endarterectomy (~2016) History of esophagogastroduodenoscopy (EGD) (~2019) History of colonoscopy (~2018) History of lung surgery (~2019) Hx of tubal ligation Hx of tonsillectomy History of lung biopsy (~2019) History of Problems with Anesthesia: No Social History Social History Household Members: Other Household Members Other:: ex Housing: House Are you a primary property caretaker to a significant other at home: No Do you presently have visiting nurse or other home services: No Alcohol intake: current Alcohol intake frequency: holidays/special occasions only Patient Tobacco Use Status: Current everyday Tobacco user Tobacco use type: Cigarette Cigarettes Per Day: 6 Years Smoked: 40 e-Cigarette/Vaping Use: Never Used Second Hand Smoke Exposure: No Use of substances other than those prescribed or required for medical reasons: No Have you been hit, kicked, punched, or otherwise hurt by someone within the past year? If so, by whom?: No Are you DNR?: No Advance Directives: No Advance Directives Information Provided: Yes Recently lost weight without trying: No service: No Current occupational status: retired Cognitive needs: No Hearing needs: No Vision needs: Yes Meds Allergies Allergy/AdvReac Type Severity Reaction Status Date / Time No Known Allergies Allergy Verified 01/14/24 09:14 Active Medications: Current Medications Lactated Ringer's (Lr) 1,000 mls @ 80 mls/hr IVCONT .[id number] HERIBERTO Last Admin: 02/21/24 08:46 Dose: 80 mls/hr Naloxone HCl (Naloxone Hcl 0.4 Mg/Ml Vial) 0.04 mg IVPUSH Q5M PRN PRN Reason: Excessive sedation or RR < 8 Home Medications ?Medication ?Instructions ?Recorded ?Confirmed ?Last Taken ?Type clopidogrel 75 mg tablet (Plavix) 1 tab PO DAILY 01/26/20 02/17/24 08/03/23 History nitroglycerin 0.4 mg sublingual 1 tab sublingual NEEDED angina 01/26/20 02/17/24 01/14/22 History tablet rosuvastatin 20 mg tablet 1 tab PO DAILY 01/26/20 02/17/24 08/10/23 History docusate sodium 100 mg capsule 100 mg PO BID PRN Constipation 12/05/21 02/17/24 01/14/22 History Exam Height,Weight and Vital Signs: Height 5 ft 2 in Weight 30.844 kg Last Vital Signs Temp 98.2 F 02/21/24 08:18 Pulse 87 02/21/24 08:18 Resp 16 02/21/24 08:18 BP 145/74 H 02/21/24 08:18 Pulse Ox 100 02/21/24 08:18 O2 Del Method Room Air 02/21/24 08:18 Airway Mallampati Class: II TM Dist: >3cm Neck ROM: Full Denture: Upper Heart: rrr Lungs: cta Assessment and Plan Assessment Anesthesia Assessment: Anesthesia Plan Discussed and Chart Reviewed Final Anesthetic Review Family History of Problems with Anesthesia: No History of Problems with Anesthesia: No NPO: Yes ASA Class: III Final Preanesthetic Review: No Changes in Pt Med Stat, Meds/Allgs Chart Reviewed and Consent Obtained/Reviewed Patient Risk: Intermediate Procedure Risk: Low Anesthetic Plan Anesthetic Plan: MAC: Disposition: Standard PACU
[2024-02-21 10:08] VITALS: BP 119/44; PULSE 64; RESP 16; TEMP 36.6; O2SAT 96
--- NOTE | 2024-02-21 10:09 | P.OPN-COLO_ITS ---
Colonoscopy Operative Note Operative Note Date of Service: 02/21/24 Narrative: COLONOSCOPY TILL CECUM WITH BIOPSIES AND SNARE POLYPECTOMY Pre-op diagnosis: Surveillance for colon polyps. Post-op diagnosis:? Colon polyps, Diverticulosis Specimens and Sources: : A: TRANSVERSE COLON POLYP ?B: CECAL POLYP ?C: ASCENDING COLON POLYP ?D: SIGMOID COLON POLYP #1 ?E: SIGMOID COLON POLYP #2 Endoscopist:? Kristal Gomes MD Anesthesia:?MAC Consent: Indications for the procedure and potential complications of bleeding, perforation, reaction to medications and missed diagnosis were discussed with the patient and informed consent was obtained. Instrument: Olympus PCF H 190 L variable stiffness pediatric colonoscope Monitoring: Vital signs and clinical assessment, intermittent blood pressure monitoring, continuous EKG monitoring, Pulse oximetry and Carbon Dioxide monitoring were done throughout the procedure. Please see anesthesia flowsheet. Colon withdrawl time was 18 minutes. Procedure: The patient was placed in the left lateral decubitis position and pre-procedure medications were administered. After a digital rectal examination of the ano-rectum, the video colonoscope was inserted into the rectum and advanced through the colon to the cecum. The colonoscope was slowly withdrawn in a retrograde panoramic fashion and the colon mucosa was carefully examined including a retroflexed view of the rectum. Findings and interventions are described below. Procedure Difficulty: There was luminal narrowing in the sigmoid colon due to severe diverticulosis which was navigated with some difficulty Findings: Terminal Ileum: Not evaluated Cecum: A 2-3 mm sessile polyp - removed with a cold biopsy Ascending Colon: A 10 - 12 mm sessile polyp in the distal AC - removed with a hot snare Moderate diverticulosis throughout the entire colon Transverse Colon: A 3-4 mm sessile polyp - removed with a cold biopsy Moderate diverticulosis throughout the entire colon Descending Colon: Moderate diverticulosis throughout the entire colon Sigmoid Colon: Polypectomy site visualized at 40 cms with some edematous folds - biopsied (placed in container labelled SC polyp # 1). Two 12 -15 mm sessile polyps - removed with a hot snare (placed in container labelled SC polyp # 2). Severe diverticulosis with luminal narrowing Rectum: Normal Ano-rectum: Normal Colon preparation: Good after some irrigation. [place] Bowel Preparation Scale Right colon; 2 Transverse colon: 2 Left colon; 2 (0 = Unprepared colon segment with mucosa not seen due to solid stool that cannot be cleared. 1 = Portion of mucosa of the colon segment seen, but other areas of the colon segment not well seen due to staining, residual stool and/or opaque liquid. 2 = Minor amount of residual staining, small fragments of stool and/or opaque liquid, but mucosa of colon segment seen well. 3 = Entire mucosa of colon segment seen well with no residual staining, small fragments of stool or opaque liquid) Impression and Post Procedure Diagnosis: Colonoscopy Findings: Five small to medium sized polyps were removed Moderate diverticulosis seen in the entire colon Plan: Pt has a FU appointment on 03/07/24 with Jacquie Staley NP, Repeat Colonoscopy in 3 years if polyps are adenomatous and 5 years if polyps are hyperplastic. Above findings were reviewed with the patient and relevant handouts were given and the discharge area.
[2024-02-21 10:23] VITALS: BP 106/70; PULSE 64; RESP 16; TEMP 36.6; O2SAT 98
== END 2024-02-21 11:54 | disposition home or self-care (01) ==
PROVIDERS: PCP Internal Medicine; Visit Provider Internal Medicine Gastroenterology
PROC: 0DJD8ZZ Inspection of Lower Intestinal Tract, Via Natural or Artificial Opening Endoscopic (ICD-10-PCS; CPT 45378; principal; 2024-02-21 09:20)
DX: Z12.11 Encounter for screening for malignant neoplasm of colon (principal); Z86.0101 Personal history of adenomatous and serrated colon polyps; D12.2 Benign neoplasm of ascending colon; D12.3 Benign neoplasm of transverse colon; D12.5 Benign neoplasm of sigmoid colon; K51.40 Inflammatory polyps of colon without complications; K57.30 Diverticulosis of large intestine without perforation or abscess without bleeding; K59.00 Constipation, unspecified; K21.9 Gastro-esophageal reflux disease without esophagitis; K86.1 Other chronic pancreatitis; I12.9 Hypertensive chronic kidney disease with stage 1 through stage 4 chronic kidney disease, or unspecified chronic kidney disease; N18.30 Chronic kidney disease, stage 3 unspecified; N17.9 Acute kidney failure, unspecified; J44.9 Chronic obstructive pulmonary disease, unspecified; I25.2 Old myocardial infarction; I25.10 Atherosclerotic heart disease of native coronary artery without angina pectoris; Z85.118 Personal history of other malignant neoplasm of bronchus and lung; Z79.01 Long term (current) use of anticoagulants; Z79.899 Other long term (current) drug therapy; F17.210 Nicotine dependence, cigarettes, uncomplicated; Z98.890 Other specified postprocedural states
CPT/HCPCS: 45385; 45380; 88305; J2003; J2704

== ENCOUNTER → 2024-02-21 07:27 | Outpatient (BNV) | payer MEDICARE, SELFPAY | PROVIDERS: PCP Internal Medicine; Visit Provider Internal Medicine Gastroenterology | DX: Z12.11 Encounter for screening for malignant neoplasm of colon (principal); Z86.0100 Personal history of colon polyps, unspecified; K57.90 Diverticulosis of intestine, part unspecified, without perforation or abscess without bleeding; D12.2 Benign neoplasm of ascending colon; D12.3 Benign neoplasm of transverse colon; D12.5 Benign neoplasm of sigmoid colon; K63.5 Polyp of colon | CPT/HCPCS: 45380; 45385 ==

== ENCOUNTER 2024-02-29 08:49 | Outpatient (REF) | payer MEDICARE, SELFPAY | END 2024-02-29 08:50 | disposition home or self-care (01) | LOC: HO.BBR 08:49 | PROVIDERS: PCP Internal Medicine; Visit Provider Internal Medicine Medical Oncology | DX: D75.1 Secondary polycythemia (principal) | CPT/HCPCS: 85014; 85018; 99195 ==

== ENCOUNTER 2024-04-03 08:36 | Outpatient (REF) | payer MEDICARE, SELFPAY ==
[2024-04-03 08:58] LABS: MANUAL DIFF FLAG NO
[2024-04-03 09:01] LABS: Basophils Absolute Auto 0.1 X10*3/uL (0.0-0.2); Basophils Percent Auto 1.1 % (0-2); Eosinophils Percent Auto 0.4 % (0-4); Hematocrit 33.6 % (37.0-47.0); Hemoglobin 9.8 g/dl (12.0-16.0); Imm Gran Abs Auto 0.04 X10*3/uL (0.00-0.03); Imm Gran Pct Auto 0.5 % (0.0-0.4); Lymphocytes Absolute Auto 0.6 X10*3/uL (1.2-4.9); Lymphocytes Percent Auto 7.2 % (20-40); Mean Corpuscular HGB Conc 29.2 g/dl (31.0-35.0); Mean Corpuscular Hemoglobin 21.8 pg (27.0-33.0); Mean Corpuscular Volume 74.7 fL (80.0-98.0); Mean Platelet Volume 9.1 fL (9.4-12.3); Monocytes Absolute Auto 0.6 X10*3/uL (0.1-1.2); Monocytes Percent Auto 6.8 % (2-11); Neutrophils Absolute Auto 6.8 x10*3/uL (2.0-8.3); Platelet Count 179 X10*3/uL (160-400); Red Cell Distribution Width 17.4 % (11.0-16.0); White Blood Count 8.1 X10*3/uL (4.8-10.8)
[2024-04-03 09:17] LABS: Alanine Aminotransferase 28 U/L (0-31); Albumin Level 4.1 g/dL (3.5-5.0); Alkaline Phosphatase 84 U/L (39-117); Anion Gap 12 (12-20); Aspartate Amino Transferase 30 U/L (5-31); Bilirubin Total 0.3 mg/dL (0.0-1.0); Blood Urea Nitrogen 14 mg/dL (9-16); Calcium 8.9 mg/dL (8.4-10.2); Carbon Dioxide 21 mmol/L (22-29); Chloride 111 mmol/L (96-108); Cholesterol 117 mg/dL (<200); Estimated Glomerular Filt Rate 34; Glucose Random 127 mg/dL (60-115); HDL Cholesterol 60 mg/dL (>40); LDL Cholesterol Calculated 42 mg/dL (<100); Potassium 3.6 mmol/L (3.3-5.1); Sodium 140 mmol/L (135-145); Total Protein 6.3 g/dL (6.5-8.0); Triglycerides 79 mg/dL (<150)
== END 2024-04-03 08:37 | disposition home or self-care (01) ==
LOC: HO.LAB 08:36
PROVIDERS: PCP Internal Medicine; Referring Provider Internal Medicine Medical Oncology; Visit Provider Nurse Practitioner Family
DX: I25.10 Atherosclerotic heart disease of native coronary artery without angina pectoris (principal); C34.12 Malignant neoplasm of upper lobe, left bronchus or lung
CPT/HCPCS: 36415; 80053; 80061; 85025

== ENCOUNTER 2024-06-19 09:12 | Outpatient (AMB) | payer MEDICARE, SELFPAY ==
--- NOTE | 2024-06-19 09:16 | HO.NEPHOV ---
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 Required: No Accompanied by: Self / Same As Patient Allergies No Known Allergies Allergy (Verified 06/19/24 09:19) Medication List - Last Reconciled 06/19/24 by Wade Mendes MD azithromycin 250 mg PO 3XW 28 days clopidogrel (Plavix) 1 tab PO DAILY diltiazem HCl CD 240 mg PO DAILY docusate sodium 100 mg PO BID PRN famotidine (Pepcid) 40 mg PO BEDTIME PRN ferrous sulfate (Feosol) 325 mg PO DAILY nlrnzczfkot-npmdpzzls-liwkopxx 200-62.5-25 mcg (Trelegy Ellipta) 1 inh inhalation DAILY 30 days lubiprostone (Amitiza) 8 mcg PO BID PRN nitroglycerin 1 tab sublingual NEEDED rosuvastatin 1 tab PO DAILY simethicone 180 mg PO QID PRN HPI Comments Details: Sanjuanita is a 73 yr old woman with a h/o HTN and Lung CA s/p radiation She of renal artery stenosis. In 2017, CTA revealed 2 right renal arteries with ostial stenosis and 2 left renal arteries with arthrosclerosis and no stenosis. She is mild CKD with a serum creatinine fluctuating between 1.3 and 1.5 mg/dL. She is being conservatively managed with respect to the renal artery stenosis. Overall blood pressure has been well controlled renal function has been stable. She is here for annual follow-up. 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 Continues to smoke up to 6 cigarettes a day. 06/19/24 : Events noted. Completed radiation. Lack of taste [facility] Medical History (Updated 04/03/24 @ 09:23 by Mc Rodriguez MD) Insomnia Post-COVID syndrome Fatigue Acute kidney injury Erythrocytosis Malignant neoplasm of upper lobe of left lung (~2019) Chronic pancreatitis Pulmonary nodules Angina pectoris GERD (gastroesophageal reflux disease) Sarcoidosis Hx of hiatal hernia History of IBS Nicotine dependence Thrombosis of right iliac artery Chronic cough COPD (chronic obstructive pulmonary disease) Arthritis Hx of chronic kidney disease Elevated cholesterol PVD (peripheral vascular disease) Myocardial infarction (~2000) CAD (coronary artery disease) HTN (hypertension) Surgical History Hx of cataract extraction Hx of cystoscopy History of partial hysterectomy History of cardiac cath (~2000) History of endarterectomy (~2016) History of esophagogastroduodenoscopy (EGD) (~2019) History of colonoscopy (~2018) History of lung surgery (~2019) Hx of tubal ligation Hx of tonsillectomy History of lung biopsy (~2019) Family History Father Heart disease Mother Heart disease Brother Diabetes Sister Mental health disorder Social History Household Members: Other Household Members Other:: ex Housing: House Are you a primary physician primary care sports medicine to a significant other at home: No Do you presently have visiting nurse or other home services: No Alcohol intake: current Alcohol intake frequency: holidays/special occasions only Patient Tobacco Use Status: Current everyday Tobacco user Tobacco use type: Cigarette Cigarettes Per Day: 6 Years Smoked: 40 e-Cigarette/Vaping Use: Never Used Second Hand Smoke Exposure: No service: No Current occupational status: retired Cognitive needs: No Hearing needs: No Vision needs: Yes Physical Exam Vital Signs: Last Vital Signs BP 146/52 H 06/19/24 09:17 BMI result Body Mass Index 12.8 Const General: comfortable Nutritional Appearance: well nourished Orientation/consciousness: patient oriented x3 HEENT Head: No normal to inspection Mouth: moist mucous membranes Neck Neck: Yes supple and Yes no JVD Resp Auscultation: clear to auscultation bilaterally, no rales and rub present Cardio Jugular venous distension: no JVD Palpation: no palpable S3 and no palpable S4 Heart sounds: no rubs GI Palpation (GI): Soft to palpation and nontender Percussion: No Fluid wave present General: Yes no CVA tenderness Back/Spine/Pelvis Back: no CVA tenderness Skin General skin exam: no rashes or lesions noted Neuro General: patient oriented x3 Extrem General: Yes no pedal edema and No clubbing Results Reviewed Nephrology Results: Hgb 9.8 g/dl (12.0-16.0) L 04/03/24 WBC 8.1 X10*3/uL (4.8-10.8) 04/03/24 Plt Count 179 X10*3/uL (160-400) 04/03/24 Sodium 140 mmol/L (135-145) 04/03/24 Potassium 3.6 mmol/L (3.3-5.1) 04/03/24 Chloride 111 mmol/L (96-108) H 04/03/24 Carbon Dioxide 21 mmol/L (22-29) L 04/03/24 BUN 14 mg/dL (9-16) 04/03/24 Creatinine 1.51 mg/dL (0.5-1.4) H 04/03/24 Calcium 8.9 mg/dL (8.4-10.2) 04/03/24 Assessment & Plan Assessment & Plan (1) CKD (chronic kidney disease) stage 3, GFR 30-59 ml/min: Comment: Most likely due to hypertensive nephrosclerosis. History of renal artery stenosis. No evidence of obstruction based on recent renal ultrasonogram. History of nephrolithiasis with nonobstructing calculi Code(s): N18.30 - Chronic kidney disease, stage 3 unspecified Category: Medical Qualifiers: Chronic kidney disease stage 3 subtype: stage 3b (GFR 30-44) Qualified Code(s): N18.32 - Chronic kidney disease, stage 3b Plan: Goal is to slow the progression of disease Continue to avoid nephrotoxic agents including NSAIDs Maintain blood pressure less than 130/80 Encouraged to increase p.o. fluid intake (2) Hypertension, essential: Comment: History of renal artery stenosis. Ostial stenosis on the right no stenosis on the left Code(s): I10 - Essential (primary) hypertension Category: Medical Plan: Overall blood pressure is well controlled no change in current antihypertensive regimen She is stay on low-sodium diet (3) COPD (chronic obstructive pulmonary disease): Comment: (severe obstructive) Code(s): J44.9 - Chronic obstructive pulmonary disease, unspecified Category: Medical Qualifiers: COPD type: emphysema Emphysema type: centrilobular Qualified Code(s): J43.2 - Centrilobular emphysema Plan: cont respiratory therapy Follow with Dr. Martinez Discussed smoking cessation (4) Cancer of left lung: Comment: 10/2019 Sundeep Bess Upper Lobe Wedge Resection Status post radiation Code(s): C34.92 - Malignant neoplasm of unspecified part of left bronchus or lung Category: Medical Qualifiers: Lung location: upper lobe of lung Qualified Code(s): C34.12 - Malignant neoplasm of upper lobe, left bronchus or lung Plan: Management per Oncology (5) Erythrocytosis: Comment: (related to smoking) Code(s): D75.1 - Secondary polycythemia Category: Medical Plan: Continues her iron deficiency but hemoglobin is well above target. This is being managed by Dr. Rodriguez Orders: Orders Basic Metabolic Panel 1 Year Wade Mendes MD N18.32 - Chronic kidney disease, stage 3b Complete Blood Count Auto Diff 1 Year Wade Mendes MD N18.32 - Chronic kidney disease, stage 3b Medications: Changed From famotidine (Pepcid) 40 mg PO BEDTIME 90 days 90 tabs 3RF K21.9 - Gastro-esophageal reflux disease without esophagitis To famotidine (Pepcid) 40 mg PO BEDTIME PRN K21.9 - Gastro-esophageal reflux disease without esophagitis PRATIK Barrera-C From simethicone after meals 180 mg PO QID 120 caps 6RF Abdominal Discomfort R14.0 - Abdominal distension (gaseous) To simethicone after meals 180 mg PO QID PRN Abdominal Discomfort R14.0 - Abdominal distension (gaseous) RAH BarreraC From lubiprostone (Amitiza) 8 mcg PO BID 90 days 180 caps 3RF To lubiprostone (Amitiza) 8 mcg PO BID PRN RAH BarreraC Coding Level of Care Code Est Pt Level 4 (08990) Diagnoses Stage 3b chronic kidney disease N18.32 Chronic kidney disease stage 3 subtype: stage 3b (GFR 30-44) Hypertension, essential I10 Centrilobular emphysema J43.2 COPD type: emphysema Emphysema type: centrilobular Malignant neoplasm of upper lobe of left lung C34.12 Lung location: upper lobe of lung Erythrocytosis D75.1
[2024-06-19 09:17] VITALS: BP 146/52; BMI 12.8
[2024-06-19 09:31] VITALS: BP 132/50
--- OUTSIDE RECORDS SUMMARY | 2024-06-19 09:52 | XMS_ITS | Clinical Summary ---
Author Organization [facility] Address [address] [place] [id number] Phone Care Team Providers Care Farm Planner Name Role Phone Cheo Michaels MD Primary Care Provider [phone] Allergies No known active allergies Medications ferrous sulfate 325 mg (65 mg elemental iron) tablet Take 1 tablet (325 mg total) by mouth 1 (one) time each day. Active azithromycin (ZITHROMAX) 250 mg tablet Take 1 tablet (250 mg total) by mouth See administration instructions. M.W.F Active clopidogreL (PLAVIX) 75 mg tablet Take 1 tablet (75 mg total) by mouth 1 (one) time each day. Active dilTIAZem CD (CARDIZEM CD) 240 mg 24 hr capsule Take 1 capsule (240 mg total) by mouth 1 (one) time each day. Active rosuvastatin (CRESTOR) 20 mg tablet Take 1 tablet (20 mg total) by mouth 1 (one) time each day. Active fluticasone-um eclidinium-glen anterol (Trelegy Ellipta) 100-62.5-25 mcg inhaler Inhale 1 puff (100 mcg total) by mouth 1 (one) time each day. Rinse mouth with water after use to reduce aftertaste and incidence of candidiasis. Do not swallow. Active docusate sodium (COLACE) 100 mg capsule Take 1 capsule (100 mg total) by mouth 2 (two) times a day. Active famotidine (PEPCID) 40 mg tablet Take by mouth. Activ e lubiprostone (AMITIZA) 8 mcg capsule Take 1 capsule (8 mcg total) by mouth 2 (two) times a day with meals. Active Active Problems Problem Noted Date Diagnosed Date Chronic renal insufficiency 05/29/2024 Pulmonary emphysema 05/29/2024 PAD (peripheral artery disease) 05/29/2024 Lung mass 05/29/2024 OA (osteoarthritis) 05/29/2024 Palpitations 05/29/2024 Underweight 05/29/2024 Cachexia 05/25/2023 CAD (coronary artery disease) 05/25/2023 Current smoker 05/25/2023 Erythrocytosis 05/25/2023 Angina pectoris 01/17/2021 Chronic kidney disease 01/17/2021 Peripheral vascular disease 01/17/2021 Thrombosis 01/17/2021 Malignant neoplasm metastatic to lung 01/17/2021 Old myocardial infarction 01/17/2021 Pancreatitis 01/17/2021 Chronic obstructive pulmonary disease 11/23/2016 Lung nodule 11/23/2016 Hyperlipidemia 09/09/2016 Hypertension 09/09/2016 Encounters Date Type Department Care Team Description 06/01/2024 8:41 AM EST - 06/01/2024 11:59 PM EST Hospital Encounter [facility] Radiation Oncology [address] [phone] Kathy Navarrete NP 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 (CMS/HCC) (Primary Dx) Discharge Disposition: Home or Self Care 05/24/2024 9:08 AM EST - 05/24/2024 11:59 PM [facility] Hospital Encounter [facility] CT Scan [address] [place] [address] Malignant neoplasm of upper lobe bronchus, left (CMS/HCC) Discharge Disposition: Home or Self Care from Last 3 Months Surgical History Surgery Date Site/Laterality Comments LUNG SURGERY PROCEDURE:LUNG SURGERY Medical History Medical History Date Comments Lung cancer (CMS/HCC) DX:Lung ca ncer (HCC) Hypertension DX:Hypertension COPD (chronic obstructive pu lmonary disease) (CMS/HCC) DX:COPD (chronic obstructive pulmonary disease) (HCC) PAD (peripheral artery disease) (CMS/HCC) DX:PAD (peripheral artery disease) (HCC) Family History Relation Name Status Comments Father Mother Social History Tobacco Use Types Packs/Day Years Used Date Smoking Tobacco: Every Day Smokeless Tobacco: Never Alcohol Use Standard Drinks/Week Comments Not Currently 0 (1 standard drink = 0.6 oz pur e alcohol) Comments Unknown Sex and Gender Information Value Date Recorded Sex Assigned at Not on file Legal Sex Female 1:51 PM EST Gender Identity Not on file Sexual Orientation Not on file Obstetrics History Last Filed Vital Signs Vital Sign Reading Time Taken Comments Blood Pressure 127/61 06/01/2024 9:00 AM EST Pulse 57 06/01/2024 9:00 AM EST Temperature 36.4 ??C (97.6 ??F) 06/01/2024 9:00 AM ES T Respiratory Rate 18 06/01/2024 9:00 AM EST Oxygen Saturation 97% 06/01/2024 9:00 AM EST Inhaled Oxygen Concentration - - Weight 31.1 kg (68 lb 9.6 oz) 06/01/2024 9:00 AM EST Height 157.5 cm (5' 2 ) 06/01/2024 9:00 AM EST Body Mass Index 12.55 06/01/2024 9:00 AM EST Plan of Treatment Upcoming Encounters Date Type Department Care Team (Late st Contact Info) Description 10/31/2024 10:00 AM EDT Appointment [facility] Radiation Oncology [address] [phone] Kathy Navarrete NP [address] [place] [address] Health Maintenance Due Date Last Done Comments Breast Cancer Screening 1950 DTaP,Tdap,and Td Vaccines (1 - Tdap) 1970 RSV Immunization Patients 60+ Years Old (1 - Risk 60-74 years 1-dose series) 2011 Cholesterol Screening (Lipid Panel) 03/17/2022 Colorectal Cancer Screening: Colonoscopy 03/17/2022 Depression Screening 03/17/2022 Falls Risk Assessment 03/17/2022 Hepatitis C Screening 03/17/2022 Lung Cancer Screening (Low Dose CT) 03/17/2022 Medicare Annual Wellness Visit 03/17/2022 Osteoporosis Screening (Bone Density Screening) 03/17/2022 Social Influencers of Health Screening 03/17/2022 Hypertension/CHF/CAD Annual BMP Blood Test 03/26/2022 COVID-19 Vaccine ( season) 2023 03/25/2021, 06/17/2020, 05/17/2020 Influenza Vaccine (#1) 2023 2, 01/28/2021, 12/22/2018, Additional history exists Pneumococcal Vaccine: 50+ Years Completed 04/05/2018, 01/17/2017, 01/05/2017 Zoster Vaccines Completed 02/04/2022, 11/25/2021 HIB Vaccines Aged Out No longer eligi ble based on patient's age to complete this topic HPV Vaccines Aged Out No longer eligi ble based on patient's age to complete this topic Hepatitis A Vaccines Aged Out No long er eligible based on patient's age to complete this topic Hepatitis B Vaccines Aged Out No long er eligible based on patient's age to complete this topic IPV Vaccines Aged Out No longer eligi ble based on patient's age to complete this topic MMR Vaccines Aged Out No longer eligi ble based on patient's age to complete this topic Meningococcal ACWY Vaccine Aged Out N o longer eligible based on patient's age to complete this topic Meningococcal B Vacine Aged Out No lo nger eligible based on patient's age to complete this topic RSV Immunization Patients Under 20 months Aged Out No longer eligible based on patient's age to complete this topic Varicella Vaccines Aged Out No longer eligible based on patient's age to complete this topic Procedures Procedure Name Priority Date/Time Associated Diagnosis Comments CT CHEST WO CONTRAST Routine 05/24/2024 9:18 AM EST Malignant neoplasm of upper lobe bronchus, left (CMS/HCC) from Last 3 Months Results * CT Chest wo Contrast (05/24/2024 9:18 AM EST) Anatomical Region Laterality Modality Body Computed Tomogra phy 05/25/2024 10:0 9 AM EST Impressions 05/25/2024 10:18 AM EST Similar appearing curvilinear nodular attenuation anteriorly in the left upper lobe likely represents sequela of posttreatment changes. Similar curvilinear branching nodular attenuation the superior segment of the left lower lobe. Severe emphysematous changes without infiltrates or effusions. No new or enlarging pulmonary nodules. -------- FINAL REPORT -------- Dictated By: Payam Parsons Dictated Date: 05/25/2024 10:09 ET Assigned Physician: Payam Parsons Reviewed and Electronically Signed By: Payam Parsons Signed Date: 05/25/2024 10:18 ET Workstation ID: [id number] Transcribed By: Self Edit Transcribed Date: 05/25/2024 10:09 ET Narrative 05/25/2024 10:18 AM EST INDICATION: Lung carcinoma TECHNIQUE: CT scan of the chest obtained without contrast. Scanner: [employer] revolution frontier 128 slice VCT Dose reduction technique: ASIR (Adaptive statistical iterative reconstruction) and/or AEC (automated exposure control) Dose: total exam DLP 169 mGY per cm COMPARISON: Compared to multiple prior studies most recent from November 19, 2023. PET/CT from June 02, 2023 reviewed. FINDINGS: Lung rodríguez demonstrate emphysematous changes. Left upper lobe wedge resection again noted. Anterior left upper lobe nodule now has a more linear orientation measuring 10 mm x 4 mm sagittally on series 602 image 70 as well as on axial series 3 image 85. Curvilinear branching nodular attenuation in the superior segment of the left lower lobe measures 7 mm x 3 mm on sagittal series 602 image 74 and 5 mm in width on axial series 3 image 55. Unchanged 5 mm groundglass opacity in the right upper lobe on series 3 image 77. No new or enlarging pulmonary nodules. No thoracic lymphadenopathy. Trachea and esophagus are unchanged. Heart stable in size and shape without pericardial effusion. Unopacified mediastinal vascular structures are grossly unchanged. Bony structures of the thorax are within normal limits. Visualized portion upper abdomen are unremarkable. Procedure Note Payam Parsons MD - 05/25/2024 INDICATION: Lung carcinoma TECHNIQUE: CT scan of the chest obtained without contrast. Scanner: [employer] revolution frontier 128 slice VCT Dose reduction technique: ASIR (Adaptive statistical iterativereconstruction) and/or AEC (automated exposure control) Dose: total exam DLP 169 mGY per cm COMPARISON: Compared to multiple prior studies most recent from November. PET/CT from June 02, 2023 reviewed. FINDINGS: Lung rodríguez demonstrate emphysematous changes. Left upper lobe wedgeresection again noted. Anterior left upper lobe nodule now has a morelinear orientation measuring 10 mm x 4 mm sagittally on series 602 image70 as well as on axial series 3 image 85. Curvilinear branching nodular attenuation in the superior segment of theleft lower lobe measures 7 mm x 3 mm on sagittal series 602 image 74 and 5mm in width on axial series 3 image 55. Unchanged 5 mm groundglass opacity in the right upper lobe on series 3image 77. No new or enlarging pulmonary nodules. No thoracic lymphadenopathy. Trachea and esophagus are unchanged. Heartstable in size and shape without pericardial effusion. Unopacified mediastinal vascular structures are grossly unchanged. Bony structures of the thorax are within normal limits. Visualized portion upper abdomen are unremarkable. IMPRESSION: Similar appearing curvilinear nodular attenuation anteriorly in the leftupper lobe likely represents sequela of posttreatment changes. Similar curvilinear branching nodular attenuation the superior segment ofthe left lower lobe. Severe emphysematous changes without infiltrates or effusions. No new orenlarging pulmonary nodules. -------- FINAL REPORT -------- Dictated By: Payam Parsons Dictated Date: 05/25/2024 10:09 ET Assigned Physician: Payam Parsons Reviewed and Electronically Signed By: Payam Parsons Signed Date: 05/25/2024 10:18 ET Workstation ID: [id number] Transcribed By: Self Edit Transcribed Date: 05/25/2024 10:09 ET Aneesh Dwyer MD IMG CT PROCEDURES Final Result from Last 3 Months Insurance [employer] Care Teams Farm Planner Relationship Specialty Start Date End Date Cheo Michaels MD [address] [place] [phone] PCP - General Internal Medicine 02/18/17
--- OUTSIDE RECORDS SUMMARY | 2024-06-19 09:52 | XMS_ITS | Clinical Summary ---
Author Organization [facility] Address [address] [place] [address] Care Team Providers Care Inspector Rag Sorting Name Role Phone Cheo Michaels MD Primary Care Provider [phone] Allergies No known active allergies Medications Medication Sig Dispensed Refills Start Date End Date Status clopidogrel (PLAVIX) 75 MG tablet Take 1 tablet (75 mg total) by mouth daily. 0 Active dilTIAZem (CARDIZEM CD) 240 MG 24 hr capsule Take 1 capsule (240 mg total) by mouth daily. 0 Active rosuvastatin (CRESTOR) tablet 20 mg Take 1 tablet (20 mg total) by mouth daily. 0 Active Fluticasone-Umeclidin- Vilant (TRELEGY ELLIPTA IN) Inhale into the lungs. 0 Active docusate sodium (COLACE) 100 MG capsule Take 1 capsule (100 mg total) by mouth as needed for constipation. 0 Active famotidine (PEPCID) 40 MG tablet Take 1 tablet (40 mg total) by mouth as needed for heartburn. 0 Active Active Problems Problem Noted Date Diagnosed Date Chronic kidney disease, unspecified 05/25/2023 05/25/2023 Cachexia 05/25/2023 05/25/2023 CAD (coronary artery disease) 05/25/2023 Current smoker 05/25/2023 05/25/2023 Erythrocytosis 05/25/2023 05/25/2023 Peripheral vascular disease 01/17/2021 02/0 09/2023 Chronic obstructive pulmonary disease 11/23/2016 05/25/2023 Hyperlipidemia 09/09/2016 05/25/2023 Family History Relation Name Status Comments Father Mother Social History Tobacco Use Types Packs/Day Years Used Date Smoking Tobacco: Every Day Cigarettes 55 Smokeless Tobacco: Never Tobacco Cessation:Ready to Q uit: Not Asked; Counseling Given: Not Answered Comments:6/day Alcohol Use Standard Drinks/Week Comments Not Currently 0 (1 standard drink = 0.6 oz pur e alcohol) Sex and Gender Information Value Date Recorded Sex Assigned at Female 05/11/2023 9:13 AM EST Gender Identity Not on file Sexual Orientation Not on file Job Start Date Occupation Industry Not on file Not on file Not on file Last Filed Vital Signs Vital Sign Reading Time Taken Comments Blood Pressure 131/49 11/03/2023 9:33 AM EDT Pulse 63 11/03/2023 9:33 AM EDT Temperature 36.6 ??C (97.8 ??F) 11/03/2023 9:33 AM ED T Respiratory Rate - - Oxygen Saturation 100% 11/03/2023 9:33 AM EDT Inhaled Oxygen Concentration - - Weight 34 kg (75 lb) 11/03/2023 9:33 AM EDT Height 157.5 cm (5' 2 ) 11/03/2023 9:33 AM EDT Body Mass Index 13.72 11/03/2023 9:33 AM EDT Plan of Treatment Health Maintenance Due Date Last Done Comments Hepatitis C Screening 1950 COVID-19 Vaccine (#1) 1956 Pneumococcal Vaccine (1 of 2 - PCV) 1957 Depression Screening 1963 Preventative Health Evaluation 1969 Tobacco Cessation Counseling 1969 DTap / Tdap / Td (1 - Tdap) 1970 Shingrix-Zoster Vaccine (1 of 2) 1970 Colon Cancer Screening (Colonoscopy) 1996 Breast Cancer Screening (Mammogram) 2001 RSV Adult > 60+ Yrs or Pregn ant (1 - Risk 60-74 years 1-dose series) 2011 Fall Risk Assessment 2016 Osteoporosis Screening (DEXA Scan) 2016 Influenza Vaccine (#1) 2023 Hepatitis B Vaccines Aged Out No long er eligible based on patient's age to complete this topic RSV Ped < 20 months Aged Out No longe r eligible based on patient's age to complete this topic Care Teams Inspector Rag Sorting Relationship Specialty Start Date End Date Cheo Michaels MD [address] [facility] [place] [phone] PCP - General Internal Medicine 05/11/23
--- OUTSIDE RECORDS SUMMARY | 2024-06-19 09:52 | XMS_ITS | Clinical Summary ---
Author Organization [facility] Address [address] [facility] [address] [place] [address] Phone Care Team Providers Care Longitudinal Float Operator Name Role Phone Cheo Michaels MD Primary Care Provider [phone] Allergies No known active allergies Medications rosuvastatin (CRESTOR) 20 MG tablet Take 20 mg by mouth 1 (one) time each day Active clopidogrel (PLAVIX) 75 MG tablet Take 75 mg by mouth 1 (one) time each day Active calcium carbonate-vitam in D (OSCAL-500) 500-200 MG-UNIT per tablet Take 1 tablet by mouth 1 (one) time each day Active Simethicone Ultra Strength 180 MG capsule TAKE 1 CAPSULE BY MOUTH 4 TIMES A DAY FOR 30 DAYS AFTER MEALS 12/31/2020 Active omeprazole (PriLOSEC) [address] capsule Take 20 mg by mouth 1 (one) time each day Every day for 30 days 11/11/2020 Active dilTIAZem CD (CARDIZEM CD) 240 MG 24 hr capsule 02/27/2021 Active Trelegy Ellipta 100-62.5-25 MCG/INH aerosol powder 01/31/2021 Active famotidine (PEPCID) 40 MG tablet Take 40 mg by mouth at bed time 12/25/2021 Active Active Problems Problem Noted Date Diagnosed Date Angina pectoris 01/17/2021 Chronic obstructive pulmonary disease 01/17/2021 Cancer with lung metastasis 01/17/2021 Chronic kidney disease 01/17/2021 Pancreatitis 01/17/2021 Hyperlipidemia 01/17/2021 Old myocardial infarction 01/17/2021 Peripheral vascular disease 01/17/2021 Hypertension 01/17/2021 Thrombosis 01/17/2021 Family History Medical History Relation Comments Diabetes Brother Heart disease Mother Relation Status Comments Brother Mother Social History Tobacco Use Types Packs/Day Years Used Date Smoking Tobacco: Every Day Cigarettes Smokeless Tobacco: Never Tobacco Cessation:Ready to Q uit: Not Asked; Counseling Given: Not Answered Alcohol Use Standard Drinks/Week Comments Yes 0 (1 standard drink = 0.6 oz pur e alcohol) Comments Unknown Sex and Gender Information Value Date Recorded Sex Assigned at Not on file Legal Sex Female 5:12 PM EST Gender Identity Not on file Sexual Orientation Not on file Last Filed Vital Signs Vital Sign Reading Time Taken Comments Blood Pressure 139/65 01/18/2023 1:46 PM EDT Pulse 86 01/18/2023 1:46 PM EDT Temperature - - Respiratory Rate - - Oxygen Saturation 96% 01/18/2023 1:46 PM EDT Inhaled Oxygen Concentration - - Weight 32.7 kg (72 lb) 01/18/2023 1:46 PM EDT Height 157.5 cm (5' 2 ) 07/16/2022 1:36 PM EDT Body Mass Index 13.17 07/16/2022 1:36 PM EDT Plan of Treatment Health Maintenance Due Date Last Done Comments Breast Cancer Screening 1950 Pneumococcal Vaccine: 65+ Ye ars (1 of 2 - PCV) 1957 Colorectal Cancer Screening: Annual FOBT 2000 Colorectal Cancer Screening: Colonoscopy 2000 Colorectal Cancer Screening: Sigmoidoscopy 2000 Influenza Vaccine (#1) 2023 Hepatitis B Vaccine Aged Out No longe r eligible based on patient's age to complete this topic Insurance [facility] Care Teams Longitudinal Float Operator Relationship Specialty Start Date End Date Cheo Michaels MD [address] [place], [place] [id number] PCP - General Internal Medicine 03/05/21
--- OUTSIDE RECORDS SUMMARY | 2024-06-19 09:52 | XMS_ITS | Encounter Summary ---
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) Procedures CT Chest wo Contrast Kathy Navarrete NP Phone: tel: fax: [address] [address] Phone: tel: Referral ID Status Reason Start Date Expiration Date V isits Requested Visits Authorized [id number] Pending Review 06/01/2024 06/01/2025 1 1 Reason for Visit * Reason Comments Follow-up Encounter Details Date Type Department Care Team (Latest Contact Info) Description 06/01/2024 8:41 AM EST - 06/01/2024 11:59 PM EST Hospital Encounter [facility] Radiation Oncology [address] [phone] Kathy Navarrete NP [address] [place] [address] 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 M.W.F clopidogreL (PLAVIX) 75 mg tablet Take 1 tablet (75 mg total) by mouth 1 (one) time each day. dilTIAZem CD (CARDIZEM CD) 240 mg 24 hr capsule Take 1 capsule (240 mg total) by mouth 1 (one) time each day. docusate sodium (COLACE) 100 mg capsule Take 1 capsule (100 mg total) by mouth 2 (two) times a day. famotidine (PEPCID) 40 mg tablet Take by mouth. ferrous sulfate 325 mg (65 mg elemental iron) tablet Take 1 tablet (325 mg total) by mouth 1 (one) time each day. fluticasone-ume clidinium-vilan terol (Trelegy Ellipta) 100-62.5-25 mcg inhaler Inhale 1 puff (100 mcg total) by mouth 1 (one) time each day. Rinse mouth with water after use to reduce aftertaste and incidence of candidiasis. Do not swallow. lubiprostone (AMITIZA) 8 mcg capsule Take 1 capsule (8 mcg total) by mouth 2 (two) times a day with meals. rosuvastatin (CRESTOR) 20 mg tablet Take 1 tablet (20 mg total) by mouth 1 (one) time each day. documented as of this encounter Discharge Disposition Disposition Code Departure Means Destination Home or Self Care documented in this encounter Progress Notes * Kathy Navarrete NP - 06/01/2024 9:00 AM EST Images from the original note were not included. [address] [phone] RADIATION ONCOLOGY FOLLOW-UP Staff Physician: Kathy Navarrete NP Requesting Physician: No ref. 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 Patient reports she has been feeling okay. She has a chronic cough which is at baseline. Her phlegm ranges from white to yellow. Dr. Martinez just started her on azithromycin 3 times a week which has improved it. She reports her dyspnea on exertion is at baseline. HPI ROS: Review of Systems Constitutional: Positive for fatigue (baseline). HENT: Decrease in taste Respiratory: Positive for cough (white to yellow phlegm) and shortness of breath (on exertion. at baseline). Negative for hemoptysis. Neurological: Negative for headaches. Medications: Current Outpatient Medications: azithromycin (ZITHROMAX) 250 mg tablet, Take 1 tablet (250 mg total) by mouth See administration instructions. M.W.F, Disp: , Rfl: clopidogreL (PLAVIX) 75 mg tablet, Take 1 tablet (75 mg total) by mouth 1 (one) time each day., Disp: , Rfl: dilTIAZem CD (CARDIZEM CD) 240 mg 24 hr capsule, Take 1 capsule (240 mg total) by mouth 1 (one) time each day., Disp: , Rfl: docusate sodium (COLACE) 100 mg capsule, Take 1 capsule (100 mg total) by mouth 2 (two) times a day., Disp: , Rfl: famotidine (PEPCID) 40 mg tablet, Take by mouth., Disp: , Rfl: ferrous sulfate 325 mg (65 mg elemental iron) tablet, Take 1 tablet (325 mg total) by mouth 1 (one)time each day., Disp: , Rfl: jhqyneoqfve-fylsynotfobh-wlnikjpckd (Trelegy Ellipta) 100-62.5-25 mcg inhaler, Inhale 1 puff (100 mcg total) by mouth 1 (one) time each day. Rinse mouth with water after use to reduce aftertaste and incidence of candidiasis. Do not swallow., Disp: , Rfl: lubiprostone (AMITIZA) 8 mcg capsule, Take 1 capsule (8 mcg total) by mouth 2 (two) times a day with meals., Disp: , Rfl: rosuvastatin (CRESTOR) 20 mg tablet, Take 1 tablet (20 mg total) by mouth 1 (one) time each day., Disp: , Rfl: Imported vital signs, weight Visit Vitals Ht 1.575 m (62 ) Wt (!) 31.1 kg (68 lb 9.6 oz) BMI 12.55 kg/m?? Smoking Status Every Day BSA 1.21 m?? No data recorded Physical Exam: Physical Exam Vitals reviewed. Constitutional: Appearance: Normal appearance. HENT: Head: Normocephalic. Cardiovascular: Rate and Rhythm: Normal rate and regular rhythm. Pulmonary: Effort: Pulmonary effort is normal. No respiratory distress. Breath sounds: No stridor. No wheezing, rhonchi or rales. Skin: General: Skin is warm and dry. Neurological: Mental Status: She is alert and oriented to person, place, and time. Mental status is at baseline. Psychiatric: Mood and Affect: Mood normal. Behavior: Behavior normal. Behavior is cooperative. Thought Content: Thought content normal. Judgment: Judgment normal. Impression: Overall doing well. CT Stable. Continue to see Pulmonary. Plan: CT in 6 months. Follow-up with me after. Sooner if needed. Sees Dr. Rodriguez in August for blood work for hematology. Dr. Martinez upcoming. 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 lubiprostone (AMITIZA) 8 mcg capsule Take 1 capsule (8 mcg total) by mouth 2 (two) times a day with meals. famotidine (PEPCID) 40 mg tablet Take by mouth. docusate sodium (COLACE) 100 mg capsule Take 1 capsule (100 mg total) by mouth 2 (two) times a day. fluticasone-ume clidinium-vilan terol (Trelegy Ellipta) 100-62.5-25 mcg inhaler Inhale 1 puff (100 mcg total) by mouth 1 (one) time each day. Rinse mouth with water after use to reduce aftertaste and incidence of candidiasis. Do not swallow. rosuvastatin (CRESTOR) 20 mg tablet Take 1 tablet (20 mg total) by mouth 1 (one) time each day. dilTIAZem CD (CARDIZEM CD) 240 mg 24 hr capsule Take 1 capsule (240 mg total) by mouth 1 (one) time each day. clopidogreL (PLAVIX) 75 mg tablet Take 1 tablet (75 mg total) by mouth 1 (one) time each day. azithromycin (ZITHROMAX) 250 mg tablet Take 1 tablet (250 mg total) by mouth See administration instructions. M.W.F ferrous sulfate 325 mg (65 mg elemental iron) tablet Take 1 tablet (325 mg total) by mouth 1 (one) time each day. added in this encounter Care Teams Horizontal Drill Operator Relationship Specialty Start Date End Date Cheo Michaels MD [address] [place] [address] PCP - General Internal Medicine 02/18/17 documented as of this encounter
--- OUTSIDE RECORDS SUMMARY | 2024-06-19 09:52 | XMS_ITS | Encounter Summary ---
Author Organization [facility] Address [address] [place] [address] Care Team Providers Care Semi Driver Name Role Phone Cheo Michaels MD Primary Care Provider [phone] Reason for Referral * Imaging (Routine) - Closed Specialty Diagnoses / Procedures Referred By Contac t Referred To Contact Radiology Diagnoses Malignant neoplasm of upper lobe bronchus, left (CMS/HCC) Procedures CT Chest wo Contrast Aneesh Dwyer MD [address] [place] [address] Phone: tel: fax: [facility] CT Scan [address] [place] [address] Phone: tel: Referral ID Status Reason Start Date Expiration Date Visits Re quested Visits Authorized [id number] Closed 04/25/2024 04/25/2025 1 1 Reason for Visit * Imaging (Routine) - Closed Specialty Diagnoses / Procedures Referred By Contac t Referred To Contact Radiology Diagnoses Malignant neoplasm of upper lobe bronchus, left (CMS/HCC) Procedures CT Chest wo Contrast Aneesh Dwyer MD [address] [place] [address] Phone: tel: fax: [facility] CT Scan [address] [place] [address] Phone: tel: Referral ID Status Reason Start Date Expiration Date Visits Re quested Visits Authorized [id number] Closed 04/25/2024 04/25/2025 1 1 Encounter Details Date Type Department Care Team (Latest Contact Info) Description 05/24/2024 9:08 AM EST - 05/24/2024 11:59 PM EST Hospital Encounter [facility] CT Scan [address] [place] [address] Malignant neoplasm of upper lobe bronchus, left (CMS/HCC) Discharge Disposition: Home or Self Care Social [...] on file documented as of this encounter Discharge Disposition Disposition Code Departure Means Destination Home or Self Care documented in this encounter Plan of Treatment Upcoming Encounters Date Type Department Care Team (Late st Contact Info) Description 10/31/2024 10:00 AM EDT Appointment [facility] Radiation Oncology [address] [phone] Kathy Navarrete NP [address] [place] [address] documented as of this encounter Procedures Procedure Name Priority Date/Time Associated Diagnosis Comments CT CHEST WO CONTRAST Routine 05/24/2024 9:18 AM EST Malignant neoplasm of upper lobe bronchus, left (CMS/HCC) documented in this encounter Results * CT Chest wo Contrast (05/24/2024 [...] Signed Date: 05/25/2024 10:18 ET Workstation ID: [id number] Transcribed By: Self Edit Transcribed Date: 05/25/2024 10:09 ET Narrative 05/25/2024 10:18 AM EST INDICATION: Lung carcinoma TECHNIQUE: CT scan of the chest obtained without contrast. Scanner: [employer] 128 slice VCT Dose reduction [...] Signed Date: 05/25/2024 10:18 ET Workstation ID: [id number] Transcribed By: Self Edit Transcribed Date: 05/25/2024 10:09 ET us Aneesh Dwyer MD IMG CT PROCEDURES Final Result documented in this encounter Visit Diagnoses Diagnosis Malignant neoplasm of upper lobe bronchus, left (CMS/HCC) documented in this encounter Care Teams Semi Driver Relationship Specialty Start Date End Date Cheo Michaels MD [address] [place] [address] PCP - General Internal Medicine 02/18/17 documented as of this encounter
== END 2024-06-19 09:38 | disposition home or self-care (01) ==
PROVIDERS: PCP Internal Medicine; Visit Provider Internal Medicine Hypertension Specialist
DX: N18.32 Chronic kidney disease, stage 3b (principal); I10 Essential (primary) hypertension; J43.2 Centrilobular emphysema; C34.12 Malignant neoplasm of upper lobe, left bronchus or lung; D75.1 Secondary polycythemia
CPT/HCPCS: 99214

== ENCOUNTER → 2024-06-19 09:12 | Outpatient (BNVA) | payer MEDICARE, SELFPAY | PROVIDERS: PCP Internal Medicine; Visit Provider Internal Medicine Hypertension Specialist | DX: I12.9 Hypertensive chronic kidney disease with stage 1 through stage 4 chronic kidney disease, or unspecified chronic kidney disease (principal); N18.32 Chronic kidney disease, stage 3b; J43.2 Centrilobular emphysema; C34.12 Malignant neoplasm of upper lobe, left bronchus or lung; D75.1 Secondary polycythemia | CPT/HCPCS: 99212 ==

== ENCOUNTER 2024-07-21 08:53 | Outpatient (AMB) | payer MEDICARE, SELFPAY ==
--- NOTE | 2024-07-21 08:55 | MHC.OFFVIS ---
Vital Signs 07/21/24 08:56 Height 5 ft 1 in Weight 69 lb 7.13 oz BMI 13.1 BP 128/72 Blood Pressure Location Rt brachial Position Sitting Pulse 65 Pulse Source Pulse Oximeter Pulse Oximetry (%) 96 Oxygen Delivery Method Room Air Intake Visit Reasons: COPD Allergies No Known Allergies Allergy (Verified 07/21/24 08:59) HPI Comments Details: The patient is a 74 y/o woman with h/o COPD and pulmonary nodules s/p VATS lovectomy for an aggressive primary lung large cell/adeno CA with JUSTIN and viceral pleural invasion.. She did f/u with oncology, but she declined any therapy at this time. However, I am concern with the type of cancer she was found to have. She is still dealing with her chronic pancreatitis. She has beShe does compain of left sided chest pain at the side of her surgery. Has some dyspnea and coughing, but overall better after cutting down on her smoking. 05/17/2020 the patient is here for pulmonary follow-up visit. Overall her respiratory status is about the same. She is anxious about the results of her CT scan. We did review them in the office. The patient does have postoperative changes without any evidence of any recurrence at this time. However, she does have a 7 mm subsolid pulmonary nodules been closely monitor. This has not changed. The patient has significant emphysema. She is also struggling with her weight. Because of the donut hole she was not able to refill her Pancrease that she uses for her chronic pancreatitis. Therefore she has lost significant weight. We did have some samples of Ensure in the office which we provided her. She will be following up with gastroenterology soon. 05/22/2022 the patient is here for a pulmonary follow-up visit. The patient overall is doing well. Denies any significant shortness of breath or cough. Denies any weight loss. She is having however some difficulty sleeping. She has tried multiple medications in the past without any significant improvement. He is affecting her quality of life. The patient has a hard time both falling asleep and staying asleep. She has already tried gabapentin in the past. Will go ahead and start her on a small dose of Ambien that she can use as needed. She understands she needs to take it 15 minutes prior to sleep and then not to plan any activities 1 she takes the medication except for sleep. We did review her last CT scan of the chest that was back in November 2021. appears that the 7 mm subsolid nodular density not significantly changed. She is scheduled to get a repeat CT scan follow-up with thoracic surgery however. She is complaining of a sore throat. She has been using her inhalers and she is rinsing. She appears to have some thrush. Therefore I did encourage her to rinse with mouthwash. Will go ahead and start her on fluconazole for small course specially since may be difficult to Eradicating completely. 05/24/2023 the patient is here for a pulmonary follow-up visit. Since we last spoke the patient did have an enlarging pulmonary nodule. It appears to be a subsolid nodule that increased in size and also the solid component did get bigger as well. The CT-guided biopsy at [facility] confirmed that indeed this is a malignant process. She was told it was stage I likely a primary lung cancer. The patient did have the nodule before but was lost more. She did follow-up with Interventional Pulmonary at [facility] and also was referred to Radiation Oncology and Oncology. She did have a difficult surgery the 1st time around recovering did take a significant amount of time. If the patient is concerned about undergoing surgery again specially with all the pain that she went through. I did encourage her to talk to Oncology and ideally get a PET scan to assess the radiological staging of this new entity. If indeed this is a localized lesion, stage I, would recommend ideally stereotactic radiation to treat that area. If however she has not on a candidate for stereotactic radiation, then depending on her PFTs she should be considered a surgical candidate again. Ultimately targeted therapy may be also helpful in case she has any molecular markers. 07/29/2023 the patient is here for pulmonary preoperative evaluation. Since we last spoke she did see her radiation oncologist and she actually completed stereotactic radiation for the new stage I lung cancer. Unfortunately not enough tissue to do molecular markings and testing. She was able to get Zyrtec radiation with curative intent. She will follow closely with radiation oncology and imaging studies. From respiratory status she is doing well. Denies any worsening shortness of breath. She tolerating her respiratory therapy well. She is scheduled to undergo colonoscopy. currently she is doing well from a respiratory status and may be able to proceed with anesthesia and her colonoscopy without any restrictions. The patient will follow-up in 6-8 months. If she has any worsening issues prior to that she will call for an earlier assessment. 01/14/2024 the patient is here for a pulmonary follow-up visit. The patient overall has been doing okay. She has been following closely by thoracic surgery and Oncology. She did complete additional radiation therapy. The patient as per report tells me that she is currently stable from cancer standpoint. She does continue to have a cough. Productive in nature. She does use the Trelegy with good effect. Will go ahead and add azithromycin 3 times a week for a month to see if we can improve her chronic bronchitis symptoms. Unfortunately she continues to smoke cigarettes. She needs to cut down quit altogether. She has tried multiple modalities without any success. She will continue to cut down her pace at this time. 07/21/2024 the patient is here for a pulmonary follow-up visit. Overall she is doing about the same. She is still working closely with thoracic surgery and Oncology. She has completed all her therapies. She is having serial CT scans and right now her last 1 per report of the patient was okay. She is going to follow-up with them in the next 4-6 months. In the meantime she continues using the Trelegy. She does not feel like Trelegy given her the energy of the improvement of the dyspnea as she wishes. She is wondering about other inhalers. I do not believe she is going to see any significant improvement from other inhalers though. She could try Breztri if she wanted to but at this point she rather stay with the once a day dosing. She has responded well to the azithromycin is helping her with chronic bronchitis and she is tolerating that well. As far as other medications to consider theophylline as an option. Peripheral now I do believe that a nebulizer be effective. She can use it twice a day to allow better bronchodilation of the airways. [facility] Medical History (Updated 04/03/24 @ 09:23 by Mc Rodriguez MD) Insomnia Post-COVID syndrome Fatigue Acute kidney injury Erythrocytosis Malignant neoplasm of upper lobe of left lung (~2019) Chronic pancreatitis Pulmonary nodules Angina pectoris GERD (gastroesophageal reflux disease) Sarcoidosis Hx of hiatal hernia History of IBS Nicotine dependence Thrombosis of right iliac artery Chronic cough COPD (chronic obstructive pulmonary disease) Arthritis Hx of chronic kidney disease Elevated cholesterol PVD (peripheral vascular disease) Myocardial infarction (~2000) CAD (coronary artery disease) HTN (hypertension) Surgical History Hx of cataract extraction Hx of cystoscopy History of partial hysterectomy History of cardiac cath (~2000) History of endarterectomy (~2016) History of esophagogastroduodenoscopy (EGD) (~2019) History of colonoscopy (~2018) History of lung surgery (~2019) Hx of tubal ligation Hx of tonsillectomy History of lung biopsy (~2019) Family History Father Heart disease Mother Heart disease Brother Diabetes Sister Mental health disorder Social History Household Members: Other Household Members Other:: ex Housing: House Are you a primary home care and home health aides teacher to a significant other at home: No Do you presently have visiting nurse or other home services: No Alcohol intake: current Alcohol intake frequency: holidays/special occasions only Patient Tobacco Use Status: Current everyday Tobacco user Tobacco use type: Cigarette Cigarettes Per Day: 6 Years Smoked: 40 e-Cigarette/Vaping Use: Never Used Second Hand Smoke Exposure: No service: No Current occupational status: retired Cognitive needs: No Hearing needs: No Vision needs: Yes Review of Systems Const Denies night sweats and Denies weight gain ENT Denies lip swelling, Denies mouth pain, Reports nasal congestion and Denies tongue swelling Card Reports chest pain Resp Reports cough, Denies pain on inspiration and Denies pain with cough GI Denies abdominal pain Musc Denies no additional complaints Neuro Denies Neuro-related abnormal movements Psych Denies no additional complaints Juice/Lymph Denies easy bleeding and Denies lymphadenopathy Aller/Immun Denies lip swelling and Denies tongue swelling Physical Exam Vital Signs: Last Vital Signs Pulse 65 07/21/24 08:56 BP 128/72 07/21/24 08:56 Pulse Ox 96 07/21/24 08:56 Oxygen Delivery Method Room Air 07/21/24 08:56 BMI result Body Mass Index 13.1 Const General: alert Nutritional Appearance: underweight HEENT General nose exam: Abnormal external nose present and Nasal discharge present Eyes Pupils: Equal, round and reactive pupils present Neck Neck: Yes normal visual inspection, Yes full ROM and Yes no lymphadenopathy Chest Chest palpation & inspection: normal inspection of the chest Resp Effort & Inspection: normal respiratory effort Auscultation: diminished lung sounds Cardio Rate: regular rate Rhythm: regular rhythm Heart sounds: S1 normal heart sound present and S2 normal heart sound present GI Palpation (GI): Soft to palpation and nontender Auscultation: normal bowel sounds General: Yes no CVA tenderness Back/Spine/Pelvis Back: no CVA tenderness Skin General skin exam: rashes and/or lesions noted Neuro Cranial nerves: Yes Equal, round and reactive pupils present Assessment & Plan Assessment & Plan (1) Pulmonary nodules: Comment: +malignancy s/p SBRT Code(s): R91.8 - Other nonspecific abnormal finding of lung field Category: Medical Plan: 7 mm nodule (2) Nicotine dependence: Code(s): F17.200 - Nicotine dependence, unspecified, uncomplicated Category: Medical Qualifiers: Nicotine product type: cigarettes Substance use status: uncomplicated Qualified Code(s): F17.210 - Nicotine dependence, cigarettes, uncomplicated Plan: tobacco cesation (3) COPD (chronic obstructive pulmonary disease): Comment: (severe obstructive) Code(s): J44.9 - Chronic obstructive pulmonary disease, unspecified Category: Medical Qualifiers: COPD type: emphysema Emphysema type: centrilobular Qualified Code(s): J43.2 - Centrilobular emphysema Plan: cont respiratory therapy (4) Insomnia: Code(s): G47.00 - Insomnia, unspecified Category: Medical Qualifiers: Insomnia type: primary Qualified Code(s): F51.01 - Primary insomnia Plan Continue Trelegy. start Duoneb therapy twice a day Trazodone as needed for insomnia short-acting beta agonist as needed follow-up with Oncology and Rad onc follow-up in 6-8 months Medications: New ipratropium-albuterol 0.5 mg-3 mg(2.5 mg base)/3 mL 3 mL inhalation BID 180 mL 11RF 30 days J44.9 - Chronic obstructive pulmonary disease, unspecified Coding Level of Care Code Est Pt Level 4 (55889) Complex EM visit Add On G2211 Diagnoses Pulmonary nodules R91.8 Cigarette nicotine dependence without complication F17.210 Nicotine product type: cigarettes Substance use status: uncomplicated Centrilobular emphysema J43.2 COPD type: emphysema Emphysema type: centrilobular Primary insomnia F51.01 Insomnia type: primary Time Spent (min) 17
[2024-07-21 08:56] VITALS: BP 128/72; PULSE 65; O2SAT 96; BMI 13.1
--- OUTSIDE RECORDS SUMMARY | 2024-07-21 09:28 | XMS_ITS | Clinical Summary ---
Author Organization [facility] Address [address] [place] [address] Care Team Providers Care Home Assessment Nurse Name Role Phone Cheo Michaels MD Primary Care Provider [phone] Allergies No known active allergies Medications Medication [...] age to complete this topic Care Teams Home Assessment Nurse Relationship Specialty Start Date End Date Cheo Michaels MD [address] [facility] [place] [id number] PCP - General Internal Medicine 05/11/23
--- OUTSIDE RECORDS SUMMARY | 2024-07-21 09:28 | XMS_ITS | Clinical Summary ---
Author Organization [facility] Address [address] [facility] [address] [place] [address] Phone Care Team Providers Care Wrapper Sizer Name Role Phone Cheo Michaels MD Primary Care Provider [phone] Allergies No known active allergies Medications rosuvastatin [...] HEALTH MEDICARE [facility] [employer] Care Teams Wrapper Sizer Relationship Specialty Start Date End Date Cheo Michaels MD [address] [place], [place] [id number] PCP - General Internal Medicine 03/05/21
--- OUTSIDE RECORDS SUMMARY | 2024-07-21 09:28 | XMS_ITS | Clinical Summary ---
Author Organization [facility] Address [address] [place] [id number] Phone Care Team Providers Care Electrician Maintenance Name Role Phone Cheo Michaels MD Primary Care Provider [phone] Allergies No known active allergies Medications ferrous [...] - 06/01/2024 11:59 PM EST Hospital Encounter [facility] Radiation Oncology [address] [phone] Kathy Navarrete NP 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 (CMS/HCC) (Primary Dx) Discharge Disposition: Home or Self Care 05/24/2024 9:08 AM EST - 05/24/2024 11:59 PM [facility] Hospital Encounter [facility] CT Scan [address] [place] [address] Malignant neoplasm of upper lobe bronchus, left [...] Info) Description 10/31/2024 10:[address] [facility] Radiation Oncology [address] [phone] Kathy Navarrete NP [address] [place] [address] Health Maintenance Due Date Last Done Comments Breast Cancer Screening 1950 DTaP,Tdap,and Td Vaccines (1 - Tdap) 1970 RSV Immunization Adult Patients (1 - Risk 60-74 years 1-dose series) [...] Signed Date: 05/25/2024 10:18 ET Workstation ID: [id number] Transcribed By: Self Edit Transcribed Date: 05/25/2024 10:09 ET Narrative 05/25/2024 10:18 AM EST INDICATION: Lung carcinoma TECHNIQUE: CT scan of the chest obtained without contrast. Scanner: [employer] 128 slice VCT Dose reduction [...] Signed Date: 05/25/2024 10:18 ET Workstation ID: [id number] Transcribed By: Self Edit Transcribed Date: 05/25/2024 10:09 ET Aneesh Dwyer MD IMG CT PROCEDURES Final Result from Last 3 Months Insurance [employer] Care Teams Electrician Maintenance Relationship Specialty Start Date End Date Cheo Michaels MD [address] [place] [address] PCP - General Internal Medicine 02/18/17
== END 2024-07-21 09:19 | disposition home or self-care (01) ==
LOC: HO.HPS 08:53
PROVIDERS: PCP Internal Medicine; Visit Provider Hospitalist
DX: R91.8 Other nonspecific abnormal finding of lung field (principal); F17.210 Nicotine dependence, cigarettes, uncomplicated; J43.2 Centrilobular emphysema; F51.01 Primary insomnia
CPT/HCPCS: 99214; G2211

== ENCOUNTER → 2024-07-21 08:53 | Outpatient (BNVA) | payer MEDICARE, SELFPAY | PROVIDERS: PCP Internal Medicine; Visit Provider Hospitalist | DX: J43.2 Centrilobular emphysema (principal); R19.8 Other specified symptoms and signs involving the digestive system and abdomen; F51.01 Primary insomnia; F17.210 Nicotine dependence, cigarettes, uncomplicated | CPT/HCPCS: 99212 ==

== ENCOUNTER 2024-08-09 09:23 | Outpatient (AMB) | payer MEDICARE, SELFPAY ==
--- NOTE | 2024-08-09 09:28 | A.OFFVIS_ITS ---
Vital Signs 08/09/24 09:34 Height 5 ft 2 in Weight 66 lb BMI 12.1 BP 123/60 Blood Pressure Location Lt brachial Position Sitting Pulse 75 Pulse Oximetry (%) 94 Oxygen Delivery Method Room Air Intake Visit Reasons: s/p zina pt wants post op Intake Note: Patient follow up for Colonoscopy results and abdominal discomfort. Patient cc: abdominal discomfort with acid reflux, occasional kyle stool with constipation, poor appetite /no taste and loosing some weight, and always fatigue/tired. 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 Accompanied by: Self / Same As Patient Allergies No Known Allergies Allergy (Verified 08/09/24 09:29) HPI HPI s/p zina pt wants post op: Details: Assessment & Plan (1) GERD (gastroesophageal reflux disease): Code(s): K21.9 - Gastro-esophageal reflux disease without esophagitis Category: Medical Qualifiers: Esophagitis presence: without esophagitis Qualified Code(s): K21.9 - Gastro-esophageal reflux disease without esophagitis (2) Esophageal ulcer: Comment: Is covered 2019 EGD, no Courtney's on biopsy Code(s): K22.10 - Ulcer of esophagus without bleeding Category: Medical (3) Abdominal bloating: Code(s): R14.0 - Abdominal distension (gaseous) Category: Medical (4) Constipation: Code(s): K59.00 - Constipation, unspecified Category: Medical (5) Tubular adenoma of colon: Comment: 2023 SCOPE= 4 very large TA is repeat in 6 months because the 4th could not be removed in 1 procedure Code(s): D12.6 - Benign neoplasm of colon, unspecified Category: Medical Plan She still having tremendous difficulty getting her energy back after her treatment for carcinoma of the lung. She will have an upcoming PET scan to see if her treatment was successful. She had some difficulty with the prep because she was trying to chug it down too quickly. I told her to slow down to better fit her pace to make a less miserable experience and to drink all of it in 1 night instead of doing the split prep as this also was problematic for her. She was a little upset that 1 of the polyps was not removed but after explained to her the reason why she understood. With this she is agreeable to a 6 month follow-up to get the last 1 taken out. The procedure was well tolerated. The results were explained and the patient is agreeable to the follow-up interval as stated. The bowel pattern has returned to normal. Education was provided to tell any 1st degree relatives about their findings to be sure that they are screened by age 45. Educated that they will be put on a recall list when it is time for their repeat scope but should they move out of state or away from the hospital they will need to remember along with their primary to repeat the procedure in a timely fashion to avoid any adverse complications. She continues on her Amitiza and her famotidine and this seems to be controlling her GI conditions well. She did have moderate diverticulosis of the left colon which could be contributing to her intermittent feelings of discomfort. There is no sign of recurrent esophageal ulcer as was seen in 2019 and also no Barretts despite some visual suspicion with mild esophagitis on biopsy. She has a history of a heart attack but no current cardiac problems and has COPD and is currently being treated for lung cancer. There are no prior problems with anesthesia or sedation. There are no infectious disease problems. She had 4 very large tubular adenomas removed with 1 left in. Return office visit after the colonoscopy in January. Orders: Orders Colonoscopy - GI Use Only Today D12.6 - Benign neoplasm of colon, unspecified Amylase Today D12.6 - Benign neoplasm of colon, unspecified Lipase Today D12.6 - Benign neoplasm of colon, unspecified Medications: New peg 3350-electrolytes 236-22.74-6.74 -5.86 gram (Golytely) until fecal effluent is clear; do not exceed a total volume of 2,000 mL 240 mL PO Q10M 4,000 mL 0RF 1 day Z12.11 - Encounter for screening for malignant neoplasm of colon bisacodyl (Dulcolax (bisacodyl)) 10 mg (2 x 5 mg) PO BEDTIME 4 tabs 0RF 2 days Changed From simethicone after meals 180 mg PO QID PRN Abdominal Discomfort R14.0 - Abdominal distension (gaseous) To simethicone after meals 180 mg PO QID 120 caps 6RF Abdominal Discomfort R14.0 - Abdominal distension (gaseous) Refilled famotidine (Pepcid) 40 mg PO BEDTIME 90 tabs 3RF 90 days K21.9 - Gastro- esophageal reflux disease without esophagitis lubiprostone (Amitiza) 8 mcg PO BID 180 caps 3RF 90 days COLONOSCOPY Findings: Terminal Ileum: Not evaluated Cecum: A 2-3 mm sessile polyp - removed with a cold biopsy Ascending Colon: A 10 - 12 mm sessile polyp in the distal AC - removed with a hot snare Moderate diverticulosis throughout the entire colon Transverse Colon: A 3-4 mm sessile polyp - removed with a cold biopsy Moderate diverticulosis throughout the entire colon Descending Colon: Moderate diverticulosis throughout the entire colon Sigmoid Colon: Polypectomy site visualized at 40 cms with some edematous folds - biopsied (placed in container labelled SC polyp # 1). Two 12 -15 mm sessile polyps - removed with a hot snare (placed in container labelled SC polyp # 2). Severe diverticulosis with luminal narrowing Rectum: Normal Ano-rectum: Normal Impression and Post Procedure Diagnosis: Colonoscopy Findings: Five small to medium sized polyps were removed Moderate diverticulosis seen in the entire colon Plan: Pt has a FU appointment on 03/07/24 with Jacquie Staley NP, Repeat Colonoscopy in 3 years if polyps are adenomatous and 5 years if polyps are hyperplastic. BIOPSY Received: 02/21/24 Diagnosis A. Colon, transverse, polypectomy: Tubular adenoma; negative for high-grade dysplasia or carcinoma. B. Cecum, polypectomy: Inflammatory polyp. C. Colon, ascending, polypectomy: Fragments of tubular adenoma; negative for high-grade dysplasia or carcinoma. D. Colon, sigmoid #1, polypectomy: Colonic mucosa with mild surface hyperplastic changes. E. Colon, sigmoid #2, polypectomy: Fragments of tubular adenoma; negative for high-grade dysplasia or carcinoma; multiple additional levels examined TODAY'S VISIT She is agreeable to a 3 year follow up dependant on her health. She is quite frail, and she continues to struggle with CIC and rabbit turd stools. She also experiences some lower abdominal cramping. She was only using the Amitiza prn, and I advise her that it needs to be taken daily bid to be effective. The procedure was well tolerated. The results were explained and the patient is agreeable to the follow-up interval as stated. Education was provided to tell any 1st degree relatives about their findings to be sure that they are screened by age 45. Educated that they will be put on a recall list when it is time for their repeat scope but should they move out of state or away from the hospital they will need to remember along with their primary to repeat the procedure in a timely fashion to avoid any adverse complications. She tried u sing OTC Nexium but his just made her feel more nauseated. However, she did not well understand what is was for as she does not h ave much HB or dyspepsia. She has mostly bloating and very small post prandial BM's. She does have early satiety, most likely r/t her COPD and dry heaves when she is trying to cough up my phlegm. I think she needs to discuss this with her fitness centre manager as controlling the cough and secretions that trigger her gag reflex is the arana to this sx. She denies overt abd pain. She denies nausea. Next available. [facility] Medical History (Updated 08/09/24 @ 15:32 by DELORES Barrera) Encounter for general adult medical examination with abnormal findings Insomnia Post-COVID syndrome Fatigue Acute kidney injury Erythrocytosis Malignant neoplasm of upper lobe of left lung (~2019) Chronic pancreatitis Pulmonary nodules Angina pectoris GERD (gastroesophageal reflux disease) Sarcoidosis Hx of hiatal hernia History of IBS Nicotine dependence Thrombosis of right iliac artery Chronic cough COPD (chronic obstructive pulmonary disease) Arthritis Hx of chronic kidney disease Elevated cholesterol PVD (peripheral vascular disease) Myocardial infarction (~2000) CAD (coronary artery disease) HTN (hypertension) Surgical History (Updated 08/09/24 @ 09:30 by Tejal Acosta) Hx of cataract extraction Hx of cystoscopy History of partial hysterectomy History of cardiac cath (~2000) History of endarterectomy (~2016) History of esophagogastroduodenoscopy (EGD) (~2019) History of colonoscopy (~2018) History of lung surgery (~2019) Hx of tubal ligation Hx of tonsillectomy History of lung biopsy (~2019) Family History Father Heart disease Mother Heart disease Brother Diabetes Sister Mental health disorder Social History Household Members: Other Household Members Other:: ex Housing: House Are you a primary healthcare translator to a significant other at home: No Do you presently have visiting nurse or other home services: No Alcohol intake: current Alcohol intake frequency: holidays/special occasions only Patient Tobacco Use Status: Current everyday Tobacco user Tobacco use type: Cigarette Years Smoked: 40 e-Cigarette/Vaping Use: Never Used Second Hand Smoke Exposure: No service: No Current occupational status: retired Cognitive needs: No Hearing needs: No Vision needs: Yes Review of Systems Const Details: glasses Reports fatigue, Denies fever(s), Denies night sweats, Denies poor appetite and Reports weight loss ENT Reports Normal hearing present, Denies dysphagia, Denies odynophagia, Denies t hroat swelling and Denies tongue swelling Card Reports lightheadedness and Reports dyspnea on exertion Resp Reports dyspnea on exertion GI Details: Denies abdominal pain, Denies melena, Denies bloating, Denies hematochezia, Reports constipation, Reports GI cramping, Denies dysphagia, Denies excessive flatus, Denies early satiety, Reports heartburn, Denies diarrhea, Denies nausea, Denies odynophagia, Denies vomiting and Denies hematemesis Musc Reports back pain and Reports myalgias Skin/Breast Denies pruritus, Denies lesions, Denies rash and Denies jaundice Neuro Reports Normal hearing present and Denies Abnormal speech present Endo Reports fatigue Aller/Immun Denies throat swelling and Denies tongue swelling Physical Exam Vital Signs: Last Vital Signs Pulse 75 08/09/24 09:34 BP 123/60 08/09/24 09:34 Pulse Ox 94 08/09/24 09:34 Oxygen Delivery Method Room Air 08/09/24 09:34 BMI result Body Mass Index 12.1 Const General: cooperative, no acute distress, well developed and well groomed Nutritional Appearance: thin and underweight Orientation/consciousness: oriented to person, oriented to place and oriented to time Limitations: No language barrier and ambulation with cane HEENT Head: Yes normocephalic and Yes atraumatic Eyes General: appearance normal, both eyes and all related structures Pupils: Equal, round and reactive pupils present Neck Neck: Yes normal visual inspection and Yes no lymphadenopathy Thyroid: Thyroid normal Resp Effort & Inspection: normal respiratory effort and able to speak in complete sentences Auscultation: clear to auscultation bilaterally Cardio Rate: regular rate Rhythm: regular rhythm Heart sounds: Normal, physiologic split S2 sound present Peripheral pulses: radial pulses present and posterior tibial pulses present GI Inspection: No distended and No Abdominal panniculus present Palpation (GI): Soft to palpation, nontender, no guarding, not rigid and No hepatosplenomegaly present Percussion: Yes normal to percussion Auscultation: normal bowel sounds Rectal Exam - Female: deferred Skin General skin exam: no rashes or lesions noted, turgor normal, skin not dry, no jaundice, No spider nevi and no striae Rashes: no rashes Nails: normal Neuro General: oriented to person, oriented to place and oriented to time Cranial nerves: Yes Equal, round and reactive pupils present and Yes Normal hearing present Speech: No Abnormal speech present Extrem General: Yes normal to inspection, No clubbing, No cyanosis and No edema Psych Appearance: grossly normal and well kempt Mental Status: mental status grossly normal Speech and movement: Normal speech and movement present Affect: normal affect Attitude: cooperative Thought process: Normal thought process present and not confabulating Thought content: Normal thought content present Insight: Fair insight present (Psych) Judgement: Fair judgement present (Psych) Assessment & Plan Assessment & Plan (1) Constipation: Code(s): K59.00 - Constipation, unspecified Category: Medical (2) Dysphagia: Code(s): R13.10 - Dysphagia, unspecified Category: Medical (3) Tubular adenoma of colon: Comment: 02/2024= TA is repeat in 3 years; SCOPE= 4 very large TA is repeat in 6 months because the 4th could not be removed in 1 procedure Code(s): D12.6 - Benign neoplasm of colon, unspecified Category: Medical (4) Abdominal bloating: Code(s): R14.0 - Abdominal distension (gaseous) Category: Medical Plan She is agreeable to a 3 year follow up dependant on her health. She is quite frail, and she continues to struggle with CIC and rabbit turd stools. She also experiences some lower abdominal cramping. She was only using the Amitiza prn, and I advise her that it needs to be taken daily bid to be effective. The procedure was well tolerated. The results were explained and the patient is agreeable to the follow-up interval as stated. Education was provided to tell any 1st degree relatives about their findings to be sure that they are screened by age 45. Educated that they will be put on a recall list when it is time for their repeat scope but should they move out of state or away from the hospital they will need to remember along with their primary to repeat the procedure in a timely fashion to avoid any adverse complications. She tried u sing OTC Nexium but his just made her feel more nauseated. However, she did not well understand what is was for as she does not h ave much HB or dyspepsia. She has mostly bloating and very small post prandial BM's. She does have early satiety, most likely r/t her COPD and dry heaves when she is trying to cough up my phlegm. I think she needs to discuss this with her fitness centre manager as controlling the cough and secretions that trigger her gag reflex is the arana to this sx. She denies overt abd pain. She denies nausea. Next available. Next office visit verify why she has fallen off taking Creon, this was for chronic pancreatitis and could be contributing to her bloating. Orders: Orders [place] barium swallow Today R13.10 - Dysphagia, unspecified Medications: Changed From lubiprostone (Amitiza) 8 mcg PO BID PRN K59.00 - Constipation, unspecified To lubiprostone (Amitiza) 8 mcg PO BID 60 caps 12RF K59.00 - Constipation, unspecified Coding Level of Care Code Est Pt Level 3 (31489) Diagnoses Constipation K59.00 Dysphagia R13.10 Tubular adenoma of colon D12.6 Abdominal bloating R14.0
[2024-08-09 09:34] VITALS: BP 123/60; PULSE 75; O2SAT 94; BMI 12.1
--- OUTSIDE RECORDS SUMMARY | 2024-08-09 10:22 | XMS_ITS | Clinical Summary ---
Author Organization [facility] Address [address] [place] [address] Care Team Providers Care Scalehouse Attendant Name Role Phone Cheo Michaels MD Primary Care Provider [phone] Allergies No known active allergies Medications Medication [...] age to complete this topic Care Teams Scalehouse Attendant Relationship Specialty Start Date End Date Cheo Michaels MD [address] [facility] [place] [id number] PCP - General Internal Medicine 05/11/23
--- OUTSIDE RECORDS SUMMARY | 2024-08-09 10:22 | XMS_ITS | Clinical Summary ---
Author Organization [facility] Address [address] [facility] [address] [id number] Phone Care Team Providers Care Expressive Therapist Name Role Phone Cheo Michaels MD Primary Care Provider [phone] Allergies No known active allergies Medications rosuvastatin [...] Comments Breast Cancer Screening 1950 Pneumococcal Vaccine: 50+ Ye ars (1 of 2 - PCV) 1970 Colorectal Cancer Screening: Annual FOBT 2000 Colorectal Cancer Screening: Colonoscopy 2000 Colorectal Cancer Screening: Sigmoidoscopy 2000 Influenza Vaccine (Season Ended) 2024 Hepatitis B Vaccine Aged Out No longe r eligible based on patient's age to complete this topic Insurance [employer] Medicare [employer] Medicare Care Teams Expressive Therapist Relationship Specialty Start Date End Date Cheo Michaels MD [address] [place], [place] [id number] PCP - General Internal Medicine 03/05/21
--- OUTSIDE RECORDS SUMMARY | 2024-08-09 10:22 | XMS_ITS | Continuity of Care Document ---
Author Organization [facility] Address [address] [place] [address]- Care Team Providers Care Senior Market Intelligence Consultant Name Role Phone Brando LINTON, Cheo Primary Care [id number] Date(s): 07/31/24 - 08/07/24 [facility] [address], [place] [address] Attending Physician: Cher Sarabia NP Admitting Physician: Cher Sarabia NP Referring Physician: Cheo Michaels MD Encounter Type: Office Visit Allergies, Adverse Reactions, Alerts No Known Allergies Medications azithromycin 250 mg oral tablet 1 tablet = 250 mg, By Mouth, Daily, 2 tablets on first day, then one tablet daily for 4 days, # 6 tablet, 0 Refills, Maintenance, 01/19/24 7:44:00 AM EDT, Tablet, Partial fill upon patient request if the prescription is for a schedule II opioid drug. Start Date: 01/19/24 Status: Ordered Quantity: 6.0 Unit: tablet Repeat number: 1 clopidogrel 75 mg oral tablet 1, tablet, By Mouth, Daily, # 90 tablet, Refills 5, Tot. Refills 5, Maintenance, 10/04/23 10:29:00 AM EDT, Route to Pharmacy Electronically, [facility]/pharmacy #[id number], 157.5, cm, 06/29/23 9:35:00 EDT, Height Start Date: 10/04/23 Status: Ordered Quantity: 90.0 Unit: tablet Repeat number: 6 diltiazem 24 hour extended release = 120 mg, By Mouth, Daily, 0 Refills, Maintenance, 11/16/16 4:23:48 PM EDT Start Date: 11/16/16 Status: Ordered Repeat number: 1 docusate sodium 100 mg oral capsule 0 Refills, Maintenance, 06/29/23 9:39:00 AM EDT, Partial fill upon patient request if the prescription is for a schedule II opioid drug. Start Date: 06/29/23 Status: Ordered Repeat number: 1 fluticasone-vilanterol See Instructions, Inhalation every other day, 0 Refills, Maintenance, 02/10/17 9:41:31 AM EDT Start Date: 02/10/17 Status: Ordered Repeat number: 1 Multivitamin Daily, 0 Refills, Maintenance, 07/14/17 10:20:57 AM EDT Start Date: 07/14/17 Status: Ordered Repeat number: 1 rosuvastatin 20 mg oral tablet 1 tablet = 20 mg, By Mouth, Daily, 0 Refills, Maintenance, 04/07/17 3:44:32 PM EST Start Date: 04/07/17 Status: Ordered Repeat number: 1 Problem List Condition Confirmation Course Effective Dates Status H ealth Status Informant Cachexia Confirmed Active CAD (coronary artery disease) Confirmed 2000 Active Chronic renal insufficiency Confirmed Active Erythrocytosis Confirmed Active HLD (hyperlipidemia) Confirmed Active HTN (hypertension) Confirmed Active Pulmonary nodule, left upper lobe, biopsy Confirmed Active Old GA (myocardial infarction) Confirmed 2000 Active OA (osteoarthritis) Confirmed Active PAD (peripheral artery disease) Confirmed Active Palpitations Confirmed Active Centrilobular Emphysema of lung Confirmed Active Current smoker, 1-1.5 ppd X49 years Confirmed Active Underweight Confirmed Active Vital Signs Most recent to oldest [Reference Range]: 1 Height 157.5 cm (07/31/24 8:15 AM) Weight 30.90 kg (07/31/24 8:15 AM) Oxygen Saturation [94-100 %] 97 % (07/31/24 8:15 AM) Pulse Rate [55-90 bpm] 67 bpm (07/31/24 8:15 AM) Body Mass Index [18.5-24.99 kg/m2] 12.46 kg/m2 *L* (07/31/24 8:15 AM) Blood Pressure [90-138/55-84 mm Hg] 110/ 40mm Hg (07/31/24 8:15 AM) Mode of Delivery (Oxygen) Room air (07/31/24 8:15 AM) Blood pressure sites Arm, left (07/31/24 8:15 AM) Weight Obtained Via Patient/family state d (07/31/24 8:15 AM) Social History Social History Type Response Smoking Status Current some day smo ker; Type: Cigarettes; Tobacco use times per day: 1.5 ppd; entered on: 07/14/17 Sex Sex Representation Female (finding) Note * Ricki Butler: PERFORM Event Display: Patient Education/Instruction Authored Date: [id number] Ambulatory Adult Visit Summary [facility] [address] [facility] [address] [place] [address] Name: RACHAEL BRENNAN : 1950?? Visit: 07/31/2024 07:55?? Ambulatory Visit Instructions ?? Your Care Team Primary Care Provider Brando LINTON, Cheo? This Visit Provider Cornell BEARD , Cher Ruiz Vitals Signs Pulse Rate: 67 bpm Height: 157.5 cm Systolic Blood Pressure: 110 mm Hg Weight: 30.9 kg Diastolic Blood Pressure:??40 mm Hg??Low Body Mass Index:??12.46 kg/m2??Low Oxygen Saturation: 97 % Body surface area: 1.16 Medications The list below reflects the information in our records and provided by you today along with any changes made during this visit. Please continue your medications until treatment is completed or stopped by your provider. If this is different from the information you have or there are other questions,please contact the prescribing provider. What How Much When Instructions Unchanged Azithromycin (azithromycin 250 mg oral tablet) 1 tab(s) Oral Daily 2 tablets on first day, then one tablet daily for 4 days ?? Unchanged Clopidogrel (clopidogrel 75 mg oral tablet) 1 tab(s) Oral Daily Unchanged Diltiazem (diltiazem 24 hour extended release) 120 Milligram Oral Daily Unchanged Docusate (docusate sodium 100 mg oral capsule) Unchanged fluticasone-vilanterol See instructions Inhalation every other day ?? Unchanged Multivitamin Daily Unchanged Rosuvastatin (rosuvastatin 20 mg oral tablet) 1 tab(s) Oral Daily Medications and Immunizations Administered Medications Given During Visit No medications given during this visit.?? Allergies (NKA means No Known Allergies) NKA Common Emergency Awareness Tips IS IT A STROKE? Act FAST and Check for these signs: FACE Does the face look uneven? ARM Does one arm drift down? SPEECH Does their speech sound strange? TIME Call at any sign of stroke ?? Heart Attack Signs Chest discomfort: Most heart attacks involve discomfort in the center of the chest and lasts more than a few minutes, or goes away and comes back. It can feel like uncomfortable pressure, squeezing, fullness or pain. Discomfort in upper body: Symptoms can include pain or discomfort in one or both arms, back, neck, jaw or stomach. Shortness of breath: With or without discomfort. Other signs: Breaking out in a cold sweat, nausea, or lightheaded. Remember, MINUTES DO MATTER. If you experience any of these heart attack warning signs, call to get immediate medical attention! ?? Smoking can increase your chances of developing chronic health problems and can cause harmful effects to other family members in your house. If you smoke, you are strongly encouraged to quit. Please call [facility] at [phone] or [phone] Vision ([phone]) or log in to [email or web address] for referrals to smoking cessation programs. ?? The National Suicide Prevention Hotline is available 09/11 if you or someone you know needs to find a reason to keep living. By calling 5-704-565-Grapeword (4591) you'll be connected to a skilled, trained counselor at a crisis center in your area. [facility] Portal You can view and manage your care through the patient portal or by using a health care zeferino of your choosing. [employer] is a website that allows you to securely view your medical information including your hospital discharge summary, office visit summaries, medications and follow-up visits. You can also request appointments, renew medications, and request access to your medical information using a health care zeferino of your choosing, or just ask a question. You can enroll at [email or web address] or register during your next office visit. [facility], in keeping with [facility] guidance, no longer requires face masks for staff, patientsor visitors in most situations. Similiar to time spent indoors at other locations, there is the chance that you were exposed to repiratory viruses during your time with us (such as flu or COVID-19). If you develop symptoms concerning for a viral respiratory infection, please seek testing (and treatment if indicated) from your medical provider or home test kit. ?? Disclaimer: The information provided is of a general nature and is intended to be used in conjunction with the recommendations and advice of your health care practitioner. Every effort has been made to ensure that the information provided is accurate and complete at the time it is provided to you however, as your needs change, or, as new information becomes available, different or additional instructions may be required. ?? If you have questions, please consult with your primary care provider or pharmacist, as appropriate. This information is not intended to serve as substitution for assessment and evaluation by a qualified health care provider. If you do not have a primary care provider, you may find a [facility] provider by calling [facility] at [phone]. Patient Care team information Care Team Personnel Name: Cinthya LINTON, Wade Leon Position: [facility] Renal MD Member Role: Lifetime Consulting Physician Address: [address] [place] [address] [address] [facility] [place], [place] [address] Telecom: Name: Brando LINTON, Asma Position: Reference Physician Member Role: PCP Address: [address] [place], [place] [address] Telecom: Name: Sandy Aponte RN Position: [facility] SN RN Member Role: Primary Care Nurse Care Team Related Persons Name: LUANNE BRENNAN Name: DEBRA BRENNAN Insurance Providers Guarantor name: RACHAEL [facility] Health [facility] Information #: 1 Payer: [facility] Member Number: [id number] Policy Number: NA Group Number: [id number] Health Plan Information #: 2 Payer: [facility] Member Number: [id number] Policy Number: NA Group Number: [id number]
--- OUTSIDE RECORDS SUMMARY | 2024-08-09 10:22 | XMS_ITS | Clinical Summary ---
Author Organization [facility] Address [address] [place] [phone] Phone Care Team Providers Care Agricultural Technician Name Role Phone Cheo Michaels MD Primary Care Provider [phone] Allergies No known active allergies Medications ferrous [...] Date Chronic renal insufficiency 05/29/2024 Pulmonary emphysema ([facility] V24, [facility] V28) 0 05/29/2024 PAD (peripheral artery disease) ([facility] V24) Lung mass 05/29/2024 OA (osteoarthritis) 05/29/2024 Palpitations 05/29/2024 Underweight 05/29/2024 Cachexia ([facility] V24) 05/25/2023 CAD (coronary artery disease) 05/25/2023 Current smoker 05/25/2023 Erythrocytosis 05/25/2023 Angina pectoris ([facility] V24) 01/17/2021 Chronic kidney disease 01/17/2021 Peripheral vascular disease ([facility] V24) 2020 Thrombosis 01/17/2021 Malignant neoplasm metastati c to lung ([facility] V24, [facility] V28) 01/17/2021 Old myocardial infarction 01/17/2021 Pancreatitis 01/17/2021 Chronic obstructive pulmonar y disease ([facility] V24, [facility] V28) 11/23/2016 Lung nodule 11/23/2016 Hyperlipidemia 09/09/2016 Hypertension 09/09/2016 Encounters Date Type Department Care Team Description 06/01/2024 8:41 AM EST - 06/01/2024 11:[address] [facility] Hospital Encounter 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 Hospital Encounter [facility] CT Scan [address] [place] [address] Malignant neoplasm of upper lobe bronchus, left ([facility] V24, [facility] V28) Discharge Disposition: Home or Self Care from Last 3 Months Surgical History Surgery Date Site/Laterality Comments LUNG SURGERY PROCEDURE:LUNG SURGERY Medical History Medical History Date Comments Lung cancer ([facility] V24, [facility] V28) DX:Lung cancer ([facility]) Hypertension DX:Hypertension COPD (chronic obstructive pu lmonary disease) ([facility] V24, [facility] V28) DX:COPD (chronic o bstructive pulmonary disease) ([facility]) PAD (peripheral artery disea se) ([facility] V24) DX:PAD (peripheral artery di sease) ([facility]) Family History Relation Name Status Comments Father [...] Description 10/31/2024 10:[address] [facility] [address] [address] Kathy Navarrete NP [address] [place] [address] Health Maintenance Due Date Last Done Comments [...] season) 2023 03/25/2021, 06/17/2020, 05/17/2020 Influenza Vaccine (Season Ended) 2024 02/04/2022, 01/28/2021, 12/22/2018, Additional history exists Pneumococcal Vaccine: [...] age to complete this topic Meningococcal B Vaccine Aged Out No l onger eligible based on patient's age to complete [...] Malignant neoplasm of upper lobe bronchus, left (CMS/HCC V24, CMS/HCC V28) from Last 3 Months Results * CT [...] Signed Date: 05/25/2024 10:18 ET Workstation ID: [id number] Transcribed By: Self Edit Transcribed Date: 05/25/2024 10:09 ET Narrative 05/25/2024 10:18 AM EST INDICATION: Lung carcinoma TECHNIQUE: CT scan of the chest obtained without contrast. Scanner: [email or web address] 128 slice VCT Dose reduction technique: ASIR [...] of the chest obtained without contrast. Scanner: [employer] 128 slice VCT Dose reduction technique: ASIR [...] Signed Date: 05/25/2024 10:18 ET Workstation ID: [id number] Transcribed By: Self Edit Transcribed Date: 05/25/2024 10:09 ET Aneesh Dwyer MD IMG CT PROCEDURES Final Result from Last 3 Months Insurance [employer] Care Teams Agricultural Technician Relationship Specialty Start Date End Date Cheo Michaels MD [address] [place] [address] PCP - General Internal Medicine 02/18/17
== END 2024-08-09 10:17 | disposition home or self-care (01) ==
LOC: HO.HGI 09:24
PROVIDERS: PCP Internal Medicine; Visit Provider Nurse Practitioner
DX: K59.00 Constipation, unspecified (principal); R13.10 Dysphagia, unspecified; D12.6 Benign neoplasm of colon, unspecified; R14.0 Abdominal distension (gaseous)
CPT/HCPCS: 99213

== ENCOUNTER → 2024-08-09 09:23 | Outpatient (BNVA) | payer MEDICARE, SELFPAY | PROVIDERS: PCP Internal Medicine; Visit Provider Nurse Practitioner | DX: K21.9 Gastro-esophageal reflux disease without esophagitis (principal); K22.10 Ulcer of esophagus without bleeding; R14.0 Abdominal distension (gaseous); K59.00 Constipation, unspecified; D12.6 Benign neoplasm of colon, unspecified; R13.10 Dysphagia, unspecified | CPT/HCPCS: 99212 ==

== ENCOUNTER 2024-08-28 08:45 | Outpatient (REF) | payer MEDICARE, SELFPAY ==
--- OUTSIDE RECORDS SUMMARY | 2024-08-28 08:49 | XMS_ITS | Clinical Summary ---
Author Organization [facility] Address [address] [facility] [address] [place] [address] Phone Care Team Providers Care Reverse Unit Operator Name Role Phone Cheo Michaels MD Primary Care Provider [phone] Allergies No known active allergies Medications rosuvastatin [...] Health Medicare [employer] Medicare Care Teams Reverse Unit Operator Relationship Specialty Start Date End Date Cheo Michaels MD [address] [place], [place] [phone] PCP - General Internal Medicine 03/05/21
--- OUTSIDE RECORDS SUMMARY | 2024-08-28 08:49 | XMS_ITS | Clinical Summary ---
Author Organization [facility] Address [address] [place] [address] Care Team Providers Care Applications Consultant Name Role Phone Cheo Michaels MD Primary Care Provider [phone] Allergies No known active allergies Medications Medication [...] age to complete this topic Care Teams Applications Consultant Relationship Specialty Start Date End Date Cheo Michaels MD [address] [facility] [place] [phone] PCP - General Internal Medicine 05/11/23
== END 2024-08-28 08:46 | disposition home or self-care (01) ==
LOC: HO.BBR 08:45
PROVIDERS: PCP Internal Medicine; Visit Provider Internal Medicine Medical Oncology
DX: D75.1 Secondary polycythemia (principal)
CPT/HCPCS: 85018

== ENCOUNTER 2024-09-15 07:40 | Outpatient (REF) | payer MEDICARE, SELFPAY ==
--- NOTE | ~2024-09-15 | FL_ITS ---
EXAMINATION: XR BARIUM SWALLOW CLINICAL INFORMATION: Dysphagia. COMPARISON: None available. TECHNIQUE: Routine barium swallow was performed in upright view with oral administration of thin barium, barium coated saltine crackers. Subsequently patient was placed prone and thin barium was administered. FINDINGS: On oral administration of thin barium there is normal propagation bolus from the oral cavity through the pharynx, esophagus into stomach without any obstruction, narrowing or stricture. No extrinsic compression seen. No laryngeal penetration and aspiration. On oral administration of thick barium there is normal oral mastication and propagation of solid food from the oral cavity through the pharynx, esophagus into stomach without any evidence of obstruction, narrowing or stricture. On placing patient in prone lying and oral administration of thin barium there is normal distention of the entire esophagus without obstruction, narrowing or stricture. There is no gastroesophageal reflux or hiatal hernia. Incidental finding of is small proximal jejunal diverticulum is noted. FLUOROSCOPY TIME: 3 minutes DOSE AREA PRODUCT: 652 uGy-m2 (microgray-meter squared) FL/FL barium swallow IMPRESSION: Unremarkable barium swallow exam with thin, thick barium and barium coated saltine crackers as solid food. There is no intrinsic or extrinsic esophageal obstruction or compression. Electronically signed by: Ángel Choe MD 09/15/2024 04:38 PM EDT
--- OUTSIDE RECORDS SUMMARY | 2024-09-15 07:42 | XMS_ITS | Clinical Summary ---
Author Organization [facility] Address [address] [facility] [address] [place] [address] Phone Care Team Providers Care Hydraulic Technician Name Role Phone Cheo Michaels MD Primary Care Provider [phone] Allergies No known active allergies Medications rosuvastatin [...] Health Medicare [employer] Medicare Care Teams Hydraulic Technician Relationship Specialty Start Date End Date Cheo Michaels MD [address] [place], [place] [phone] PCP - General Internal Medicine 03/05/21
== END 2024-09-15 07:41 | disposition home or self-care (01) ==
LOC: HO.XRAY 07:40
PROVIDERS: PCP Internal Medicine; Visit Provider Nurse Practitioner
DX: R13.10 Dysphagia, unspecified (principal)
CPT/HCPCS: 74220

== ENCOUNTER → 2024-09-15 07:41 | Outpatient (BNV) | payer MEDICARE, SELFPAY | PROVIDERS: PCP Internal Medicine; Visit Provider Radiology Diagnostic Radiology | DX: R13.10 Dysphagia, unspecified (principal) | CPT/HCPCS: 74220 ==

== ENCOUNTER 2024-10-03 14:23 | Outpatient (REF) | payer MEDICARE, SELFPAY ==
[2024-10-03 16:18] LABS: MANUAL DIFF FLAG NO
[2024-10-03 16:23] LABS: Basophils Absolute Auto 0.1 X10*3/uL (0.0-0.2); Eosinophils Absolute Auto 0.1 X10*3/uL (0.0-0.4); Eosinophils Percent Auto 1.3 % (0-4); Hematocrit 40.3 % (37.0-47.0); Hemoglobin 12.7 g/dl (12.0-16.0); Imm Gran Abs Auto 0.03 X10*3/uL (0.00-0.03); Imm Gran Pct Auto 0.4 % (0.0-0.4); Lymphocytes Absolute Auto 0.9 X10*3/uL (1.2-4.9); Lymphocytes Percent Auto 12.1 % (20-40); Mean Corpuscular HGB Conc 31.5 g/dl (31.0-35.0); Mean Corpuscular Volume 98.3 fL (80.0-98.0); Mean Platelet Volume 9.3 fL (9.4-12.3); Monocytes Absolute Auto 0.8 X10*3/uL (0.1-1.2); Monocytes Percent Auto 10.3 % (2-11); Neutrophils Absolute Auto 5.8 x10*3/uL (2.0-8.3); Neutrophils Percent Auto 74.9 % (45-73); Platelet Count 199 X10*3/uL (160-400); Red Cell Distribution Width 15.2 % (11.0-16.0); White Blood Count 7.7 X10*3/uL (4.8-10.8)
[2024-10-03 17:41] LABS: Alanine Aminotransferase 35 U/L (0-31); Albumin Level 4.3 g/dL (3.5-5.0); Alkaline Phosphatase 70 U/L (39-117); Anion Gap 7 (12-20); Aspartate Amino Transferase 33 U/L (5-31); Bilirubin Total 0.4 mg/dL (0.0-1.0); Blood Urea Nitrogen 21 mg/dL (9-16); Calcium 9.5 mg/dL (8.4-10.2); Carbon Dioxide 27 mmol/L (22-29); Chloride 110 mmol/L (96-108); Estimated Glomerular Filt Rate 40; Glucose Random 83 mg/dL (60-115); Sodium 140 mmol/L (135-145); Total Protein 6.4 g/dL (6.5-8.0)
[2024-10-03 17:45] LABS: Vitamin B12 345 pg/mL (200-900)
[2024-10-03 18:01] LABS: TSH reflex Free T4 2.36 uIU/mL (0.32-4.0)
[2024-10-04 15:29] LABS: LDL Cholesterol Direct 65 mg/dL (<100)
[2024-10-06 18:34] LABS: Vitamin D 25-OH, D2 <4 ng/mL; Vitamin D 25-OH, D3 13 ng/mL; Vitamin D 25-OH, Total 13 ng/mL (30-100)
== END 2024-10-03 14:24 | disposition home or self-care (01) ==
LOC: HO.HMGCLDS 14:23
PROVIDERS: PCP Internal Medicine; Visit Provider Internal Medicine
DX: Z00.01 Encounter for general adult medical examination with abnormal findings (principal); J43.2 Centrilobular emphysema; I12.9 Hypertensive chronic kidney disease with stage 1 through stage 4 chronic kidney disease, or unspecified chronic kidney disease; N18.32 Chronic kidney disease, stage 3b; I70.1 Atherosclerosis of renal artery; D50.8 Other iron deficiency anemias; M85.80 Other specified disorders of bone density and structure, unspecified site; K59.01 Slow transit constipation; R14.0 Abdominal distension (gaseous); K21.9 Gastro-esophageal reflux disease without esophagitis; D75.1 Secondary polycythemia; F17.210 Nicotine dependence, cigarettes, uncomplicated; R94.4 Abnormal results of kidney function studies; Z79.899 Other long term (current) drug therapy; Z13.31 Encounter for screening for depression
CPT/HCPCS: 36415; 80053; 82306; 82607; 83721; 84443; 85025; 96127; 99212; 99397

== ENCOUNTER 2024-10-03 14:23 | Outpatient (AMB) | payer MEDICARE, SELFPAY ==
--- NOTE | 2024-10-03 14:25 | MHC.PC.OV ---
Vital Signs 10/03/24 14:26 Height 5 ft 1 in Weight 67 lb BMI 12.7 BP 120/74 Blood Pressure Location Rt brachial Position Sitting Pulse 77 Pulse Source Pulse Oximeter Temp 97.7 F Temp Source Oral Pulse Oximetry (%) 96 Oxygen Delivery Method Room Air Intake Visit Reasons: Annual PE Allergies No Known Allergies Allergy (Verified 10/03/24 14:25) Medication List - Last Reconciled 10/03/24 by Cheo Michaels MD azithromycin 250 mg PO 3XW 28 days clopidogrel (Plavix) 1 tab PO DAILY diltiazem HCl CD 240 mg PO DAILY docusate sodium 100 mg PO BID PRN famotidine (Pepcid) 40 mg PO BEDTIME PRN ferrous sulfate (Feosol) 325 mg PO DAILY offqjeexqci-fznubvmii-wpaetjcu 200-62.5-25 mcg (Trelegy Ellipta) 1 inh inhalation DAILY 30 days nitroglycerin 1 tab sublingual NEEDED rosuvastatin 1 tab PO DAILY simethicone 180 mg PO QID PRN Tobacco use date assessed: 10/03/24 Fall risk assessment: No Falls in past year Last assessed Fall Risk: 10/03/24 Dental Screening Dental Screen Date: 10/03/24 Did you have a dental visit in the last 12 months?: No Did you have a dental problem in the last 6 months where you did not have access to dental care?: No Was dental information given to patient?: No HPI Annual PE HPI Details Physical exam - The patient is a 74-year-old female presenting for a wellness visit patient has a history of severe COPD continued to smoke, vascular disease, underweight with BMI of 12.7 Chronic kidney disease, hyperlipidemia, polycythemia, anemia, abdominal bloating, GERD, vitamin-D supplement - The patient was previously diagnosed with anemia, and her hemoglobin was noted to be 9.8 in March; she is currently taking iron supplements. - Chronic Kidney Disease is suggested by her creatinine level of 1.51, noted as high in the last laboratory results. - The patient reports prior wheezing and acknowledges ongoing tobacco use. - Polycythemia was identified during a blood donation session as she needed a therapeutic blood draw due to erythrocytosis. - She continues to manage Hyperlipidemia with medication, specifically rosuvastatin. Medical History: - Type 2 Diabetes Mellitus - Anemia - Chronic Kidney Disease - Hyperlipidemia - Tobacco Use Disorder - Polycythemia Social History: - Lives with her son. - Denies living alone and can perform daily activities such as groceries. - Reports ongoing tobacco use. - Denies willingness to have further mammograms due to discomfort. Health Maintenance - Mammogram conducted last October; the patient refuses future mammograms due to discomfort. - Laboratory results to be repeated; previous results showed elevated creatinine and low hemoglobin. - Vitamin D levels previously low; supplementation advised. - encouraged to go over vaccine with pharmacy and receive Prevnar I have no record of that [facility] - Dr. Rodriguez (primary care) - Dr. Martinez (lung specialist) - nephrology, blood pressure medications through wood getter Medications - Clopidogrel - Diltiazem - Famotidine - Iron Supplements - Rosuvastatin for hyperlipidemia - Smythicon (likely simethicone) - Ellipta (possibly inhaler for respiratory issue) Patient Instructions - Begin taking vitamin D supplements as prescribed. - Discuss immunizations with pharmacy and ensure they are up to date. - Dietary recommendations include consuming foods rich in iron to address anemia. - blood test to be conducted today - Follow up in one year for a physical exam unless lab abnormalities necessitate a phone visit sooner. Review of Systems - General: No fever no chills - Neurological: No headaches no dizziness - Ear nose throat: No sore throat no hearing difficulty no ear pain - Cardiovascular: No syncope, no chest pain, no palpitations - Gastrointestinal: No nausea vomiting or diarrhea - Endocrine: No polyuria polydipsia no heat intolerance - Genitourinary: No dysuria - Skin: No new complaints Physical Exam General: Cooperative, comfortable, no acute distress Orientation: Patient oriented x3 Head: Normal to inspection Ears: Within normal limit visually Nose: Normal external nose present Face and sinus: Normal facial exam Eyes: Appearance normal, extraocular movement intact pupils reactive Neck: Normal visual inspection and supple Respiratory: Wheezing noted Cardiovascular: S1 and S2 RRR Breast exam declined GI: Normal to inspection. Soft to palpation and nontender Skin: Turgor normal, no acute findings Neuro: Patient oriented x3, motor sensory intact, balance intact, tandem pass, uses cane for ambulation Extremities: Normal to inspection [facility] Medical History Encounter for general adult medical examination with abnormal findings Insomnia Post-COVID syndrome Fatigue Acute kidney injury Erythrocytosis Malignant neoplasm of upper lobe of left lung (~2019) Chronic pancreatitis Pulmonary nodules Angina pectoris GERD (gastroesophageal reflux disease) Sarcoidosis Hx of hiatal hernia History of IBS Nicotine dependence Thrombosis of right iliac artery Chronic cough COPD (chronic obstructive pulmonary disease) Arthritis Hx of chronic kidney disease Elevated cholesterol PVD (peripheral vascular disease) Myocardial infarction (~2000) CAD (coronary artery disease) HTN (hypertension) Surgical History Hx of cataract extraction Hx of cystoscopy History of partial hysterectomy History of cardiac cath (~2000) History of endarterectomy (~2016) History of esophagogastroduodenoscopy (EGD) (~2019) History of colonoscopy (~2018) History of lung surgery (~2019) Hx of tubal ligation Hx of tonsillectomy History of lung biopsy (~2019) Family History Father Heart disease Mother Heart disease Brother Diabetes Sister Mental health disorder Social History Household Members: Other Household Members Other:: ex Housing: House Are you a primary career and transition teacher to a significant other at home: No Do you presently have visiting nurse or other home services: No Alcohol intake: current Alcohol intake frequency: holidays/special occasions only Patient Tobacco Use Status: Current everyday Tobacco user Tobacco use type: Cigarette Years Smoked: 40 e-Cigarette/Vaping Use: Never Used Second Hand Smoke Exposure: No service: No Current occupational status: retired Cognitive needs: No Hearing needs: No Vision needs: Yes Questionnaire PHQ-9 Over the last 2 weeks, how often have you been bothered by any of the following problems? 1. Little interest or pleasure in doing things: more than half the days 2. Feeling down, depressed, or hopeless: more than half the days 3. Trouble falling or staying asleep, or sleeping too much: more than half the days 4. Feeling tired or having little energy: more than half the days 5. Poor appetite or overeating: more than half the days 6. Feeling bad about yourself - or that you are a failure or have let yourself or your family down: not at all 7. Trouble concentrating on things, such as reading the newspaper or watching television: more than half the days 8. Moving or speaking so slowly that other people could have noticed. Or the opposite - being so fidgety or restless that you have been moving around a lot more than usual: more than half the days 9. Thoughts that you would be better off or of hurting yourself in some way: not at all Total score: 14 Depression Screening Interpretation: Positive Depression Screening Follow-up: Community Mental Health Worker F/U Depression Screening Done: Yes 25412 - PHQ-9 Billing: Yes Source: Developed by Drs. Cortez Duran, Rosaura Washington, Emigdio Logan and colleagues, with an educational alayna from [employer]. Thrive Questionnaire Date Thrive assessed: 10/03/24 I am a: Patient What is your living situation today?: I have a steady place to live Within the past 12 months, did the food you bought not last and you didn't have the money to get more?: Never true Within the past 12 months, did you worry whether your food would run out before you got money to buy more?: Never true Do you have trouble paying for medicines?: Yes Do you have trouble getting transportation to medical appointments?: No Do you have trouble paying your heating and electricity bill?: No Do you have trouble taking care of your child, family member or friend?: No Do you have trouble with day-to-day activities such as bathing, preparing meals, shopping, managing finances, etc.?: No Are you currently unemployed and looking for a job?: No Are you interested in more education?: No THRIVE Score: 0 LALO-7 AMB Questionnaire LALO-7 Date LALO - 7 assessed: 07/23/23 Source: Developed by Drs. Cortez Duran, Rosaura Washington, Emigdio Logan and colleagues, with an educational alayna from [employer]. Physical exam (Primary Care) Vital Signs: Last Vital Signs Temp 97.7 F 10/03/24 14:26 Pulse 77 10/03/24 14:26 BP 120/74 10/03/24 14:26 Pulse Ox 96 10/03/24 14:26 Oxygen Delivery Method Room Air 10/03/24 14:26 BMI result Body Mass Index 12.7 Tobacco/Smoking Status: Tobacco use Status Tobacco use date assessed 10/03/24 10/03/24 14:32 Patient Tobacco Use Status Current everyday Tobacco 10/03/24 14:32 Tobacco use type Cigarette 10/03/24 14:32 e-Cigarette/Vaping Use Never Used 10/03/24 14:32 PHQ-9: PHQ-9 Score PHQ-9: Total score 14 10/03/24 14:32 Depression Screening Interpretation: Positive Depression Screening Follow-up: Community Mental Health Worker F/U Thrive Assessment: Date of Thrive Assessment Date Thrive assessed 10/03/24 10/03/24 14:32 Coding Level of Care Code Est Pt Level 3 (89783) Est Pt Prev Care >65y(98748) Diagnoses Encounter for general adult medical examination with abnormal findings Z00.01 Centrilobular emphysema J43.2 COPD type: emphysema Emphysema type: centrilobular Hypertension, essential I10 Other iron deficiency anemia D50.8 Anemia type: iron deficiency Iron deficiency anemia type: other iron deficiency Cigarette nicotine dependence without complication F17.210 Nicotine product type: cigarettes Substance use status: uncomplicated Stage 3b chronic kidney disease N18.32 Chronic kidney disease stage 3 subtype: stage 3b (GFR 30-44) Osteopenia, unspecified location M85.80 Osteopenia location: unspecified Slow transit constipation K59.01 Constipation type: slow transit constipation Abdominal bloating R14.0 Gastroesophageal reflux disease without esophagitis K21.9 Esophagitis presence: without esophagitis Erythrocytosis D75.1 Positive depression screening Z13.31 Additional Codes PHQ-9 - 85064 - PHQ-9 Billing: Yes ([id number]) Assessment & Plan Assessment & Plan (1) Encounter for general adult medical examination with abnormal findings: Code(s): Z00.01 - Encounter for general adult medical examination with abnormal findings Category: Medical (2) COPD (chronic obstructive pulmonary disease): Comment: (severe obstructive) Code(s): J44.9 - Chronic obstructive pulmonary disease, unspecified Category: Medical Qualifiers: COPD type: emphysema Emphysema type: centrilobular Qualified Code(s): J43.2 - Centrilobular emphysema Plan: cont respiratory therapy (3) Hypertension, essential: Comment: History of renal artery stenosis. Ostial stenosis on the right no stenosis on the left Code(s): I10 - Essential (primary) hypertension Category: Medical (4) Anemia: Code(s): D64.9 - Anemia, unspecified Category: Medical Qualifiers: Anemia type: iron deficiency Iron deficiency anemia type: other iron deficiency Qualified Code(s): D50.8 - Other iron deficiency anemias (5) Nicotine dependence: Code(s): F17.200 - Nicotine dependence, unspecified, uncomplicated Category: Medical Qualifiers: Nicotine product type: cigarettes Substance use status: uncomplicated Qualified Code(s): F17.210 - Nicotine dependence, cigarettes, uncomplicated Plan: tobacco cesation (6) CKD (chronic kidney disease) stage 3, GFR 30-59 ml/min: Comment: Most likely due to hypertensive nephrosclerosis. History of renal artery stenosis. No evidence of obstruction based on recent renal ultrasonogram. History of nephrolithiasis with nonobstructing calculi Code(s): N18.30 - Chronic kidney disease, stage 3 unspecified Category: Medical Qualifiers: Chronic kidney disease stage 3 subtype: stage 3b (GFR 30-44) Qualified Code(s): N18.32 - Chronic kidney disease, stage 3b (7) Osteopenia: Code(s): M85.80 - Other specified disorders of bone density and structure, unspecified site Category: Medical Qualifiers: Osteopenia location: unspecified Qualified Code(s): M85.80 - Other specified disorders of bone density and structure, unspecified site (8) Constipation: Code(s): K59.00 - Constipation, unspecified Category: Medical Qualifiers: Constipation type: slow transit constipation Qualified Code(s): K59.01 - Slow transit constipation (9) Abdominal bloating: Code(s): R14.0 - Abdominal distension (gaseous) Category: Medical (10) GERD (gastroesophageal reflux disease): Code(s): K21.9 - Gastro-esophageal reflux disease without esophagitis Category: Medical Qualifiers: Esophagitis presence: without esophagitis Qualified Code(s): K21.9 - Gastro-esophageal reflux disease without esophagitis (11) Erythrocytosis: Comment: (related to smoking) Code(s): D75.1 - Secondary polycythemia Category: Medical (12) Positive depression screening: Code(s): Z13.31 - Encounter for screening for depression Category: Medical Plan Physical exam - The patient is a 74-year-old female presenting for a wellness visit patient has a history of severe COPD continued to smoke, vascular disease, underweight with BMI of 12.7 Chronic kidney disease, hyperlipidemia, polycythemia, anemia, abdominal bloating, GERD, vitamin-D supplement - The patient was previously diagnosed with anemia, and her hemoglobin was noted to be 9.8 in March; she is currently taking iron supplements. - Chronic Kidney Disease is suggested by her creatinine level of 1.51, noted as high in the last laboratory results. - The patient reports prior wheezing and acknowledges ongoing tobacco use. - Polycythemia was identified during a blood donation session as she needed a therapeutic blood draw due to erythrocytosis. - She continues to manage Hyperlipidemia with medication, specifically rosuvastatin. Medical History: - Type 2 Diabetes Mellitus - Anemia - Chronic Kidney Disease - Hyperlipidemia - Tobacco Use Disorder - Polycythemia Social History: - Lives with her son. - Denies living alone and can perform daily activities such as groceries. - Reports ongoing tobacco use. - Denies willingness to have further mammograms due to discomfort. Health Maintenance - Mammogram conducted last October; the patient refuses future mammograms due to discomfort. - Laboratory results to be repeated; previous results showed elevated creatinine and low hemoglobin. - Vitamin D levels previously low; supplementation advised. - encouraged to go over vaccine with pharmacy and receive Prevnar I have no record of that [facility] - Dr. Rodriguez (primary care) - Dr. Martinez (lung specialist) - nephrology, blood pressure medications through wood getter Medications - Clopidogrel - Diltiazem - Famotidine - Iron Supplements - Rosuvastatin for hyperlipidemia - Smythicon (likely simethicone) - Ellipta (possibly inhaler for respiratory issue) Patient Instructions - Begin taking vitamin D supplements as prescribed. - Discuss immunizations with pharmacy and ensure they are up to date. - Dietary recommendations include consuming foods rich in iron to address anemia. - blood test to be conducted today - Follow up in one year for a physical exam unless lab abnormalities necessitate a phone visit sooner. Orders: Orders Complete Blood Count Auto Diff Today D64.9 - Anemia, unspecified, I10 - Essential (primary) hypertension, J43.2 - Centrilobular emphysema, R94.4 - Abnormal results of kidney function studies Comprehensive Met. Panel Today D64.9 - Anemia, unspecified, I10 - Essential (primary) hypertension, J43.2 - Centrilobular emphysema, R94.4 - Abnormal results of kidney function studies TSH reflex Free T4 Today D64.9 - Anemia, unspecified, I10 - Essential (primary) hypertension, J43.2 - Centrilobular emphysema, R94.4 - Abnormal results of kidney function studies Vitamin D 25-OH (D2 and D3) Today D64.9 - Anemia, unspecified, I10 - Essential (primary) hypertension, J43.2 - Centrilobular emphysema, R94.4 - Abnormal results of kidney function studies Vitamin B12 Today D64.9 - Anemia, unspecified, I10 - Essential (primary) hypertension, J43.2 - Centrilobular emphysema, R94.4 - Abnormal results of kidney function studies LDL Cholesterol Direct Today D64.9 - Anemia, unspecified, I10 - Essential (primary) hypertension, J43.2 - Centrilobular emphysema, R94.4 - Abnormal results of kidney function studies Medications: New cholecalciferol (vitamin D3) 25 mcg PO DAILY 90 days 90 caps 1RF
[2024-10-03 14:26] VITALS: BP 120/74; PULSE 77; TEMP 36.5; O2SAT 96; BMI 12.7
--- OUTSIDE RECORDS SUMMARY | 2024-10-03 16:40 | XMS_ITS | Clinical Summary ---
Author Organization [facility] Address [address] [facility] [address] [place] [address] Phone Care Team Providers Care Delivery Recruiter Name Role Phone Cheo Michaels MD Primary Care Provider [phone] Allergies No known active allergies Medications rosuvastatin [...] Health Medicare [facility] Medicare Care Teams Delivery Recruiter Relationship Specialty Start Date End Date Cheo Michaels MD [address] [place], [place] [id number] PCP - General Internal Medicine 03/05/21
== END 2024-10-03 14:58 | disposition home or self-care (01) ==
LOC: HO.HMCC 14:24
PROVIDERS: PCP Internal Medicine; Visit Provider Internal Medicine
DX: Z00.01 Encounter for general adult medical examination with abnormal findings (principal); J43.2 Centrilobular emphysema; I12.9 Hypertensive chronic kidney disease with stage 1 through stage 4 chronic kidney disease, or unspecified chronic kidney disease; N18.32 Chronic kidney disease, stage 3b; D50.8 Other iron deficiency anemias; F17.210 Nicotine dependence, cigarettes, uncomplicated; M85.80 Other specified disorders of bone density and structure, unspecified site; K59.01 Slow transit constipation; R14.0 Abdominal distension (gaseous); K21.9 Gastro-esophageal reflux disease without esophagitis; D75.1 Secondary polycythemia; Z13.31 Encounter for screening for depression

== ENCOUNTER 2024-10-05 09:33 | Outpatient (AMB) | payer MEDICARE, SELFPAY ==
[2024-10-05 09:36] VITALS: BP 140/64; PULSE 78; O2SAT 97; BMI 12.7
--- NOTE | 2024-10-05 09:36 | MHC.OFFVIS ---
Vital Signs 10/05/24 09:36 Height 5 ft 1 in Weight 67 lb BMI 12.7 BP 140/64 H Blood Pressure Location Rt brachial Position Sitting Pulse 78 Pulse Source Pulse Oximeter Pulse Oximetry (%) 97 Oxygen Delivery Method Room Air Intake Visit Reasons: f/u barium swallow Intake Note: Est pt for mgmt of GERD + CIC CC; Pt denies any new sx or concerns at this time. Pt does report occasionalm chronic episodes of GERD + constipation. Pt to review results of BA FL. Field Servicer Required: No Accompanied by: Self / Same As Patient Allergies No Known Allergies Allergy (Verified 10/05/24 09:36) HPI HPI f/u barium swallow: Details: Assessment & Plan (1) Constipation: Code(s): K59.00 - Constipation, unspecified Category: Medical (2) Dysphagia: Code(s): R13.10 - Dysphagia, unspecified Category: Medical (3) Tubular adenoma of colon: Comment: 02/2024= TA is repeat in 3 years; SCOPE= 4 very large TA is repeat in 6 months because the 4th could not be removed in 1 procedure Code(s): D12.6 - Benign neoplasm of colon, unspecified Category: Medical (4) Abdominal bloating: Code(s): R14.0 - Abdominal distension (gaseous) Category: Medical Plan She is agreeable to a 3 year follow up dependant on her health. She is quite frail, and she continues to struggle with CIC and rabbit turd stools. She also experiences some lower abdominal cramping. She was only using the Amitiza prn, and I advise her that it needs to be taken daily bid to be effective. The procedure was well tolerated. The results were explained and the patient is agreeable to the follow-up interval as stated. Education was provided to tell any 1st degree relatives about their findings to be sure that they are screened by age 45. Educated that they will be put on a recall list when it is time for their repeat scope but should they move out of state or away from the hospital they will need to remember along with their primary to repeat the procedure in a timely fashion to avoid any adverse complications. She tried u sing OTC Nexium but his just made her feel more nauseated. However, she did not well understand what is was for as she does not h ave much HB or dyspepsia. She has mostly bloating and very small post prandial BM's. She does have early satiety, most likely r/t her COPD and dry heaves when she is trying to cough up my phlegm. I think she needs to discuss this with her wincher as controlling the cough and secretions that trigger her gag reflex is the arana to this sx. She denies overt abd pain. She denies nausea. Next available. Next office visit verify why she has fallen off taking Creon, this was for chronic pancreatitis and could be contributing to her bloating. Orders: Orders FL barium swallow Today R13.10 - Dysphagia, unspecified Medications: Changed From lubiprostone (Amitiza) 8 mcg PO BID PRN K59.00 - Constipation, unspecified To lubiprostone (Amitiza) 8 mcg PO BID 60 caps 12RF K59.00 - Constipation, unspecified BARIUM SWALLOW 09/15/2024 FINDINGS: On oral administration of thin barium there is normal propagation bolus from the oral cavity through the pharynx, esophagus into stomach without any obstruction, narrowing or stricture. No extrinsic compression seen. No laryngeal penetration and aspiration. On oral administration of thick barium there is normal oral mastication and propagation of solid food from the oral cavity through the pharynx, esophagus into stomach without any evidence of obstruction, narrowing or stricture. On placing patient in prone lying and oral administration of thin barium there is normal distention of the entire esophagus without obstruction, narrowing or stricture. There is no gastroesophageal reflux or hiatal hernia. Incidental finding of is small proximal jejunal diverticulum is noted. IMPRESSION: Unremarkable barium swallow exam with thin, thick barium and barium coated saltine crackers as solid food. There is no intrinsic or extrinsic esophageal obstruction or compression. TODAY'S VISIT aMITIZA TOO expensive and did not help. She wants to continue with rotating OTCs and does not desire follow up. She is disappointed at the barium swallow, swallowing had improved a bit since she had a respiratory infection, but she still has to use sips of water. PRN [facility] Medical History Encounter for general adult medical examination with abnormal findings Insomnia Post-COVID syndrome Fatigue Acute kidney injury Erythrocytosis Malignant neoplasm of upper lobe of left lung (~2019) Chronic pancreatitis Pulmonary nodules Angina pectoris GERD (gastroesophageal reflux disease) Sarcoidosis Hx of hiatal hernia History of IBS Nicotine dependence Thrombosis of right iliac artery Chronic cough COPD (chronic obstructive pulmonary disease) Arthritis Hx of chronic kidney disease Elevated cholesterol PVD (peripheral vascular disease) Myocardial infarction (~2000) CAD (coronary artery disease) HTN (hypertension) Surgical History Hx of cataract extraction Hx of cystoscopy History of partial hysterectomy History of cardiac cath (~2000) History of endarterectomy (~2016) History of esophagogastroduodenoscopy (EGD) (~2019) History of colonoscopy (~2018) History of lung surgery (~2019) Hx of tubal ligation Hx of tonsillectomy History of lung biopsy (~2019) Family History Father Heart disease Mother Heart disease Brother Diabetes Sister Mental health disorder Social History Household Members: Other Household Members Other:: ex Housing: House Are you a primary health care social worker to a significant other at home: No Do you presently have visiting nurse or other home services: No Alcohol intake: current Alcohol intake frequency: holidays/special occasions only Patient Tobacco Use Status: Current everyday Tobacco user Tobacco use type: Cigarette Years Smoked: 40 e-Cigarette/Vaping Use: Never Used Second Hand Smoke Exposure: No service: No Current occupational status: retired Cognitive needs: No Hearing needs: No Vision needs: Yes Review of Systems Const Denies fatigue, Denies fever(s), Denies night sweats, Denies poor appetite and Denies weight loss ENT Reports Normal hearing present, Denies dental pain, Reports dysphagia, Denies hearing loss, Denies mouth pain, Denies odynophagia, Denies throat swelling, Denies tongue swelling and Reports other (Dentition adequate) Card Reports no additional complaints and Reports dyspnea on exertion Resp Reports dyspnea on exertion GI Details: Denies abdominal pain, Denies melena, Denies bloating, Denies hematochezia, Reports constipation, Denies GI cramping, Reports dysphagia, Denies excessive flatus, Denies early satiety, Denies heartburn, Denies diarrhea, Denies nausea, Denies odynophagia, Denies vomiting and Denies hematemesis Skin/Breast Denies pruritus, Denies lesions, Denies rash and Denies jaundice Neuro Reports Normal hearing present and Denies Abnormal speech present Endo Denies fatigue Aller/Immun Denies throat swelling and Denies tongue swelling Physical Exam Vital Signs: Last Vital Signs Pulse 78 10/05/24 09:36 BP 140/64 H 10/05/24 09:36 Pulse Ox 97 10/05/24 09:36 Oxygen Delivery Method Room Air 10/05/24 09:36 BMI result Body Mass Index 12.7 Const General: cooperative, no acute distress, well developed and well groomed Nutritional Appearance: underweight Orientation/consciousness: oriented to person, oriented to place and oriented to time Limitations: No language barrier HEENT Head: Yes normocephalic and Yes atraumatic Eyes General: appearance normal, both eyes and all related structures Pupils: Equal, round and reactive pupils present Neck Neck: Yes normal visual inspection and Yes no lymphadenopathy Thyroid: Thyroid normal Resp Effort & Inspection: normal respiratory effort and able to speak in complete sentences Cardio Heart sounds: Normal, physiologic split S2 sound present GI Inspection: No distended and No Abdominal panniculus present Palpation (GI): Soft to palpation, nontender, no guarding, not rigid and No hepatosplenomegaly present Percussion: Yes normal to percussion Auscultation: normal bowel sounds Rectal Exam - Female: deferred Skin General skin exam: no rashes or lesions noted, turgor normal, skin not dry, no jaundice, No spider nevi and no striae Rashes: no rashes Nails: normal Neuro General: oriented to person, oriented to place and oriented to time Cranial nerves: Yes Equal, round and reactive pupils present and Yes Normal hearing present Speech: No Abnormal speech present Extrem General: Yes normal to inspection, No clubbing, No cyanosis and No edema Psych Appearance: grossly normal and well kempt Mental Status: mental status grossly normal Speech and movement: Normal speech and movement present Affect: normal affect Attitude: cooperative Thought process: Normal thought process present and not confabulating Thought content: Normal thought content present Insight: Limited insight present (Psych) Judgement: Limited judgement present (Psych) Assessment & Plan Assessment & Plan (1) GERD (gastroesophageal reflux disease): Code(s): K21.9 - Gastro-esophageal reflux disease without esophagitis Category: Medical Qualifiers: Esophagitis presence: without esophagitis Qualified Code(s): K21.9 - Gastro-esophageal reflux disease without esophagitis (2) Esophageal ulcer: Comment: Is covered 2019 EGD, no Courtney's on biopsy Code(s): K22.10 - Ulcer of esophagus without bleeding Category: Medical (3) Chronic pancreatitis: Comment: (On CREON) elevated lipase but asymptomatic Code(s): K86.1 - Other chronic pancreatitis Category: Medical (4) Constipation: Code(s): K59.00 - Constipation, unspecified Category: Medical Qualifiers: Constipation type: slow transit constipation Qualified Code(s): K59.01 - Slow transit constipation (5) Abdominal bloating: Code(s): R14.0 - Abdominal distension (gaseous) Category: Medical Plan aMITIZA TOO expensive and did not help. She wants to continue with rotating OTCs and does not desire follow up. She is disappointed at the barium swallow, swallowing had improved a bit since she had a respiratory infection, but she still has to use sips of water. PRN Coding Level of Care Code Est Pt Level 3 (76226) Diagnoses Gastroesophageal reflux disease without esophagitis K21.9 Esophagitis presence: without esophagitis Esophageal ulcer K22.10 Chronic pancreatitis K86.1 Slow transit constipation K59.01 Constipation type: slow transit constipation Abdominal bloating R14.0
--- OUTSIDE RECORDS SUMMARY | 2024-10-05 10:24 | XMS_ITS | Clinical Summary ---
Author Organization [facility] Address [address] [facility] [address] [place] [address] Phone Care Team Providers Care Surveillance Inspector Name Role Phone Cheo Michaels MD Primary Care Provider [phone] Allergies No known active allergies Medications rosuvastatin [...] Health Medicare [facility] Medicare Care Teams Surveillance Inspector Relationship Specialty Start Date End Date Cheo Michaels MD [address] [place], [place] [id number] PCP - General Internal Medicine 03/05/21
== END 2024-10-05 10:34 | disposition home or self-care (01) ==
LOC: HO.HGI 09:33
PROVIDERS: PCP Internal Medicine; Visit Provider Nurse Practitioner
DX: K21.9 Gastro-esophageal reflux disease without esophagitis (principal); K22.10 Ulcer of esophagus without bleeding; K86.1 Other chronic pancreatitis; K59.01 Slow transit constipation; R14.0 Abdominal distension (gaseous)
CPT/HCPCS: 99213

== ENCOUNTER → 2024-10-05 09:33 | Outpatient (BNVA) | payer MEDICARE, SELFPAY | PROVIDERS: PCP Internal Medicine; Visit Provider Nurse Practitioner | DX: K22.10 Ulcer of esophagus without bleeding (principal); K86.1 Other chronic pancreatitis; K59.01 Slow transit constipation; R14.0 Abdominal distension (gaseous); K21.9 Gastro-esophageal reflux disease without esophagitis | CPT/HCPCS: 99212 ==

== ENCOUNTER 2025-01-04 14:17 | Outpatient (REF) | payer MEDICARE, SELFPAY ==
--- OUTSIDE RECORDS SUMMARY | 2025-01-02 09:27 | XMS_ITS | Encounter Summary ---
Author Organization [facility] Address [address] [place] [address] Care Team Providers Care Piper Installer Name Role Phone Cheo Michaels MD Primary Care Provider [phone] Encounter Details Date Type Department Care Team (Late Contact Info) Description 01/02/2025 9:27 AM EDT Hospital Encounter [facility] Radiation Oncology [address] [place] [phone] Social History Tobacco Use Types Packs/Day Years Used Date Smoking Tobacco: Every Day Smokeless Tobacco: Never Alcohol Use Standard Drinks/Week Comments Not Currently 0 (1 standard drink = 0.6 oz pur e alcohol) Interpersonal Safety Answer Date Record ed Physical Abuse 12/07/2024 Verbal Abuse 12/07/2024 Comments No Sex and Gender Information Value Date Recorded Sex Assigned at Not on file Legal Sex Female 1:51 PM EST Gender Identity Not on file Sexual Orientation Not on file documented as of this encounter Plan of Treatment Upcoming Encounters Date Type Department Care Team (Late st Contact Info) Description 01/16/2025 10:15 AM EDT Appointment [facility] Radiation Oncology [address] [place] [phone] 01/16/2025 11:00 AM EDT Appointment [facility] Radiation Oncology [address] [place] [phone] oLbo Morton MD [address] [place] [address] 02/13/2025 10:00 AM EDT Appointment [facility] Radiation Oncology [address] [place] [phone] Kathy Navarrete NP [address] [place] [address] documented as of this encounter Visit Diagnoses Not on filedocumented in this encounter Care Teams Piper Installer Relationship Specialty Start Date End Date Cheo Michaels MD [address] [place] [address] PCP - General Internal Medicine 02/18/17 documented as of this encounter
--- OUTSIDE RECORDS SUMMARY | 2025-01-02 09:29 | XMS_ITS | Encounter Summary ---
Author Organization [facility] Address [address] [place] [address] Care Team Providers Care Technical Adjuster Name Role Phone Cheo Michaels MD Primary Care Provider [phone] Reason for Referral * Radiation Therapy (Routine) - Pending Review Specialty Diagnoses / Procedures Referred By Contac t Referred To Contact Radiation Oncology Diagnoses Primary cancer of left lower lobe of lung (CMS/HCC V24, CMS/HCC V28) Procedures Rad Onc Treatment Planning Simulation Radha Valdez MD [address] [place] [address] Phone: tel: fax: Referral ID Status Reason Start Date Expiration Date V isits Requested Visits Authorized [id number] Pending Review 01/02/2025 01/02/2026 1 1 * Consultation (Urgent) - Authorized Specialty Diagnoses / Procedures Referred By Contac t Referred To Contact Radiation Oncology Diagnoses Primary cancer of left lower lobe of lung (CMS/HCC V24, CMS/HCC V28) Carl Brown MD [address] [place] [address] Phone: tel: fax: [facility] Radiation Oncology [address] [place] [address] Phone: tel: fax: Referral ID Status Reason Start Date Expiration Date Visits Requested Visits Authorized [id number] Authorized Specialty Services Required 12/14/2024 12/14/2025 1 1 Reason for Visit * Reason Comments Consult Recon / Lung * Consultation (Urgent) - Authorized Specialty Diagnoses / Procedures Referred By Contac t Referred To Contact Radiation Oncology Diagnoses Primary cancer of left lower lobe of lung (CMS/HCC V24, CMS/HCC V28) Carl Brown MD [address] [place] [address] Phone: tel: fax: [facility] Radiation Oncology [address] [place] [phone] Phone: tel: fax: Referral ID Status Reason Start Date Expiration Date Visits Requested Visits Authorized [id number] Authorized Specialty Services Required 12/14/2024 12/14/2025 1 1 Encounter Details Date Type Department Care Team (Latest Contact Info) Description 01/02/2025 9:29 AM EDT Hospital Encounter [facility] Radiation Oncology [address] [place] [phone] Radha Valdez MD [address] [place] [address] Primary cancer of left lower lobe of lung (CMS/HCC V24, CMS/HCC V28) Social History Tobacco Use Types Packs/Day Years [...] Sign Reading Time Taken Comments Blood Pressure 121/61 01/02/2025 9:39 AM EDT Pulse 72 01/02/2025 9:39 AM EDT Temperature - - Respiratory Rate - - Oxygen Saturation 96% 01/02/2025 9:39 AM EDT Inhaled Oxygen Concentration - - Weight 31.1 kg (68 lb 9.6 oz) 01/02/2025 9:39 AM EDT Height 157.5 cm (5' 2 ) 01/02/2025 9:39 AM EDT Body Mass Index 12.55 01/02/2025 9:39 AM EDT documented in this encounter Progress Notes * Radha Valdez MD - 01/02/2025 10:00 AM EDTEncounter addended by: Radha Valdez MD on: 01/02/2025 10:06 AM Actions taken: Level of Service modified * Shanique Dawson MA - 01/02/2025 10:00 AM EDT Patient is here for in office reconsult with Dr. Valdez Patient reports chest pain / tightness with exertion. She reports no blood/phlegm when coughing. Chest tightness is accompanied by shortness of breath. Patient reports no trouble swallowing. Appetite is okay. Medications and allergies reviewed and reconciled. * Radha Valdez MD - 01/02/2025 10:00 AM EDT [address] [phone] Radiation Oncology Outpatient Consult Staff Physician: Radha Valdez MD Requesting Physician: Carl Brown MD Date of Service: 01/02/2025 Accompanied by: Diagnosis: 1. Primary cancer of left lower lobe of lung (CMS/HCC V24, CMS/HCC V28) Ambulatory referral to Radiation Oncology Ambulatory referral to Radiation Oncology Stage: Cancer Staging No matching staging information was found for the patient. 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 At that time sheunderwent resection. Pathologically it was a large cell/adenocarcinoma. She had no subsequent additional treatment. In April 2023 she was found to have a new lesion in the left upper lobe and had SBRT for this. She recently had had a new lesion in the left lower lobe and initial [facility] showed thatthe cavitary lesion was biopsy positive for squamous cell carcinoma. The smaller lesion was negative. It also did not have much uptake in terms of SUV. The left lower lobe lesion did show up on the PET scan with increased uptake. She is here today to discuss the radiation for a new lung cancer which is a different histology. We reviewed the simulation process. We discussed the risks and side effects both acute and long-term. We reviewed the daily treatment regiment. At this point I recommended to her that we proceed with a 4-day course of treatment for total of 48 [place] to the new lesion in the left lower lobe. At this point she is in agreement. She does have a wedding to go to the first week in February and will need to have her treatments completed by that time. Electronically signed by Radha Valdez MD Subjective HISTORY OF PRESENT ILLNESS: Sanjuanita Ibarra is a 74 y.o. female who presents with stage I squamous of carcinoma of the left lower lobe and is seen in consultation today for discussion of SBRT PRIOR RT: SBRT treatment to the left upper lobe in 2023 PRIOR CHEMO: None Hx of connective tissue disorder: None Hx of implanted device: None Hx of inflammatory bowel disease: None PROBLEM LIST: Patient Active Problem List Diagnosis Chronic renal insufficiency Angina pectoris ([facility]/HCC V24) Cachexia ([facility]/HCC V24) CAD (coronary artery disease) Chronic kidney disease Pulmonary emphysema (CMS/HCC V24, CMS/HCC V28) Chronic obstructive pulmonary disease (CMS/HCC V24, CMS/HCC V28) Current smoker Erythrocytosis Hyperlipidemia Hypertension PAD (peripheral artery disease) (CMS/HCC V24) Peripheral vascular disease (CMS/HCC V24) Thrombosis Lung nodule Lung mass Malignant neoplasm metastatic to lung (CMS/HCC V24, CMS/HCC V28) OA (osteoarthritis) Old myocardial infarction Palpitations Pancreatitis Underweight History of lung cancer PAST MEDICAL HISTORY: Past Medical History: Diagnosis Date Anxiety Arthritis Chronic kidney disease COPD (chronic obstructive pulmonary disease) (CMS/HCC V24, CMS/HCC V28) DX:COPD (chronic obstructive pulmonary disease) (HCC) Diverticulosis GERD (gastroesophageal reflux disease) Heart disease PAD Hiatal hernia Hyperlipidemia Hypertension DX:Hypertension Irritable bowel syndrome Joint pain Lung cancer ([facility] V24, [facility] V28) DX:Lung cancer (HCC) Lung nodule PAD (peripheral artery disease) ([facility] V24) DX:PAD (peripheral artery disease) ([facility]) Peripheral vascular disease ([facility] V24) Shortness of breath PAST SURGICAL HISTORY: Past Surgical History: Procedure Laterality Date BRONCHOSCOPY 12/07/2024 Navigation bronchoscopy/EBUS w/ BX ILIAC ARTERY STENT LUNG SURGERY Left PROCEDURE:LUNG SURGERY OTHER SURGICAL HISTORY GYNECOLOGICAL HISTORY (if applicable): NA [employer] History LMP: Postmenopausal Age at Menarche: Age at First : Age at Menopause: [employer] History Comments: Sexual Activity: No sexual activity data on record; No partner data on record Contraception: No contraception data on record FAMILY HISTORY: No family history on file. SOCIAL HISTORY: Social History Socioeconomic History Marital status: Spouse name: Not on file Number of children: Not on file Years of education: Not on file Highest education level: Not on file Occupational History Not on file Tobacco Use Smoking status: Every Day Smokeless tobacco: Never Substance and Sexual Activity Alcohol use: Not Currently Drug use: Never Sexual activity: Not on file Other Topics Concern Not on file Social History Narrative Not on file ALLERGIES: Allergies as of 01/02/2025 (No Known Allergies) MEDICATIONS: Current Outpatient Medications: azithromycin (ZITHROMAX) 250 mg tablet, Take 1 tablet (250 mg total) by mouth See administration instructions. M.W.F, Disp: , Rfl: clopidogreL (PLAVIX) 75 mg tablet, Take 1 tablet (75 mg total) by mouth 1 (one) time each day. 11/30/24, Disp: , Rfl: dilTIAZem CD (CARDIZEM CD) 240 mg 24 hr capsule, Take 1 capsule (240 mg total) by mouth 1 (one) time each day., Disp: , Rfl: docusate sodium (COLACE) 100 mg capsule, Take 1 capsule (100 mg total) by mouth 2 (two) times a dayif needed., Disp: , Rfl: famotidine (PEPCID) 40 mg tablet, Take 1 tablet (40 mg total) by mouth 1 (one) time each day if needed., Disp: , Rfl: ferrous sulfate 325 mg (65 mg elemental iron) tablet, Take 1 tablet (325 mg total) by mouth 1 (one)time each day., Disp: , Rfl: zqcnbvfzcqf-whsfhrvempnh-imyckwakgp (Trelegy Ellipta) 100-62.5-25 mcg inhaler, Inhale 1 puff (100 mcg total) by mouth 1 (one) time each day. Rinse mouth with water after use to reduce aftertaste and incidence of candidiasis. Do not swallow., Disp: , Rfl: rosuvastatin (CRESTOR) 20 mg tablet, Take 1 tablet (20 mg total) by mouth 1 (one) time each day., Disp: , Rfl: REVIEW OF SYSTEMS: Review of Systems - Oncology The Karnofsky performance scale today is 80, Normal activity with effort; some signs or symptoms ofdisease (ECOG equivalent 1). ADL: Objective PHYSICAL EXAM: Visit Vitals BP 121/61 (BP Location: Right arm, Patient Position: Sitting, BP Cuff Size: Small adult) Pulse 72 Ht 1.575 m (62 ) Wt (!) 31.1 kg (68 lb 9.6 oz) SpO2 96% BMI 12.55 kg/m?? OB Status Postmenopausal Smoking Status Every Day BSA 1.21 m?? Body mass index is 12.55 kg/m??. No data recorded Physical Exam General: Patient is alone today. She is sitting comfortably in her chair. HEENT: Normocephalic atraumatic. Pupils are equal, sclera clear, extraocular muscles intact Cardiovascular: Regular rate and rhythm Pulmonary: Respiratory rate is regular nonlabored extremities: Without edema or lymphedema Skin: Warm and dry Neurological: Alert and oriented x 3. Gait and speech within normal limits Abdomen: Patient is quite thin with minimal adipose tissue. She weighs all of 68 pounds Psych: Affect appropriate for current situation DIAGNOSTIC REPORTS REVIEWED: PET DISCLAIMER: This document was created with the assistance of medical dictation software. Every effort was made to ensure that it is free from typographical errors. However, due to the nature of this software, some transcriptional inaccuracies may remain. * Radha Valdez MD - 01/02/2025 10:00 AM EDT RADIATION TREATMENT PLANNING SIMULATION ORDER Rad Onc Treatment Planning Simulation Ordered at: 01/02/25 1006 Simulation Type: 4D CT Image Fusion? Yes Type, Series, and Date of Service: pet Approximate Dose: 4,800 Measurement Unit: cGy Approximate Fractions: 4 Is Boost / Cone down anticipated? No Concurrent Chemotherapy? No Planned Start Date: Standard Comment: must be done by Feb 17 Treatment Site: Lung Laterality: Left Treatment Technique: SBRT Treatment Goal: Curative test needed? No Has the pt received prior radiation? Yes Pacemaker, ICD, or any Implanted Device? No Does the pt need an caustic room attendant? No Has the patient been consented? No Clinical Trial? No Patient Position? Supine Immobilization Device(s)? Vac-Makayla IGRT anticipated? Yes Do you anticipate the field size being >20 cm? (i.e. whole pelvis, 3 field breast): No Contrast Needed? No Is this for a new course of treatment? Yes CrCl cannot be calculated (Patient's most recent lab result is older than the maximum 28 days allowed.). documented in this encounter Plan of Treatment Upcoming Encounters Date Type Department Care Team (Late st Contact Info) Description 01/16/2025 10:[address] [facility] Radiation Oncology [address] [place] [phone] 01/16/2025 11:[address] [facility] Radiation Oncology [address] [place] [phone] Lobo [place] MD [address] [place] [phone] 02/13/2025 10:[address] [facility] Radiation Oncology [address] [place] [phone] Kathy Navarrete NP [address] [place] [address] Scheduled Orders Name Type Priority Associated Diagnoses Orde r Schedule Rad Onc Treatment Planning Simulation Radiation Oncology Routine Primary cancer of left lower lobe of lung (CMS/HCC V24, CMS/HCC V28) Expected: 01/09/2025, Expires: 01/02/2026 Scheduled Referrals Name Type Priority Associated Diagnoses Order Schedule Ambulatory referral to Radiation Oncology Outpatient Referral Routine Primary cancer of left lower lobe of lung ([facility] V24, [facility] V28) Once for 1 Occurrences starting 01/02/2025 until 01/02/2025 documented as of this encounter Visit Diagnoses Diagnosis Primary cancer of left lower lobe of lung ([facility]/HCC V24, CMS/[facility] V28) documented in this encounter Care Teams Technical Adjuster Relationship Specialty Start Date End Date Cheo Michaels MD [address] [place] [phone] PCP - General Internal Medicine 02/18/17 documented as of this encounter
--- NOTE | ~2025-01-04 | US_ITS ---
EXAMINATION: US RETROPERITONEAL LIMITED (RENAL ONLY) CLINICAL INFORMATION: Calculus of kidney. COMPARISON: 11/17/2022. Correlation made with CT abdomen and pelvis 09/27/2023. TECHNIQUE: Real-time imaging of the kidneys. FINDINGS: RIGHT KIDNEY: 8.2 x 3.3 x 2.6 cm (SAG x AP x TRV). The kidney is normal in size, contour, and echogenicity. Renal cortical thickness is normal. No suspicious focal parenchymal lesions. No hydronephrosis. There are 2 simple cysts, the larger in the lower pole measuring 6 mm. There is an upper pole nonobstructing calculus measuring 3 mm. LEFT KIDNEY: 9.3 x 4.1 x 2.7 cm (SAG x AP x TRV). The kidney is normal in size, contour, and echogenicity. Renal cortical thickness is normal. No calculi or focal parenchymal lesions. No hydronephrosis. US/US renal BI IMPRESSION: 1. 3 mm nonobstructing calculus superior pole right kidney. There are 2 simple cysts in the right kidney, the larger in the lower pole measuring 6 mm 2. Normal left kidney. Electronically signed by: Ady Navarrete MD 01/04/2025 03:28 PM EDT
--- OUTSIDE RECORDS SUMMARY | 2025-01-04 16:07 | XMS_ITS | Clinical Summary ---
Author Organization [facility] Address [address] [place] [address] Care Team Providers Care Biology Intern Name Role Phone Cheo Michaels MD Primary Care Provider [phone] Allergies No known active allergies Medications Medication [...] 63 11/03/2023 9:33 AM EDT Temperature 36.6 C (97.8 F) 11/03/2023 9:33 AM EDT Respiratory Rate - - Oxygen Saturation 100% 11/03/2023 9:33 AM EDT Inhaled Oxygen Concentration - - Weight 34 kg (75 lb) 11/03/2023 9:33 AM EDT Height 157.5 cm (5' 2 ) 11/03/2023 9:33 AM EDT Body Mass Index 13.72 11/03/2023 9:33 AM EDT Plan of Treatment Health Maintenance Due Date Last Done Comments Hepatitis C Screening 1950 COVID-19 Vaccine (#1) 1950 Pneumococcal Vaccine (1 of 2 - PCV) 1957 Depression Screening 1963 Preventative Health Evaluation 1969 Tobacco Cessation Counseling 1969 DTap / Tdap / Td (1 - Tdap) 1970 Colon Cancer Screening (Colonoscopy) 1996 Breast Cancer Screening (Mammogram) 2001 Shingrix-Zoster Vaccine (1 of 2) 2001 RSV Adult > 60+ Yrs or Pregn ant (1 - Risk 60-74 years 1-dose series) 2011 Fall Risk Assessment 2016 Osteoporosis Screening (DEXA Scan) 2016 Influenza Vaccine (#1) 2024 Hepatitis B Vaccines Aged Out No long er eligible based on patient's age to complete this topic RSV Ped < 20 months Aged Out No longe r eligible based on patient's age to complete this topic Care Teams Biology Intern Relationship Specialty Start Date End Date Cheo Michaels MD [address] [facility] [place] [phone] PCP - General Internal Medicine 05/11/23
--- OUTSIDE RECORDS SUMMARY | 2025-01-04 16:07 | XMS_ITS | Clinical Summary ---
Author Organization [facility] Address [address] [facility] [address] [place] [address] Phone Care Team Providers Care Windows Server Architect Name Role Phone Cheo Michaels MD Primary Care Provider [phone] Allergies No known active allergies Medications rosuvastatin [...] Cancer Screening: Sigmoidoscopy 2000 Influenza Vaccine (#1) 2024 Hepatitis B Vaccine Aged Out No longe r eligible based on patient's age to complete this topic Insurance [facility] [employer] Medicare [employer] Medicare Care Teams Windows Server Architect Relationship Specialty Start Date End Date Cheo Michaels MD [address] [place], [place] [phone] PCP - General Internal Medicine 03/05/21
--- OUTSIDE RECORDS SUMMARY | 2025-01-04 16:07 | XMS_ITS | Clinical Summary ---
Author Organization [facility] Address [address] [place] [phone] Phone Care Team Providers Care Hosted Services Analyst Name Role Phone Cheo Michaels MD Primary Care Provider [phone] Allergies No known active allergies Medications ferrous [...] mouth 1 (one) time each day. 11/30/24 Active dilTIAZem CD (CARDIZEM CD) 240 mg [...] 2 (two) times a day if needed. Active famotidine (PEPCID) 40 mg tablet Take 1 tablet (40 mg total) by mouth 1 (one) time each day if needed. Active Active Problems Problem Noted Date Diagnosed Date Primary cancer of left lower lobe of lung ([facility] V24, [facility] V28) 01/02/2025 History of lung cancer 11/09/2024 Chronic renal insufficiency 05/29/2024 Pulmonary emphysema ([facility] V24, [facility] V28) 0 05/29/2024 PAD (peripheral artery disease) ([facility] V24) Lung mass 05/29/2024 OA (osteoarthritis) 05/29/2024 Palpitations 05/29/2024 Underweight 05/29/2024 Cachexia ([facility] V24) 05/25/2023 CAD (coronary artery disease) 05/25/2023 Current smoker 05/25/2023 Erythrocytosis 05/25/2023 Angina pectoris ([facility] V24) 01/17/2021 Chronic kidney disease 01/17/2021 Peripheral vascular disease ([facility] V24) 2020 Thrombosis 01/17/2021 Malignant neoplasm metastati c to lung ([facility] V24, [facility] V28) 01/17/2021 Old myocardial infarction 01/17/2021 Pancreatitis 01/17/2021 Chronic obstructive pulmonar y disease ([facility] V24, [facility] V28) 11/23/2016 Lung nodule 11/23/2016 Hyperlipidemia 09/09/2016 Hypertension 09/09/2016 Encounters Date Type Department Care Team Description 01/02/2025 9:29 AM EDT Hospital Encounter [facility] Radiation Oncology [address] [place] [phone] Radha Valdez MD Primary cancer of left lower lobe of lung ([facility] V24, [facility] V28) 01/02/2025 9:27 AM EDT Hospital Encounter [facility] Radiation Oncology [address] [place] [phone] 12/28/2024 Telephone [facility] Radiation Oncology [address] [place] [phone] Juliane Dejesus MA 12/28/2024 Telephone [facility] Radiation Oncology [address] [place] [phone] Juliane Dejesus MA 12/19/2024 Telephone [facility] Radiation Oncology [address] [place] [phone] Juliane Dejesus MA 12/19/2024 Telephone [facility] Radiation Oncology [address] [place] [address] Juliane Dejesus MA 12/14/2024 9:00 AM EDT Office Visit Thoracic Surgery - [place] [address] [phone] Carl Brown MD Primary cancer of left lower lobe of lung (CMS/HCC V24, CMS/HCC V28) (Primary Dx); History of lung cancer 12/07/2024 9:45 AM EDT Anesthesia Event [facility] [place] [address] [place] [phone] Goyo Farmer MD 12/07/2024 9:00 AM EDT - 12/07/2024 11:00 AM EDT Surgery [facility] [place] [address] [place] [phone] Carl Brown MD Navigation bronchoscopy/EBUS w/biopsies [97171 (CPT ) +5 more] 12/07/2024 7:07 AM EDT - 12/07/2024 12:51 PM EDT Hospital Encounter [facility] [place] [address] [place] [phone] Carl Brown MD Lung nodule; History of lung cancer Discharge Disposition: Home or Self Care 12/07/2024 7:05 AM EDT - 12/07/2024 11:59 PM EDT Hospital Encounter [facility] Xray [address] [place] [phone] Pain Discharge Disposition: Home or Self Care 11/29/2024 Telephone [facility] Radiation Oncology [address] [place] [phone] Kathy Navarrete NP 11/28/2024 Telephone Pulmonology [facility] [address] [phone] Sylvia Mccann, GUSTAVO 11/27/2024 3:12 PM EDT - 11/27/2024 11:59 PM EDT Hospital Encounter [facility] CT Scan [address] [place] [phone] Pulmonary nodule; Personal history of malignant neoplasm of lung Discharge Disposition: Home or Self Care 11/10/2024 Telephone Thoracic Surgery - [address] [phone] Fatoumata Fonseca CO 11/09/2024 10:30 AM EDT Consult Thoracic Surgery - [address] [phone] Carl Brown MD Lung nodule (Primary Dx); History of lung cancer; Neoplasm 11/02/2024 7:24 AM EDT - 11/02/2024 11:59 PM EDT Hospital Encounter [facility] PET Scan [address] [place] [phone] 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 (CMS/HCC V24, CMS/HCC V28) Discharge Disposition: Home or Self Care 10/31/2024 9:39 AM EDT - 10/31/2024 11:59 PM EDT Hospital Encounter [facility] Radiation Oncology [address] [place] [phone] Kathy Navarrete NP 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 (CMS/HCC V24, CMS/HCC V28) (Primary Dx) Discharge Disposition: Home or Self Care 10/31/2024 Telephone Pulmonology - [address] [phone] Sylvia Mccann, GUSTAVO 10/23/2024 10:39 AM EDT - 10/23/2024 11:59 PM EDT Hospital Encounter [facility] CT Scan [address] [place] [phone] 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 (CMS/HCC V24, CMS/HCC V28) Discharge Disposition: Home or Self Care from Last 3 Months Surgical History Surgery Date Site/Laterality Comments LUNG SURGERY Left PROCEDURE:LUNG SURGERY OTHER SURGICAL HISTORY ILIAC ARTERY STENT BRONCHOSCOPY 12/07/2024 Navigation bronchoscopy/EBUS w/ BX Medical History Medical History Date Comments Lung cancer ([facility] V24, [facility] V28) DX:Lung cancer ([facility]) Hypertension DX:Hypertension COPD (chronic obstructive pu lmonary disease) ([facility] V24, [facility] V28) DX:COPD (chronic o bstructive pulmonary disease) ([facility]) PAD (peripheral artery disea se) ([facility] V24) DX:PAD (peripheral artery di sease) ([facility]) Hyperlipidemia Peripheral vascular disease ([facility] V24) Lung nodule Heart disease PAD Shortness of breath GERD (gastroesophageal reflux disease) Diverticulosis Hiatal hernia Irritable bowel syndrome Chronic kidney disease Anxiety Arthritis Joint pain Family History Relation Name Status Comments Father Mother Social History Tobacco Use Types Packs/Day Years Used Date Smoking Tobacco: Every Day Smokeless Tobacco: Never Tobacco Cessation:Ready to Q uit: Not Asked; Counseling Given: Not Answered Alcohol Use Standard Drinks/Week Comments Not Currently [...] Pulse 72 01/02/2025 9:39 AM EDT Temperature 36.7 C (98.1 F) 12/14/2024 9:03 AM EDT Respiratory Rate 18 12/14/2024 9:03 AM EDT Oxygen Saturation 96% 01/02/2025 9:39 AM EDT Inhaled Oxygen Concentration - - Weight 31.1 kg (68 lb 9.6 oz) 01/02/2025 9:39 AM EDT Height 157.5 cm (5' 2 ) 01/02/2025 9:39 AM EDT Body Mass Index 12.55 01/02/2025 9:39 AM EDT Plan of Treatment Upcoming Encounters Date Type Department Care Team (Late st Contact Info) Description 01/16/2025 10:15 AM EDT Appointment [facility] Radiation Oncology [address] [place] [phone] 01/16/2025 11:00 AM EDT Appointment [facility] Radiation Oncology [address] [place] [phone] Lobo Morton MD [address] [place] [address] 02/13/2025 10:00 AM EDT Appointment [facility] Radiation Oncology [address] [place] [phone] Kathy Navarrete NP [address] [place] [address] Health Maintenance Due Date Last Done Comments Breast Cancer Screening 1950 DTaP,Tdap,and Td Vaccines (1 - Tdap) 1970 RSV Immunization Adult Patients (1 - Risk 60-74 years 1-dose series) 2011 Cholesterol Screening (Lipid Panel) 03/17/2022 Colorectal Cancer Screening: Colonoscopy 03/17/2022 Falls Risk Assessment 03/17/2022 Hepatitis C Screening 03/17/2022 Lung Cancer Screening (Low Dose CT) 03/17/2022 Medicare Annual Wellness Visit 03/17/2022 Osteoporosis Screening (Bone Density Screening) 03/17/2022 Social Influencers of Health Screening 03/17/2022 Depression Screening 04/19/2024 COVID-19 Vaccine ( season) 2024 03/25/2021, 06/17/2020, 05/17/2020 Influenza Vaccine (#1) 2024 , 01/28/2021, 12/22/2018, Additional history exists Hypertension/CHF/CAD Annual BMP Blood Test 11/28/2025 11/28/2024 Pneumococcal Vaccine: 50+ Years Completed 04/05/2018, 01/17/2017, [...] Procedure Name Priority Date/Time Associated Diagnosis Comments XR CHEST 1 VIEW STAT 12/07/2024 11:37 AM EDT XR CHEST 1 VIEW Routine 12/07/2024 10:57 AM EDT Pain ..CONCENTRATION Routine 12/07/2024 10:52 AM EDT History of lung cancer Lung nodule ACID FAST BACILLI STAIN Routine 12/07/2024 10:52 AM EDT History of lung cancer Lung nodule CULTURE BRONCHIAL WITH GRAM STAIN Routine 12/07/2024 10:52 AM EDT History of lung cancer Lung nodule CULTURE, AFB AND SMEAR WITH REFLEX TO IDENTIFICATION AND SUSCEPTIBILITY Routine 12/07/2024 10:52 AM EDT History of lung cancer Lung nodule CULTURE FUNGAL, OTHER Routine 12/07/2024 10:52 AM EDT History of lung cancer Lung nodule TISSUE EXAM Routine 12/07/2024 10:27 AM EDT History of lung cancer Lung nodule NON-GYNECOLOGIC CYTOLOGY Routine 12/07/2024 10:20 AM EDT History of lung cancer Lung nodule TH AN ENDOTRACHEAL(NO CHARGE) Routine 12/07/2024 10:03 AM EDT OK CORE NDL BX LNG/MED PERQ 12/07/2024 9:45 AM EDT Lung nodule History of lung cancer Case Notes C-ARM Special Needs Needs c-arm out patientTime change per Fatoumata 8/18 JT OK BRONCHOSCOPY INCL FLUORO GUIDANCE W BRONCHIAL/ENDOBRONCHI AL BX SGL/MULT 12/07/2024 9:45 AM EDT Lung nodule History of lung cancer Case Notes C-ARM Special Needs Needs c-arm out patientTime change per Fatoumata 8/18 JT OK BRONCHOSCOPY RIGID/FLEXIBLE W/TRANSBRONCHIAL LUNG BIOPSY(S) SINGLE LOBE 12/07/2024 9:45 AM EDT Lung nodule History of lung cancer Case Notes C-ARM Special Needs Needs c-arm out patientTime change per Fatoumata 8/18 JT OK BRONCHOSCOPY RIGID/FLEXIBLE COMPUTER ASSISTED IMAGE GUIDED NAVIGATION 12/07/2024 9:45 AM EDT Lung nodule History of lung cancer Case Notes C-ARM Special Needs Needs c-arm out patientTime change per Fatoumata 8/18 JT OK BRONCHOSCOPY INCL FLUOROSCOPIC GUID W EBUS DURING PERIPHERAL LESION 12/07/2024 9:45 AM EDT Lung nodule History of lung cancer Case Notes C-ARM Special Needs Needs c-arm out patientTime change per Fatoumata 8/18 JT OK BRONCHOSCOPY INCL FLUROSCOPIC GUIDANCE W PLCMNT FIDUCIAL MARKER SGL/MULT 12/07/2024 9:45 AM EDT Lung nodule History of lung cancer Case Notes C-ARM Special Needs Needs c-arm out patientTime change per Fatoumata 8/18 JT PROCEDURAL ECG Routine 11/28/2024 10:39 AM EDT Lung nodule History of lung cancer CBC WITH AUTO DIFFERENTIAL Routine 11/28/2024 10:30 AM EDT Lung nodule History of lung cancer BASIC METABOLIC PANEL Routine 11/28/2024 10:30 AM EDT Lung nodule History of lung cancer CBC AND DIFFERENTIAL Routine 11/28/2024 10:30 AM EDT Lung nodule History of lung cancer PROTHROMBIN TIME WITH INR Routine 11/28/2024 10:30 AM EDT Lung nodule History of lung cancer Neoplasm ACTIVATED PARTIAL THROMBOPLASTIN TIME Routine 11/28/2024 10:30 AM EDT Lung nodule History of lung cancer Neoplasm TYPE AND SCREEN Routine 11/28/2024 10:30 AM EDT Lung nodule History of lung cancer CT CHEST WO CONTRAST Routine 11/27/2024 3:39 PM EDT Pulmonary nodule Personal history of malignant neoplasm of lung PET CT SKULL TO MID THIGH SUBSEQUENT Routine 11/02/2024 9:45 AM EDT 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 (CMS/HCC V24, CMS/HCC V28) CT CHEST WO CONTRAST Routine 10/23/2024 10:45 AM EDT 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 (CMS/HCC V24, CMS/HCC V28) from Last 3 Months Results * XR Chest 1 View (12/07/2024 11:37 AM EDT) Only the most recent of2 resultswithin the time period is included. Anatomical Region Laterality Modality Body Radiographic Maura ging 12/07/2024 11:3 9 AM EDT Impressions 12/07/2024 12:01 PM EDT Increasing heterogeneous opacities in the suprahilar left lung. These could be infectious or inflammatory, but are more likely an area of postbiopsy hemorrhage. -------- FINAL REPORT -------- Dictated By: Juan Resendiz Dictated Date: 12/07/2024 11:39 ET Assigned Physician: Juan Resendiz Reviewed and Electronically Signed By: Juan Resendiz Signed Date: 12/07/2024 12:01 ET Workstation ID: [id number] Transcribed By: Self Edit Transcribed Date: 12/07/2024 11:43 ET Narrative 12/07/2024 12:01 PM EDT PROCEDURE: AP chest radiograph. HISTORY: Lung biopsy. COMPARISON: 04/30/2023. FINDINGS: Lungs are hyperinflated. Vertically oriented staple line at the left apex. There are increasing heterogeneous opacities in the suprahilar left lung. These probably represent areas of hemorrhage following lung biopsy. Atherosclerotic calcifications of the aorta. Normal heart size. No pneumothorax or pleural effusion. Procedure Note Juan Resendiz MD - 12/07/2024 PROCEDURE: AP chest radiograph. HISTORY: Lung biopsy. COMPARISON: 04/30/2023. FINDINGS: Lungs are hyperinflated. Vertically oriented staple line at the leftapex. There are increasing heterogeneous opacities in the suprahilar leftlung. These probably represent areas of hemorrhage following lungbiopsy. Atherosclerotic calcifications of the aorta. Normal heart size. Nopneumothorax or pleural effusion. IMPRESSION: Increasing heterogeneous opacities in the suprahilar left lung. Thesecould be infectious or inflammatory, but are more likely an area ofpostbiopsy hemorrhage. -------- FINAL REPORT -------- Dictated By: Juan Resendiz Dictated Date: 12/07/2024 11:39 ET Assigned Physician: Juan Resendiz Reviewed and Electronically Signed By: Juan Resendiz Signed Date: 12/07/2024 12:01 ET Workstation ID: [id number] Transcribed By: Self Edit Transcribed Date: 12/07/2024 11:43 ET Carl Brown MD IMG XR PROCEDURES Final Result * (ABNORMAL) Culture bronchial with gram stain (12/07/2024 10:52 AM EDT) Bronchial Culture Rare Stenotrophomonas maltophilia(A) TRAM 12/11/2024 10:20 AM EDT [facility] Comment: The organism value for this result has been updated. These results have been appended to the previously preliminary verified report. Edited result: Previously reported as Gram negative bacilli on 12/10/2024 at 0827 EDT. Gram Stain Result No polymorphonuclear leukocytes, No epithelial cells, and No organisms noted 12/11/2024 10:20 AM EDT [facility] Bronchoalveolar Lavage Structure of lower lobe of left lung / Unknown 12/07/2024 10:52 AM EDT 12/07/2024 11:31 AM EDT Narrative Organism Antibiotic Method Susceptibility Stenotrophomonas maltophilia Levofloxacin DISK DIFFUSI ON Resistant Stenotrophomonas maltophilia Minocycline DISK DIFFUSI ON Resistant Stenotrophomonas maltophilia Trimethopri m/Sulfamethoxaz ole DISK DIFFUSION Susceptible us Carl Brown MD LAB MICROBIOLOGY - GENERAL ORDER JOSE MANUEL Final Result Performing Organization Address City/[facility]/ZIP Co de Phone Number [facility] [address] [place] [address], * Concentration (12/07/2024 10:52 AM EDT) AFB Concentration Performed 4:05 PM EDT [facility] Structure of lower lobe of left lung / Unknown 12/07/2024 10:52 AM EDT 12/07/2024 11:31 AM EDT Narrative [facility] - 12/08/2024 4:05 PM EDT Performed at: 01 - [facility] [address] [id number] Binding Machine Operator: Joy Hawthorne MD, Phone: [phone] us Carl Brown MD LAB BLOOD ORDERABLES Final Resul t Performing Organization Address [facility] Co de Phone Number [facility] * Acid fast bacilli stain (12/07/2024 10:52 AM EDT) AFB Stain Result No Acid fast bacilli seen on direct smear (Fuchsin method, 1000x) No Acid Fast Bacilli seen on direct smear 12/07/2024 2:17 PM EDT [facility] Wash Structure of lower lobe of left lung / Unknown 12/07/2024 10:52 AM EDT 12/07/2024 11:31 AM EDT us Carl Brown MD LAB MICROBIOLOGY - GENERAL ORDER JOSE MANUEL Final Result Performing Organization Address City/[facility]/ZIP Co de Phone Number [facility] [address] [place] [address], [place] [phone] * Culture fungal, other (12/07/2024 10:52 AM EDT) Culture, Fungus Negative for Fungus after 4 Weeks 01/04/2025 11:25 AM EDT [facility] Wash Structure of lower lobe of left lung / Unknown 12/07/2024 10:52 AM EDT 12/07/2024 11:31 AM EDT Carl Brown MD LAB MICROBIOLOGY - GENERAL ORDER JOSE MANUEL Final Result [facility] [address] [place] [address], [place] [phone] * Tissue exam (12/07/2024 10:27 AM EDT) Final Diagnosis A. Lung, Left Lower Lobe, cavitary superior segment, biopsy: Fibroelastotic tissue present. Not diagnostic for neoplasia. B. Lung, Left Lower Lobe, Nodule, biopsy: Not diagnostic. No lesional tissue identified. 5 3:18 PM EDT [facility] Comment Wireworker Supervisor slide(s) from this case have been presented at Anatomic Pathology Intradepartmental Review Conference on 12/08/24 with agreement. Please see concurrent cytology, [id number], for diagnosis. 3:18 PM EDT [facility] Gross Description A. Lung, Left Lower Lobe, Left cavitary superior segment: Labeled ID 2 left cavi lung LLL . Received in formalin are two soft to friable, rubio-pink tissue measuring 0.2 cm and 0.4 cm in greatest diameter, which are wrapped in paper and submitted in toto in two cassettes, one piece each (1 H&E, +6 unstained slides for potential immunohistochemical stains and one H&E), conserving tissue on each block). B. Lung, Left Lower Lobe, Nodule: Labeled nodule lung LLL ID 5 . Received in formalin are four portions of questionable tissue/blood clot ranging from less than 0.1 cm to 0.25 cm in greatest diameter which are wrapped in paper and submitted in toto in two cassettes, two pieces each (one H&E, +6 unstained slides for potential immunohistochemical stains and one H&E), conserving tissue on each block; which might fail processing). TS 5 3:18 PM EDT [facility] Disclaimer Unless otherwise specified, all tissue is 10% NB formalin fixed and paraffin embedded. 5 3:18 PM EDT [facility] Tissue Structure of lower lobe of left lung / Unknown 12/07/2024 10:27 AM EDT 12/07/2024 11:29 AM EDT Tissue specimen (specimen) Structure of lower lobe of left lung / Unknown 12/07/2024 10:45 AM EDT 12/07/2024 11:29 AM EDT us Carl Brown MD LAB PATHOLOGY ORDERABLES Final R esult [facility] [address] [place] [address], * Non-gynecologic cytology (12/07/2024 10:20 AM EDT) Final Diagnosis A. Lung, Left Lower Lobe, Left cavitary superior segment, fine needle aspiration, (ThinPrep, cell block): Positive for malignant cells. Squamous cell carcinoma. B. Lung, Left Lower Lobe, Bronchial [place], Left cavitary superior segment: (ThinPrep, cell block): Suspicious for carcinoma. Suspicious for squamous cell carcinoma. C. Lung, Left Lower Lobe, Nodule, fine needle aspiration, (ThinPrep, cell block): Non-diagnostic. No lesional material identified. D. Lung, Left Lower Lobe, Bronchial Brushing, Nodule, (ThinPrep, cell block): Non-diagnostic. No lesional material identified. E. Lung, Left Lower Lobe, Bronchial Washing, Left cavitary superior segment, (ThinPrep, cell block): Negative for malignant cells. F. Lung, Left Lower Lobe, Bronchial Washing, Nodule, (ThinPrep, cell block): Non-diagnostic. No lesional material identified. 12/08/2024 3:16 PM [facility] Comment Diagnostic focus of squamous cell carcinoma best seen in the cell block for part A. It is insufficient for PD L1 testing. The ThinPrep of Part A contains numerous keratinized cells with atypia. The ThinPrep of part B contains markedly atypical cells, highly suspicious for carcinoma. The cell block is non- contributory. Wireworker Supervisor slide(s) from this case have been presented at Anatomic Pathology Intradepartmental Review Conference on 12/08/24. I notified Dr. Brown of the final diagnosis by secure message at 3:10pm. 12/08/2024 3:16 PM [facility] Specimen A Adequacy Satisfactory for evaluation 12/08/2024 3:16 PM [facility] Specimen B Adequacy Satisfactory for evaluation 12/08/2024 3:16 PM [facility] Specimen C Adequacy Specimen processed and examined, but unsatisfactory for eval of abnormal epithelial 12/08/2024 3:16 PM [facility] Specimen D Adequacy Specimen processed and examined, but unsatisfactory for eval of abnormal epithelial 12/08/2024 3:16 PM [facility] Specimen E Adequacy Satisfactory for evaluation 12/08/2024 3:16 PM [facility] Specimen F Adequacy Specimen processed and examined, but unsatisfactory for eval of abnormal epithelial 12/08/2024 3:16 PM [facility] Gross Description A. Lung, Left Lower Lobe, Left cavitary superior segment: Received in Cytolyt 30 ml of clear fluid, 1 ThinPrep. 1 Cellblock Cell block in formalin @ 13:00 , total formalin fixation time 8 hours. B. Lung, Left Lower Lobe, Bronchial [place], Left cavitary superior segment: Received in Cytolyt 30 ml of pink fluid with brush, 1 ThinPrep. 1 Cellblock Cell block in formalin @ 13:00 , total formalin fixation time 8 hours. C. Lung, Left Lower Lobe, Nodule: Received in Cytolyt 30 ml of red fluid, 1 ThinPrep. 1 Cellblock Cell block in formalin @ 13:00 , total formalin fixation time 8 hours. D. Lung, Left Lower Lobe, Bronchial Brushing, Nodule: Received in Cytolyt 30 ml of clear fluid with brush, 1 ThinPrep. 1 Cellient block E. Lung, Left Lower Lobe, Bronchial Washing, Left cavitary superior segment: Received 55 ml of red fluid; 1 ThinPrep, 1 Cell block Cell block in formalin @ 13:00, total formalin fixation time 8 hours. F. Lung, Left Lower Lobe, Bronchial Washing, Nodule: Received 35 ml of red fluid; 1 ThinPrep, 1 Cell block Cell block in formalin @ 13:00, total formalin fixation time 8 hours. 12/08/2024 3:16 PM EDT [facility] Disclaimer Unless otherwise specified, all tissue is 10% NB formalin fixed and paraffin embedded. Technical cytopathology services provided by [facility], at [address] [place] [address], [place] [address] (CLIA # [id number]/Fantasma Lopez MD, Greige Goods Inspector.) 12/08/2024 3:16 PM EDT [facility] Fine Needle Aspirate Structure of lower lobe of left lung / Unknown 12/07/2024 10:20 AM EDT 12/07/2024 12:29 PM EDT Brushing, function (observable entity) Structure of lower lobe of left lung / Unknown 12/07/2024 10:30 AM EDT 12/07/2024 12:29 PM EDT Specimen obtained by fine needle aspiration procedure (specimen) Structure of lower lobe of left lung / Unknown 12/07/2024 10:41 AM EDT 12/07/2024 12:29 PM EDT Brushing, function (observable entity) Structure of lower lobe of left lung / Unknown 12/07/2024 10:47 AM EDT 12/07/2024 12:29 PM EDT Specimen obtained by lavage (specimen) Structure of lower lobe of left lung / Unknown 12/07/2024 10:33 AM EDT 12/07/2024 12:29 PM EDT Specimen obtained by lavage (specimen) Structure of lower lobe of left lung / Unknown 12/07/2024 10:52 AM EDT 12/07/2024 12:29 PM EDT us Carl Brown MD LAB CYTOLOGY ORDERABLES Final Re sult [facility] [address] [place] [address], [place] [phone] * TH AN ENDOTRACHEAL(NO CHARGE) (12/07/2024 10:03 AM EDT) Rabia Garner CRNA - 12/07/2024 10:03 AM EDT Rabia Farmer CRNA 12/07/2024 10:04 AM General Information and Staff Patient location during procedure: OR Performed by: Rabia Farmer CRNA Authorized by: Goyo Farmer MD Intubation Airway not difficult Urgency: elective Final Airway Details Successful airway: ETT Cuffed: yes Successful intubation technique: direct laryngoscopy Facilitating devices/methods: intubating stylet Endotracheal tube insertion site: oral Blade: Rupert Blade size: #3 ETT size (mm): 8.5 Cormack-Lehane Classification: grade I - full view of glottis Placement verified by: chest auscultation and capnometry Measured from: lips ETT to lips (cm): 21 Number of attempts at approach: 1 Ventilation between attempts: BVM Number of other approaches attempted: 0Final airway type: endotracheal airway Indications and Patient Condition Indications for airway management: anesthesia and airway protection Spontaneous ventilation: present Sedation level: Yes Preoxygenated: yes Soft Tissue Damage: No Dentition Unchanged: Yes Patient position: neutral MILS maintained throughout Mask difficulty assessment: 2 - vent by mask + OA or adjuvant +/- NMBA Start Time: 12/07/2024 9:57 AMStop Time: 12/07/2024 9:57 AM us Goyo Farmer MD ANESTHESIA ORDERABLES Final Re sult * ECG 12 lead - Procedural (No Charge) (11/28/2024 10:39 AM EDT) Pathologist [facility] Ventricular Rate ECG 66 BPM GEMUSE Atrial Rate 66 BPM GEMUSE P-R Interval 110 ms GEMUSE QRS Duration 78 ms GEMUSE Q-T Interval 428 ms GEMUSE QTc 448 ms GEMUSE P Wave [place] 65 degrees GEMUSE R [place] 76 degrees GEMUSE T [place] 78 degrees GEMUSE ECG Interpretation Sinus rhythm with short OK with Premature supraventricular complexes Minimal voltage criteria for LVH, may be normal variant ( Bud product ) Anterior infarct (cited on or before 02-NOV-2019) When compared with ECG of 26-APR-2023 13:04, Premature supraventricular complexes are now Present Questionable change in initial forces of Anteroseptal leads Confirmed by GAGE AMADOR ([id number]) on 11/28/2024 11:46:48 PM GEMUSE 11/28/2024 10:3 9 AM EDT 11/28/2024 11:46 PM EDT us Carl Brown MD ECG ORDERABLES Final Result GEMUSE * CBC auto differential (11/28/2024 10:30 AM EDT) [facility] WBC 7.9 4.8 - 10.8 K/mcL LAB HEMETOLOGY METHOD 11/28/2024 11:04 AM EDT [facility] RBC 4.70 3.80 - 4.80 M/mcL LAB HEMETOLOGY METHOD 11/28/2024 11:04 AM EDT [facility] Hemoglobin 14.5 11.5 - 16.0 g/dL LAB HEMETOLOGY METHOD 11/28/2024 11:04 AM EDT [facility] Hematocrit 44.5 35.0 - 47.0 % LAB HEMETOLOGY METHOD 11/28/2024 11:[facility] MCV 95.1 79.0 - 98.0 FL LAB HEMETOLOGY METHOD 11/28/2024 11:04 AM EDT [facility] MCH 31.0 27.0 - 32.0 pcg LAB HEMETOLOGY METHOD 11/28/2024 11:04 AM [facility] MCHC 32.6 32.0 - 37.0 g/dL LAB HEMETOLOGY METHOD 11/28/2024 11:04 AM [facility] RDW 11.8 11.0 - 15.0 % LAB HEMETOLOGY METHOD 11/28/2024 11:04 AM [facility] Platelets 160 130 - 400 K/mcL LAB HEMETOLOGY METHOD 11/28/2024 11:04 AM [facility] MPV 9.3 7.0 - 11.0 FL LAB HEMETOLOGY METHOD 11/28/2024 11:04 AM [facility] NRBC 0.0 <1.0 % LAB HEMETOLOGY METHOD 11/28/2024 11:04 AM [facility] NRBC Absolute 0.00 <0.10 K/mcL LAB HEMETOLOGY METHOD 11/28/2024 11:04 AM [facility] Neutrophils Relative 74.5 % LAB HEMETOLOGY METHOD 11/28/2024 11:04 AM [facility] Lymphocytes Relative 12.6 % LAB HEMETOLOGY METHOD 11/28/2024 11:04 AM [facility] Monocytes Relative 10.5 % LAB HEMETOLOGY METHOD 11/28/2024 11:04 AM [facility] Eosinophils Relative 1.3 % LAB HEMETOLOGY METHOD 11/28/2024 11:04 AM [facility] Basophils Relative 1.0 % LAB HEMETOLOGY METHOD 11/28/2024 11:04 AM [facility] Immature Granulocytes Relative 0.1 % LAB HEMETOLOGY METHOD 11/28/2024 11:04 AM [facility] Neutrophils Absolute 5.91 1.50 - 7.00 K/mcL LAB HEMETOLOGY METHOD 11/28/2024 11:04 AM EDT [facility] Lymphocytes Absolute 1.00 1.00 - 5.00 K/mcL LAB HEMETOLOGY METHOD 11/28/2024 11:04 AM EDT [facility] Monocytes Absolute 0.83 0.20 - 1.00 K/mcL LAB HEMETOLOGY METHOD 11/28/2024 11:04 AM EDT [facility] Eosinophils Absolute 0.10 0.00 - 0.50 K/[facility] LAB HEMETOLOGY METHOD 11/28/2024 11:04 AM EDT [facility] Basophils Absolute 0.08 0.00 - 0.20 K/[facility] LAB HEMETOLOGY METHOD 11/28/2024 11:04 AM EDT [facility] Immature Granulocytes Absolute 0.01 0.00 - 0.03 K/[facility] LAB HEMETOLOGY METHOD 11/28/2024 11:04 AM EDT [facility] Blood Venous blood specimen / Unknown Venipuncture / Unknown 11/28/2024 10:30 AM EDT 11/28/2024 10:46 AM EDT us Carl Brown MD LAB BLOOD ORDERABLES Final Resul t [facility] [address] [place] [address], * Activated partial thromboplastin time (11/28/2024 10:30 AM EDT) aPTT 30.2 24.1 - 39.3 sec LAB COAGULATION METHOD 11/28/2024 11:02 AM EDT [facility] Blood Venous blood specimen / Unknown Venipuncture / Unknown 11/28/2024 10:30 AM EDT 11/28/2024 10:46 AM EDT us Carl Brown MD LAB BLOOD ORDERABLES Final Resul t Performing Organization Address City/[facility]/ZIP Co de Phone Number [facility] [address] [place] [address], [place] [phone] * (ABNORMAL) Prothrombin time with INR (11/28/2024 10:30 AM EDT) Protime 10.5(L) 10.6 - 13.9 sec LAB COAGULATION METHOD 11/28/2024 11:02 AM EDT [facility] INR 0.8 LAB COAGULATION METHOD 11/28/2024 11:02 AM EDT [facility] Blood Venous blood specimen / Unknown Venipuncture / Unknown 11/28/2024 10:30 AM EDT 11/28/2024 10:46 AM EDT us Carl Brown MD LAB BLOOD ORDERABLES Final Resul t Performing Organization Address [facility] Co de Phone Number [facility] [address] [place] [address], [place] [phone] * Type and screen (11/28/2024 10:30 AM EDT) ABO Group A 11/28/2024 1:18 PM EDT [facility] Rh Type Positive 11/28/2024 1:18 PM EDT [facility] Antibody Screen Negative 11/28/2024 1:18 PM EDT [facility] Blood Venous blood specimen / Unknown Venipuncture / Unknown 11/28/2024 10:30 AM EDT 11/28/2024 10:46 AM EDT us Carl Brown MD LAB BLOOD BANK TEST ORDERABLES F inal Result Performing Organization Address City/[facility]/ZIP Co de Phone Number [facility] [address] [place] [address], * (ABNORMAL) Basic metabolic panel (11/28/2024 10:30 AM EDT) Sodium 139 133 - 145 mmol/L LAB CHEMISTRY METHOD 11/28/2024 12:54 PM [facility] Potassium 4.5 3.5 - 5.5 mmol/L LAB CHEMISTRY METHOD 11/28/2024 12:54 PM [facility] Chloride 105 96 - 110 mmol/L LAB CHEMISTRY METHOD 11/28/2024 12:54 PM [facility] CO2 32 21 - 32 mmol/L LAB CHEMISTRY METHOD 11/28/2024 12:54 PM [facility] Anion Gap 2(L) 3 - 11 LAB CHEMISTRY METHOD 11/28/2024 12:54 PM [facility] Glucose 101(H) 70 - 100 mg/dL LAB CHEMISTRY METHOD 11/28/2024 12:54 PM [facility] BUN 19 5 - 25 mg/dL LAB CHEMISTRY METHOD 11/28/2024 12:54 PM [facility] Creatinine 1.50(H) 0.50 - 1.10 mg/dL LAB CHEMISTRY METHOD 11/28/2024 12:54 PM [facility] eGFR 37(L) >=60 mL/min/1. 73m2 LAB CHEMISTRY METHOD 11/28/2024 12:54 PM [facility] Comment:Calculation based on the Chronic Kidney Disease Epidemiology Collaboration (CKD-EPI) equation refit without adjustment for race. BUN/Creatinine Ratio 12.7 LAB CHEMISTRY METHOD 11/28/2024 12:54 PM [facility] Calcium 9.4 8.5 - 10.5 mg/dL LAB CHEMISTRY METHOD 11/28/2024 12:54 PM [facility] Blood Venous blood specimen / Unknown Venipuncture / Unknown 11/28/2024 10:30 AM EDT 11/28/2024 10:46 AM EDT us Carl Brown MD LAB BLOOD ORDERABLES Final Resul t [facility] [address] [place] [address], [place] [phone] * CT Chest wo Contrast (11/27/2024 3:39 PM EDT) Only the most recent of2 resultswithin the time period is included. Anatomical Region Laterality Modality Body Computed Tomogra phy 12/01/2024 11:5 7 AM EDT Impressions 12/01/2024 12:25 PM EDT Evidence of prior left upper lung surgery. Stable irregular nodule in the presumed site of previous stereotactic radiation anterior left upper lung. Thick-walled irregular cavitary nodule in the superior segment of the left lower lobe has concerning features and may have minimally increased. Malignancy could give this appearance. Interval decrease in size in nodule right upper lobe. 0.6 cm irregular nodule superior segment left lower lobe has increased or developed. This is concerning. Severe underlying emphysema. Right apical pleural and parenchymal scarring. -------- FINAL REPORT -------- Dictated By: Ayan Wilburn Dictated Date: 12/01/2024 11:57 ET Assigned Physician: Ayan Wilburn Reviewed and Electronically Signed By: Ayan Wilburn Signed Date: 12/01/2024 12:25 ET Workstation ID: [id number] Transcribed By: Self Edit Transcribed Date: 12/01/2024 11:57 ET Narrative 12/01/2024 12:25 PM EDT EXAMINATION: CT CHEST WITHOUT CONTRAST CLINICAL INFORMATION: Lung nodule. Personal history of lung cancer. Prior pulmonary resection. Evaluate for interval changes COMPARISON: Selected portions of previous CT 10/23/24, 04/29/23, 06/19/19 TECHNIQUE: Multidetector CT. Examination of the chest. Examination of the chest without IV contrast. Reformatting in the coronal and sagittal planes. DLP: 323 mGy-cm Dose optimization was performed including the use of low-dose iterative reconstruction technique with automatic exposure control based on patient size. Type of contrast: None Volume of IV contrast: None Volume of contrast discarded: 0 mL FINDINGS: LUNG: There is a thick-walled irregular cavitary lesion in the superior segment of the left lower lobe which represents a significant interval change. 11/27/24-1.2 x 1.3 cm () The largest solid component measures 1.2 x 0.8 cm (75) 10/23/24-1.2 x 0.9 cm (53) The largest solid component measures 1.1 x 0.9 cm (60) There was a 0.4 cm nodule in this area on 06/21/24, 11/19/23 and 04/29/23. This has concerning features There is an irregular nodule in the superior segment left lower lobe 11/27/24-0.6 cm () 10/23/24-0.2 cm () 04/29/23-not present There is an irregular nodule in the anterior left upper lobe peripherally. 11/27/24-0.9 x 0.4 cm () 10/23/24-0.9 x 0.4 cm () 05/24/24-0.9 x 0.3 cm 43) 11/19/23-1.1 x 0.5 cm (75/270) 04/29/23-solid and surrounding groundglass opacity was present. The solid component measured approximately 1.0 cm This could be the site of previous stereotactic radiation. There is postsurgical change in the medial left upper lung. This is stable. There is an irregular nodule with angular margins in the central right upper lobe which is difficult to quantify 11/27/24-0.9 cm () 10/23/24-1.2 cm (). Subjectively, this has decreased in size There are secretions within the trachea. There is narrowing of the transverse diameter of the trachea. There is reticular abnormality in the extreme right apex similar to previous consistent with postinflammatory scarring. There are some vague opacities associated with cystic change in the lateral right lower lobe unchanged. Severe underlying centrilobular emphysema. MEDIASTINUM: There are no enlarged mediastinal or hilar lymph nodes. No suspicious abnormality of the esophagus CARDIAC: The left ventricle is prominent. There is no pericardial fluid. CORONARY CALCIFICATION: There are marked coronary calcifications. VASCULAR: Severe arterial calcification including the great vessels, carotid arteries including the origins of the innominate and left subclavian arteries. PLEURA: There is no pleural fluid or pneumothorax AXILLA/CHEST WALL: There are no enlarged axillary lymph nodes. No chest wall mass demonstrated VISUALIZED UPPER ABDOMEN: No suspicious abnormality on limited assessment of the visualized upper abdomen. The IVC and central hepatic veins are not distended. MUSCULOSKELETAL: No suspicious focal bony lesion. Procedure Note Ayan Wilburn MD - 12/01/2024 EXAMINATION: CT CHEST WITHOUT CONTRAST CLINICAL INFORMATION: Lung nodule. Personal history of lung cancer. Prior pulmonaryresection. Evaluate for interval changes COMPARISON: Selected portions of previous CT 10/23/24, 04/29/23, 06/19/19 TECHNIQUE: Multidetector CT. Examination of the chest. Examination of the chest without IV contrast. Reformatting in the coronal and sagittal planes. DLP: 323 mGy-cm Dose optimization was performed including the use of low-dose iterativereconstruction technique with automatic exposure control based on patientsize. Type of contrast: None Volume of IV contrast: None Volume of contrast discarded: 0 mL FINDINGS: LUNG: There is a thick-walled irregular cavitary lesion in the superior segmentof the left lower lobe which represents a significant interval change. 11/27/24-1.2 x 1.3 cm () The largest solid component measures 1.2 x 0.8 cm () 10/23/24-1.2 x 0.9 cm () The largest solid component measures 1.1 x 0.9 cm () There was a 0.4 cm nodule in this area on 06/21/24, 11/19/23 and 04/29/23. This has concerning features There is an irregular nodule in the superior segment left lower lobe 11/27/24-0.6 cm () 10/23/24-0.2 cm () 04/29/23-not present There is an irregular nodule in the anterior left upper lobeperipherally. 11/27/24-0.9 x 0.4 cm () 10/23/24-0.9 x 0.4 cm () 05/24/24-0.9 x 0.3 cm ) 11/19/23-1.1 x 0.5 cm (75/270) 04/29/23-solid and surrounding groundglass opacity was present. The solidcomponent measured approximately 1.0 cm This could be the site of previous stereotactic radiation. There is postsurgical change in the medial left upper lung. This isstable. There is an irregular nodule with angular margins in the central rightupper lobe which is difficult to quantify 11/27/24-0.9 cm () 10/23/24-1.2 cm (). Subjectively, this has decreased in size There are secretions within the trachea. There is narrowing of thetransverse diameter of the trachea. There is reticular abnormality in the extreme right apex similar toprevious consistent with postinflammatory scarring. There are some vague opacities associated with cystic change in thelateral right lower lobe unchanged. Severe underlying centrilobular emphysema. MEDIASTINUM: There are no enlarged mediastinal or hilar lymph nodes. Nosuspicious abnormality of the esophagus CARDIAC: The left ventricle is prominent. There is no pericardial fluid. CORONARY CALCIFICATION: There are marked coronary calcifications. VASCULAR: Severe arterial calcification including the great vessels,carotid arteries including the origins of the innominate and leftsubclavian arteries. PLEURA: There is no pleural fluid or pneumothorax AXILLA/CHEST WALL: There are no enlarged axillary lymph nodes. No chestwall mass demonstrated VISUALIZED UPPER ABDOMEN: No suspicious abnormality on limited assessmentof the visualized upper abdomen. The IVC and central hepatic veins arenot distended. MUSCULOSKELETAL: No suspicious focal bony lesion. IMPRESSION: Evidence of prior left upper lung surgery. Stable irregular nodule in the presumed site of previous stereotacticradiation anterior left upper lung. Thick-walled irregular cavitary nodule in the superior segment of the leftlower lobe has concerning features and may have minimally increased.Malignancy could give this appearance. Interval decrease in size in nodule right upper lobe. 0.6 cm irregular nodule superior segment left lower lobe has increased ordeveloped. This is concerning. Severe underlying emphysema. Right apical pleural and parenchymal scarring. -------- FINAL REPORT -------- Dictated By: Ayan Wilburn Dictated Date: 12/01/2024 11:57 ET Assigned Physician: Ayan Wilburn Reviewed and Electronically Signed By: Ayan Wilburn Signed Date: 12/01/2024 12:25 ET Workstation ID: [id number] Transcribed By: Self Edit Transcribed Date: 12/01/2024 11:57 ET us Carl Brown MD IMG CT PROCEDURES Final Result * PET CT Skull to Mid Thigh Subsequent (11/02/2024 9:45 AM EDT) Anatomical Region Laterality Modality Body Radiographic Maura ging 11/02/2024 3:38 PM EDT Impressions 11/02/2024 6:13 PM EDT 1. Interval increase in FDG activity and change in morphology of nodule in the superior segment of the left lower lobe suspicious for underlying malignancy 2. Indeterminant nodules in the right upper lobe and right lower lobe of the lung either representing postinfectious/postinflammatory process or underlying malignancy. Suggest short-term interval follow-up with chest CT. Please note: The CT was acquired at a low radiation dose settings. The images are of nondiagnostic quality and used solely for purposes of attenuation correction and slice localization for the PET scan. If a diagnostic CT study is desired it must be ordered separately. -------- FINAL REPORT -------- Dictated By: Yanni Ahuja Dictated Date: 11/02/2024 15:38 ET Assigned Physician: Yanni Ahuja Reviewed and Electronically Signed By: Yanni Ahuja Signed Date: 11/02/2024 18:13 ET Workstation ID: [id number] Transcribed By: Self Edit Transcribed Date: 11/02/2024 15:38 ET Narrative 11/02/2024 6:13 PM EDT INDICATION: hx lung cancer. new malignancy in LLL. History of left upper lobe wedge resection for lung malignancy in 2019 and SBRT for part solid nodule in the left upper lobe in 2023. TECHNIQUE: FDG PET-CT imaging was performed from the skull bases through the thighs in a single acquisition with data set reconstructed in axial, coronal, and sagittal planes at the computer workstation with fused data from both the PET imaging study and attenuation correction CT. The CT portion of the examination was done strictly for attenuation correction and is not a true diagnostic CT examination. DLP: 139 mGy-cm Radiopharmaceutical: 11.4 mCi of F-18 FDG IV. Blood glucose: 121 mg/dl. COMPARISON: Comparison is made with prior PET/CT 05/2023 and multiple prior chest CTs, the most recent dated October 2024 FINDINGS: HEAD AND NECK: Nonspecific focal area of asymmetric FDG activity overlying the left frontal scalp SUV max 3.6. No underlying soft tissue or osseous correlate. No FDG avid cervical or supraclavicular lymphadenopathy. THORAX: Previously described tree-in-bud opacity in the superior segment of the left lower lobe demonstrates significant interval increase in size with central cavitation SUV Max 3.9 (previously 1). 4 mm nodule in the right lower lobe; new from May 2023 SUV Max 2.3. 7 mm nodule in the right upper lobe (previously 12 mm on October 2024) SUV max 1.6; new from May 2023. Postsurgical appearance of the left upper lobe. Left upper lobe nodule SUV max 1.3 (previously 2.4). No FDG avid thoracic lymphadenopathy. Thoracic aortic and coronary artery calcifications. ABDOMEN/PELVIS: No abnormal FDG activity. MUSCULOSKELETAL: No abnormal FDG activity. Procedure Note Yanni Ahuja MD - 11/02/2024 INDICATION: hx lung cancer. new malignancy in LLL. History of left upperlobe wedge resection for lung malignancy in 2019 and SBRT for part solidnodule in the left upper lobe in 2023. TECHNIQUE: FDG PET-CT imaging was performed from the skull bases throughthe thighs in a single acquisition with data set reconstructed in axial,coronal, and sagittal planes at the computer workstation with fused datafrom both the PET imaging study and attenuation correction CT. The CTportion of the examination was done strictly for attenuation correctionand is not a true diagnostic CT examination. DLP: 139 mGy-cm Radiopharmaceutical: 11.4 mCi of F-18 FDG IV. Blood glucose: 121 mg/dl. COMPARISON: Comparison is made with prior PET/CT 05/2023 and multiple priorchest CTs, the most recent dated October 2024 FINDINGS: HEAD AND NECK: Nonspecific focal area of asymmetric FDG activity overlyingthe left frontal scalp SUV max 3.6. No underlying soft tissue or osseouscorrelate. No FDG avid cervical or supraclavicular lymphadenopathy. THORAX: Previously described tree-in-bud opacity in the superior segmentof the left lower lobe demonstrates significant interval increase in sizewith central cavitation SUV Max 3.9 (previously 1). 4 mm nodule in the right lower lobe; new from May 2023 SUV Max 2.3. 7 mm nodule in the right upper lobe (previously 12 mm on October 2024) SUVmax 1.6; new from May 2023. Postsurgical appearance of the left upper lobe. Left upper lobe noduleSUV max 1.3 (previously 2.4). No FDG avid thoracic lymphadenopathy. Thoracic aortic and coronary arterycalcifications. ABDOMEN/PELVIS: No abnormal FDG activity. MUSCULOSKELETAL: No abnormal FDG activity. IMPRESSION: 1. Interval increase in FDG activity and change in morphology of nodulein the superior segment of the left lower lobe suspicious for underlyingmalignancy 2. Indeterminant nodules in the right upper lobe and right lower lobe ofthe lung either representing postinfectious/postinflammatory process orunderlying malignancy. Suggest short-term interval follow-up with chestCT. Please note: The CT was acquired at a low radiation dose settings. The images are ofnondiagnostic quality and used solely for purposes of attenuationcorrection and slice localization for the PET scan. If a diagnostic CTstudy is desired it must be ordered separately. -------- FINAL REPORT -------- Dictated By: Yanni Ahuja Dictated Date: 11/02/2024 15:38 ET Assigned Physician: Yanni Ahuja Reviewed and Electronically Signed By: Yanni Ahuja Signed Date: 11/02/2024 18:13 ET Workstation ID: [id number] Transcribed By: Self Edit Transcribed Date: 11/02/2024 15:38 ET us Kathy Navarrete NP IMG NM PROCEDURES Fin al Result from Last 3 Months Insurance [employer] Care Teams Hosted Services Analyst Relationship Specialty Start Date End Date Cheo Michaels MD [address] [place] [id number] PCP - General Internal Medicine 02/18/17
== END 2025-01-04 14:18 | disposition home or self-care (01) ==
LOC: HO.US 14:17
PROVIDERS: PCP Internal Medicine; Visit Provider Urology
DX: N20.0 Calculus of kidney (principal); N13.30 Unspecified hydronephrosis
CPT/HCPCS: 76775

== ENCOUNTER → 2025-01-04 14:19 | Outpatient (BNV) | payer MEDICARE, SELFPAY | PROVIDERS: PCP Internal Medicine; Visit Provider Radiology Diagnostic Radiology | DX: N20.0 Calculus of kidney (principal) | CPT/HCPCS: 76775 ==

== ENCOUNTER 2025-01-08 07:28 | Outpatient (AMB) | payer MEDICARE, SELFPAY ==
--- OUTSIDE RECORDS SUMMARY | 2025-01-02 09:27 | XMS_ITS | Encounter Summary ---
Author Organization [facility] Address [address] [place] [address] Care Team Providers Care Sweeper Operator Highways Name Role Phone Cheo Michaels MD Primary Care Provider [phone] Encounter Details Date Type Department Care Team (Latest Contact Info) Description 01/02/2025 9:27 AM EDT - 01/02/2025 11:59 PM EDT Hospital Encounter [facility] Radiation Oncology [address] [place] [phone] Discharge Disposition: Home or Self Care Social [...] on file documented as of this encounter Medications at Time of Discharge azithromycin (ZITHROMAX) 250 mg tablet Take 1 tablet (250 mg total) by mouth See administration instructions. M.W.F clopidogreL (PLAVIX) 75 mg tablet Take 1 tablet (75 mg total) by mouth 1 (one) time each day. 11/30/24 dilTIAZem CD (CARDIZEM CD) 240 mg 24 hr capsule Take 1 capsule (240 mg total) by mouth 1 (one) time each day. docusate sodium (COLACE) 100 mg capsule Take 1 capsule (100 mg total) by mouth 2 (two) times a day if needed. famotidine (PEPCID) 40 mg tablet Take 1 tablet (40 mg total) by mouth 1 (one) time each day if needed. ferrous sulfate 325 mg (65 mg elemental [...] Info) Description 01/16/2025 10:15 AM EDT Appointment [facility] Radiation Oncology [address] [place] [phone] 01/16/2025 11:00 AM EDT Appointment [facility] Radiation Oncology [address] [place] [phone] Lobo Morton MD [address] [place] [address] 02/13/2025 10:00 AM EDT Appointment [facility] Radiation Oncology [address] [place] [phone] Kathy Navarrete NP [address] [place] [address] documented as of this encounter Visit Diagnoses Not on filedocumented in this encounter Care Teams Sweeper Operator Highways Relationship Specialty Start Date End Date Cheo Michaels MD [address] [place] [phone] PCP - General Internal Medicine 02/18/17 documented as of this encounter
--- OUTSIDE RECORDS SUMMARY | 2025-01-02 09:29 | XMS_ITS | Encounter Summary ---
Author Organization [facility] Address [address] [place] [address] Care Team Providers Care Temporary Administrative Assistant Name Role Phone Cheo Michaels MD Primary Care Provider [phone] Reason for Referral * Radiation Therapy (Routine) - Pending Review Specialty Diagnoses / Procedures Referred By Contac t Referred To Contact Radiation Oncology Diagnoses Primary cancer of left lower lobe of lung (CMS/HCC V24, CMS/HCC V28) Procedures Rad Onc Treatment Planning Simulation Radha Valdez MD [address] [place] [address] Phone: tel: fax: Referral ID Status Reason Start Date Expiration Date V isits Requested Visits Authorized [id number] Pending Review 01/02/2025 01/02/2026 1 1 * Consultation (Urgent) - Closed Specialty Diagnoses / Procedures Referred By Contac t Referred To Contact Radiation Oncology Diagnoses Primary cancer of left lower lobe of lung (CMS/HCC V24, CMS/HCC V28) Carl Brown MD [address] [place] [address] Phone: tel: fax: [facility] Radiation Oncology [address] [place] [address] Phone: tel: fax: Referral ID Status Reason Start Date Expiration Date V isits Requested Visits Authorized [id number] Closed Specialty Services Required 12/14/2024 12/14/2025 1 1 Reason for Visit * Reason Comments Consult Recon / Lung * Consultation (Urgent) - Closed Specialty Diagnoses / Procedures Referred By Contac t Referred To Contact Radiation Oncology Diagnoses Primary cancer of left lower lobe of lung (CMS/HCC V24, CMS/HCC V28) Carl Brown MD [address] [place] [address] Phone: tel: fax: [facility] Radiation Oncology [address] [place] [phone] Phone: tel: fax: Referral ID Status Reason Start Date Expiration Date V isits Requested Visits Authorized [id number] Closed Specialty Services Required 12/14/2024 12/14/2025 1 1 Encounter Details Date Type Department Care Team (Latest Contact Info) Description 01/02/2025 9:29 AM EDT - 01/02/2025 11:59 PM EDT Hospital Encounter [facility] Radiation Oncology [address] [place] [phone] Radha Valdez MD [address] [place], [place] [phone] Primary cancer of left lower lobe of lung ([facility]/HCC V24, CMS/HCC V28) Discharge Disposition: Home or Self Care Social [...] 9:39 AM EDT documented in this encounter Medications at Time [...] Actions taken: Level of Service modified * Maritza Hendrickson - 01/02/2025 10:00 AM EDTEncounter addended by: Maritza Hendrickson on: 01/05/2025 2:48 PM Actions taken: Charge Capture section accepted * Shanique Dawson MA - 01/02/2025 10:00 [...] Valdez MD - 01/02/2025 10:00 AM EDT [address] [phone] Radiation Oncology Outpatient Consult Staff Physician: Radha [...] in the left lower lobe and initial bronc showed thatthe cavitary lesion was biopsy positive [...] List Diagnosis Chronic renal insufficiency Angina pectoris ([facility] V24) Cachexia ([facility] V24) CAD (coronary artery disease) Chronic kidney disease Pulmonary emphysema ([facility] V24, [facility] V28) Chronic obstructive pulmonary disease ([facility] V24, [facility] V28) Current smoker Erythrocytosis Hyperlipidemia Hypertension PAD (peripheral artery disease) ([facility] V24) Peripheral vascular disease ([facility] V24) Thrombosis Lung nodule Lung mass Malignant neoplasm metastatic to lung ([facility] V24, [facility] V28) OA (osteoarthritis) Old myocardial infarction Palpitations Pancreatitis Underweight History of lung cancer PAST MEDICAL HISTORY: Past Medical History: Diagnosis Date Anxiety Arthritis Chronic kidney disease COPD (chronic obstructive pulmonary disease) ([facility] V24, [facility] V28) DX:COPD (chronic obstructive pulmonary disease) (HCC) Diverticulosis GERD (gastroesophageal reflux disease) Heart disease PAD Hiatal hernia Hyperlipidemia Hypertension DX:Hypertension Irritable bowel syndrome Joint pain Lung cancer ([facility] V24, [facility] V28) DX:Lung cancer (HCC) Lung nodule PAD (peripheral artery disease) ([facility] V24) DX:PAD (peripheral artery disease) (HCC) Peripheral vascular disease (CMS/HCC V24) Shortness of breath PAST SURGICAL HISTORY: Past Surgical History: Procedure Laterality Date BRONCHOSCOPY 12/07/2024 Navigation bronchoscopy/EBUS w/ BX ILIAC ARTERY STENT LUNG SURGERY Left PROCEDURE:LUNG SURGERY OTHER SURGICAL HISTORY GYNECOLOGICAL HISTORY (if applicable): NA Pairer History LMP: Postmenopausal Age at Menarche: Age at First : Age at Menopause: Pairer History Comments: Sexual Activity: No sexual activity [...] 1 (one)time each day., Disp: , Rfl: hxqilbtqgph-wefxmtvgwrvj-gobvsoifao (Trelegy Ellipta) 100-62.5-25 mcg inhaler, Inhale 1 [...] Device? No Does the pt need an occupational therapy supervisor? No Has the patient been consented? No [...] EDT Appointment [facility] Radiation Oncology [address] [place] [phone] 01/16/2025 11:00 AM EDT Appointment [facility] Radiation Oncology [address] [place] [phone] Lobo [place] MD [address] [place] [phone] 02/13/2025 10:00 AM EDT Appointment [facility] Radiation Oncology [address] [place] [phone] Kathy Navarrete NP [address] [place] [phone] Scheduled Orders Name Type Priority Associated Diagnoses Orde r Schedule Rad Onc Treatment Planning Simulation Radiation Oncology Routine Primary cancer of left lower lobe of lung (CMS/HCC V24, CMS/HCC V28) Expected: 01/09/2025, Expires: 01/02/2026 Scheduled Referrals Name Type Priority Associated Diagnoses Order Schedule Ambulatory referral to Radiation Oncology Outpatient Referral Routine Primary cancer of left lower lobe of lung (CMS/HCC V24, CMS/HCC V28) Once for 1 Occurrences starting 01/02/2025 until 01/02/2025 documented as of this encounter Visit Diagnoses Diagnosis Primary cancer of left lower lobe of lung (CMS/HCC V24, CMS/HCC V28) documented in this encounter Care Teams Temporary Administrative Assistant Relationship Specialty Start Date End Date Ceho Michaels MD [address] [place] [phone] PCP - General Internal Medicine 02/18/17 documented as of this encounter
--- NOTE | 2025-01-08 07:30 | A.OFFVIS_ITS ---
Intake Visit Reasons: yearly follow up/US Intake Note: Patient presents today for a 1Y follow-up/US Meds- None Allergies to Antibiotic- NoNE Blood Thinner- Plavix Imaging : Renal Ultrasound done 01/04/25 [employer] Required: No Accompanied by: Self / Same As Patient Allergies No Known Allergies Allergy (Verified 01/08/25 07:31) Medication List - Last Reconciled 01/08/25 by Zaid Muller MD azithromycin 250 mg PO 3XW 28 days cholecalciferol (vitamin D3) 25 mcg PO DAILY 90 days clopidogrel (Plavix) 1 tab PO DAILY diltiazem HCl CD 240 mg PO DAILY docusate sodium 100 mg PO BID PRN famotidine (Pepcid) 40 mg PO BEDTIME PRN ferrous sulfate (Feosol) 325 mg PO DAILY [id number]-ljyajaufv-[id number] 200-62.5-25 mcg (Trelegy Ellipta) 1 inh inhalatio n DAILY 30 days nitroglycerin 1 tab sublingual NEEDED rosuvastatin 1 tab PO DAILY HPI Comments Details: 01/08/25--Sanjuanita is a 74-year-old female who presents for a telehealth follow-up. She is followed for kidney stones. Reviewed renal US - 01/04/25-- right kidney stone 3 mm. Simple right renal cysts. She is followed by Nephrology due to chronic kidney disease. The patient states she is scheduled for radiation therapy for recurrent lung lesion. Will cont. to monitor. FU next year. 11/22/23--Sanjuanita is a 73-year-old female who presents for a follow-up. She is followed for kidney stones. She is followed by Nephrology due to chronic kidney disease. She has history of renal artery stenosis. I have reviewed CTAP-09/27/2023-2 mm nonobstructing right kidney stone, evidence, status post aortofemoral stent. Encouraged to increase fluids intake as well as add lemon t o water. Will continue to monitor kidney stone. Follow-up in 1 year renal ultrasound prior. 02/03/23?She is followed today for litholink results. Sanjuanita is a 72 y/o female, who was initially evaluated due to right hydronephrosis and had a ureteral stent placed. FU imaging noted hydronephrosis resolved and right nephrolithiasis. Past medical history of CAD, elevated cholesterol, hypertension, history of irritable bowel syndrome, and copd, Nicotine dependence. I reviewed the 24-hour urine collection results from 12/08/2022 revealed urine 0.79 L, urine calcium was 103; urine citrate was 292, and urine sodium was 46. Renal u/s from 11/17/22 --Right kidney 3 to 4 mm nonobstructive stone. No hydronephrosis. S/P Right ureteral? stent 01/15/22. [facility] Medical History Encounter for general adult medical examination with abnormal findings Insomnia Post-COVID syndrome Fatigue Acute kidney injury Erythrocytosis Malignant neoplasm of upper lobe of left lung (~2019) Chronic pancreatitis Pulmonary nodules Angina pectoris GERD (gastroesophageal reflux disease) Sarcoidosis Hx of hiatal hernia History of IBS Nicotine dependence Thrombosis of right iliac artery Chronic cough COPD (chronic obstructive pulmonary disease) Arthritis Hx of chronic kidney disease Elevated cholesterol PVD (peripheral vascular disease) Myocardial infarction (~2000) CAD (coronary artery disease) HTN (hypertension) Surgical History Hx of cataract extraction Hx of cystoscopy History of partial hysterectomy History of cardiac cath (~2000) History of endarterectomy (~2016) History of esophagogastroduodenoscopy (EGD) (~2019) History of colonoscopy (~2018) History of lung surgery (~2019) Hx of tubal ligation Hx of tonsillectomy History of lung biopsy (~2019) Family History Father Heart disease Mother Heart disease Brother Diabetes Sister Mental health disorder Social History Household Members: Other Household Members Other:: ex Housing: House Are you a primary direct care professional to a significant other at home: No Do you presently have visiting nurse or other home services: No Alcohol intake: current Alcohol intake frequency: holidays/special occasions only Patient Tobacco Use Status: Current everyday Tobacco user Tobacco use type: Cigarette Cigarettes Per Day: 6 Years Smoked: 40 e-Cigarette/Vaping Use: Never Used Second Hand Smoke Exposure: No service: No Current occupational status: retired Cognitive needs: No Hearing needs: No Vision needs: Yes Review of Systems Const All systems reviewed & are unremarkable except as noted in HPI and below Reports no additional complaints Eyes Reports no additional complaints ENT Reports no additional complaints Card Reports no additional complaints Resp Reports no additional complaints GI Reports no additional complaints Reports as per HPI Musc Reports no additional complaints Skin/Breast Reports system reviewed and no additional complaints, except as documented Neuro Reports no additional complaints Psych Reports no additional complaints Endo Reports no additional complaints Juice/Lymph Reports no additional complaints Aller/Immun Reports no additional complaints Telehealth Telehealth Telehealth Platform: [employer] Location of provider rendering services: practice address Location of patient: address on file Patient Identification confirmed using: Name, : Yes Telehealth method: voice only Patient verbally consented to treatment: Yes Patient verbally consented to billing insurance company: Yes Patient informed of any privacy concerns related to visit: Yes Minutes spent on Phone/Video with Pt.: 13 Results Reviewed Results Reviewed: Date of Service: 01/04/25 EXAMINATION: US RETROPERITONEAL LIMITED (RENAL ONLY) CLINICAL INFORMATION: Calculus of kidney. COMPARISON: 11/17/2022. Correlation made with CT abdomen and pelvis 09/27/2023. TECHNIQUE: Real-time imaging of the kidneys. FINDINGS: RIGHT KIDNEY: 8.2 x 3.3 x 2.6 cm (SAG x AP x TRV). The kidney is normal in size, contour, and echogenicity. Renal cortical thickness is normal. No suspicious focal parenchymal lesions. No hydronephrosis. There are 2 simple cysts, the larger in the lower pole measuring 6 mm. There is an upper pole nonobstructing calculus measuring 3 mm. LEFT KIDNEY: 9.3 x 4.1 x 2.7 cm (SAG x AP x TRV). The kidney is normal in size, contour, and echogenicity. Renal cortical thickness is normal. No calculi or focal parenchymal lesions. No hydronephrosis. IMPRESSION: 1. 3 mm nonobstructing calculus superior pole right kidney. There are 2 simple cysts in the right kidney, the larger in the lower pole measuring 6 mm 2. Normal left kidney. Date of Service: 09/27/23 Ten EXAMINATION: CT ABDOMEN AND PELVIS WITHOUT CONTRAST CLINICAL INFORMATION: Renal calculus COMPARISON: Renal ultrasound from 11/17/[address] scan from 01/06/2022 TECHNIQUE: Multidetector volumetric imaging was performed from the superior aspect of the liver through the pubic symphysis. Sagittal and coronal reformatted images were obtained on the technologist's workstation. This CT examination was performed using dose optimization techniques as appropriate, variously including the following: *Automated exposure control *Adjustment of mA and/or kV according to patient size (this includes techniques or standardized protocols for targeted exams where dose is matched to indication/reason for exam; i.e. extremities or head) *Use of iterative reconstruction technique DLP: 132 mGy-cm FINDINGS: Examination is limited due to noncontrast technique and paucity of mesenteric fat. LUNG BASES: There are changes of centrilobular emphysema without lung nodules or consolidation. There is no pleural effusion LIVER, GALLBLADDER, AND BILIARY TREE: The liver is normal in size, shape, and attenuation. No focal hepatic lesion or biliary ductal dilatation is present. The gallbladder is unremarkable with no evidence of radiopaque gallstones, gallbladder wall thickening, or obvious pericholecystic inflammatory changes. PANCREAS: Unremarkable. SPLEEN: Unremarkable. ADRENAL GLANDS: Unremarkable. KIDNEYS AND URETERS: Left kidney is unremarkable. The right kidney revealed 0.2 cm nonobstructing upper pole calculus. No evidence of hydroureteronephrosis bilaterally BLADDER: Urinary bladder decompressed without obvious stones or masses GASTROINTESTINAL TRACT: The small and large bowel are unremarkable. The appendix is not seen. ABDOMINAL WALL: No significant hernia is appreciated. LYMPH NODES: Normal. VASCULAR: Abdominal aorta is nondilated but calcified. There is aortobifemoral stent is identified again. Evaluation of patency is limited without contrast. PELVIC VISCERA: Patient is status post hysterectomy OSSEOUS STRUCTURES: There is diffuse osteopenia, no evidence of fractures. There are degenerative changes at the level of L2-L3 and mild dextroscoliosis IMPRESSION: 1. Nonobstructing 0.2 cm calculus in the upper pole of the right kidney. No evidence of hydronephrosis 2. Status post aortobifemoral stent placement. Date of Service: 11/17/22 EXAMINATION: US RETROPERITONEAL LIMITED (RENAL ONLY) COMPARISON: Renal ultrasound 05/06/2022 FINDINGS: RIGHT KIDNEY: 9.4 x 3.1 x 2.9 cm (SAG x AP x TRV). The kidney is normal in size, contour, and echogenicity. Renal cortical thickness is normal. No hydronephrosis. Subcentimeter benign-appearing renal cysts, no follow-up imaging recommended. 4 mm nonobstructing upper pole renal stone previously 3 mm. LEFT KIDNEY: 9.7 x 4.2 x 3.6 cm (SAG x AP x TRV). The kidney is normal in size, contour, and echogenicity. Renal cortical thickness is normal. No calculi or focal parenchymal lesions. No hydronephrosis. Echogenic foci without twinkle artifact or shadowing may reflect vascular reflectors. No definite nephrolithiasis. IMPRESSION: 1.? No hydronephrosis. 2.? 4 mm nonobstructing right upper pole renal stone previously 3 mm. 3.? Echogenic foci without twinkle artifact or shadowing may reflect vascular reflectors. No definite nephrolithiasis. ? Assessment & Plan Assessment & Plan (1) Right renal stone: Code(s): N20.0 - Calculus of kidney Category: Medical (2) Simple renal cyst: Code(s): N28.1 - Cyst of kidney, acquired Category: Medical (3) CKD (chronic kidney disease) stage 3, GFR 30-59 ml/min: Comment: Most likely due to hypertensive nephrosclerosis. History of renal artery stenosis. No evidence of obstruction based on recent renal ultrasonogram. History of nephrolithiasis with nonobstructing calculi Code(s): N18.30 - Chronic kidney disease, stage 3 unspecified Category: Medical Qualifiers: Chronic kidney disease stage 3 subtype: stage 3b (GFR 30-44) Qualified Code(s): N18.32 - Chronic kidney disease, stage 3b (4) Cancer of left lung: Comment: 10/2019 Sundeep Bess Upper Lobe Wedge Resection Status post radiation Code(s): C34.92 - Malignant neoplasm of unspecified part of left bronchus or lung Category: Medical Qualifiers: Lung location: upper lobe of lung Qualified Code(s): C34.12 - Malignant neoplasm of upper lobe, left bronchus or lung Plan: Management per Oncology Plan Fu next year, cont to monitor Orders: Orders US renal BI 11 Months N20.0 - Calculus of kidney, N28.1 - Cyst of kidney, acquired Patient Instructions: The patient had an opportunity to ask questions regarding treatment plan. The patient expressed understanding and agreement with the above treatment plan. The patient is aware they should contact our office by phone for worsening of their current condition or the appearance of new symptoms. Compliance is encouraged with any medications and followup testing that is ordered. It is a privilege to be allowed the opportunity to participate in the urologic care of your patient. If you have any questions or concerns regarding treatment for the above conditions please do not hesitate to contact me. The office telephone contact is [phone]. This note is constructed in part using voice recognition software. While every effort has been made to ensure accuracy regulatory compliance manager errors may have been included. Yours sincerely, Zaid Muller MD Coding Level of Care Code Tele Est Pt Level 3 (11468) Diagnoses Right renal stone N20.0 Simple renal cyst N28.1 Stage 3b chronic kidney disease N18.32 Chronic kidney disease stage 3 subtype: stage 3b (GFR 30-44) Malignant neoplasm of upper lobe of left lung C34.12 Lung location: upper lobe of lung
--- OUTSIDE RECORDS SUMMARY | 2025-01-08 07:31 | XMS_ITS | Clinical Summary ---
Author Organization [facility] Address [address] [place] [address] Phone Care Team Providers Care Double Backer Name Role Phone Cheo Michaels MD Primary Care Provider [phone] Allergies No known active allergies Medications rosuvastatin [...] Health Medicare [facility] Medicare Care Teams Double Backer Relationship Specialty Start Date End Date Cheo Michaels MD [address] [place], [place] [id number] PCP - General Internal Medicine 03/05/21
--- OUTSIDE RECORDS SUMMARY | 2025-01-08 07:31 | XMS_ITS | Clinical Summary ---
Author Organization [facility] Address [address] [place] [phone] Phone Care Team Providers Care Assistant Chief Engineer Name Role Phone Cheo Michaels MD Primary Care Provider [phone] Allergies No known active allergies Medications ferrous [...] cancer of left lower lobe of lung ([facility], [facility]) 01/02/2025 History of lung cancer 11/09/2024 Chronic renal insufficiency 05/29/2024 Pulmonary emphysema ([facility], [facility]) 0 05/29/2024 PAD (peripheral artery disease) ([facility]) Lung mass 05/29/2024 OA (osteoarthritis) 05/29/2024 Palpitations 05/29/2024 Underweight 05/29/2024 Cachexia ([facility]) 05/25/2023 CAD (coronary artery disease) 05/25/2023 Current smoker 05/25/2023 Erythrocytosis 05/25/2023 Angina pectoris ([facility]) 01/17/2021 Chronic kidney disease 01/17/2021 Peripheral vascular disease ([facility]) 2020 Thrombosis 01/17/2021 Malignant neoplasm metastati c to lung ([facility], [facility]) 01/17/2021 Old myocardial infarction 01/17/2021 Pancreatitis 01/17/2021 Chronic obstructive pulmonar y disease ([facility], [facility] V[facility]) 11/23/2016 Lung nodule 11/23/2016 Hyperlipidemia 09/09/2016 Hypertension 09/09/2016 Encounters Date Type Department Care Team Description 01/02/2025 9:29 AM EDT - 01/02/2025 11:59 PM EDT Hospital Encounter [facility] Radiation Oncology [address] [place] [phone] Radha Valdez MD Primary cancer of left lower lobe of lung ([facility], [facility] V[facility]) Discharge Disposition: Home or Self Care 01/02/2025 9:27 AM EDT - 01/02/2025 11:59 PM EDT Hospital Encounter [facility] Radiation Oncology [address] [place] [phone] Discharge Disposition: Home or Self Care 12/28/2024 Telephone [facility] Radiation Oncology [address] [place] [phone] Juliane Dejesus MA 12/28/2024 Telephone [facility] Radiation Oncology [address] [place] [phone] Juliane Dejesus MA 12/19/2024 Telephone [facility] Radiation Oncology [address] [place] [address] Juliane Dejesus MA 12/19/2024 Telephone [facility] Radiation Oncology [address] [place] [phone] Juliane Dejesus MA 12/14/2024 9:00 AM EDT Office Visit Thoracic Surgery - [place] [address] [phone] Carl Brown MD Primary cancer of left lower lobe of lung (CMS/HCC V24, CMS/HCC V28) (Primary Dx); History of lung cancer 12/07/2024 9:45 AM EDT Anesthesia Event [facility] Main OR [address] [place] [phone] Goyo Farmer MD 12/07/2024 9:00 AM EDT - 12/07/2024 11:00 AM EDT Surgery [facility] Main OR [address] [place] [phone] Carl Brown MD Navigation bronchoscopy/EBUS w/biopsies [27061 (CPT ) +5 more] 12/07/2024 7:07 AM EDT - 12/07/2024 12:51 PM EDT Hospital Encounter [facility] Main OR [address] [place] [phone] Carl Brown MD Lung nodule; History of lung cancer Discharge Disposition: Home or Self Care 12/07/2024 7:05 AM EDT - 12/07/2024 11:59 PM EDT Hospital Encounter [facility] Xray [address] [place] [phone] Pain Discharge Disposition: Home or Self Care 11/29/2024 Telephone [facility] Radiation Oncology [address] [place] [phone] Kathy Navarrete, KISHA 11/28/2024 Telephone Pulmonology - [place] [address] [phone] Sylvia Mccann RN 11/27/2024 3:12 PM EDT - 11/27/2024 11:59 PM EDT Hospital Encounter [facility] CT Scan [address] [place] [phone] Pulmonary nodule; Personal history of malignant neoplasm of lung Discharge Disposition: Home or Self Care 11/10/2024 Telephone Thoracic Surgery - [address] [phone] Fatoumata Fonseca MA 11/09/2024 10:30 AM EDT Consult Thoracic Surgery - [place] [address] [phone] Carl Brown MD Lung nodule (Primary Dx); History of lung cancer; Neoplasm 11/02/2024 7:24 AM EDT - 11/02/2024 11:59 PM EDT Hospital Encounter [facility] PET Scan [address] [place] [address] 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 (CMS/HCC V24, CMS/HCC V28) Discharge Disposition: Home or Self Care 10/31/2024 9:39 AM EDT - 10/31/2024 11:59 PM EDT Hospital Encounter [facility] Radiation Oncology [address] [place] [address] Kathy Navarrete, KISHA 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 (CMS/HCC V24, CMS/HCC V28) (Primary Dx) Discharge Disposition: Home or Self Care 10/31/2024 Telephone Pulmonology - [place] [address] [phone] Sylvia Mccann RN 10/23/2024 10:39 AM EDT - 10/23/2024 11:59 PM EDT Hospital Encounter [facility] Scan [address] [place] [address] 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 ([facility], [facility]) Discharge Disposition: Home or Self Care from Last 3 Months Surgical History Surgery Date Site/Laterality Comments LUNG SURGERY Left PROCEDURE:LUNG SURGERY OTHER SURGICAL HISTORY ILIAC ARTERY STENT BRONCHOSCOPY 12/07/2024 Navigation bronchoscopy/EBUS w/ BX Medical History Medical History Date Comments Lung cancer ([facility], [facility]) DX:Lung cancer ([facility]) Hypertension DX:Hypertension COPD (chronic obstructive pu lmonary disease) ([facility], [facility]) DX:COPD (chronic o bstructive pulmonary disease) ([facility]) PAD (peripheral artery disea se) ([facility]) DX:PAD (peripheral artery di sease) ([facility]) Hyperlipidemia Peripheral vascular disease ([facility]) Lung nodule Heart disease PAD Shortness [...] EDT Appointment [facility] Radiation Oncology [address] [place] [phone] 01/16/2025 11:00 AM EDT Appointment [facility] Radiation Oncology [address] [place] [phone] Lobo Morton MD [address] [place] [address] 02/13/2025 10:00 AM EDT Appointment [facility] Radiation Oncology [address] [place] [phone] Kathy Navarrete NP [address] [place] [address] Health Maintenance Due Date Last Done Comments [...] ENDOTRACHEAL(NO CHARGE) Routine 12/07/2024 10:[address] CORE NDL BX LNG/MED PERQ 12/07/2024 9:45 AM EDT Lung nodule History of lung cancer Case Notes C-ARM Special Needs Needs c-arm out patientTime change per Fatoumata 8/[address] BRONCHOSCOPY INCL FLUORO GUIDANCE W BRONCHIAL/ENDOBRONCHI AL BX SGL/MULT 12/07/2024 9:45 AM EDT Lung nodule History of lung cancer Case Notes C-ARM Special Needs Needs c-arm out patientTime change per Fatoumata 8/[address] BRONCHOSCOPY RIGID/FLEXIBLE W/TRANSBRONCHIAL LUNG BIOPSY(S) SINGLE LOBE 12/07/2024 9:45 AM EDT Lung nodule History of lung cancer Case Notes C-ARM Special Needs Needs c-arm out patientTime change per Fatoumata 8/[address] BRONCHOSCOPY RIGID/FLEXIBLE COMPUTER ASSISTED IMAGE GUIDED NAVIGATION 12/07/2024 9:45 AM EDT Lung nodule History of lung cancer Case Notes C-ARM Special Needs Needs c-arm out patientTime change per Fatoumata 8/[address] BRONCHOSCOPY INCL FLUOROSCOPIC GUID W EBUS DURING PERIPHERAL LESION 12/07/2024 9:45 AM EDT Lung nodule History of lung cancer Case Notes C-ARM Special Needs Needs c-arm out patientTime change per Fatoumata 8/[address] BRONCHOSCOPY INCL FLUROSCOPIC GUIDANCE W PLCMNT FIDUCIAL [...] Signed Date: 12/07/2024 12:01 ET Workstation ID: [id number] Transcribed By: Self Edit Transcribed Date: 12/07/2024 [...] Signed Date: 12/07/2024 12:01 ET Workstation ID: [id number] Transcribed By: Self Edit Transcribed Date: 12/07/2024 11:43 ET us Carl Brown MD IMG XR PROCEDURES Final Result * (ABNORMAL) Culture bronchial with gram stain (12/07/2024 10:52 AM EDT) Bronchial Culture Rare Stenotrophomonas maltophilia(A) TRAM 12/11/2024 10:20 AM EDT [facility] ([facility]) [facility] Comment: The organism value for this result has been updated. These results have been appended to the previously preliminary verified report. Edited result: Previously reported as Gram negative bacilli on 12/10/2024 at 0827 EDT. Gram Stain Result No polymorphonuclear leukocytes, No epithelial cells, and No organisms noted 12/11/2024 10:20 AM EDT [facility] Bronchoalveolar Lavage Structure of lower [...] JOSE MANUEL Final Result Performing Organization Address City/[facility]/ZIP Co de Phone Number [facility] [address] [place] [address], [place] [phone] * Concentration (12/07/2024 10:52 AM EDT) AFB Concentration Performed 4:05 PM EDT [facility] Structure of lower lobe of left lung / Unknown 12/07/2024 10:52 AM EDT 12/07/2024 11:31 AM EDT Narrative [facility] - 12/08/2024 4:05 PM EDT Performed at: [facility] [id number] Edgerman: Joy Hawthorne MD, Phone: [phone] us Carl Brown MD LAB BLOOD ORDERABLES Final Resul t Performing Organization Address City/[facility]/ZIP Co de Phone Number [facility] * Acid fast bacilli stain (12/07/2024 10:52 AM EDT) AFB Stain Result No Acid fast bacilli seen on direct smear (Fuchsin method, 1000x) No Acid Fast Bacilli seen on direct smear 12/07/2024 2:17 PM EDT [facility] Wash Structure of lower lobe of left lung / Unknown 12/07/2024 10:52 AM EDT 12/07/2024 11:31 AM EDT us Carl Brown MD LAB MICROBIOLOGY - GENERAL ORDER JOSE MANUEL Final Result Performing Organization Address City/[facility]/ZIP Co de Phone Number [facility] [address] [place] [address], [place] [phone] * Culture fungal, other (12/07/2024 10:52 AM EDT) Culture, Fungus Negative for Fungus after 4 Weeks 01/04/2025 11:25 AM EDT [facility] Wash Structure of lower lobe of left lung / Unknown 12/07/2024 10:52 AM EDT 12/07/2024 11:31 AM EDT Carl Brown MD LAB MICROBIOLOGY - GENERAL ORDER JOSE MANUEL Final Result Performing Organization Address [facility] Co de Phone Number [facility] [address] [place] [address], [place] [phone] * Tissue exam (12/07/2024 10:27 AM EDT) Final Diagnosis A. Lung, Left Lower Lobe, cavitary superior segment, biopsy: Fibroelastotic tissue present. Not diagnostic for neoplasia. B. Lung, Left Lower Lobe, Nodule, biopsy: Not diagnostic. No lesional tissue identified. 5 3:18 PM EDT [facility] Comment Weigher And Grader slide(s) from this case have been presented at Anatomic Pathology Intradepartmental Review Conference on 12/08/24 with agreement. Please see concurrent cytology, [id number], for diagnosis. 3:18 PM EDT [facility] Gross Description A. Lung, Left [...] fail processing). TS 5 3:18 PM EDT [facility] Disclaimer Unless otherwise specified, all tissue is 10% NB formalin fixed and paraffin embedded. 5 3:18 PM EDT [facility] Tissue Structure of lower lobe of left lung / Unknown 12/07/2024 10:27 AM EDT 12/07/2024 11:29 AM EDT Tissue specimen (specimen) Structure of lower lobe of left lung / Unknown 12/07/2024 10:45 AM EDT 12/07/2024 11:29 AM EDT us Carl Brown MD LAB PATHOLOGY ORDERABLES Final R esult [facility] [address] [place] [address], * Non-gynecologic cytology (12/07/2024 10:20 AM EDT) Final Diagnosis A. Lung, Left Lower Lobe, Left cavitary superior segment, fine needle aspiration, (ThinPrep, cell block): Positive for malignant cells. Squamous cell carcinoma. B. Lung, Left Lower Lobe, Bronchial [place], Left cavitary superior segment: (ThinPrep, cell block): [...] No lesional material identified. 12/08/2024 3:16 PM [facility] Comment Diagnostic focus of squamous cell carcinoma best seen in the cell block for part A. It is insufficient for PD L1 testing. The ThinPrep of Part A contains numerous keratinized cells with atypia. The ThinPrep of part B contains markedly atypical cells, highly suspicious for carcinoma. The cell block is non- contributory. Weigher And Grader slide(s) from this case have been presented at Anatomic Pathology Intradepartmental Review Conference on 12/08/24. I notified Dr. Brown of the final diagnosis by secure message at 3:10pm. 12/08/2024 3:16 PM [facility] Specimen A Adequacy Satisfactory for evaluation 12/08/2024 3:16 PM [facility] Specimen B Adequacy Satisfactory for evaluation 12/08/2024 3:16 PM [facility] Specimen C Adequacy Specimen processed and examined, but unsatisfactory for eval of abnormal epithelial 12/08/2024 3:16 PM [facility] Specimen D Adequacy Specimen processed and examined, but unsatisfactory for eval of abnormal epithelial 12/08/2024 3:16 PM [facility] Specimen E Adequacy Satisfactory for evaluation 12/08/2024 3:16 PM [facility] Specimen F Adequacy Specimen processed and examined, but unsatisfactory for eval of abnormal epithelial 12/08/2024 3:16 PM [facility] Gross Description A. Lung, Left Lower Lobe, Left cavitary superior segment: Received in Cytolyt 30 ml of clear fluid, 1 ThinPrep. 1 Cellblock Cell block in formalin @ 13:00 , total formalin fixation time 8 hours. B. Lung, Left Lower Lobe, Bronchial [place], Left cavitary superior segment: Received in Cytolyt [...] time 8 hours. 12/08/2024 3:16 PM EDT [facility] Disclaimer Unless otherwise specified, all tissue is 10% NB formalin fixed and paraffin embedded. Technical cytopathology services provided by [facility], at [address] [place] [address] (CLIA # [id number]/Fantasma Lopez MD, Hr Shared Services Consultant.) 12/08/2024 3:16 PM EDT [facility] Fine Needle Aspirate Structure of [...] MD LAB CYTOLOGY ORDERABLES Final Re sult [facility] ([facility]) [facility] [address] [place] [address], * TH AN ENDOTRACHEAL(NO CHARGE) (12/07/2024 10:03 AM EDT) Narrative Rabia Farmer CRNA - 12/07/2024 10:03 AM EDT Rabia [...] (No Charge) (11/28/2024 10:39 AM EDT) Pathologist [facility] Ventricular Rate ECG 66 BPM GEMUSE Atrial Rate 66 BPM GEMUSE P-R Interval 110 ms GEMUSE QRS Duration 78 ms GEMUSE Q-T Interval 428 ms GEMUSE QTc 448 ms GEMUSE P Wave [place] 65 degrees GEMUSE R [place] 76 degrees GEMUSE T [place] 78 degrees GEMUSE ECG Interpretation Sinus rhythm with short CT with Premature supraventricular complexes Minimal voltage criteria for LVH, may be normal variant ( [place] product ) Anterior infarct (cited on or [...] CBC auto differential (11/28/2024 10:30 AM EDT) [facility] WBC 7.9 4.8 - 10.8 K/mcL LAB HEMETOLOGY METHOD 11/28/2024 11:04 AM EDT [facility] RBC 4.70 3.80 - 4.80 M/mcL LAB HEMETOLOGY METHOD 11/28/2024 11:04 AM EDT [facility] Hemoglobin 14.5 11.5 - 16.0 g/dL LAB HEMETOLOGY METHOD 11/28/2024 11:04 AM EDT [facility] Hematocrit 44.5 35.0 - 47.0 % LAB HEMETOLOGY METHOD 11/28/2024 11:04 AM EDT [facility] MCV 95.1 79.0 - 98.0 FL LAB HEMETOLOGY METHOD 11/28/2024 11:04 AM [facility] MCH 31.0 27.0 - 32.0 pcg LAB HEMETOLOGY METHOD 11/28/2024 11:04 AM [facility] MCHC 32.6 32.0 - 37.0 g/dL LAB HEMETOLOGY METHOD 11/28/2024 11:04 AM [facility] RDW 11.8 11.0 - 15.0 % LAB HEMETOLOGY METHOD 11/28/2024 11:04 AM [facility] Platelets 160 130 - 400 K/mcL LAB HEMETOLOGY METHOD 11/28/2024 11:04 AM [facility] MPV 9.3 7.0 - 11.0 FL LAB HEMETOLOGY METHOD 11/28/2024 11:04 AM [facility] NRBC 0.0 <1.0 % LAB HEMETOLOGY METHOD 11/28/2024 11:04 AM [facility] NRBC Absolute 0.00 <0.10 K/mcL LAB HEMETOLOGY METHOD 11/28/2024 11:04 AM [facility] Neutrophils Relative 74.5 % LAB HEMETOLOGY METHOD 11/28/2024 11:04 AM [facility] Lymphocytes Relative 12.6 % LAB HEMETOLOGY METHOD 11/28/2024 11:04 AM [facility] Monocytes Relative 10.5 % LAB HEMETOLOGY METHOD 11/28/2024 11:04 AM [facility] Eosinophils Relative 1.3 % LAB HEMETOLOGY METHOD 11/28/2024 11:04 AM [facility] Basophils Relative 1.0 % LAB HEMETOLOGY METHOD 11/28/2024 11:04 AM [facility] Immature Granulocytes Relative 0.1 % LAB HEMETOLOGY METHOD 11/28/2024 11:04 AM EDT [facility] Neutrophils Absolute 5.91 1.50 - 7.00 K/mcL LAB HEMETOLOGY METHOD 11/28/2024 11:04 AM EDT [facility] Lymphocytes Absolute 1.00 1.00 - 5.00 K/mcL LAB HEMETOLOGY METHOD 11/28/2024 11:04 AM EDT [facility] Monocytes Absolute 0.83 0.20 - 1.00 K/mcL LAB HEMETOLOGY METHOD 11/28/2024 11:04 AM EDT [facility] Eosinophils Absolute 0.10 0.00 - 0.50 K/mcL LAB HEMETOLOGY METHOD 11/28/2024 11:04 AM EDT [facility] Basophils Absolute 0.08 0.00 - 0.20 K/mcL LAB HEMETOLOGY METHOD 11/28/2024 11:04 AM EDT [facility] Immature Granulocytes Absolute 0.01 0.00 - 0.03 K/mcL LAB HEMETOLOGY METHOD 11/28/2024 11:04 AM EDT [facility] Blood Venous blood specimen / Unknown Venipuncture / Unknown 11/28/2024 10:30 AM EDT 11/28/2024 10:46 AM EDT us Carl Brown MD LAB BLOOD ORDERABLES Final Resul t [facility]) [facility] [address] [place] [address], * Activated partial thromboplastin time (11/28/2024 10:30 AM EDT) aPTT 30.2 24.1 - 39.3 sec LAB COAGULATION METHOD 11/28/2024 11:02 AM EDT [facility] Blood Venous blood specimen / Unknown Venipuncture / Unknown 11/28/2024 10:30 AM EDT 11/28/2024 10:46 AM EDT us Carl Brown MD LAB BLOOD ORDERABLES Final Resul t [facility] [address] [place] [address], [place] [phone] * (ABNORMAL) Prothrombin time with INR (11/28/2024 10:30 AM EDT) Protime 10.5(L) 10.6 - 13.9 sec LAB COAGULATION METHOD 11/28/2024 11:02 AM EDT [facility] INR 0.8 LAB COAGULATION METHOD 11/28/2024 11:02 AM EDT [facility] Blood Venous blood specimen / Unknown Venipuncture / Unknown 11/28/2024 10:30 AM EDT 11/28/2024 10:46 AM EDT us Carl Brown MD LAB BLOOD ORDERABLES Final Resul t Performing Organization Address City/[facility]/ZIP Co de Phone Number [facility] [address] [place] [address], [place] [phone] * Type and screen (11/28/2024 10:30 AM EDT) ABO Group A 11/28/2024 1:18 PM EDT [facility] Rh Type Positive 11/28/2024 1:18 PM EDT [facility] Antibody Screen Negative 11/28/2024 1:18 PM EDT [facility] Blood Venous blood specimen / Unknown Venipuncture / Unknown 11/28/2024 10:30 AM EDT 11/28/2024 10:46 AM EDT us Carl Brown MD LAB BLOOD BANK TEST ORDERABLES F inal Result [facility] [address] [place] [address], * (ABNORMAL) Basic metabolic panel (11/28/2024 10:30 AM EDT) Sodium 139 133 - 145 mmol/L LAB CHEMISTRY METHOD 11/28/2024 12:54 PM [facility] Potassium 4.5 3.5 - 5.5 mmol/L LAB CHEMISTRY METHOD 11/28/2024 12:54 PM [facility] Chloride 105 96 - 110 mmol/L LAB CHEMISTRY METHOD 11/28/2024 12:54 PM [facility] CO2 32 21 - 32 mmol/L LAB CHEMISTRY METHOD 11/28/2024 12:54 PM [facility] Anion Gap 2(L) 3 - 11 LAB CHEMISTRY METHOD 11/28/2024 12:54 PM [facility] Glucose 101(H) 70 - 100 mg/dL LAB CHEMISTRY METHOD 11/28/2024 12:54 PM [facility] BUN 19 5 - 25 mg/dL LAB CHEMISTRY METHOD 11/28/2024 12:54 PM [facility] Creatinine 1.50(H) 0.50 - 1.10 mg/dL LAB CHEMISTRY METHOD 11/28/2024 12:54 PM [facility] eGFR 37(L) >=60 mL/min/1. 73m2 LAB CHEMISTRY METHOD 11/28/2024 12:54 PM [facility] Comment:Calculation based on the Chronic Kidney Disease Epidemiology Collaboration (CKD-EPI) equation refit without adjustment for race. BUN/Creatinine Ratio 12.7 LAB CHEMISTRY METHOD 11/28/2024 12:54 PM [facility] Calcium 9.4 8.5 - 10.5 mg/dL LAB CHEMISTRY METHOD 11/28/2024 12:54 PM EDT [facility] Blood Venous blood specimen / Unknown Venipuncture / Unknown 11/28/2024 10:30 AM EDT 11/28/2024 10:46 AM EDT us Carl Brown MD LAB BLOOD ORDERABLES Final Resul t [facility] [address] [place] [address], [place] [phone] * CT Chest wo Contrast (11/27/2024 3:39 [...] Signed Date: 12/01/2024 12:25 ET Workstation ID: [id number] Transcribed By: Self Edit Transcribed Date: 12/01/2024 [...] Signed Date: 12/01/2024 12:25 ET Workstation ID: [id number] Transcribed By: Self Edit Transcribed Date: 12/01/2024 [...] Signed Date: 11/02/2024 18:13 ET Workstation ID: [id number] Transcribed By: Self Edit Transcribed Date: 11/02/2024 [...] Signed Date: 11/02/2024 18:13 ET Workstation ID: [id number] Transcribed By: Self Edit Transcribed Date: 11/02/2024 15:38 ET us Kathy Navarrete NP IMG NM PROCEDURES Fin al Result from Last 3 Months Insurance [employer] Care Teams Assistant Chief Engineer Relationship Specialty Start Date End Date Cheo Michaels MD [address] [place] [phone] PCP - General Internal Medicine 02/18/17
--- OUTSIDE RECORDS SUMMARY | 2025-01-08 07:31 | XMS_ITS | Clinical Summary ---
Author Organization [facility] Address [address] [place] [address] Care Team Providers Care Handkerchief Presser Name Role Phone Cheo Michaels MD Primary Care Provider [phone] Allergies No known active allergies Medications Medication [...] age to complete this topic Care Teams Handkerchief Presser Relationship Specialty Start Date End Date Cheo Michaels MD [address] [facility] [place] [phone] PCP - General Internal Medicine 05/11/23
== END 2025-01-08 08:17 | disposition home or self-care (01) ==
LOC: HO.HUSH 07:28
PROVIDERS: PCP Internal Medicine; Visit Provider Urology
DX: N20.0 Calculus of kidney (principal); N28.1 Cyst of kidney, acquired; N18.32 Chronic kidney disease, stage 3b; C34.12 Malignant neoplasm of upper lobe, left bronchus or lung
CPT/HCPCS: 99213

== ENCOUNTER 2025-01-22 08:27 | Outpatient (AMB) | payer MEDICARE, SELFPAY ==
--- OUTSIDE RECORDS SUMMARY | 2025-01-16 10:00 | XMS_ITS | Encounter Summary ---
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 (CMS/HCC V24, CMS/HCC V28) (Primary Dx) Discharge Disposition: Home or Self Care Social History Tobacco Use Types Packs/Day Years Used Date Smoking Tobacco: Every Day Smokeless Tobacco: Never Alcohol Use Standard Drinks/Week Comments Not Currently 0 (1 standard drink = 0.6 oz pur e alcohol) Interpersonal Safety Answer Date Record ed Physical Abuse Unrecognized value 12/07/2024 Verbal Abuse Unrecognized value 12/07/2024 Comments No Sex and Gender Information Value Date Recorded Sex Assigned at Not on file Legal Sex Female 1:51 PM EST Gender Identity Not on file Sexual Orientation Not on file documented as of this encounter Medications at Time of Discharge azithromycin (ZITHROMAX) 250 mg tablet Take 1 tablet (250 mg total) by mouth See administration instructions. M.W.F cholecalciferol (VITAMIN D-3) 50 mcg (2,000 unit) tablet Take 1 tablet (2,000 Units total) by mouth 1 (one) time each [...] documented in this encounter Progress Notes * Eli Darby RN - 01/16/2025 10:15 AM EDT Patient Education: Stereotactic Body Radiation Therapy (SBRT) for Lung Contact Information: desk assistant - and select option #2. Treatment machines - or The Radiation Oncology Department is open Wednesday - Wednesday, 7:30am - 4:00pm. If you need to speak with a physician after normal office hours, call [phone] and select option #2. Simulation: During the simulation, the radiation therapist will take a CT scan including a 4D-CT of the area inderjit treated. A 4D-CT scan shows breathing motion. You will be positioned on your back with a belt orplate over your abdomen to help prevent movement and decrease tumor motion. Permanent tattoos may be placed on the skin to help with positioning for treatment. This process will take about 90 minutes and may be completed in 2 separate sessions. The radiation oncologist and physicist will utilize the CT scans in the planning of your treatment. Treatment Course: Treatment is typically given every other day for a total of 3 - 5 treatments over 1 ?? to 2 weeks. Number of treatments and schedule will be determined by treating doctor after simulation. Potential Side Effects: Side effects are different for everyone. Not everyone will experience these side effects. Fatigue or loss of energy Skin dryness, reddening or darkening (tanning) within treatment area Cough Shoulder pain due to positioning during treatment Chest wall pain Skin Care Instructions: Use warm water for showering or bathing and pat treatment area to dry skin. You may gently wash the treated area with mild non fragrant non deodorant soap such as Dove or Neutrogena. Lotions safe to use on the treated area are unscented Aquaphor, Eucerin, Lubriderm, CeraVe, Cetaphil, and clear Aloe Vera. You may apply ointments/creams treatment area, after your treatment and before you go to bed. Only use other lotions and ointments after checking with your doctor or nurse. Avoid wearing tight fitting clothing especially over treatment areas as this can cause or worsen irritation. Apply sunscreen with SPF 30 or greater to the treated area during periods of prolonged sun exposure. Please refrain from chewing gum while at your appointments. We need to have you hold as still as possible during your treatments. If you have any questions concerning your treatment, please ask your Radiation physician or nurse. * Trinidad Hanson RN - 01/16/2025 10:15 AM EDT Met with pt for lung SBRT radiation education. Reviewed written education materials and questions answered. Pt verbalized understanding. Pt declined to complete the distress assessment. She states she does not want to talk with a home health care social worker. She reports she will seek out assistance if needed. She reports that her med onc in [place] has a home health care social worker also. Dr. Morton in to complete consent. Consent witnessed by this RN. Pt was then taken to the changing room and re-oriented to the dressing room and changing procedure. Once changed, she was taken to [facility] to complete her sim. documented in this encounter Plan of Treatment Upcoming Encounters Date Type Department Care Team (Late st Contact Info) Description 01/31/2025 11:30 AM EDT Appointment [facility] Radiation Oncology [address] [place] [phone] Lobo Morton MD [address] [place] [phone] 02/02/2025 11:30 AM EDT Appointment [facility] Radiation Oncology [address] [place] [phone] Nima Albright MD [address] [place] [phone] 02/05/2025 11:30 AM EDT Appointment [facility] Radiation Oncology [address] [place] [phone] Nima Albright MD [address] [place] [phone] 02/07/2025 11:30 AM EDT Appointment [facility] Radiation Oncology [address] [place] [phone] Lobo Morton MD [address] [place] [phone] 02/13/2025 10:00 AM EDT Appointment [facility] Radiation Oncology [address] [place] [phone] Kathy Navarrete NP [address] [place] [phone] documented as of this encounter Visit Diagnoses Diagnosis 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 (CMS/HCC V24, CMS/HCC V28)- Primary documented in this encounter Historical Medications * This list may reflect changes made after this encounter. cholecalciferol (VITAMIN D-3) 50 mcg (2,000 unit) tablet Take 1 tablet (2,000 Units total) by mouth 1 (one) time each day. added in this encounter Care Teams Knock Up Assembler Relationship Specialty Start Date End Date Cheo Michaels MD [address] [place] [address] PCP - General Internal Medicine 02/18/17 documented as of this encounter
--- OUTSIDE RECORDS SUMMARY | 2025-01-16 11:00 | XMS_ITS | Encounter Summary ---
Author Organization [facility] Address [address] [place] [address] Care Team Providers Care Automobile Drivers Name Role Phone Cheo Michaels MD Primary Care Provider [phone] Reason for Referral * Radiation Therapy (Routine) - Pending Review Specialty Diagnoses / Procedures Referred By Contac t Referred To Contact Radiation Oncology Diagnoses Primary cancer of left lower lobe of lung (CMS/HCC V24, CMS/HCC V28) Procedures Rad Onc Treatment Planning Simulation Radha Valdez MD [address] [place] [phone] Phone: tel: fax: Referral ID Status Reason Start Date Expiration Date V isits Requested Visits Authorized [id number] Pending Review 01/02/2025 01/02/2026 1 1 Reason for Visit * Radiation Therapy (Routine) - Pending Review Specialty Diagnoses / Procedures Referred By Contac t Referred To Contact Radiation Oncology Diagnoses Primary cancer of left lower lobe of lung (CMS/HCC V24, CMS/HCC V28) Procedures Rad Onc Treatment Planning Simulation Radha Valdez MD [address] [place] [phone] Phone: tel: fax: Referral ID Status Reason Start Date Expiration Date V isits Requested Visits Authorized [id number] Pending Review 01/02/2025 01/02/2026 1 1 Encounter Details Date Type Department Care Team (Latest Contact Info) Description 01/16/2025 11:00 AM EDT - 01/16/2025 11:59 PM EDT Hospital Encounter [facility] Radiation Oncology [address] [place] [address] Lobo Morton MD [address] [place] [address] Primary cancer of left lower lobe of lung ([facility] V24, [facility] V28) Discharge Disposition: Home or Self Care [...] documented in this encounter Progress Notes * Lobo Morton MD - 01/16/2025 11:00 AM EDT Radiation Oncology Clinical Treatment Planning Note Date of Service: 01/16/25 Cancer Staging No matching staging information was found for the patient. [[id number]] Sanjuanita Ibarra has agreed to a course of radiation therapy for curative purposes. I have ordereda treatment planning simulation to aid in the delineation of target and normal surrounding structures. Simulation will be performed to accomplish reproducible treatment position, to determine optimal treatment portals/beam arrangements, to design beam modifying devices, and/or immobilization devices. The modality used for this treatment will be external beam radiation therapy. Treatment to the primary site is planned. A total dose of 4800 cGy in 4 fractions is planned. Treatment will be delivered every other day. Planned treatment technique is stereotactic body radiation therapy. Patient has received radiation treatment in the past. The prior radiation treatment records were reviewed. CT simulation with 4D CT is planned. Simulation will be performed utilizing [email or web address] system. Organs and normal structures at risk include lungs, heart, spinal cord, esophagus, chest wall. I have reviewed PET and diagnostic CT results to aid in tumor and normal structure delineation. Fusion of multiple imaging data sets for improved treatment design is requested to aid in the delineation of target and critical structures. IGRT is needed for SBRT. SBRT / SRS - Treatment planning for this patient required a high degree of complexity. A course of Stereotactic Radiosurgery/ Body Radiation Therapy is planned. This treatment requires high dose per fraction and complex localization and treatment, with prolonged time and effort required from physicians, physics, and staff. Re-treatment - Treatment planning for this patient required a high degree of complexity for the prescribed course of radiation therapy. This treatment site is adjacent to and/or overlapping with prior radiation treatment field(s) previously administered to Skin. In this setting of adjacent and/or overlapping rodríguez, reconstruction of the prior treatment plan was required to estimate cumulative doses to targets and critical structures. Additionally, in this setting, the prescribed treatment has a higher risk of acute and long-term toxicity. As a result, there was prolonged time and effort required from physicians, physics, and staff during treatment planning. A special physics consultation is requested and ordered due to the need for a medical physicists expertise as it relates to the patient's image fusion requirements. Fusion of diagnostic and/or previous treatment images is necessary to help delineate the target volumes and/or organs at risk for the patient???s treatment plan. Care and expertise are needed by the medical assistant supervisor to rigidly fuse or deform the image sets together. A special physics consultation is requested and ordered due to the need for a medical physicists expertise as it relates to the patient's re-irradiation. Due to the patient???s previous treatment, reconstruction of previous treatment plans or evaluation of distance between the current and past treatment(s) may be necessary to assess cumulative dose to the target volumes and/or organs at risk. * Maritza Hendrickson - 01/16/2025 11:00 AM EDTEncounter addended by: Maritza Hendrickson on: 01/17/2025 7:06 AM Actions taken: Charge Capture section accepted documented in this encounter Plan of Treatment Upcoming Encounters Date Type Department Care Team (Late st Contact Info) Description 01/31/2025 11:30 AM EDT Appointment [facility] Radiation Oncology [address] [place] [phone] Lobo Morton MD [address] [place] [phone] 02/02/2025 11:30 AM EDT Appointment [facility] Radiation Oncology [address] [place] [phone] Nima Albright MD [address] [place] [phone] 02/05/2025 11:30 AM EDT Appointment [facility] Radiation Oncology [address] [place] [phone] Nima Albright MD [address] [place] [phone] 02/07/2025 11:30 AM EDT Appointment [facility] Radiation Oncology [address] [place] [phone] Lobo Morton MD [address] [place] [phone] 02/13/2025 10:00 AM EDT Appointment [facility] Radiation Oncology [address] [place] [phone] Kathy Navarrete NP [address] [place] [phone] Scheduled Orders Name Type Priority Associated Diagnoses Order Schedule Rad Onc Treatment Planning Simulation Radiation Oncology Routine Primary cancer of left lower lobe of lung (CMS/HCC V24, CMS/HCC V28) Once for 1 Occurrences starting 01/16/2025 until 01/16/2025 documented as of this encounter Visit Diagnoses Diagnosis Primary cancer of left lower lobe of lung (CMS/HCC V24, CMS/HCC V28) documented in this encounter Care Teams Automobile Drivers Relationship Specialty Start Date End Date Cheo Michaels MD [address] [facility] [place] [phone] PCP - General Internal Medicine 02/18/17 documented as of this encounter
--- NOTE | 2025-01-22 08:28 | A.OFFVIS_ITS ---
Vital Signs 01/22/25 08:29 Height 5 ft 1 in Weight 68 lb 5.493 oz BMI 12.9 BP 140/64 H Blood Pressure Location Lt brachial Position Sitting Pulse 84 Pulse Source Pulse Oximeter Pulse Oximetry (%) 96 Oxygen Delivery Method Room Air Intake Visit Reasons: COPD [employer] Required: No Accompanied by: Self / Same As Patient Allergies No Known Allergies Allergy (Verified 01/22/25 08:36) HPI Comments Details: The patient is a 74 y/o woman with h/o COPD and pulmonary nodules s/p VATS lovectomy for an aggressive primary lung large cell/adeno CA with JUSTIN and viceral pleural invasion.. She did f/u with oncology, but she declined any therapy at this time. However, I am concern with the type of cancer she was found to have. She is still dealing with her chronic pancreatitis. She has beShe does compain of left sided chest pain at the side of her surgery. Has some dyspnea and coughing, but overall better after cutting down on her smoking. 05/17/2020 the patient is here for pulmonary follow-up visit. Overall her respiratory status is about the same. She is anxious about the results of her CT scan. We did review them in the office. The patient does have postoperative changes without any evidence of any recurrence at this time. However, she does have a 7 mm subsolid pulmonary nodules been closely monitor. This has not changed. The patient has significant emphysema. She is also struggling with her weight. Because of the donut hole she was not able to refill her Pancrease that she uses for her chronic pancreatitis. Therefore she has lost significant weight. We did have some samples of Ensure in the office which we provided her. She will be following up with gastroenterology soon. 05/22/2022 the patient is here for a pulmonary follow-up visit. The patient overall is doing well. Denies any significant shortness of breath or cough. Denies any weight loss. She is having however some difficulty sleeping. She has tried multiple medications in the past without any significant improvement. He is affecting her quality of life. The patient has a hard time both falling asleep and staying asleep. She has already tried gabapentin in the past. Will go ahead and start her on a small dose of Ambien that she can use as needed. She understands she needs to take it 15 minutes prior to sleep and then not to plan any activities 1 she takes the medication except for sleep. We did review her last CT scan of the chest that was back in November 2021. appears that the 7 mm subsolid nodular density not significantly changed. She is scheduled to get a repeat CT scan follow-up with thoracic surgery however. She is complaining of a sore throat. She has been using her inhalers and she is rinsing. She appears to have some thrush. Therefore I did encourage her to rinse with mouthwash. Will go ahead and start her on fluconazole for small course specially since may be difficult to Eradicating completely. 05/24/2023 the patient is here for a pulmonary follow-up visit. Since we last spoke the patient did have an enlarging pulmonary nodule. It appears to be a subsolid nodule that increased in size and also the solid component did get bigger as well. The CT-guided biopsy at [facility] confirmed that indeed this is a malignant process. She was told it was stage I likely a primary lung cancer. The patient did have the nodule before but was lost more. She did follow-up with Interventional Pulmonary at [facility] and also was referred to Radiation Oncology and Oncology. She did have a difficult surgery the 1st time around recovering did take a significant amount of time. If the patient is concerned about undergoing surgery again specially with all the pain that she went through. I did encourage her to talk to Oncology and ideally get a PET scan to assess the radiological staging of this new entity. If indeed this is a localized lesion, stage I, would recommend ideally stereotactic radiation to treat that area. If however she has not on a candidate for stereotactic radiation, then depending on her PFTs she should be considered a surgical candidate again. Ultimately targeted therapy may be also helpful in case she has any molecular markers. 07/29/2023 the patient is here for pulmonary preoperative evaluation. Since we last spoke she did see her radiation oncologist and she actually completed stereotactic radiation for the new stage I lung cancer. Unfortunately not enough tissue to do molecular markings and testing. She was able to get Zyrtec radiation with curative intent. She will follow closely with radiation oncology and imaging studies. From respiratory status she is doing well. Denies any worsening shortness of breath. She tolerating her respiratory therapy well. She is scheduled to undergo colonoscopy. currently she is doing well from a respiratory status and may be able to proceed with anesthesia and her colonoscopy without any restrictions. The patient will follow-up in 6-8 months. If she has any worsening issues prior to that she will call for an earlier assessment. 01/14/2024 the patient is here for a pulmonary follow-up visit. The patient overall has been doing okay. She has been following closely by thoracic surgery and Oncology. She did complete additional radiation therapy. The patient as per report tells me that she is currently stable from cancer standpoint. She does continue to have a cough. Productive in nature. She does use the Trelegy with good effect. Will go ahead and add azithromycin 3 times a week for a month to see if we can improve her chronic bronchitis symptoms. Unfortunately she continues to smoke cigarettes. She needs to cut down quit altogether. She has tried multiple modalities without any success. She will continue to cut down her pace at this time. 07/21/2024 the patient is here for a pulmonary follow-up visit. Overall she is doing about the same. She is still working closely with thoracic surgery and Oncology. She has completed all her therapies. She is having serial CT scans and right now her last 1 per report of the patient was okay. She is going to follow-up with them in the next 4-6 months. In the meantime she continues using the Trelegy. She does not feel like Trelegy given her the energy of the i mprovement of the dyspnea as she wishes. She is wondering about other inhalers. I do not believe she is going to see any significant improvement from other inhalers though. She could try Breztri if she wanted to but at this point she rather stay with the once a day dosing. She has responded well to the azithromycin is helping her with chronic bronchitis and she is tolerating that well. As far as other medications to consider theophylline as an option. Peripheral now I do believe that a nebulizer be effective. She can use it twice a day to allow better bronchodilation of the airways. 01/22/2025 the patient is here for pulmonary follow-up visit. Overall the patient has been doing well. She continues on the Trelegy. She did not tolerate the DuoNeb because it caused her significant coughing so therefore she stopped it. I did offer her rescue inhaler but the patient would like not to have 1 right now. As far as her sleep she did try the trazodone but it was too strong. She is going to try half in the dose to see if this is more for her. The patient also was found to have a nodular density. She is following closely with thoracic surgery at [facility]. Will going to request the last visit note and imaging studies. She does have a nodule that will require SBRT. She is going to start that soon. Otherwise the patient is without any other concerns or complaints. Will have her follow-up in a year specially since she is following closely with thoracic surgery if any issues arise she can always call for an earlier assessment. [facility] Medical History Encounter for general adult medical examination with abnormal findings Insomnia Post-COVID syndrome Fatigue Acute kidney injury Erythrocytosis Malignant neoplasm of upper lobe of left lung (~2019) Chronic pancreatitis Pulmonary nodules Angina pectoris GERD (gastroesophageal reflux disease) Sarcoidosis Hx of hiatal hernia History of IBS Nicotine dependence Thrombosis of right iliac artery Chronic cough COPD (chronic obstructive pulmonary disease) Arthritis Hx of chronic kidney disease Elevated cholesterol PVD (peripheral vascular disease) Myocardial infarction (~2000) CAD (coronary artery disease) HTN (hypertension) Surgical History Hx of cataract extraction Hx of cystoscopy History of partial hysterectomy History of cardiac cath (~2000) History of endarterectomy (~2016) History of esophagogastroduodenoscopy (EGD) (~2019) History of colonoscopy (~2018) History of lung surgery (~2019) Hx of tubal ligation Hx of tonsillectomy History of lung biopsy (~2019) Family History Father Heart disease Mother Heart disease Brother Diabetes Sister Mental health disorder Social History Household Members: Other Household Members Other:: ex Housing: House Are you a primary health care law specialist to a significant other at home: No Do you presently have visiting nurse or other home services: No Alcohol intake: current Alcohol intake frequency: holidays/special occasions only Patient Tobacco Use Status: Current everyday Tobacco user Tobacco use type: Cigarette Cigarettes Per Day: 6 Years Smoked: 40 e-Cigarette/Vaping Use: Never Used Second Hand Smoke Exposure: No service: No Current occupational status: retired Cognitive needs: No Hearing needs: No Vision needs: Yes Review of Systems Const Denies night sweats and Denies weight gain ENT Denies lip swelling, Denies mouth pain, Reports nasal congestion and Denies tongue swelling Card Reports chest pain Resp Reports cough, Denies pain on inspiration and Denies pain with cough GI Denies abdominal pain Musc Denies no additional complaints Neuro Denies Neuro-related abnormal movements Psych Denies no additional complaints Juice/Lymph Denies easy bleeding and Denies lymphadenopathy Aller/Immun Denies lip swelling and Denies tongue swelling Physical Exam Vital Signs: Last Vital Signs Pulse 84 01/22/25 08:29 BP 140/64 H 01/22/25 08:29 Pulse Ox 96 01/22/25 08:29 Oxygen Delivery Method Room Air 01/22/25 08:29 BMI result Body Mass Index 12.9 Const General: alert Nutritional Appearance: underweight HEENT General nose exam: Abnormal external nose present and Nasal discharge present Eyes Pupils: Equal, round and reactive pupils present Neck Neck: Yes normal visual inspection, Yes full ROM and Yes no lymphadenopathy Chest Chest palpation & inspection: normal inspection of the chest Resp Effort & Inspection: normal respiratory effort Auscultation: diminished lung sounds Cardio Rate: regular rate Rhythm: regular rhythm Heart sounds: S1 normal heart sound present and S2 normal heart sound present GI Palpation (GI): Soft to palpation and nontender Auscultation: normal bowel sounds General: Yes no CVA tenderness Back/Spine/Pelvis Back: no CVA tenderness Skin General skin exam: rashes and/or lesions noted Neuro Cranial nerves: Yes Equal, round and reactive pupils present Assessment & Plan Assessment & Plan (1) Pulmonary nodules: Comment: +malignancy s/p SBRT Code(s): R91.8 - Other nonspecific abnormal finding of lung field Category: Medical Plan: 7 mm nodule (2) Nicotine dependence: Code(s): F17.200 - Nicotine dependence, unspecified, uncomplicated Category: Medical Qualifiers: Nicotine product type: cigarettes Substance use status: uncomplicated Qualified Code(s): F17.210 - Nicotine dependence, cigarettes, uncomplicated Plan: tobacco cesation (3) COPD (chronic obstructive pulmonary disease): Comment: (severe obstructive) Code(s): J44.9 - Chronic obstructive pulmonary disease, unspecified Category: Medical Qualifiers: COPD type: emphysema Emphysema type: centrilobular Qualified Code(s): J43.2 - Centrilobular emphysema Plan: cont respiratory therapy (4) Insomnia: Code(s): G47.00 - Insomnia, unspecified Category: Medical Qualifiers: Insomnia type: primary Qualified Code(s): F51.01 - Primary insomnia Plan Continue Trelegy. stopped Duoneb therapy twice a day consider BILL as needed Trazodone, ok to talf table 1 hour before sleep short-acting beta agonist as needed follow-up with Rad onc for SBRT follow-up in 8-12 months Medications: Refilled [id number] 200-62.5-25 mcg (Trelegy Ellipta) 1 inh inhalation DAILY 60 ea 12RF 30 days Coding Level of Care Code Est Pt Level 4 (08351) Complex EM visit Add On G2211 Diagnoses Pulmonary nodules R91.8 Cigarette nicotine dependence without complication F17.210 Nicotine product type: cigarettes Substance use status: uncomplicated Centrilobular emphysema J43.2 COPD type: emphysema Emphysema type: centrilobular Primary insomnia F51.01 Insomnia type: primary Time Spent (min) 16
[2025-01-22 08:29] VITALS: BP 140/64; PULSE 84; O2SAT 96; BMI 12.9
--- OUTSIDE RECORDS SUMMARY | 2025-01-22 08:57 | XMS_ITS | Clinical Summary ---
Author Organization [facility] Address [address] [place] [phone] Phone Care Team Providers Care Host And Hostess Name Role Phone Cheo Michaels MD Primary Care Provider [phone] Allergies No known active allergies Medications ferrous [...] (one) time each day if needed. Active cholecalcifero l (VITAMIN D-3) 50 mcg (2,000 unit) tablet Take 1 tablet (2,000 Units total) by mouth 1 (one) time each day. Active Active Problems Problem Noted Date Diagnosed Date Primary cancer of left lower lobe of lung ([facility] V24, [facility] V28) 01/02/2025 History of lung cancer 11/09/2024 Chronic renal insufficiency 05/29/2024 Pulmonary emphysema ([facility] V24, [facility] V28) 0 05/29/2024 PAD (peripheral artery disease) ([facility] V24) Lung mass 05/29/2024 OA (osteoarthritis) 05/29/2024 Palpitations 05/29/2024 Underweight 05/29/2024 Cachexia ([facility] V24) 05/25/2023 CAD (coronary artery disease) 05/25/2023 Current smoker 05/25/2023 Erythrocytosis 05/25/2023 Angina pectoris ([facility] V24) 01/17/2021 Chronic kidney disease 01/17/2021 Peripheral vascular disease ([facility] V24) 2020 Thrombosis 01/17/2021 Malignant neoplasm metastati c to lung ([facility] V24, [facility] V28) 01/17/2021 Old myocardial infarction 01/17/2021 Pancreatitis 01/17/2021 Chronic obstructive pulmonar y disease ([facility] V24, [facility] V28) 11/23/2016 Lung nodule 11/23/2016 Hyperlipidemia 09/09/2016 Hypertension 09/09/2016 Encounters Date Type Department Care Team Description 01/16/2025 11:00 AM EDT - 01/16/2025 11:59 PM EDT Hospital Encounter [facility] Radiation Oncology [address] [place] [phone] Lobo Morton MD Primary cancer of left lower lobe of lung ([facility] V24, [facility] V28) Discharge Disposition: Home or Self Care 01/16/2025 10:00 AM EDT - 01/16/2025 11:59 PM EDT Hospital Encounter [facility] Radiation Oncology [address] [place] [phone] 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 ([facility] V[facility], [facility] V28) (Primary Dx) Discharge Disposition: Home or Self Care 01/02/2025 9:29 AM EDT - 01/02/2025 11:59 PM EDT Hospital Encounter [facility] Radiation Oncology [address] [place] [phone] Radha Valdez MD Primary cancer of left lower lobe of lung ([facility] V24, [facility] V28) Discharge Disposition: Home or Self Care 01/02/2025 9:27 AM EDT - 01/02/2025 11:59 PM EDT Hospital Encounter [facility] Radiation Oncology [address] [place] [phone] Discharge Disposition: Home or Self Care 12/28/2024 Telephone [facility] Radiation Oncology [address] [place] [phone] Juliane Dejesus MA 12/28/2024 Telephone [facility] Radiation Oncology [address] [place] [phone] Juliane Dejesus MA 12/19/2024 Telephone [facility] Radiation Oncology [address] [place] [phone] Juliane Dejesus MA 12/19/2024 Telephone [facility] Radiation Oncology [address] [place] [phone] Juliane Dejesus MA 12/14/2024 9:00 AM EDT Office Visit Thoracic Surgery - [address] [phone] Carl Brown MD Primary cancer of left lower lobe of lung ([facility] V24, [facility] V28) (Primary Dx); History of lung cancer 12/07/2024 9:45 AM EDT Anesthesia Event [address] [phone] Goyo Farmer MD 12/07/2024 9:00 AM EDT - 12/07/2024 11:00 AM EDT Surgery [place] [address] [place] [address] Carl Brown MD Navigation bronchoscopy/EBUS w/biopsies [09110 (CPT ) +5 more] 12/07/2024 7:07 AM EDT - 12/07/2024 12:51 PM EDT Hospital Encounter [facility] Main OR [address] [place] [phone] Carl Brown MD Lung nodule; History of lung cancer Discharge Disposition: Home or Self Care 12/07/2024 7:05 AM EDT - 12/07/2024 11:59 PM EDT Hospital Encounter [facility] Xray [address] [place] [phone] Pain Discharge Disposition: Home or Self Care 11/29/2024 Telephone [facility] Radiation Oncology [address] [place] [phone] Kathy Navarrete NP 11/28/2024 Telephone Pulmonology - [place] [address] [phone] Sylvia Mccann RN 11/27/2024 3:12 PM EDT - 11/27/2024 11:59 PM EDT Hospital Encounter [facility] CT Scan [address] [place] [address] Pulmonary nodule; Personal history of malignant neoplasm of lung Discharge Disposition: Home or Self Care 11/10/2024 Telephone Thoracic Surgery - [place] [address] [phone] Fatoumata Fonseca [place] 11/09/2024 10:30 AM EDT Consult Thoracic Surgery - [place] [address] [phone] Carl Brown MD Lung nodule (Primary Dx); History of lung cancer; Neoplasm 11/02/2024 7:24 AM EDT - 11/02/2024 11:59 PM EDT Hospital Encounter [facility] PET Scan [address] [place] [address] 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 ([facility] V24, [facility] V28) Discharge Disposition: Home or Self Care 10/31/2024 9:39 AM EDT - 10/31/2024 11:59 PM EDT Hospital Encounter [facility] Radiation Oncology [address] [place] [phone] Kathy Navarrete, KISHA 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 ([facility] V24, [facility] V28) (Primary Dx) Discharge Disposition: Home or Self Care 10/31/2024 Telephone Pulmonology - [place] [address] [facility] [address] [place] [phone] Sylvia Mccann RN 10/23/2024 10:39 AM EDT - 10/23/2024 11:59 PM EDT Hospital Encounter [facility] CT Scan [address] [place] [phone] 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 ([facility] V24, [facility] V28) Discharge Disposition: Home or Self Care from Last 3 Months Surgical History Surgery Date Site/Laterality Comments LUNG SURGERY Left PROCEDURE:LUNG SURGERY OTHER SURGICAL HISTORY ILIAC ARTERY STENT BRONCHOSCOPY 12/07/2024 Navigation bronchoscopy/EBUS w/ BX Medical History Medical History Date Comments Lung cancer ([facility] V24, [facility] V28) DX:Lung cancer ([facility]) Hypertension DX:Hypertension COPD (chronic obstructive pu lmonary disease) ([facility] V24, [facility] V28) DX:COPD (chronic o bstructive pulmonary disease) ([facility]) PAD (peripheral artery disea se) ([facility] V24) DX:PAD (peripheral artery di sease) ([facility]) Hyperlipidemia Peripheral vascular disease ([facility] V24) Lung nodule Heart disease PAD Shortness [...] Description 01/31/2025 11:30 AM EDT Appointment [facility] Radiation Oncology [address] [place] [phone] Lobo Morton MD [address] [place] [phone] 02/02/2025 11:30 AM EDT Appointment [facility] Radiation Oncology [address] [place] [phone] Nima Albright MD [address] [place] [address] 02/05/2025 11:30 AM EDT Appointment [facility] Radiation Oncology [address] [place] [phone] Nima Albright MD [address] [place] [address] 02/07/2025 11:30 AM EDT Appointment [facility] Radiation Oncology [address] [place] [phone] Lobo Morton MD [address] [place] [address] 02/13/2025 10:00 AM EDT Appointment [facility] Radiation Oncology [address] [place] [phone] Kathy Navarrete NP [address] [place] [address] Health Maintenance Due Date Last Done Comments Breast Cancer Screening 1950 Colorectal Cancer Screening: Colonoscopy 1950 DTaP,Tdap,and Td Vaccines (1 - Tdap) 1970 RSV Immunization Adult Patients (1 - Risk 60-74 years 1-dose series) 2011 Cholesterol Screening (Lipid Panel) 03/17/2022 Falls Risk Assessment 03/17/2022 Hepatitis C [...] ENDOTRACHEAL(NO CHARGE) Routine 12/07/2024 10:03 AM EDT NE CORE NDL BX LNG/MED PERQ 12/07/2024 9:45 AM EDT Lung nodule History of lung cancer Case Notes C-ARM Special Needs Needs c-arm out patientTime change per Fatoumata 8/18 JT NE BRONCHOSCOPY INCL FLUORO GUIDANCE W BRONCHIAL/ENDOBRONCHI AL BX SGL/MULT 12/07/2024 9:45 AM EDT Lung nodule History of lung cancer Case Notes C-ARM Special Needs Needs c-arm out patientTime change per Fatoumata 18 JT NE BRONCHOSCOPY RIGID/FLEXIBLE W/TRANSBRONCHIAL LUNG BIOPSY(S) SINGLE LOBE 12/07/2024 9:45 AM EDT Lung nodule History of lung cancer Case Notes C-ARM Special Needs Needs c-arm out patientTime change per Fatoumata 18 JT NE BRONCHOSCOPY RIGID/FLEXIBLE COMPUTER ASSISTED IMAGE GUIDED NAVIGATION 12/07/2024 9:45 AM EDT Lung nodule History of lung cancer Case Notes C-ARM Special Needs Needs c-arm out patientTime change per Fatoumata 18 JT NE BRONCHOSCOPY INCL FLUOROSCOPIC GUID W EBUS DURING PERIPHERAL LESION 12/07/2024 9:45 AM EDT Lung nodule History of lung cancer Case Notes C-ARM Special Needs Needs c-arm out patientTime change per Fatoumata 18 JT NE BRONCHOSCOPY INCL FLUROSCOPIC GUIDANCE W PLCMNT FIDUCIAL MARKER /MULT 12/07/2024 9:45 AM EDT Lung nodule History of lung cancer Case Notes C-ARM Special Needs Needs c-arm out patientTime change per Fatoumata 18 JT PROCEDURAL ECG Routine 11/28/2024 10:39 AM [...] Signed Date: 12/07/2024 12:01 ET Workstation ID: [id number] Transcribed By: Self Edit Transcribed Date: 12/07/2024 [...] Signed Date: 12/07/2024 12:01 ET Workstation ID: [id number] Transcribed By: Self Edit Transcribed Date: 12/07/2024 11:43 ET us Carl Brown MD IMG XR PROCEDURES Final Result * (ABNORMAL) Culture bronchial with gram stain (12/07/2024 10:52 AM EDT) Bronchial Culture Rare Stenotrophomonas maltophilia(A) TRAM 12/11/2024 10:20 AM EDT [facility] Comment: The organism value for this result has been updated. These results have been appended to the previously preliminary verified report. Edited result: Previously reported as Gram negative bacilli on 12/10/2024 at 0827 EDT. Gram Stain Result No polymorphonuclear leukocytes, No epithelial cells, and No organisms noted 12/11/2024 10:20 AM EDT [facility] Bronchoalveolar Lavage Structure of lower lobe of left lung / Unknown 12/07/2024 10:52 AM EDT 12/07/2024 11:31 AM EDT Narrative Organism Antibiotic Method Susceptibility Stenotrophomonas maltophilia Levofloxacin DISK DIFFUSI ON Resistant Stenotrophomonas maltophilia Minocycline DISK DIFFUSI ON Resistant Stenotrophomonas maltophilia Trimethopri m/Sulfamethoxaz ole DISK DIFFUSION Susceptible us Carl Brown MD LAB MICROBIOLOGY - GENERAL ORDER JOSE MANUEL Final Result Performing Organization Address City/[facility]/ZIP Co de Phone Number [facility] [address] [place] [address], [place] [phone] * Concentration (12/07/2024 10:52 AM EDT) AFB Concentration Performed 4:05 PM EDT [facility] Structure of lower lobe of left lung / Unknown 12/07/2024 10:52 AM EDT 12/07/2024 11:31 AM EDT Narrative [facility] - 12/08/2024 4:05 PM EDT Performed at: - [facility] [id number] Collateral Specialist: Joy Hawthorne MD, Phone: [phone] us Carl Brown MD LAB BLOOD ORDERABLES Final Resul t Performing Organization Address [facility] Co de Phone Number [facility] * Acid fast bacilli stain (12/07/2024 10:52 AM EDT) AFB Stain Result No Acid fast bacilli seen on direct smear (Fuchsin method, 1000x) No Acid Fast Bacilli seen on direct smear 12/07/2024 2:17 PM EDT [facility] Wash Structure of lower lobe of left lung / Unknown 12/07/2024 10:52 AM EDT 12/07/2024 11:31 AM EDT us Carl Brown MD LAB MICROBIOLOGY - GENERAL ORDER JOSE MANUEL Final Result Performing Organization Address City/[facility]/ZIP Co de Phone Number [facility] [address] [place] [address], [place] [phone] * Culture fungal, other (12/07/2024 10:52 AM EDT) Culture, Fungus Negative for Fungus after 4 Weeks 01/04/2025 11:25 AM EDT [facility] Wash Structure of lower lobe of left lung / Unknown 12/07/2024 10:52 AM EDT 12/07/2024 11:31 AM EDT Carl Brown MD LAB MICROBIOLOGY - GENERAL ORDER JOSE MANUEL Final Result [facility] [address] [place] [address], [place] [phone] * Tissue exam (12/07/2024 10:27 AM EDT) Final Diagnosis A. Lung, Left Lower Lobe, cavitary superior segment, biopsy: Fibroelastotic tissue present. Not diagnostic for neoplasia. B. Lung, Left Lower Lobe, Nodule, biopsy: Not diagnostic. No lesional tissue identified. 5 3:18 PM EDT [facility] Comment Project Mgr slide(s) from this case have been presented at Anatomic Pathology Intradepartmental Review Conference on 12/08/24 with agreement. Please see concurrent cytology, [id number], for diagnosis. 5 3:18 PM EDT [facility] Gross Description A. Lung, [...] each block; which might fail processing). TS 3:18 PM EDT [facility] Disclaimer Unless otherwise specified, all tissue is 10% NB formalin fixed and paraffin embedded. 3:18 PM EDT [facility] Tissue Structure of lower lobe of left lung / Unknown 12/07/2024 10:27 AM EDT 12/07/2024 11:29 AM EDT Tissue specimen (specimen) Structure of lower lobe of left lung / Unknown 12/07/2024 10:45 AM EDT 12/07/2024 11:29 AM EDT us Carl Brown MD LAB PATHOLOGY ORDERABLES Final R esult [facility] [address] [place] [address], * Non-gynecologic cytology (12/07/2024 10:20 AM EDT) Final Diagnosis A. Lung, Left Lower Lobe, Left cavitary superior segment, fine needle aspiration, (ThinPrep, cell block): Positive for malignant cells. Squamous cell carcinoma. B. Lung, Left Lower Lobe, Bronchial [place], Left cavitary superior segment: (ThinPrep, cell block): [...] No lesional material identified. 12/08/2024 3:16 PM [facility] Comment Diagnostic focus of squamous cell carcinoma best seen in the cell block for part A. It is insufficient for PD L1 testing. The ThinPrep of Part A contains numerous keratinized cells with atypia. The ThinPrep of part B contains markedly atypical cells, highly suspicious for carcinoma. The cell block is non- contributory. Project Mgr slide(s) from this case have been presented at Anatomic Pathology Intradepartmental Review Conference on 12/08/24. I notified Dr. Brown of the final diagnosis by secure message at 3:10pm. 12/08/2024 3:16 PM [facility] Specimen A Adequacy Satisfactory for evaluation 12/08/2024 3:16 PM [facility] Specimen B Adequacy Satisfactory for evaluation 12/08/2024 3:16 PM [facility] Specimen C Adequacy Specimen processed and examined, but unsatisfactory for eval of abnormal epithelial 12/08/2024 3:16 PM [facility] Specimen D Adequacy Specimen processed and examined, but unsatisfactory for eval of abnormal epithelial 12/08/2024 3:16 PM [facility] Specimen E Adequacy Satisfactory for evaluation 12/08/2024 3:16 PM [facility] Specimen F Adequacy Specimen processed and examined, but unsatisfactory for eval of abnormal epithelial 12/08/2024 3:16 PM [facility] Gross Description A. Lung, Left Lower Lobe, Left cavitary superior segment: Received in Cytolyt 30 ml of clear fluid, 1 ThinPrep. 1 Cellblock Cell block in formalin @ 13:00 , total formalin fixation time 8 hours. B. Lung, Left Lower Lobe, Bronchial [place], Left cavitary superior segment: Received in Cytolyt [...] time 8 hours. 12/08/2024 3:16 PM EDT [facility] Disclaimer Unless otherwise specified, all tissue is 10% NB formalin fixed and paraffin embedded. Technical cytopathology services provided by [facility], at [address] [place] [address] (CLIA # [id number]/Fantasma Lopez MD, Telephone Worker.) 12/08/2024 3:16 PM EDT [facility] Fine Needle Aspirate Structure of lower [...] MD LAB CYTOLOGY ORDERABLES Final Re sult [facility] ([facility]) [facility] [address] [place] [address], [place] [phone] * TH AN ENDOTRACHEAL(NO CHARGE) (12/07/2024 10:03 [...] Procedural (No Charge) (11/28/2024 10:39 AM EDT) Ventricular Rate ECG 66 BPM GEMUSE Atrial Rate 66 BPM GEMUSE P-R Interval 110 ms GEMUSE QRS Duration 78 ms GEMUSE Q-T Interval 428 ms GEMUSE QTc 448 ms GEMUSE P Wave [place] 65 degrees GEMUSE R [place] 76 degrees GEMUSE T [place] 78 degrees GEMUSE ECG Interpretation Sinus rhythm with short NE with Premature supraventricular complexes Minimal voltage criteria [...] CBC auto differential (11/28/2024 10:30 AM EDT) WBC 7.9 4.8 - 10.8 K/mcL LAB HEMETOLOGY [facility] RBC 4.70 3.80 - 4.80 M/mcL LAB HEMETOLOGY METHOD 11/28/2024 [facility] Hemoglobin 14.5 11.5 - 16.0 g/dL LAB HEMETOLOGY METHOD 11/28/2024 11:04 AM [facility] Hematocrit 44.5 35.0 - 47.0 % LAB HEMETOLOGY METHOD 11/28/2024 11:04 AM [facility] MCV 95.1 79.0 - 98.0 FL LAB HEMETOLOGY METHOD 11/28/2024 11:04 AM [facility] MCH 31.0 27.0 - 32.0 pcg LAB HEMETOLOGY METHOD 11/28/2024 11:04 AM [facility] MCHC 32.6 32.0 - 37.0 g/dL LAB HEMETOLOGY METHOD 11/28/2024 11:04 AM [facility] RDW 11.8 11.0 - 15.0 % LAB HEMETOLOGY METHOD 11/28/2024 11:04 AM [facility] Platelets 160 130 - 400 K/mcL LAB HEMETOLOGY METHOD 11/28/2024 11:04 AM [facility] MPV 9.3 7.0 - 11.0 FL LAB HEMETOLOGY METHOD 11/28/2024 11:04 AM [facility] NRBC 0.0 <1.0 % LAB HEMETOLOGY METHOD 11/28/2024 11:04 AM [facility] NRBC Absolute 0.00 <0.10 K/mcL LAB HEMETOLOGY METHOD 11/28/2024 11:04 AM [facility] Neutrophils Relative 74.5 % LAB HEMETOLOGY METHOD 11/28/2024 11:04 AM [facility] Lymphocytes Relative 12.6 % LAB HEMETOLOGY METHOD 11/28/2024 11:04 AM [facility] Monocytes Relative 10.5 % LAB HEMETOLOGY METHOD 11/28/2024 11:04 AM [facility] Eosinophils Relative 1.3 % LAB HEMETOLOGY METHOD 11/28/2024 11:04 AM [facility] Basophils Relative 1.0 % LAB HEMETOLOGY METHOD 11/28/2024 11:04 AM [facility] Immature Granulocytes Relative 0.1 % LAB HEMETOLOGY METHOD 11/28/2024 11:04 AM [facility] Neutrophils Absolute 5.91 1.50 - 7.00 K/mcL LAB HEMETOLOGY METHOD 11/28/2024 11:04 AM [facility] Lymphocytes Absolute 1.00 1.00 - 5.00 K/mcL LAB HEMETOLOGY METHOD 11/28/2024 11:04 AM EDT [facility] Monocytes Absolute 0.83 0.20 - 1.00 K/[facility] LAB HEMETOLOGY METHOD 11/28/2024 11:04 AM EDT [facility] Eosinophils Absolute 0.10 0.00 - 0.50 K/[facility] LAB HEMETOLOGY METHOD 11/28/2024 11:04 AM EDT [facility] Basophils Absolute 0.08 0.00 - 0.20 K/[facility] LAB HEMETOLOGY METHOD 11/28/2024 11:04 AM EDT [facility] Immature Granulocytes Absolute 0.01 0.00 - 0.03 K/[facility] LAB HEMETOLOGY METHOD 11/28/2024 11:04 AM EDT [facility] Blood Venous blood specimen / Unknown Venipuncture / Unknown 11/28/2024 10:30 AM EDT 11/28/2024 10:46 AM EDT us Carl Brown MD LAB BLOOD ORDERABLES Final Resul t Performing Organization Address City/[facility]/ZIP Co de Phone Number [facility] [address] [place] [address], [place] [phone] * Activated partial thromboplastin time (11/28/2024 10:30 AM EDT) aPTT 30.2 24.1 - 39.3 sec LAB COAGULATION METHOD 11/28/2024 11:02 AM EDT [facility] Blood Venous blood specimen / Unknown Venipuncture / Unknown 11/28/2024 10:30 AM EDT 11/28/2024 10:46 AM EDT us Carl Brown MD LAB BLOOD ORDERABLES Final Resul t [facility] [address] [place] [address], [place] [phone] * (ABNORMAL) Prothrombin time with INR (11/28/2024 10:30 AM EDT) [facility] Protime 10.5(L) 10.6 - 13.9 sec LAB COAGULATION METHOD 11/28/2024 11:02 AM EDT [facility] INR 0.8 LAB COAGULATION METHOD 11/28/2024 11:02 AM EDT [facility] Blood Venous blood specimen / Unknown Venipuncture / Unknown 11/28/2024 10:30 AM EDT 11/28/2024 10:46 AM EDT us Carl Brown MD LAB BLOOD ORDERABLES Final Resul t Performing Organization Address [facility] de Phone Number [facility] [address] [place] [address], * Type and screen (11/28/2024 10:30 AM EDT) [facility] ABO Group A 11/28/2024 1:18 PM EDT [facility] Rh Type Positive 11/28/2024 1:18 PM EDT [facility] Antibody Screen Negative 11/28/2024 1:18 PM EDT [facility] Blood Venous blood specimen / Unknown Venipuncture / Unknown 11/28/2024 10:30 AM EDT 11/28/2024 10:46 AM EDT us Carl Brown MD LAB BLOOD BANK TEST ORDERABLES F inal Result Performing Organization Address [facility]/ZIP Co de Phone Number [facility] [address] [place] [address], [place] [phone] * (ABNORMAL) Basic metabolic panel (11/28/2024 10:30 AM EDT) Sodium 139 133 - 145 mmol/L LAB CHEMISTRY METHOD 11/28/2024 12:54 PM [facility] Potassium 4.5 3.5 - 5.5 mmol/L LAB CHEMISTRY METHOD 11/28/2024 12:54 PM [facility] Chloride 105 96 - 110 mmol/L LAB CHEMISTRY METHOD 11/28/2024 12:54 PM [facility] CO2 32 21 - 32 mmol/L LAB CHEMISTRY METHOD 11/28/2024 12:54 PM [facility] Anion Gap 2(L) 3 - 11 LAB CHEMISTRY METHOD 11/28/2024 12:54 PM [facility] Glucose 101(H) 70 - 100 mg/dL LAB CHEMISTRY METHOD 11/28/2024 12:54 PM [facility] BUN 19 5 - 25 mg/dL LAB CHEMISTRY METHOD 11/28/2024 12:54 PM [facility] Creatinine 1.50(H) 0.50 - 1.10 mg/dL LAB CHEMISTRY METHOD 11/28/2024 12:54 PM [facility] eGFR 37(L) >=60 mL/min/1. 73m2 LAB CHEMISTRY METHOD 11/28/2024 12:54 PM [facility] Comment:Calculation based on the Chronic Kidney Disease Epidemiology Collaboration (CKD-EPI) equation refit without adjustment for race. BUN/Creatinine Ratio 12.7 LAB CHEMISTRY METHOD 11/28/2024 12:54 PM [facility] Calcium 9.4 8.5 - 10.5 mg/dL LAB CHEMISTRY METHOD 11/28/2024 12:54 PM [facility] Blood Venous blood specimen / Unknown Venipuncture / Unknown 11/28/2024 10:30 AM EDT 11/28/2024 10:46 AM EDT us Carl Brown MD LAB BLOOD ORDERABLES Final Resul t [facility] [address] [place] [address], * CT Chest wo Contrast (11/27/2024 3:39 [...] Signed Date: 12/01/2024 12:25 ET Workstation ID: [id number] Transcribed By: Self Edit Transcribed Date: 12/01/2024 [...] 0.8 cm () 10/23/24-1.2 x 0.9 cm (53) The largest solid component measures 1.1 x 0.9 cm (60) There was a 0.4 cm nodule in this area on 06/21/24, 11/19/23 and 04/29/23. This has concerning features There is an irregular nodule in the superior segment left lower lobe 11/27/24-0.6 cm (100) 10/23/24-0.2 cm () 04/29/23-not present There is an irregular nodule in the anterior left upper lobeperipherally. 11/27/24-0.9 x 0.4 cm (95) 10/23/24-0.9 x 0.4 cm (/80) 05/24/24-0.9 x 0.3 cm 4/43) 11/19/23-1.1 x 0.5 cm (75/270) 04/29/23-solid and [...] Signed Date: 12/01/2024 12:25 ET Workstation ID: [id number] Transcribed By: Self Edit Transcribed Date: 12/01/2024 [...] Signed Date: 11/02/2024 18:13 ET Workstation ID: [id number] Transcribed By: Self Edit Transcribed Date: 11/02/2024 [...] No abnormal FDG activity. Procedure Note Yanni hAuja MD - 11/02/2024 INDICATION: hx lung cancer. [...] Signed Date: 11/02/2024 18:13 ET Workstation ID: [id number] Transcribed By: Self Edit Transcribed Date: 11/02/2024 15:38 ET Kathy Navarrete NP IMG NM PROCEDURES Fin al Result from Last 3 Months Insurance [employer] Care Teams Host And Hostess Relationship Specialty Start Date End Date Cheo Michaels MD [address] [place] [address] PCP - General Internal Medicine 02/18/17
--- OUTSIDE RECORDS SUMMARY | 2025-01-22 08:57 | XMS_ITS | Clinical Summary ---
Author Organization [facility] Address [address] [place] [address] Care Team Providers Care Reservations And Ticketing Agent Name Role Phone Cheo Michaels MD Primary Care Provider [phone] Allergies No known active allergies Medications Medication [...] age to complete this topic Care Teams Reservations And Ticketing Agent Relationship Specialty Start Date End Date Cheo Michaels MD [address] [facility] [place] [phone] PCP - General Internal Medicine 05/11/23
--- OUTSIDE RECORDS SUMMARY | 2025-01-22 08:57 | XMS_ITS | Clinical Summary ---
Author Organization [facility] Address [address] [facility] [address] [place] [address] Phone Care Team Providers Care Code Enforcement Inspector Name Role Phone Cheo Michaels MD Primary Care Provider [phone] Allergies No known active allergies Medications rosuvastatin [...] Health Medicare [employer] Medicare Care Teams Code Enforcement Inspector Relationship Specialty Start Date End Date Cheo Michaels MD [address] [place], [place] [id number] PCP - General Internal Medicine 03/05/21
== END 2025-01-22 08:56 | disposition home or self-care (01) ==
LOC: HO.HPS 08:27
PROVIDERS: PCP Internal Medicine; Visit Provider Hospitalist
DX: R91.8 Other nonspecific abnormal finding of lung field (principal); F17.210 Nicotine dependence, cigarettes, uncomplicated; J43.2 Centrilobular emphysema; F51.01 Primary insomnia
CPT/HCPCS: 99214; G2211

== ENCOUNTER → 2025-01-22 08:27 | Outpatient (BNVA) | payer MEDICARE, SELFPAY | PROVIDERS: PCP Internal Medicine; Visit Provider Hospitalist | DX: R91.8 Other nonspecific abnormal finding of lung field (principal); J43.2 Centrilobular emphysema; F51.01 Primary insomnia; F17.210 Nicotine dependence, cigarettes, uncomplicated | CPT/HCPCS: 99212 ==